=== PATIENT | male | born 1950 | race Caucasian/White ===

== ENCOUNTER 2024-03-27 15:33 | Inpatient (IN) | payer MEDICARE, SELFPAY ==
[2024-03-27] VITALS (36 sets, daily range): BP systolic 81–113; BP diastolic 49–67; BMI 28.5
--- NOTE | 2024-03-27 10:57 | ED.GENMED ---
History of Present Illness
General
Chief Complaint: Abnormal Lab Value
Source: patient
Exam Limitations: none
Time Seen by Provider: 03/27/24 10:45
History of Present Illness
History of Present Illness:
See MDM
Past History
Past History
ED Past Medical History: Arrthythmia, HTN and Other (ESRD)
ED Past Surgical History: Cardiac and Orthopedic
Social History
Tobacco: Non-smoker
Alcohol: None
Phy Exam
Physical Exam
Physical Exam:
See MDM
Course
Orders/Labs/Results
Orders:
Orders
03/27/24 10:51
Pantoprazole 80 mg/100 ml Nss [Protonix] 80 mg in 100 ml IV NOW
Pantoprazole [Protonix IV] 80 mg IV NOW STA
03/27/24 10:52
IV Insert/Care/Rem.- Treatment PRN
03/27/24 10:58
CR Chest Portable - 1 View Urgent
Comment:
Reason For Exam: SOB, ESRD
Reason Study Needs to be Portable: Patient Unstable
03/27/24 10:59
Type+Screen Urgent
Complete Blood Count/With Diff Urgent
Comprehensive Metabolic Panel Urgent
PTT Urgent
Prothrombin Time Urgent
03/27/24 11:48
* Blood Bank Products Urgent
's Orders: Tristian Woo DO
Blood Bank Products: *Packed RBC Leuko(PRBC's)
Quantity: 1
Transfuse Today: Yes
Reason: Anemia
03/27/24 12:08
Morphine Sulfate 4 mg IV NOW STA
03/27/24 12:12
Furosemide [Lasix] 80 mg IV NOW STA
HYDROmorphone [Dilaudid] 1 mg IV NOW STA
03/27/24 12:13
Consult Nephrology [NEPHROLOGY CONSULT] Routine
Consulting Provider: Daryl Huerta
Was physician already notified: Yes
Abnormal Lab Results
03/27/24
10:59
WBC 12.5 H 10^3/uL
(4.8-10.8)
RBC 2.39 L 10^6/uL
(4.70-6.10)
Hgb 6.8 L* g/dL
(13.0-18.0)
Hct 21.8 L %
(39.0-52.0)
MCHC 31.2 L g/dL
(33.0-37.0)
RDW 18.0 H %
(11.5-14.5)
Abs Immat Gran (auto) 0.2 H 10^3/uL
(0-0.05)
Absolute Neuts (auto) 10.5 H 10^3/uL
(1.4-6.5)
Absolute Lymphs (auto) 0.4 L 10^3/uL
(1.2-3.4)
Absolute Monos (auto) 1.0 H 10^3/uL
(0.1-0.6)
Immature Gran % 1.6 H %
(0-0.5)
Neutrophils % 84.2 H %
(42.2-75.2)
Lymphocytes % 3.4 L %
(20.5-51.1)
PT 16.2 H Sec
(11.4-14.6)
APTT 41.3 H Sec
(23.4-35.0)
Sodium 133 L mmol/L
(135-145)
Chloride 94 L mmol/L
(98-107)
BUN 56 H mg/dl
(9-20)
Creatinine 6.5 H* mg/dL
(0.7-1.3)
Glucose 108 H mg/dl
(70-99)
Alkaline Phosphatase 127 H U/L
(38-126)
Total Protein 6.0 L g/dl
(6.3-8.2)
Albumin 2.9 L g/dl
(3.5-5.0)
03/27/24 10:59
03/27/24 10:59
Vital Signs
Initial and Last Documented VS:
Initial Vital Signs
Temp Pulse Resp BP Pulse Ox
97.8 F 77 30 98/57 95
03/27/24 10:44 03/27/24 10:44 03/27/24 10:44 03/27/24 10:44 03/27/24 10:44
Last Documented Vital Signs
Temp Pulse Resp BP Pulse Ox
97.8 F 77 26 98/57 95
03/27/24 11:14 03/27/24 11:14 03/27/24 11:14 03/27/24 11:14 03/27/24 11:14
MDM/Problems Addressed
Differential Diagnosis Includes:
HPI and MDM Narrative:
73-year-old male presenting for evaluation of anemia. Patient was due for dialysis today and predialysis blood work showed a hemoglobin of 6.5. Patient is unsure about his baseline. He states he had a history of 'internal bleeding' last month at
[facility]. He denies being on blood thinners and states he had a Watchman procedure done. Patient states his last dialysis was Monday. He complains of shortness of breath and leg swelling. Rectal exam performed showing melanotic stool that is
guaiac positive. Patient started on a PPI drip. He was consented for blood transfusion
Physical exam
General: Weak and frail
HEENT: protecting airway
Neck: appears supple
CV: No evidence of cyanosis
Resp: No accessory muscle use. Poor air exchange. Questional crackles at bases
Abd: Non-distended
Extremities: Left arm fistula with palpable thrill
Neuro: alert
Psych: Normal affect
Skin: Pale
Problems Addressed including Acute and Chronic Conditions affecting care:
1. Upper GI bleed
Acuity: acute
Prognosis: unstable
Details: Given the melanotic stool, patient started on PPI drip
2. Anemia
Acuity: acute
Prognosis: un will repeat hemoglobin. Patient already consented for blood transfusion stable
Details:
Updates
Anemia confirmed with blood work. Patient consented for 1 unit of packed red blood cells. Chest x-ray concerning for pulmonary edema. Patient states he takes urine and is on Lasix. Will give dose of Lasix. Nephrology made aware
Differential Diagnosis (but not limited to): Upper GI bleeding, pulmonary edema
Testing considered: CT angio abdomen/pelvis but the bleeding does not appear to be brisk enough. He denies abdominal pain
Drug therapy (if applicable): OTC meds, please see d/c instruction regarding Rx drugs
Amount and/or Complexity of Data Reviewed
Clinical info obtained from: Patient
External data reviewed: N/A
Labs I independently reviewed (but not limited to): Anemic, elevated creatinine
Radiology: X-ray independently reviewed: Chest x-ray consistent with pulmonary edema
Pulse Ox: not hypoxic
EKG independently reviewed: N/A
Chain Maker Machine: N/A
Critical Care: the high probability of a clinically significant, sudden or life threatening deterioration of the cardiovascular and gastrointestinal system(s) required my full and direct attention, intervention and personal management. The
aggregate critical care time was 33 minutes. This time is in addition to time spent performing reported procedures but includes the following:
[x] Data Review and interpretation
[x] Patient assessment and monitoring of vital signs
[x] Documentation
[x] Medication orders and management
Risk of Complication:
Social Determinants of health: Good social support
Discussed with other providers: Hospitalist, nephrology
Escalation of Care includes Admit/Obs: Given the concern for upper GI bleeding and pulmonary edema, will admit for hemoglobin trending and dialysis
Occasional wrong word or 'sound a like' substitutions may have occurred due to the inherent limitations of voice recognition software. Read the chart carefully and recognize, using context, where substitutions have occurred.
*Critical Care Note
Total Time (30-74mins, 75-104mins- exclusive of procedures): 33 min
ED Attending Note
-
Portions of this chart may have been created with voice recognition software.� Occasional wrong word or��sound alike� substitutions may have occurred due to the inherent limitations of voice recognition software.
Discharge Plan
Departure
Patient Disposition: Admit
Date of Disposition: 03/27/24
Time of Disposition: 12:17
Admit to: Telemetry
Presentation/result/management discussed w/ accepting MD/DO: Hospitalist
Discharge Problem:
Pulmonary edema, UGIB (upper gastrointestinal bleed), Anemia, CKD (chronic kidney disease)
Prescriptions:
No Action
atorvastatin [Lipitor] 40 mg Tablet
40 mg PO HS
sennosides [senna] 8.6 mg Tablet
17.2 mg PO HS
acetaminophen [Tylenol] 325 mg Tablet
650 mg PO Q6HPRN PRN (Reason: mild pain)
amiodarone 200 mg Tablet
200 mg PO DAILY
omeprazole 40 mg Capsule,Delayed Release(Dr/Ec)
40 mg PO BID
acetaminophen [Tylenol Extra Strength] 500 mg Tablet
1,000 mg PO Q8H
magnesium hydroxide [Milk of Magnesia] 400 mg/5 mL Suspension
2,400 mg PO HSPRN PRN (Reason: if no bm on 3rd)
repaglinide 0.5 mg Tablet
0.5 mg PO NOON
furosemide [Lasix] 80 mg Tablet
80 mg PO DAILY
bisacodyl [Dulcolax (bisacodyl)] 10 mg Suppository
10 mg [place] DAILYPRN PRN (Reason: if no bm aftr mom)
ferrous sulfate 325 mg (65 mg iron) Tablet
325 mg PO DAILY
mupirocin 2 % Ointment
1 applic TOPICAL TID
mupirocin 2 % Ointment
1 applic TOPICAL DAILYPRN PRN (Reason: right elbow wound)
ergocalciferol (vitamin D2) 1,250 mcg (50,000 unit) Capsule
1,250 mcg PO RAO
[place] Caps 1 mg Capsule
1 cap PO DAILY
albuterol sulfate [ProAir HFA] 90 mcg/actuation Hfa Aerosol Inhaler
2 puff INHALATION R Q6HPRN PRN (Reason: sob)
amoxicillin-pot clavulanate [Augmentin] 500-125 mg Tablet
1 tab PO BID
Rx Instructions:
take from 03/22/24-03/28/24
melatonin 5 mg Tablet
10 mg PO HS
rifaximin 550 mg Tablet
550 mg PO BID
lactulose 10 gram/15 mL (15 mL) Solution
15 g PO BID
Referrals:
Luis A Momin MD [Family Provider] -
Interventions
Interventions:
*Risk Screen - Suicide Last Done: 03/27/24 10:44
*General Assessment Last Done: 03/27/24 10:44
*Neglect/Abuse Screening Last Done: 03/27/24 10:44
Discharge Date and Time
Print Language: BENGALI
[2024-03-27 11:21] LABS: PT 16.2 Sec (11.4-14.6)
[2024-03-27] MEDS: PROTONIX IV 80 MG IV (11:21)
[2024-03-27] MEDS: PROTONIX 100 IV (11:21)
[2024-03-27 11:22] LABS: APTT 41.3 Sec (23.4-35.0)
[2024-03-27 11:42] LABS: % Basophils 0.4 % (0-2); % Eosinophils 2.3 % (0-6); % Immature Granulocytes 1.6 % (0-0.5); % Lymphocytes 3.4 % (20.5-51.1); % Monocytes 8.1 % (1.7-9.3); % Neutrophils 84.2 % (42.2-75.2); Absolute Basophils 0.1 10^3/uL (0-0.2); Absolute Eosinophils 0.3 10^3/uL (0-0.7); Absolute Immature Granulocytes 0.2 10^3/uL (0-0.05); Absolute Lymphocytes 0.4 10^3/uL (1.2-3.4); Absolute Neutrophils 10.5 10^3/uL (1.4-6.5); Hematocrit 21.8 % (39.0-52.0); Hemoglobin 6.8 g/dL (13.0-18.0); Mean Corp Hgb Conc. 31.2 g/dL (33.0-37.0); Mean Corpuscular Hgb 28.5 pg (27.0-31.0); Mean Corpuscular Volume 91.2 fL (80.0-94.0); Mean Platelet Volume 8.6 fL (7.4-10.4); Nucleated Red Blood Cells % 0 % (-); Platelet Count 241 10^3/uL (130-400); Red Blood Cell Count 2.39 10^6/uL (4.70-6.10); White Blood Cell Count 12.5 10^3/uL (4.8-10.8)
[2024-03-27 11:48] LABS: ALT (SGPT) 15 U/L (0-50); AST (SGOT) 24 U/L (17-59); Albumin 2.9 g/dl (3.5-5.0); Alkaline Phosphatase 127 U/L (38-126); Blood Urea Nitrogen 56 mg/dl (9-20); Calcium 8.7 mg/dl (8.4-10.2); Carbon Dioxide 28 mmol/L (22-30); Chloride 94 mmol/L (98-107); Estimated Creatinine Clearance 12 ml/min; Glucose 108 mg/dl (70-99); Sodium 133 mmol/L (135-145); Total Bilirubin 1.1 mg/dl (0.2-1.3); eGFR 8.41
[2024-03-27 11:54] LABS: Potassium 3.6 mmol/L (3.5-5.1)
[2024-03-27] MEDS: DILAUDID 1 MG IV (12:19)
--- NOTE | 2024-03-27 13:00 | CM ---
Shagufta from ER front office director asked if CM could talk with patient's brother, Rafi, in waiting room.
Rafi wanted to make sure he and his brother's names and numbers were placed in patient's chart.
Rafi was very adamant that if ANYTHING happens overnight, he would like to be called and updated.
Rafi Baker: [phone]
Raman Baker: [phone] (lives in [place])
--- NOTE | 2024-03-27 13:06 | W.CON.NEPH ---
Consultation
-
Date/Time Consultation Requested: March 27, 2024 12 noon
Date/Time Consultation Performed: March 27, 2024 1 PM
Requesting Provider: Dr. Hinds
Performing Provider: Dr. Huerta
Reason for Consultation: ESRD
Medical History
-
Chief Complaint: Anemia
History of Present Illness:
This is a 73-year-old gentleman who has recently been transferred to [facility] for rehabilitation after a fall which resulted in several rib fractures. He does have ESRD on dialysis Wednesdays and Fridays. He had previously dialyzed at
a [facility] unit in the city. The cause of his renal failure is uncertain though he says that he developed CKD after a mitral valve repair almost 2 decades ago. He says that prior to his admission for his fall he did have significant anemia which
she says was due to an internal bleeding source. He underwent EGD which had shown esophagitis as well as colonoscopy and then subsequent capsule study which had shown 4 areas of bleeding. He is not certain what was done but he says that he
believes they had corrected the issue. He was at dialysis today but was not dialyzed because blood work had shown a hemoglobin of 6.5 and he was sent to the emergency room for this. He was noted to be hypotensive in the emergency room at 95
systolic.
Past Medical History
ESRD
Hypertension
Hyperlipidemia
Anemia
Left upper extremity AV fistula
Mitral valve repair
Left knee replacement
Right knee medial meniscectomy
Diabetes mellitus type 2
Social History
Tobacco: Non-Smoker
Alcohol: None
Family History
No CKD
Allergies / Home Medications
Allergy/AdvReac Type Severity Reaction Status Date / Time
gabapentin Allergy Unknown Verified 03/27/24 10:43
oxycodone [From OxyContin] Allergy Unknown Verified 03/27/24 10:43
�Medication �Instructions �Recorded �Confirmed �Type
acetaminophen 325 mg tablet 650 mg PO Q6HPRN PRN mild pain 03/27/24 03/27/24 History
(Tylenol)
acetaminophen 500 mg tablet 1,000 mg PO Q8 Pain 03/27/24 03/27/24 History
(Tylenol Extra Strength)
albuterol sulfate 90 mcg/actuation 2 puff inhalation R Q6HPRN PRN sob 03/27/24 03/27/24 History
aerosol inhaler
amiodarone 200 mg tablet 200 mg PO DAILY Arrhythmia 03/27/24 03/27/24 History
amoxicillin 500 mg-potassium 1 tab PO BID Infection 03/27/24 03/27/24 History
clavulanate 125 mg tablet
(Augmentin)
atorvastatin 40 mg tablet (Lipitor) 40 mg PO HS High Cholesterol 03/27/24 03/27/24 History
bisacodyl 10 mg rectal suppository 10 mg [place] DAILYPRN PRN if no bm 03/27/24 03/27/24 History
(Dulcolax (bisacodyl)) aftr mom
ergocalciferol (vitamin D2) 1,250 1,250 mcg PO RAO Supplement 03/27/24 03/27/24 History
mcg (50,000 unit) capsule
ferrous sulfate 325 mg (65 mg 325 mg PO DAILY anemia 03/27/24 03/27/24 History
iron) tablet
furosemide 80 mg tablet (Lasix) 80 mg PO DAILY Kidney Disease 03/27/24 03/27/24 History
lactulose 10 gram/15 mL (15 mL) 15 g PO BID Gastrointestinal Issue 03/27/24 03/27/24 History
oral solution
magnesium hydroxide 400 mg/5 mL 2,400 mg PO HSPRN PRN if no bm on 03/27/24 03/27/24 History
oral suspension (Milk of Magnesia) 3rd
melatonin 5 mg tablet 10 mg PO HS Supplement 03/27/24 03/27/24 History
mupirocin 2 % topical ointment 1 applic topical DAILYPRN PRN 03/27/24 03/27/24 History
right elbow wound
mupirocin 2 % topical ointment 1 applic topical TID right elbow 03/27/24 03/27/24 History
omeprazole 40 mg capsule,delayed 40 mg PO BID Gastrointestinal Issue 03/27/24 03/27/24 History
release
repaglinide 0.5 mg tablet 0.5 mg PO NOON Diabetes 03/27/24 03/27/24 History
rifaximin 550 mg tablet 550 mg PO BID Liver Issues 03/27/24 03/27/24 History
sennosides 8.6 mg tablet (senna) 17.2 mg PO HS Constipation 03/27/24 03/27/24 History
vitamin B complex and vitamin C 1 cap PO DAILY Supplement 03/27/24 03/27/24 History
no.20-folic acid 1 mg capsule
([place] Caps)
Review of Systems
-
No chest pain or shortness of breath.
He does report darker stools
No lightheadedness
All other systems: Negative unless noted
Physical Exam
Vital Signs
Vital Signs
Temp Pulse Resp BP Pulse Ox
98.0 F 69 17 95/58 95
03/27/24 12:45 03/27/24 12:45 03/27/24 12:45 03/27/24 12:21 03/27/24 11:14
Lab Results
WBC 12.5 10^3/uL (4.8-10.8) H 03/27/24 10:59
RBC 2.39 10^6/uL (4.70-6.10) L 03/27/24 10:59
Hgb 6.8 g/dL (13.0-18.0) L* 03/27/24 10:59
Hct 21.8 % (39.0-52.0) L 03/27/24 10:59
Plt Count 241 10^3/uL (130-400) 03/27/24 10:59
Sodium 133 mmol/L (135-145) L 03/27/24 10:59
Potassium 3.6 mmol/L (3.5-5.1) 03/27/24 10:59
Chloride 94 mmol/L (98-107) L 03/27/24 10:59
Carbon Dioxide 28 mmol/L (22-30) 03/27/24 10:59
BUN 56 mg/dl (9-20) H 03/27/24 10:59
Creatinine 6.5 mg/dL (0.7-1.3) H* 03/27/24 10:59
eGFR 8.41 03/27/24 10:59
Glucose 108 mg/dl (70-99) H 03/27/24 10:59
Calcium 8.7 mg/dl (8.4-10.2) 03/27/24 10:59
Albumin 2.9 g/dl (3.5-5.0) L 03/27/24 10:59
Physical Exam
Patient is awake alert oriented and in no distress. Mood and affect were pleasant, insight and judgment were good. Pupils are equal round and reactive to light, extraocular movements are intact, sclera were anicteric. Hearing was normal, ears and
nose are intact. Oropharynx was clear. Neck was supple with trachea midline and no thyromegaly. Heart was regular rate and rhythm without rubs. Lower extremities with 2+ edema. Lungs were clear to auscultation bilaterally and with normal
excursion. Abdomen was soft, nontender, with normal active bowel sounds, and no hepatosplenomegaly. Skin was with scaly erythema on the lower legs bilaterally and with normal turgor.
AV fistula in the left upper arm was with good thrill and bruit
Data Reviewed
-
Radiology: Image Personally Visualized and interpreted (Chest x-ray on March 27, 2024 by my reading shows low lung volumes, vascular fullness)
Labs: Labs Reviewed by me (WBC 12.5, hemoglobin 6.8, platelet 241, INR 1.3, sodium 133, potassium 3.6, bicarbonate 28, BUN 56, creatinine 6.5)
Assessment/Plan
-
Assessment
ESRD
Acute anemia
Possible history of diverticulosis/AVM
Hypotension
Mitral valve repair
Diabetes mellitus type 2
Leukocytosis
Plan
Transfuse packed red blood cells as needed
Dialysis today, transfusions may be done on dialysis
Holding blood pressure medications
Follow hemoglobin
Check EKG
[2024-03-27] MEDS: LASIX 80 MG IV (13:20)
--- NOTE | 2024-03-27 15:34 | HPS.HSE ---
Addendum entered and electronically signed by Henrry Rao MD 03/27/24 18:17:
73-year-old male with end-stage renal disease came to the hospital because of low hemoglobin. He had a fall 2 weeks ago and was seen at [facility] for 4 rib fractures and sent him to rehab. Patient has been on dialysis for the past several
years.
Seen earlier. Late documentation
I personally performed a history and physical exam of the patient and discussed management with the resident. I reviewed the resident's note and agree with the documented findings and plan of care HPI/CC. Plan formulated together with the resident
On examination he was seated in the chair.
Awake alert
Cardiovascular system S1-S2 appreciated, short systolic murmur at apex and right heart border
Abdomen slightly distended
Right hip-edema likely hematoma related from recent fall
Bilateral lower extremity erythematous rash all the way until the thigh on the medial aspect
4+ pitting edema bilaterally
Elbow ulcer
Admit to stepdown
Urgent dialysis
Transfuse 2 units
Anasarca-fluid removal may be difficult with hypoalbuminemia and liver disease
Watch for hypotension
Sleep apnea- Non Complaint with CPAP
Antibiotics after blood cultures to treat cellulitis of lower extremities
Check echo-patient has heart failure unspecified
EKG ordered to check heart rhythm with history of A-fib
Patient is not on anticoagulants
X-ray of the elbow as well as right hip
Incentive spirometry
Nephrology and infectious disease consultations
Spoke to brother and updated
Over all prognosis poor
Time spent over 75 minutes
Original Note:
Family Physician
-
Family Physician: Luis A Momin
Chief Complaint
-
Low Hemoglobin/anemia
History of Present Illness
73-year-old male known with known history of end-stage renal disease, currently on dialysis M/W/F presented to the emergency department after he was found to have hemoglobin of 6.5 before today's scheduled dialysis session. He noted that he was in
rehab after a fall and fracturing 4 ribs. He reported to have mitral valve repair 20 years ago and he had complication during post-op and found to have NIRALI and eventually CKD, he has been on dialysis since then.
Patient reports he had similar symptoms and abnormal labs couple months ago and he was found to have internal bleeding after endoscopy, colonoscopy and capsule study. He is not aware of any procedures performed for GI bleed at that time however, he
he states they fixed the bleeding
Medical History
Past Medical History
Past Medical History: Reports HTN and Hypercholesterolemia
Additional Past Medical History:
Diabetes type 2
End-stage renal disease
Chronic anemia
Past Surgical History: Reports Orthopedic
Additional Past Surgical History:
Left upper extremity AV fistula
Left knee replacement
Hip replacement
Mitral valve repair
Right knee meniscectomy
Social History
Tobacco: Non-smoker
Alcohol: None
Drug: None
Family History
Family History: Not pertinent
Allergies / Home Medications
Allergy/Medication List:
Allergies
Allergy/AdvReac Type Severity Reaction Status Date / Time
gabapentin Allergy Unknown Verified 03/27/24 10:43
oxycodone [From OxyContin] Allergy Unknown Verified 03/27/24 10:43
Home Medications
acetaminophen 325 mg tablet (Tylenol) 650 mg PO Q6HPRN PRN mild pain 03/27/24
acetaminophen 500 mg tablet (Tylenol Extra Strength) 1,000 mg PO Q8 Pain 03/27/24
albuterol sulfate 90 mcg/actuation aerosol inhaler 2 puff inhalation R Q6HPRN PRN sob 03/27/24
amiodarone 200 mg tablet 200 mg PO DAILY Arrhythmia 03/27/24
amoxicillin 500 mg-potassium clavulanate 125 mg tablet (Augmentin) 1 tab PO BID Infection 03/27/24
atorvastatin 40 mg tablet (Lipitor) 40 mg PO HS High Cholesterol 03/27/24
bisacodyl 10 mg rectal suppository (Dulcolax (bisacodyl)) 10 mg [place] DAILYPRN PRN if no bm aftr mom 03/27/24
ergocalciferol (vitamin D2) 1,250 mcg (50,000 unit) capsule 1,250 mcg PO RAO Supplement 03/27/24
ferrous sulfate 325 mg (65 mg iron) tablet 325 mg PO DAILY anemia 03/27/24
furosemide 80 mg tablet (Lasix) 80 mg PO DAILY Kidney Disease 03/27/24
lactulose 10 gram/15 mL (15 mL) oral solution 15 g PO BID Gastrointestinal Issue 03/27/24
magnesium hydroxide 400 mg/5 mL oral suspension (Milk of Magnesia) 2,400 mg PO HSPRN PRN if no bm on 3rd 03/27/24
melatonin 5 mg tablet 10 mg PO HS Supplement 03/27/24
mupirocin 2 % topical ointment 1 applic topical DAILYPRN PRN right elbow wound 03/27/24
mupirocin 2 % topical ointment 1 applic topical TID right elbow 03/27/24
omeprazole 40 mg capsule,delayed release 40 mg PO BID Gastrointestinal Issue 03/27/24
repaglinide 0.5 mg tablet 0.5 mg PO NOON Diabetes 03/27/24
rifaximin 550 mg tablet 550 mg PO BID Liver Issues 03/27/24
sennosides 8.6 mg tablet (senna) 17.2 mg PO HS Constipation 03/27/24
vitamin B complex and vitamin C no.20-folic acid 1 mg capsule ([place] Caps) 1 cap PO DAILY Supplement 03/27/24
Review of Systems
-
Constitutional: Denies Fever
EENT: Denies Sore Throat
Respiratory: Denies Cough
Cardiac: Denies Chest Pain
Abdomen/GI: Denies Abdominal Pain
: Denies Flank Pain
Musculoskeletal: Denies Joint Pain
Skin: Reports Rash
Neurological: Denies Headache
Endocrine: Reports See HPI
Hematologic/Lymphatic: Denies Bleeding
Psych: Reports Calm
Physical Exam
Vital Signs
Vital Signs
Temp Pulse Resp BP Pulse Ox
98.7 F 76 22 98/62 99
03/27/24 14:20 03/27/24 15:00 03/27/24 15:00 03/27/24 15:00 03/27/24 14:20
Physical Exam
General: Well Developed and Well Nourished
HEENT: NormoCephalic
Respiratory: Clear
Cardiac: S1/S2 and Regular Rhythm
GI: Soft and Non Tender
Musculoskeletal: Edema, Left Lower Extremity and Edema, Right Lower Extremity
Skin: Other (scaly erythema on the lower legs bilaterally)
Neuro: Awake, Alert and Oriented
Psych: Calm
Laboratory Results
-
03/27/24 10:59
03/27/24 10:59
Laboratory Results
PT 16.2 Sec (11.4-14.6) H 03/27/24 10:59
INR 1.30 03/27/24 10:59
APTT 41.3 Sec (23.4-35.0) H 03/27/24 10:59
Total Bilirubin 1.1 mg/dl (0.2-1.3) 03/27/24 10:59
AST 24 U/L (17-59) 03/27/24 10:59
ALT 15 U/L (0-50) 03/27/24 10:59
Alkaline Phosphatase 127 U/L (38-126) H 03/27/24 10:59
Data Reviewed
-
Diagnostic Radiology: Report Reviewed by me, Discussed with Physician and Discussed with Patient
Lab Data: Labs Reviewed by me, Discussed with Physician and Discussed with Patient
Impression/Plan
-
#Acute anemia in CKD
Hematoma on right thigh vs GI bleed vs Anemia of chronic disease
- Hb 6.8
- 2 bag PRBC
- Repeat labs to check hb in the AM
# cellulitis
- BC X2 pending
- IV vanco/cefepime
#ESRD
- on regular dialysis M//-
- Left UE dialysis access
- Cr 03/27 6.5
- Nephro input appreciated
- Dialysis planned for today
#Anasarca
- 2/2 to hypoalbuminemia or chronic liver disease
- diuresis as tolerated - may be difficult with intravascular low oncotic pressure
# Pulmonary Edema
- CXR - suspicious for mild to moderate pulmonary edema. Questionable tiny left pleural effusion.
- 1 dose of lasix 80mg in ER
# Mild hyponatremia
likely hypervolemic
- continue lasix and dilaysis
- monitor with repeat labs in the AM
# Recent fall with traumatic rib fx- 4
- incentive spirometer
# Chronic A-fib- not on OAC unclear reason- continue amiodarone
# Aortic aneurysm
# Atherosclerosis/hyperlipidemia- continue statin
# COPD
# Chronic liver disease- unclear reason- continue rifaximin and lactulose
# Congestive heart failure- type unclear
# h/o Mitral valve repair
# Diabetes mellitus type 2- accu check on sliding scale coverage- continue repaglinide
# GERD- continue PPI
# JESUS
# Obesity
DVT Prophylaxis:
Code: Full Code
--- NOTE | 2024-03-27 17:01 | CON.ID ---
Consultation
-
Date/Time Consultation Requested: 03/27/24 17:12
Date/Time Consultation Performed: 03/27/24 17:34
Requesting Provider: Dr Rao
Performing Provider: Dr Vela
Reason for Consultation: lower extremity cellulitis
Chief Complaint / Past History
Chief Complaint
sent in for anemia
History of Present Illness
Mr Blanco is a 73 year old male with history of ESRD on HD via a L arm AVF. He suffered a fall with rib fractures and has been undergoing HD at [facility]. Unknown cause of renal failure. He reports diffuse, generalized pain in both muscles
are joints since the fall. There is a new, nonblanching, pusutlar rash on the bilateral thighs which he reports is tender and that he has not seen in before this AM. No fevers, chills, headache, sinus tenderness, cough, sputum production, nausea,
vomiting, diarrhea constipation. He has never had a vascular graft infection or been told he was bacteremic. He has been at [facility] and denies any new sexual contacts for several months, denies ever paying for sex or having an STI. Denies any tick
bites comments he usually spends time indoors. Of note home medications include augmentin, lasix, lactulose, rifaxamin. No antiplatelets on the med reconciliation. He additionally has a deep on wound the R lateral arm a bit superior to the elbow
without surrounding erythema, warmth. There is hematoma in the wound. No odor. Has been getting wound care at [facility]
Since arrival here he has been afebrile, persistently hypotensive, there is wbc 12.5, hgb 6.8, plt 241, L shift is noted, eos are present, PT 16.2, inr 1.3, ptt 41, na 133, cr 6.5, k 3.6, t bili 1.1, ast 24, alt 15, alk phos 127, CXR with pulmonary
edema, no blood cultures ordered yet, patient currently starting on vancomycin and cefepime, ID is consulted for assistance with management.
Past History
Additional Past Medical History:
Diabetes type 2
End-stage renal disease
Chronic anemia
Additional Past Surgical History:
eft upper extremity AV fistula
Left knee replacement
Hip replacement
Mitral valve repair
Right knee meniscectomy
Allergy History:
gabapentin Allergy (Verified 03/27/24 10:43)
Unknown
oxycodone [From OxyContin] Allergy (Verified 03/27/24 10:43)
Unknown
Medications Reviewed: Yes
Social History
Tobacco: Non-Smoker
Alcohol: None
Drug: None
Family History
Family History: Not Pertinent
Review of Systems
Review of Systems
General: Negative Fever or Chills
All systems: All other systems were reviewed and were negative
Vital Signs
Temp Pulse Resp BP Pulse Ox
98.7 F 68 17 81/50 99
03/27/24 14:20 03/27/24 16:30 03/27/24 16:30 03/27/24 16:00 03/27/24 14:20
Physical Exam
Physical Exam
Constitutional: No Acute Distress, Chronically Ill and Non-toxic
Cardiovascular: Regular Rate and S1/S2; Negative Murmur or Rub
Pulmonary: Clear and Symmetric; Negative Wheezes, Rales or Rhonchi
Gastrointestinal: Soft, Non Tender, Non Distended and Normal Bowel Sounds
Skin: Warm, Dry and Rash (nonblanching, palpable raised rash with purulence and some bullae with cloudy nonbloody fluid; petechiae on the forearms); Negative Jaundice
Neurological: Awake
Lab / Diagnostic Study Results
03/27/24 10:59
03/27/24 10:59
Abs Immat Gran (auto) 0.2 10^3/uL (0-0.05) H 03/27/24 10:59
Absolute Neuts (auto) 10.5 10^3/uL (1.4-6.5) H 03/27/24 10:59
Absolute Lymphs (auto) 0.4 10^3/uL (1.2-3.4) L 03/27/24 10:59
Absolute Monos (auto) 1.0 10^3/uL (0.1-0.6) H 03/27/24 10:59
Absolute Basos (auto) 0.1 10^3/uL (0-0.2) 03/27/24 10:59
Immature Gran % 1.6 % (0-0.5) H 03/27/24 10:59
Neutrophils % 84.2 % (42.2-75.2) H 03/27/24 10:59
Lymphocytes % 3.4 % (20.5-51.1) L 03/27/24 10:59
Monocytes % 8.1 % (1.7-9.3) 03/27/24 10:59
Eosinophils % 2.3 % (0-6) 03/27/24 10:59
Basophils % 0.4 % (0-2) 03/27/24 10:59
PT 16.2 Sec (11.4-14.6) H 03/27/24 10:59
INR 1.30 03/27/24 10:59
Assessment / Plan
Disseminated purpuric rash
Shock
Suspected cirrhosis
- multiple raised, nonblanching purulent lesions on the bilateral thighs, petechia on the posterior arm - possible disseminated infection, also note chronic lichenification of the distal with minimal erythroderma which is likely chronic and not
contributing to current presentation. Additionally Im concerned by the deep wound on the lateral right arm - it does not probe to bone at this time. The fistula is functional and patient reports he has not been missing HD
- based on medication reconciliation (lactulose, lasix, rifaximin) and exam anasarca I suspect patient is cirrhotic however he denies this history 'people keep saying I have liver trouble, but I dont' No records were available on the paper chart or
scanned in at the time of this evaluation - they may have been sent to medical records to be scanned in. If not available by tomorrow AM then they will need to be requested
- blood cultures x2
- plan TTE tomorrow
- Xray of the Right elbow to assess for evidence of osteomyelitis associated with the wound
- patient is starting HD now, fistulae appears functional at this time, will follow up HD report
- Abd US in the AM to assess for ascites
- reports no new sexual partners for several months, no history of STIs, no tick exposures
- start vancomycin, zosyn, doxycycline after blood cultures obtained
Patient is at risk for decompensation and is being monitored on a step down unit.
Care Review
Plan reviewed with: Physician (Dr Rao - purpuric rash)
--- NOTE | 2024-03-27 17:23 | W.PN.NEPH.HD ---
Assessment
-
Seen on HD> no new complaints. VSS, access ok. transfuse on HD>
Progress Note - Hemodialysis
-
Date of Service: March 27, 2024
Duration: 30 minutes and 3 hours
Potassium Bath: 3
Calcium Bath: 2.5
Opti-Dialyzer: 160
Ultrafiltration: Other (2kg)
Blood Flow: 400
Dialysate Flow: 600
Heparin: no
EPO: 32226 units
--- NOTE | 2024-03-27 18:07 | PHA.VAN.IN ---
Assessment
- Assessment
Renal Function: Patient has ESRD, on chronic Hemodialysis
Hemodialysis Schedule: MWF
Concomitant Antimicrobials: piperacillin/tazobactam, doxycycline
Plan
- Plan
Initial / Loading Dose: vanc 1500mg pending administration
Maintenance Regimen: dosing by level/HD
Monitoring: random level 03/28 06
Pharmacokinetics Vancomycin I
- -
Patient Age: 73
Patient Sex: Male
Vancomycin Day #: 1
Indication: Bacteremia
Requesting Provider: Dr. Vela
Pertinent Antimicrobial Allergies:
no pertinent antimicrobial allergies
Height / Weight:
Height 6 ft 3 in
Actual Weight 108.8 kg
Pertinent Past Medical History: ESRD on HD MWF, BMI ~30
- Vital Signs / Lab Results
Temp Pulse Resp BP Pulse Ox
97.6 F 69 16 110/62 99
03/27/24 17:50 03/27/24 17:50 03/27/24 17:50 03/27/24 17:50 03/27/24 14:20
Lab Results - Hematology
03/27/24
10:59
WBC 12.5 H
Lab Results - Chemistry
03/27/24
10:59
BUN 56 H
Creatinine 6.5 H*
Estimated Creat Clear 12
Albumin 2.9 L
--- NOTE | 2024-03-27 18:15 | PTCARENOTE ---
Patient received from rn night. Patient was pulled over to room bed. MARCOS GRANADOS. Awaiting HD. Admission questions done. Oriented to room. Labs drawn as ordered. Wounds noted and documented, see charting. Cellulitis B/L lower extremities,
pustular rash inner B/L thigh, MASD to buttock, and large golf ball sized wound on right outer elbow with some undermining from apparent fall cleansed with saline and redressed. Wound consult ordered. Call robin in reach.
[2024-03-27] MEDS: TYLENOL PO (18:30)
[2024-03-27] MEDS: BACTROBAN 2% OINTMENT TOPICAL (18:30)
[2024-03-27] MEDS: RETACRIT 10000 UNITS IV (19:25)
[2024-03-27] MEDS: VANCOCIN 300 ML IV (19:35)
[2024-03-27] MEDS: VANCOCIN 300 MG IV (19:35)
[2024-03-27] MEDS: XIFAXAN 550 MG PO (20:12)
[2024-03-27] MEDS: VIBRAMYCIN 100 MG PO (20:12)
[2024-03-27] MEDS: ZOSYN 50 IV (20:15)
[2024-03-27] MEDS: PROTONIX IV 40 MG IV (20:15)
[2024-03-27] MEDS: NSS (PRESERVATIVE FREE) 10 ML IV (20:15)
[2024-03-27] MEDS: DUPHALAC/CHRONULAC PO (20:24)
--- NOTE | 2024-03-27 20:48 | PTCARENOTE ---
Pt received from balbina RN. Pt currently getting dialysis with golf cart maker. Pt AAO, making needs known. Pt 99% on RA. NSR on monitor, generalized anasarca. Abdomen round non tender. Denies any further needs at this time, call light in reach.
[2024-03-27] MEDS: LIPITOR 40 MG PO (22:26)
[2024-03-27] MEDS: MELATONIN 10 MG PO (22:26)
[2024-03-28] VITALS (23 sets, daily range): BP systolic 86–104; BP diastolic 44–64; PULSE 66–69; O2SAT 97; BMI 28.5
[2024-03-28] MEDS: TYLENOL 1000 MG PO ×3 (02:26→17:12)
[2024-03-28] MEDS: BACTROBAN 2% OINTMENT 1 APPLIC TOPICAL ×2 (02:28→09:55)
[2024-03-28] MEDS: ZOSYN 50 IV ×3 (04:41→20:38)
[2024-03-28 05:02] LABS: % Basophils 0.4 % (0-2); % Eosinophils 2.3 % (0-6); % Immature Granulocytes 1.7 % (0-0.5); % Lymphocytes 4.5 % (20.5-51.1); % Monocytes 8.5 % (1.7-9.3); % Neutrophils 82.6 % (42.2-75.2); Absolute Basophils 0.1 10^3/uL (0-0.2); Absolute Eosinophils 0.3 10^3/uL (0-0.7); Absolute Immature Granulocytes 0.2 10^3/uL (0-0.05); Absolute Lymphocytes 0.6 10^3/uL (1.2-3.4); Absolute Monocytes 1.1 10^3/uL (0.1-0.6); Absolute Neutrophils 10.9 10^3/uL (1.4-6.5); Hematocrit 23.8 % (39.0-52.0); Hemoglobin 7.4 g/dL (13.0-18.0); Mean Corp Hgb Conc. 31.1 g/dL (33.0-37.0); Mean Corpuscular Hgb 27.7 pg (27.0-31.0); Mean Corpuscular Volume 89.1 fL (80.0-94.0); Mean Platelet Volume 8.2 fL (7.4-10.4); Nucleated Red Blood Cells % 0 % (-); Platelet Count 209 10^3/uL (130-400); Red Blood Cell Count 2.67 10^6/uL (4.70-6.10); Red Cell Dist. Width 18.4 % (11.5-14.5); White Blood Cell Count 13.2 10^3/uL (4.8-10.8)
[2024-03-28 05:08] LABS: Fibrinogen 503 MG/DL (199-459)
[2024-03-28 05:17] LABS: D-Dimer 17.11 ug/mlFEU (0.00-0.50)
[2024-03-28 05:27] LABS: ALT (SGPT) 14 U/L (0-50); AST (SGOT) 30 U/L (17-59); Albumin 2.8 g/dl (3.5-5.0); Alkaline Phosphatase 105 U/L (38-126); Blood Urea Nitrogen 37 mg/dl (9-20); Calcium 8.5 mg/dl (8.4-10.2); Carbon Dioxide 28 mmol/L (22-30); Chloride 97 mmol/L (98-107); Estimated Creatinine Clearance 19 ml/min; Glucose 94 mg/dl (70-99); Potassium 3.8 mmol/L (3.5-5.1); Sodium 135 mmol/L (135-145); Total Protein 5.9 g/dl (6.3-8.2); eGFR 14.62
[2024-03-28 05:30] LABS: Vancomycin Random 7.7 ug/ml
--- NOTE | 2024-03-28 05:38 | PTCARENOTE ---
Addendum entered by Erika Guthrie RN 03/28/24 07:45:
Pt denies SOB or chest pain, Pt taken down to CT, awaiting results.
Original Note:
Am adan 17.11, LEANN notified. order received for stat chest CT.
--- NOTE | 2024-03-28 06:29 | W.PN.UPDATE ---
Update Note
Progress Note Update
Abnormal D- Dimer result received of 17.11 this am. Denied SOB or chest pain. Chest CT/ PE ordered.
--- NOTE | 2024-03-28 07:08 | W.PN.HOSP.TC ---
Addendum entered and electronically signed by Henrry Rao MD 03/28/24 14:54:
I personally performed a history and physical exam of the patient and discussed management with the resident. I reviewed the resident's note and agree with the documented findings and plan of care HPI/CC. Except for change in documentation
Patient was having pain all over the body but does not want to take oxycodone as he had CO2 retention with this. Not truly allergic
Patient is still having black stools per nursing
On examination awake and alert
Anasarca
Cardiovascular system is most appreciated
Chest decreased breath sounds at bases
From distended nontender
Heme to stools-heme positive
Bilateral lower extremity edema-redness in the skin slightly better
Elbow wound on the right side-deep
Right hip from-suspect organizing hematoma
# Anemia-heme positive stools
Despite 2 units hemoglobin has not appropriately risen.
GI evaluation especially in the light of left atrial appendage thrombus.
Patient states that he had EGD, colonoscopy and capsule study at [place]
Records requested
Follow hemoglobin
If patient getting started on heparin drip will need to watch hemoglobin closely
# Cellulitis bilateral lower extremity
Continue vancomycin Zosyn and doxycycline
Blood cultures and wound culture pending
Continue wound care
# Right thigh/lateral hip hematoma organizing
If blood cultures positive we may need to get a CT-agree with ID
# End-stage renal disease-continue dialysis Monday
# Anasarca
Secondary to liver disease, CHF and also end-stage renal disease
Dialysis and continue Lasix
Will be difficult to remove fluid secondary to hypoalbuminemia
# Pulm edema is secondary to fluid overload
Continue dialysis on Lasix
Check echo
# Abyalsxo-Cyfy-Momci and sliding scale. Continue repaglinide
# History of mitral valve repair
# Chronic heart failure-type unclear-check echo
# Chronic liver disease-cirrhosis per ultrasound-continue Xifaxan and lactulose
# Elevated D-dimer-no PE
# Aortic aneurysm per chart-details unclear
# COPD
# Bilateral lower lobe airspace consolidation-likely secondary atelectasis-continue incentive spirometry
# Chronic atrial fibrillation-on amiodarone. Patient has a Watchman device. However has left appendage thrombus
# Watchman device placed 5 years ago -Now with left atrial appendage with thrombus
# Acute fractures of right second through seventh lateral ribs- Fall 2 weeks ago-IS
# Moderate splenomegaly
# Cholelithiasis
# JESUS
# Obesity
# DVT prophylaxis-start heparin drip
# CODE STATUS-full code
Discussed with GI
Discussed with infectious disease
Discussed with patient's brother at bedside in detail about multiple medical conditions that the patient has. Patient is also aware about multiple medical problems and the complexity of his medical problems.
Discussed with nursing at bedside
Unfortunately the prognosis not good
Time spent over 1 hour
Original Note:
Today's Communication/Plan
-
- continue abx
- wc, bc pending
- consult cardio, GI
Assessment / Plan
Assessment / Plan
#Acute anemia in CKD
Hematoma on right thigh vs GI bleed vs Anemia of chronic disease
- Hb improved to 7.4
- 1 bag PRBC on 03/27/24
- Repeat labs to check hb in the AM
- Heme +
- consult GI
# cellulitis
- IV vanco, zosyn and PO doxy per ID
- WC and BC pending
#ESRD
- on regular dialysis M/W/F-
- Left UE dialysis access
- Cr 03/28 4.1
- Nephro input appreciated
- Dialysis 03/27/24
- low na diet, with FR
#Anasarca
- Suspected Cirrhosis
- 2/2 to hypoalbuminemia or chronic liver disease
- diuresis as tolerated - may be difficult with intravascular low oncotic pressure
- ABD US showed Small amount of perihepatic ascites, Nodular contour of the liver surface, suggestive of cirrhosis, Cholelithiasis without evidence of acute cholecystitis.
# Pulmonary Edema
- CXR - suspicious for mild to moderate pulmonary edema. Questionable tiny left pleural effusion.
- 1 dose of IV lasix 80mg in ER
- continue PO lasix
- CT: left atrial appendage Watchman occlusion device in place in the left atrial appendage ostium containing thrombus.
- consult cardio
# Mild hyponatremia
likely hypervolemic
- improved after HD
- continue lasix and routine dilaysis
# Recent fall with multiple injuries including traumatic rib fx- 4
- incentive spirometer
- Xray of the Right elbow with no evidence of osteomyelitis associated with the wound
- Xray Right hio shows degen changes
# Chronic A-fib- not on OAC unclear reason- continue amiodarone
# Abnormal D dimer
- CT/PE : Moderate-sized bilateral lower lobe airspace consolidations. Diagnostic possibilities are (1) bilateral lower lobe pneumonia or (2) moderate atelectasis.
Mild acute interstitial cardiogenic pulmonary edema.
# Aortic aneurysm
# Atherosclerosis/hyperlipidemia- continue statin
# COPD
# Chronic liver disease- unclear reason- continue rifaximin and lactulose
# Congestive heart failure- type unclear
# h/o Mitral valve repair
# Diabetes mellitus type 2- accu check on sliding scale coverage- continue repaglinide
# GERD- continue PPI
# JESUS
# Obesity
DVT Prophylaxis:
Code: Full Code
Anticipated Discharge: 24 - 48 hours
Subjective/Interval History
-
Date of Service: March 28, 2024
Objective Data
-
Labs:
Laboratory Results
03/28/24
04:46
WBC 13.2 H
Hgb 7.4 L
Hct 23.8 L
Plt Count 209
Sodium 135
Potassium 3.8
Chloride 97 L
Carbon Dioxide 28
BUN 37 H
Creatinine 4.1 H*
Glucose 94
Calcium 8.5
Total Bilirubin 1.0
AST 30
ALT 14
Alkaline Phosphatase 105
Vital Signs:
Vital Signs
Temp Pulse Resp BP Pulse Ox
98.6 F 74 18 95/51 97
03/28/24 04:40 03/28/24 04:45 03/28/24 04:45 03/28/24 04:02 03/28/24 04:45
I&O
03/27/24 03/28/24 03/29/24
06:59 06:59 06:59
Intake Total 500 / 500
Balance 500 / 500
Review of Systems
-
History Source: Patient
Constitutional: Denies Fever
Respiratory: Denies Cough
Cardiac: Denies Chest Pain
Abdomen/GI: Denies Abdominal Pain
Genitourinary: Reports Frequency
Musculoskeletal: Denies Joint Pain
Hematologic / Lymphatic: Denies Bleeding
Physical Exam
-
General: Well Nourished and No Apparent Distress
HEENT: Normocephalic and Atraumatic
Cardiac: Regular Rhythm
GI: Nontender and Distended
Skin: Warm and Other (scaly rash on b/l LE.)
Neuro: Awake and Oriented
Psych: Calm
Data Reviewed
-
CT Scan: Report Reviewed by me, Discussed with Physician and Discussed with Patient
Labs: Labs Reviewed by me, Discussed with Physician and Discussed with Patient
--- NOTE | 2024-03-28 07:49 | PHA.VAN.FU ---
Vancomycin Assessment / Plan
- Assessment
Hemodialysis Schedule: MWF
Last Hemodialysis performed: 03/27
WBC's are: Stable
In the past 24 hrs, patient has been: Afebrile
Concomitant Antimicrobials: piperacillin/tazobactam, doxycycline
- Assessment - Therapeutic Drug Monitoring
Random Level: 7.7 - drawn ~9H after 1500mg initial dose
- Dosing Plan
Dosing by Level: Re-dose today (Vanc 750mg)
- Monitoring Plan
Random Level: 03/29 prior to HD
- Follow Up
Pharmacy will continue to follow.
Vancomycin Follow UP
- -
Patient Age: 73
Patient Sex: Male
Vancomycin Day #: 2
Indication: Bacteremia
Requesting Provider: Dr. Vela
Pertinent Antimicrobial Allergies:
no pertinent antimicrobial allergies
Height / Weight:
Height 6 ft 3 in
Actual Weight 103.6 kg
Pertinent Past Medical History: ESRD on HD MWF, BMI ~30, DM 2
- Vital Signs / Lab Results
Temp Pulse Resp BP Pulse Ox
98.6 F 74 18 95/51 97
03/28/24 04:40 03/28/24 04:45 03/28/24 04:45 03/28/24 04:02 03/28/24 04:45
Lab Results - Hematology
03/27/24 03/28/24
10:59 04:46
WBC 12.5 H 13.2 H
Lab Results - Chemistry
03/27/24 03/28/24
10:59 04:46
BUN 56 H 37 H
Creatinine 6.5 H* 4.1 H*
Estimated Creat Clear 08 29
Albumin 2.9 L 2.8 L
Therapeutic Drug Monitoring
Random Vancomycin 7.7 ug/ml 03/28/24 04:46
--- NOTE | 2024-03-28 08:19 | W.PN.ID1 ---
Date of Service
Date of Service: March 28, 2024
Today's Communication
continue current antibiotics
patient with evidence of compensated cirrhosis
unclear cause of mediastinal lymphadenopathy. No symptoms to suggest pneumonia. Reports hes up to date on colonoscopy, PSA. Not a smoker.
Assessment / Plan
Disseminated purpuric rash
Shock
CAD h/o CABG
Suspected cirrhosis
Anasarca
H/o MVR
- acute rash on the thighs is not typical of cellulitis, nonblanching, more consistent with purpura and have improved ; patient may have a disseminated infection. The distal lower extremities have chronic lichenification typical of uncontrolled
lymphedema.
- blood cultures x2 in progress
- wound culture of unroofed vesicular lesion no growth, there were rare GPCs on the gram stain - unclear if pathogen vs contaminant
- await TTE
- CT chest with pulmonary edema, unclear cause of mediastinal lymphadenopathy at this time - a pulmonary infection can be a cause however patient without active pulmonary symptoms, overall suspect atelectasis rather than bilateral lower lobe
pneumonia, irregardless current antibiotics are aggressive coverage for hospital acquired infections
- obtain sputum culture if able
- Xray of the wound No cortical destruction to suggest osteomyelitis.
- Xray right hip DJD
- notable deformity inferior to the hip - torn muscle? there is no bruising to suggest hematoma externally however I am not certain if that would be universal. Currently no erythema, warmth or fluctuance. If patient is bacteremic or no source of
infection ultimately found may consider further imaging
- Abd US consistent with cirrhosis - no free fluid in the abdomen to suggest sbp
hep B/C serologies pending
reports compliance with HD
- continue vancomycin, zosyn, doxycycline pending above work up
Patient with some interval improvement, remains a high risk clinical scenario
Chief Complaint
-: Clinical Sepsis
Subjective / Review of Systems
afebrile
bp intermittent hypotension, not requiring pressors
wbc now 13.2
hgb increased to 7.4
plt with some decline to 209
L shift persists
markedly elevated d-dimer - management per primary team; CTA without PE
hep B/C serologies pending
CT chest PE study: Moderate-sized bilateral lower lobe airspace consolidations. Diagnostic possibilities are (1) bilateral lower lobe pneumonia or (2) moderate atelectasis., mediastinal lymphadenopathy,
reports hes had outpatinent colonoscopy and PSAs, nonsmoker
Vital Signs / Physical Exam
Vital Signs
Vital Signs
Temp Pulse Resp BP Pulse Ox
98.6 F 74 18 95/51 97
03/28/24 04:40 03/28/24 04:45 03/28/24 04:45 03/28/24 04:02 03/28/24 04:45
Physical Exam
Constitutional: No Acute Distress
Cardiovascular: Regular Rate and S1/S2; Negative Murmur or Rub
Pulmonary: Clear and Symmetric; Negative Wheezes or Rales
Gastrointestinal: Soft, Non Tender, Non Distended and Normal Bowel Sounds
Skin: Warm, Dry and Rash (less redness of the nonblanching rash, no significant progression); Negative Jaundice
Objective Data
Lab Data
Lab Results
03/28/24 04:46
03/28/24 04:46
PT 16.2 Sec (11.4-14.6) H 03/27/24 10:59
INR 1.30 03/27/24 10:59
APTT 41.3 Sec (23.4-35.0) H 03/27/24 10:59
Estimated Creat Clear 19 ml/min 03/28/24 04:46
Total Bilirubin 1.0 mg/dl (0.2-1.3) 03/28/24 04:46
AST 30 U/L (17-59) 03/28/24 04:46
ALT 14 U/L (0-50) 03/28/24 04:46
Alkaline Phosphatase 105 U/L (38-126) 03/28/24 04:46
Most recent labs reviewed.
Micro Results:
03/27/24 20:05 Wound Culture - Pending
Leg - Right Gram Stain - Preliminary
03/27/24 18:18 Blood Culture - Pending
Blood/Venous
03/27/24 17:47 Blood Culture - Pending
Blood/Venous
Care Review
Plan reviewed with: Physician (Dr Rao - )
[2024-03-28] MEDS: VANCOCIN 150 IV (09:50)
[2024-03-28] MEDS: VIBRAMYCIN 100 MG PO ×2 (09:51→20:38)
[2024-03-28] MEDS: NEPHROCAP 1 CAPSULE PO (09:51)
[2024-03-28] MEDS: XIFAXAN 550 MG PO ×2 (09:51→20:38)
[2024-03-28] MEDS: LASIX 80 MG PO (09:53)
[2024-03-28] MEDS: DUPHALAC/CHRONULAC 15 GRAMS PO (09:53)
[2024-03-28] MEDS: PROTONIX IV 40 MG IV ×2 (09:54→20:38)
[2024-03-28] MEDS: PACERONE 200 MG PO (09:54)
[2024-03-28] MEDS: NSS (PRESERVATIVE FREE) 10 ML IV ×2 (09:54→20:38)
[2024-03-28] MEDS: FEOSOL 325 MG PO (09:54)
--- NOTE | 2024-03-28 10:31 | W.PN.NEPH.PH ---
Today's Communication / Plan
-
HD tomorrow
Assessment/Plan
-
Assessment
ESRD
Acute anemia
Possible history of diverticulosis/AVM
Hypotension
Mitral valve repair
Diabetes mellitus type 2
Leukocytosis
Plan
Transfuse packed red blood cells as needed
Dialysis tomorrow
Holding blood pressure medications
midodrine for now
Follow hemoglobin
empiric abx continue
-
-
Date of Service: March 28, 2024
CC / HPI / ROS
-
Chief Complaint:
ESRD
History of Present Illness:
tolerated HD yesterday
Hgb up to 7.4 after transfusion
BP low stable
Review of Systems:
no CP/SOB
Labs
-
Labs:
WBC 13.2 10^3/uL (4.8-10.8) H 03/28/24 04:46
RBC 2.67 10^6/uL (4.70-6.10) L 03/28/24 04:46
Hgb 7.4 g/dL (13.0-18.0) L 03/28/24 04:46
Hct 23.8 % (39.0-52.0) L 03/28/24 04:46
Plt Count 209 10^3/uL (130-400) 03/28/24 04:46
Sodium 135 mmol/L (135-145) 03/28/24 04:46
Potassium 3.8 mmol/L (3.5-5.1) 03/28/24 04:46
Chloride 97 mmol/L (98-107) L 03/28/24 04:46
Carbon Dioxide 28 mmol/L (22-30) 03/28/24 04:46
BUN 37 mg/dl (9-20) H 03/28/24 04:46
Creatinine 4.1 mg/dL (0.7-1.3) H* 03/28/24 04:46
eGFR 14.62 03/28/24 04:46
Glucose 94 mg/dl (70-99) 03/28/24 04:46
Calcium 8.5 mg/dl (8.4-10.2) 03/28/24 04:46
Albumin 2.8 g/dl (3.5-5.0) L 03/28/24 04:46
Physical Exam
-
Vital Signs:
Vital Signs
Temp Pulse Resp BP Pulse Ox
98 F 70 18 104/54 97
03/28/24 07:28 03/28/24 09:54 03/28/24 04:45 03/28/24 09:54 03/28/24 04:45
Cardiovascular:: Regular rate and rhythm
Respiratory:: Bilateral: Coarse
Lung Excursion:: Normal
Abdomen:: Nontender and Soft
Bowel Sounds:: Normal
Extremity Edema:: +1: Bilateral:
Other Findings::
nonblanching macular scaling rash LE and inner thighs
--- NOTE | 2024-03-28 10:42 | WOUNDNOTE ---
LLE/FOOT (ANTERIOR)
--- NOTE | 2024-03-28 10:45 | WOUNDNOTE ---
R ELBOW (LATERAL)(with photo flash)
--- NOTE | 2024-03-28 10:47 | WOUNDNOTE ---
SACRUM/PERIANAL BUTTOCKS
--- NOTE | 2024-03-28 10:49 | WOUNDNOTE ---
R CALF (UPPER POSTERIOR)
--- NOTE | 2024-03-28 10:49 | WOUNDNOTE ---
FEET (L MEDIAL; R DORSAL LATERAL)
--- NOTE | 2024-03-28 10:50 | WOUNDNOTE ---
L CALF/FOOT (MEDIAL)
--- NOTE | 2024-03-28 10:50 | WOUNDNOTE ---
L FOOT/CALF (LATERAL)
--- NOTE | 2024-03-28 10:51 | WOUNDNOTE ---
[facility] RN note: Patient admitted with low hemoglobin, anasarca, cellulitis, pulmonary edema, rash on legs and arm, pitting LE edema, elbow wound.
See H&P for complete history.
PMH: ESRD on HD, sleep apnea, mitral valve repair, DM, LUE AV fistula, L knee replacement, R knee meniscectomy, COPD, chronic liver disease, CHF, JESUS.
Wound Location and type/assessment: Patient admitted with: stage 2 sacral pressure injury, MASD guero/buttocks, purpura vesicular rash inner thighs, Le's, petechia arms, partial thickness broken vesicles Le's, Toes warm. +2 LE edema, R arm
laceration with old hematoma full thickness to subcutaneous layer or deeper.
Appetite: good.
Pressure redistribution devices in place: Centrella Max air bed. Patient cannot turn self in bed.
Plan: Patient turned, dressing applied Le's, knee high Diaz wrap reapplied, silicone border foam applied to sacrum, Calazime ointment to guero skin with help from JAY Hill. Heels off bed with pillow with air chair cushion on top.
Will confirm orders with Dr. Rao and discussed with JAY Sanchez. Dr. Huerta was in during skin assessment. Updated Dr. Vela via tiger text.
Care plan to be updated and will follow as needed.
Note to case management of equipment requested for discharge: air mattress recommended.
Recommend follow up at wound care center upon discharge.
--- NOTE | 2024-03-28 12:17 | CON.GI ---
Addendum entered and electronically signed by Avril Knight Do, MD 03/28/24 15:47:
I saw and examined the patient.
The REGIONAL MARKETING DIRECTOR's note was reviewed and I agree with the note.
Comment: Duncan is a 73yo M with h/o ESRD on HD, DM, COPD and Afib s/p watchman who was admitted from snf for anemia Hbg 6.5 on routine bloodwork and dark stools. He has longstanding h/o recurrent GI bleeding. He has been on
anticoagulation 5yrs ago and had watchman placed. He was recently admitted at [facility] for 5-6wks with GI bleeding. He reports EGD/colon and video capsule with 4 'spots' in his gut. He is not on AC. He reports chronically dark stools on oral
iron. He denies abd pain, odynophagia, dysphagia, nausea/vomiting or wt loss. He is unaware of cirrhosis history. Vitals AF HR 75 BP 91/44 on RA. Exam sleepy arousable, speaks with eyes close, obese, NTTP, no fluid wave. Labs reviewed Hbg 6.8
improved to 7.4 after 2u PRBCs . Abd US ascites small amount cirrhosis HSM gallstones
Impression
- Brown heme + stools with chronic anemia
Suspect AVMs given h/o ESRD
Extensive GI workup including EGD/colon/capsule at [facility] 3 wks ago will request
- ESRD
- Cirrhosis
Unclear cause
- DM
- COPD
- Afib s/p watchman
- MVR
- JESUS
- Obesity
Recommendations
- C/w PPI BID
- Monitor stools
- Recommend serial H/H
- 2 large bore IVs
- Viral hepatitis serologies
- Add lactulose and xifaximin
- Await results of EGD/colon/VCE from [facility]
- Appreciate cardiology recs no need for AC currently
- C/w diet
Will follow with you
Original Note:
Consultation
-
Date/Time Consultation Requested: 03/28/24 1145
Date/Time Consultation Performed: 03/28/24 1300
Requesting Provider: Maury Ya MD
Performing Provider: LEANN Pulido, avril Rueda MD
Reason for Consultation: anemia
Medical History
Chief Complaint / HPI
Chief Complaint: abnormal labs, weakness
History of Present Illness:
Pt is a 73yo presents with hx Afib with hx watchman, ESRD on HD, COPD, NIDDM, anemia, MVR, cirrhosis (new diagnosis per patient) with recent GI bleeding with work up and fall with move to [facility]. He now presents with first admission to
[facility] presents with abnormal labs with anemia with hbg 6.5 on predialysis labs and concern for GI bleeding and cellulitis. After admission noted with black tarry stools and also follow up imaging US noted change of
cirrhosis/ascites/splenomegaly/portal HTN/cholelithiasis, med renal disease and CT PE study with Pulm edema, PNA, small effusion, moderate mediastinal lymphadenopathy, prior CABG, prior MVR, mild ascites rib fractures, splenomegaly and concern for
left atrial appendage on watchman with thrombus. Asked to see for concern for need for anticoagulation with recent GI bleeding. In reviewing with patient and family he is noted with recent GI bleeding with care at [facility] then
[facility]. He had several attempted EGD/colon then eventual capsule. He did not recall all then details but noted cauterization of several area. He now returns with hbg 6.8 with unclear baseline.
At this time he denies odynophagia, dysphagia, GERD, nausea, vomiting, abdominal pain and admits to recent black loose stools with use of iron. He denies NSAID use and admits to hx watchman placed 5 years ago not for bleeding but he was
declining predatory animal exterminator anticoagulation.
Past Medical History
Past Medical History: Arrhythmias (afib ), COPD, HTN, NIDDM and Other (ESRD, anemia, JESUS, obesity)
Past Surgical History: Cardiac (MVR) and Orthopedic (right meniscectomy, left knee replacement )
Social History
Tobacco: Former Smoker (quit 2017)
Alcohol: Occasional (social ETOH -- denies heavy ETOH use )
Drug: None
Living: [facility] (current rehab )
Employment: Retired
Family History
Family History: Other (no family hx colon CA or polyps )
Allergies / Home Medications
Allergy/AdvReac Type Severity Reaction Status Date / Time
gabapentin Allergy Unknown Verified 03/27/24 10:43
oxycodone [From OxyContin] Allergy Unknown Verified 03/27/24 10:43
�Medication �Instructions �Recorded
acetaminophen 325 mg tablet 650 mg PO Q6HPRN PRN mild pain 03/27/24
(Tylenol)
acetaminophen 500 mg tablet 1,000 mg PO Q8 Pain 03/27/24
(Tylenol Extra Strength)
albuterol sulfate 90 mcg/actuation 2 puff inhalation R Q6HPRN PRN sob 03/27/24
aerosol inhaler
amiodarone 200 mg tablet 200 mg PO DAILY Arrhythmia 03/27/24
amoxicillin 500 mg-potassium 1 tab PO BID Infection 03/27/24
clavulanate 125 mg tablet
(Augmentin)
atorvastatin 40 mg tablet (Lipitor) 40 mg PO HS High Cholesterol 03/27/24
bisacodyl 10 mg rectal suppository 10 mg MS DAILYPRN PRN if no bm 03/27/24
(Dulcolax (bisacodyl)) aftr mom
ergocalciferol (vitamin D2) 1,250 1,250 mcg PO RAO Supplement 03/27/24
mcg (50,000 unit) capsule
ferrous sulfate 325 mg (65 mg 325 mg PO DAILY anemia 03/27/24
iron) tablet
furosemide 80 mg tablet (Lasix) 80 mg PO DAILY Kidney Disease 03/27/24
lactulose 10 gram/15 mL (15 mL) 15 g PO BID Gastrointestinal Issue 03/27/24
oral solution
magnesium hydroxide 400 mg/5 mL 2,400 mg PO HSPRN PRN if no bm on 03/27/24
oral suspension (Milk of Magnesia) 3rd
melatonin 5 mg tablet 10 mg PO HS Supplement 03/27/24
mupirocin 2 % topical ointment 1 applic topical DAILYPRN PRN 03/27/24
right elbow wound
mupirocin 2 % topical ointment 1 applic topical TID right elbow 03/27/24
omeprazole 40 mg capsule,delayed 40 mg PO BID Gastrointestinal Issue 03/27/24
release
repaglinide 0.5 mg tablet 0.5 mg PO NOON Diabetes 03/27/24
rifaximin 550 mg tablet 550 mg PO BID Liver Issues 03/27/24
sennosides 8.6 mg tablet (senna) 17.2 mg PO HS Constipation 03/27/24
vitamin B complex and vitamin C 1 cap PO DAILY Supplement 03/27/24
no.20-folic acid 1 mg capsule
(Walton Caps)
Review of Systems
-
History Source: Patient and Family
Constitutional: Reports Other (wt up and down with HD and fluid issues )
EENT: Reports No Symptoms
Respiratory: Reports No Symptoms
Abdomen/GI: Reports Diarrhea, Black Stools and Other (c/o rectal pain with excoriation )
: Reports Other (minimal urination with HD)
Musculoskeletal: Reports No Symptoms
Skin: Reports No Symptoms
Neurological: Reports Weakness
Endocrine: Reports No Symptoms
Hematologic/Lymphatic: Reports No Symptoms
Vital Signs
Temp Pulse Resp BP Pulse Ox
98 F 75 21 95/63 95
03/28/24 07:28 03/28/24 12:00 03/28/24 12:00 03/28/24 12:00 03/28/24 12:05
Physical Exam
Exam
General: Other (elderly male appear with chronic illness with fluid overload and anasarca )
HEENT: Normocephalic and Anicteric
Respiratory: Other (decreased bases )
Cardiac: Regular Rhythm and Peripheral Edema
GI: Soft, Non Tender and Distended
Rectal: Brown, Hem Positive and Other (rectal excoriation, no impaction )
Musculoskeletal: No Clubbing and No Cyanosis
Skin: Warm, Dry and Other (bruising )
Neuro: Awake and Alert
Psych: Calm
Results
WBC 13.2 10^3/uL (4.8-10.8) H 03/28/24 04:46
Hgb 7.4 g/dL (13.0-18.0) L 03/28/24 04:46
Hct 23.8 % (39.0-52.0) L 03/28/24 04:46
MCV 89.1 fL (80.0-94.0) 03/28/24 04:46
Plt Count 209 10^3/uL (130-400) 03/28/24 04:46
Absolute Neuts (auto) 10.9 10^3/uL (1.4-6.5) H 03/28/24 04:46
PT 16.2 Sec (11.4-14.6) H 03/27/24 10:59
INR 1.30 03/27/24 10:59
APTT 41.3 Sec (23.4-35.0) H 03/27/24 10:59
Sodium 135 mmol/L (135-145) 03/28/24 04:46
Potassium 3.8 mmol/L (3.5-5.1) 03/28/24 04:46
Chloride 97 mmol/L (98-107) L 03/28/24 04:46
Carbon Dioxide 28 mmol/L (22-30) 03/28/24 04:46
BUN 37 mg/dl (9-20) H 03/28/24 04:46
Creatinine 4.1 mg/dL (0.7-1.3) H* 03/28/24 04:46
Calcium 8.5 mg/dl (8.4-10.2) 03/28/24 04:46
Total Bilirubin 1.0 mg/dl (0.2-1.3) 03/28/24 04:46
AST 30 U/L (17-59) 03/28/24 04:46
ALT 14 U/L (0-50) 03/28/24 04:46
Alkaline Phosphatase 105 U/L (38-126) 03/28/24 04:46
Diagnostic Image Results:
03/28/24 US abdomen
1. Small amount of perihepatic ascites.
2. Nodular contour of the liver surface, suggestive of cirrhosis.
3. Splenomegaly, which may be seen in the setting of portal hypertension.
4. Cholelithiasis without evidence of acute cholecystitis.
5. Cortical thinning of each kidney, suggestive of medical renal disease.
03/28/24 CT chest PE study-
1. Mild acute interstitial cardiogenic pulmonary edema.
2. Moderate-sized bilateral lower lobe airspace consolidations. Diagnostic possibilities are (1) bilateral lower lobe pneumonia or (2) moderate atelectasis.
3. Small right pleural effusion.
4. Moderate mediastinal lymphadenopathy.
5. Mild cardiomegaly.
6. Previous CABG surgery with occlusion of a bypass graft to the right coronary artery.
7. Previous mitral valve replacement.
8. Watchman device in the left atrial appendage containing thrombus.
9. Acute fractures of the right 2nd through 7th lateral ribs.
10. Mild ascites.
11. Moderate splenomegaly.
03/28/24 CR Elbow - Right Min 3 Views
1. Bubbles of subcutaneous air, consistent with wound.
2. No cortical destruction to suggest osteomyelitis.
3. Elevation of the anterior fat pad, suggestive of right elbow joint effusion.
03/28/24 CR Hip - RT w/wo Pel 2-3 Vw*
1. No acute osseous abnormality appreciated.
2. Mild to moderate degenerative change of the right hip joint.
03/27/24 CR Chest Portable - 1 View
Constellation of findings suspicious for mild to moderate pulmonary edema. Questionable tiny left pleural effusion.
Prior GI Procedures:
EGD: recent at [facility] recall cauterization of several areas
Colonoscopy: recent [facility]
capsule: recent [facility]
Assessment / Plan
-
Pt is a 73yo presents with hx Afib with hx watchman, COPD, ESRD on HD, NIDDM, anemia, MVR, cirrhosis (new diagnosis per patient) with recent GI bleeding with work up and fall with move to [facility]. He now presents with first admission to
[facility] presents with abnormal labs with anemia with hbg 6.5 on predialysis labs and concern for GI bleeding. After admission noted with black tarry stools and also follow up imaging US noted change of
cirrhosis/ascites/splenomegaly/portal HTN/cholelithiasis, med renal disease and CT PE study with Pulm edema, PNA, small effusion, moderate mediastinal lymphadenopathy, prior CABG, prior MVR, mild ascites rib fractures, splenomegaly and concern for
left atrial appendage on watchman with thrombus. Asked to see for concern for need for anticoagulation with recent GI bleeding. In reviewing with patient and family he is noted with recent GI bleeding with care at [facility] then
[facility]. He had several attempted EGD/colon then eventual capsule. He did not recall all then details but noted cauterization of several area. He now returns with hbg 6.8 with unclear baseline.
-anemia-- heme + brown stool on exam
-concern for atrial appendage on watchman with thrombus
-recent GI bleed with work up at [place] and 'cauterization of several area'
-cirrhosis with new diagnosis with decompensation with HE and mild ascites on imaging
-? hx HE
-rectal pain with rectal excoriation
-recent fall
-anasarca
-cellulitis
-pulm edema
-hyponatremia
-diffuse rash
other medical problems:
-afib
-ESRD on HD
-NIDDM
-GERD
-anemia
-MVR
-aortic aneurysm
-JESUS
-obesity
PLAN:
etiology of anemia likely multifactorial with CKD, recent GI bleeding, recent fall, etc
s/p transfusion with hbg 6.8 to 7.4 -- no know baseline
currently stools brown - heme + but also rectal excoriation despite continued oral iron use
trend hbg, transfuse <7
await records of recent GI work up -- already requested from [facility]
will review with Dr. Rueda for need for anticoagulation with thrombus with watchman-- can consider heparin challenge if needed
pt with newly diagnosis cirrhosis- await records to see what work up completed -- ? hx HE as placed on Xifaxan and lactulose prior to admission - cont dosing
will need formal liver work up if not completed at recent admission only small amount of ascites noted to tap for SAAG to eval if liver vs cardiac related , noted hypoalbuminemia but platelets, INR and LFT's normal
hepatitis panel pending
monitor for loose stools with lactulose, senna and also on Doxycycline, vanco and Zosyn
cont local care with wound nurse for rectal excoriation
family updated at bedside
-
-
Thank you for consultation and allowing me to participate in the patient's care. Please call the configuration manager GI physician during the after hours with any questions or concerns.
[2024-03-28] MEDS: PRANDIN 0.5 MG PO (12:23)
--- NOTE | 2024-03-28 12:38 | CON.CAR ---
Addendum entered and electronically signed by Yo Mayo MD 03/28/24 16:04:
I saw and examined the patient.
The Kitchen And Counter Worker's note was reviewed and I agree with the note.
Comment:
GEN: No distress, awake, Ox3
HEENT: supple, anicteric, mmm
LUNGS: CTA, no wheezes/rales
CV: Reg, S1/S2, 2/6 syst LSB, no gallop
ABD: soft, BS+, NT/+ distended
EXT: +1 edema
NEURO: Gross non-focal
SKIN: ecchymosis
Plan:
He is a complex medical patient with end-stage renal disease on hemodialysis, paroxysmal atrial fibrillation status post Watchman procedure, mitral valve ring repair in 2003, heme positive stools with chronic anemia who has been staying at [place] [facility] and presents with failure to thrive, anemia, heme positive stool, and dizziness. A CAT scan of the chest was performed which revealed a Watchman device in place with thrombus within the left atrial appendage.
I reviewed the CT scan with the watchman team. The radiologic findings appear to be appropriate for his watchman. No further workup is required. With his bleeding and anemia I would avoid full anticoagulation.
Would continue to attempt to remove fluid via hemodialysis. We will check an echocardiogram to evaluate his LVEF and mitral valve.
Continue antibiotics, lactulose, and midodrine.
Would likely need long-term rehab.
Original Note:
Consultation
Consultation Request
Date/Time Consultation Requested: 03/28/24
Date/Time Consultation Performed: 03/28/24
Requesting Provider: Dr. Rao
Performing Provider: Dr. Mayo
Reason for Consultation: Abnormal CT chest, s/p watchman device
Medical History
-
History of Present Illness:
Patient came to [facility] yesterday with low Hgb and was admitted, cardiology has been consulted for possible thrombus at site of watchman implant. Patient is in the room with his brother and he reports that patient was intermittently working in
[place] and living independently until about 3 months ago when he had the beginning of a series of admissions to hospitals and rehabs in the area. Patient and his brother say that most of his current medical problems are new in the last year.
Patient had a MV ring repair in 2003. He had Afib and was on OAC, but had recurrent anemia and around 2019 he had a watchman device implanted by Dr. Garcia who is Dr. Lopes's partner. Patient says that despite stopping OAC he continued to have
anemia and during one of his recent admissions he had upper and lower endoscopy. He says that he has never been told he has liver failure. He has been told he has a h/o HF and continues to take Lasix 80 mg PO daily despite being on HD. He makes some
urine. He takes amiodarone 200 mg daily for rhythm control of his paroxysmal Afib and is in SR today. No h/o CAD. CT of chest as read by radiology describes Watchman device in place in the left atrial appendage containing thrombus.
PMH:
ESRD on HD
Chronic anemia
Heme positive stools with recent GI work-up at [facility]
Cirrhosis, patient says this is a new diagnosis
s/p MV ring repair 2003
Paroxysmal Afib
Chronic amiodarone therapy
s/p Watchman device 2019
Past Medical History
Past Medical History: Other (in HPI)
Past Surgical History: Cardiac (MV repair 2003, s/p Watchman device ) and Orthopedic (MIGDALIA 2018)
Social History
Tobacco: Former Smoker
Alcohol: None
Personal: Single
Family History
Family History: CAD and Other (dementia)
Allergies / Home Medications
Allergy/AdvReac Type Severity Reaction Status Date / Time
gabapentin Allergy Unknown Verified 03/27/24 10:43
oxycodone [From OxyContin] Allergy Unknown Verified 03/27/24 10:43
�Medication �Instructions �Recorded �Confirmed �Type
acetaminophen 325 mg tablet 650 mg PO Q6HPRN PRN mild pain 03/27/24 03/27/24 History
(Tylenol)
acetaminophen 500 mg tablet 1,000 mg PO Q8 Pain 03/27/24 03/27/24 History
(Tylenol Extra Strength)
albuterol sulfate 90 mcg/actuation 2 puff inhalation R Q6HPRN PRN sob 03/27/24 03/27/24 History
aerosol inhaler
amiodarone 200 mg tablet 200 mg PO DAILY Arrhythmia 03/27/24 03/27/24 History
amoxicillin 500 mg-potassium 1 tab PO BID Infection 03/27/24 03/27/24 History
clavulanate 125 mg tablet
(Augmentin)
atorvastatin 40 mg tablet (Lipitor) 40 mg PO HS High Cholesterol 03/27/24 03/27/24 History
bisacodyl 10 mg rectal suppository 10 mg OR DAILYPRN PRN if no bm 03/27/24 03/27/24 History
(Dulcolax (bisacodyl)) aftr mom
ergocalciferol (vitamin D2) 1,250 1,250 mcg PO RAO Supplement 03/27/24 03/27/24 History
mcg (50,000 unit) capsule
ferrous sulfate 325 mg (65 mg 325 mg PO DAILY anemia 03/27/24 03/27/24 History
iron) tablet
furosemide 80 mg tablet (Lasix) 80 mg PO DAILY Kidney Disease 03/27/24 03/27/24 History
lactulose 10 gram/15 mL (15 mL) 15 g PO BID Gastrointestinal Issue 03/27/24 03/27/24 History
oral solution
magnesium hydroxide 400 mg/5 mL 2,400 mg PO HSPRN PRN if no bm on 03/27/24 03/27/24 History
oral suspension (Milk of Magnesia) 3rd
melatonin 5 mg tablet 10 mg PO HS Supplement 03/27/24 03/27/24 History
mupirocin 2 % topical ointment 1 applic topical DAILYPRN PRN 03/27/24 03/27/24 History
right elbow wound
mupirocin 2 % topical ointment 1 applic topical TID right elbow 03/27/24 03/27/24 History
omeprazole 40 mg capsule,delayed 40 mg PO BID Gastrointestinal Issue 03/27/24 03/27/24 History
release
repaglinide 0.5 mg tablet 0.5 mg PO NOON Diabetes 03/27/24 03/27/24 History
rifaximin 550 mg tablet 550 mg PO BID Liver Issues 03/27/24 03/27/24 History
sennosides 8.6 mg tablet (senna) 17.2 mg PO HS Constipation 03/27/24 03/27/24 History
vitamin B complex and vitamin C 1 cap PO DAILY Supplement 03/27/24 03/27/24 History
no.20-folic acid 1 mg capsule
([place] Caps)
Review of Systems
-
History Source: Patient and Family (brother sitting bedside helped with HPI)
All other systems: Negative unless noted
Physical Exam
Vital Signs
Temp Pulse Resp BP Pulse Ox
98 F 75 21 95/63 95
03/28/24 07:28 03/28/24 12:00 03/28/24 12:00 03/28/24 12:00 03/28/24 12:05
GEN: NAD. AAO to person, place and situation
HEENT: EOMI, MMM
LUNGS: CTA B/L without wheeze or rales
CV: Reg, S1/S2, 2/6 syst LSB
ABD: soft, BS+, NT, ND
EXT: B/L BELÉN wraps to knees. No edema noted above wraps.
NEURO: Gross non-focal
SKIN: Papular rash. Otherwise warm, dry and pink.
Lab Results
03/28/24 04:46
03/28/24 04:46
Impression / Plan
-
PCP: Dr. Ching Rao in [facility]
Cardiology: Dr. Ezequiel Lopes [phone]
Impression:
Admitted with anemia 03/27/24
ESRD on HD
Acute volume overload with acute HF unknown EF, cirrhosis and ESRD on HD
Acute on chronic anemia
Heme positive stools with recent GI work-up at [facility]
Cirrhosis, patient says this is a new diagnosis
s/p MV ring repair 2003
Paroxysmal Afib
Chronic amiodarone therapy
s/p Watchman device 2019
Echo 03/28/24: Study pending
Plan:
-Patient came to [facility] yesterday with low Hgb and was admitted, cardiology has been consulted for possible thrombus at site of watchman implant. Patient is in the room with his brother and he reports that patient was intermittently working in
[place] and living independently until about 3 months ago when he had the beginning of a series of admissions to hospitals and rehabs in the area. Patient and his brother say that most of his current medical problems are new in the last year.
Patient had a MV ring repair in 2003. He had Afib and was on OAC, but had recurrent anemia and around 2019 he had a watchman device implanted by Dr. Garcia who is Dr. Lopes's partner. Patient says that despite stopping OAC he continued to have
anemia and during one of his recent admissions he had upper and lower endoscopy. He says that he has never been told he has liver failure. He has been told he has a h/o HF and continues to take Lasix 80 mg PO daily despite being on HD. He makes some
urine. He takes amiodarone 200 mg daily for rhythm control of his paroxysmal Afib and is in SR today. No h/o CAD. CT of chest as read by radiology describes Watchman device in place in the left atrial appendage containing thrombus.
-CT chest images reviewed by interventional cardiology along with report. TT with radiology. CT finding is expected for watchman device and device appears to be functioning appropriately.
-Check TTE, ordered
-Patient is in SR on my review of ECG. Cont amiodarone 200 mg daily.
-Patient is not on OAC due to watchman in place. There is no indication to start OAC from a cardiac perspective and initiation of OAC seems contraindicated with heme positive anemia.
-Patient with previous MV ring repair. Murmur hear on exam, echo pending.
-Volume overload is multifactorial with h/o ESRD on HD, cirrhosis and likely acute HF unknown EF as well. He makes urine and outpatient dose of Lasix 80 mg PO daily has been continued in addition to HD. Nephrology is following.
-Patient and brother say they were never told patient has liver disease, but he is chronically on rifaximin and there is a possible h/o hepatic encephalopathy.
--- NOTE | 2024-03-28 13:26 | WOUNDNOTE ---
WOC RN note: cathryn Lombardi re: air mattress recommended at SNF/rehab; patient has sacral skin breakdown and has limited mobility.
[2024-03-28] MEDS: ProAmatine 5 MG PO ×2 (14:22→17:12)
[2024-03-28] MEDS: ULTRAM 25 MG PO ×2 (14:22→20:59)
--- NOTE | 2024-03-28 15:36 | PN.CDI ---
CDI
- -
CDI:
Physician Documentation Request
Admit Date: 03/27/24 15:33
Dear Doctor Bhakti,
Please review the following and provide your response in the progress notes.
Clinical Indicators:
03/28/24 10:51 - Wound Note
Wound Location and type/assessment:
#Patient admitted with: stage 2 sacral pressure injury,
#...MASD guero/buttocks, purpura vesicular rash inner thighs, Le's, petechia arms,
#...partial thickness broken vesicles Le's,
Physician documentation of the type and location of wounds is required for compliant documentation. Based on the above clinical findings and your assessment, please provide the following in your progress note:
Yes, stage 2 pressure injury, POA
No, stage 2 pressure injury
Other(please specify)
1. Location of the ulcer/wound, including laterality.
2. Type (etiology) of ulcer/wound:
- Diabetic ulcer
- Arterial (ischemic) ulcer
- Traumatic wound
- Venous stasis ulcer
- Pressure (decubitus) ulcer
3. If a pressure ulcer, please also include the stage* of the ulcer:
- Stage 1 - Skin intact, non-blanchable redness
- Stage 2 - Partial thickness loss of dermis, includes intact or open blister
- Stage 3 - Full thickness tissue not including bone, tendon or muscle
- Stage 4 - Full thickness tissue loss, including exposed bone, tendon or muscle
Use of terms such as suspected, likely, concern for, or probable (associated with a specific diagnosis that is being evaluated, monitored, or treated as if it exists) are acceptable and can be coded in the inpatient setting, when documented at the
time of discharge.
Thank you,
Evi Hampton RN BSN CCDS
CDI Specialist
please contact via tiger text
Please use your independent medical judgment in providing your response.
*Source: National Pressure Ulcer Advisory Panel (NPUAP)
--- NOTE | 2024-03-28 15:44 | PN.CDI ---
CDI
- -
CDI:
Physician Documentation Request
Admit Date: 03/27/24 15:33
Dear Doctor Maury,
Please review the following and provide your response in the progress notes.
Due to conflicting documentation, please clarify the specificity of the atrial fibrillation
Clinical Indicators:
PN, 03/28
# Chronic atrial fibrillation-on amiodarone.
#...Patient has a Watchman device. However has left appendage thrombus
# Chronic A-fib- not on OAC unclear reason- continue amiodarone
Cardiology consult, 03/28
#...takes amiodarone 200 mg daily for rhythm control of his paroxysmal Afib and is in SR today.
#...CT of chest as read by radiology describes Watchman device in place in the left atrial appendage containing thrombus.
#Paroxysmal Afib
Please provide the specificity regarding atrial fibrillation, ....:
Paroxysmal atrial fibrillation - terminates spontaneously or with intervention within 7 days of onset
Persistent atrial fibrillation - episodes of continuous AF that last more than 7 days and do not self-terminate
Permanent atrial fibrillation - when a decision has been made to accept the presence of AF and there is no further attempt to restore or maintain sinus rhythm
Other - please specify
Use of terms such as suspected, likely, concern for, or probable (associated with a specific diagnosis that is being evaluated, monitored, or treated as if it exists) are acceptable and can be coded in the inpatient setting, when documented at the
time of discharge.
Thank you,
Evi Hampton RN BSN CCDS
CDI Specialist
please contact via tiger text
Please use your independent medical judgment in providing your response.
[2024-03-28] MEDS: BACTROBAN 2% OINTMENT TOPICAL (16:03)
--- NOTE | 2024-03-28 17:12 | CM ---
Patient from [facility] SN[facility] with Hx ESRD on HD with Dx Anemia-heme positive stools, Cellulitis bilateral lower extremities, Right thigh/lateral hip hematoma, anasarca, pulmonary edema. O2 2L. Receiving IV Abx, midodrine. Seen by wound care nurse.
PT & OT recommend skilled rehab.
Spoke with [facility]; the patient had been there for short term rehab and not on a bed hold. She was unable to reach the DON today to obtain patient's PLOF.
Spoke with patient's brother Rafi;
the patient resides alone in a first floor apartment with no stairs.
He has been independent in ADLs and ambulating short distances at home with his RW.
[facility] 10[facility].
He usually drives himself however has also used a transport service a few times.
Rafi visits the patient 3-4 x/week and assists him as needed.
The patient does not have a POA.
DME - RW
VN - prior VN, brother doesn't know which agency
SNF - prior [facility], prior [facility] in [facility]
[place] - prior [facility]
PCP - Dr Burt Seaville
Pharmacy - [facility] ? location
Rafi says that the patient fell when out for a medical appt and Fx 4 ribs & bruised his hip and went to [facility] ---> transferred to [facility]. Rafi says patient had a 'horrible' experience at the SNF and will not return there. He
agrees to meet with CM tomorrow. He will be picking up their brother Raman at the airport and they will both be coming in to tomorrow.
Plan meet with patient and his brothers tomorrow for d/c planning.
[2024-03-28] MEDS: NOVOLOG FLEXPEN-LOW RESISTANCE SC (17:13)
[2024-03-28 17:25] LABS: Glucose - Point of Care 106 mg/dl (70-99)
[2024-03-28 17:48] LABS: Iron 39 ug/dl (49-181)
--- NOTE | 2024-03-28 17:48 | PTCARENOTE ---
Patient c/o of all over body pain but most notably to his buttocks, R hip and left knee. Pt has scheduled Tylenol, however, does not help with pain per patient. Order for Tramadol received, see NOV. Pt's brother at the bedside and reports in the
past with narcotics, patient needing intubation due to CO2 retention. Pt also c/o of R hand pain and feeling tight. at bedside and patient reported this to her. Pt asking to get OOB this morning. Pt got up to chair with assist x2 and RW.
Pt had 2 liquid BM's on BSC. All wound care performed by WOC today. Assessment, care and VS as charted.
[2024-03-28 17:55] LABS: Percent Saturation 17 % (20-50); Total Iron Binding Capacity 222 ug/dl (261-462)
[2024-03-28 18:00] LABS: Hematocrit 26.5 % (39.0-52.0); Hemoglobin 8.2 g/dL (13.0-18.0)
[2024-03-28 18:29] LABS: Glucose - Point of Care 91 mg/dl (70-99)
[2024-03-28 19:14] LABS: Hepatitis B Surface Antigen Negative (Negative)
[2024-03-28 19:30] LABS: Folate > 20.0 ng/ml (2.76-20); Vitamin B12 839 pg/ml (239-931)
[2024-03-28 19:31] LABS: Hepatitis B Surface Antibody Positive
[2024-03-28 19:47] LABS: Hepatitis B Core Ab, Total Negative (Negative); Hepatitis C Antibody Negative (Negative)
[2024-03-28] MEDS: DESENEX/MITRAZOL/ZEASORB 1 APPLIC TOPICAL (20:39)
[2024-03-28] MEDS: DUPHALAC/CHRONULAC 30 GRAMS PO (20:39)
[2024-03-28] MEDS: MELATONIN 10 MG PO (20:58)
[2024-03-28] MEDS: LIPITOR 40 MG PO (20:59)
--- NOTE | 2024-03-28 21:00 | PTCARENOTE ---
pt vomited moderate amount of greenish brown fluid after taking lactulose, pt repeatedly saying 'i don't feel good' and 'i feel like i am going to tonight'- house provider notified. SR on telemetry heart rate in 60s. blood pressure 94/50 98% on
2L nasal cannula.
[2024-03-28 21:50] LABS: Glucose - Point of Care 125 mg/dl (70-99)
[2024-03-28] MEDS: TYLENOL PO (23:45)
[2024-03-29] VITALS (42 sets, daily range): BP systolic 74–103; BP diastolic 42–72; PULSE 67–69; O2SAT 97; BMI 28.7
[2024-03-29] MEDS: ZOSYN 50 IV ×3 (04:11→19:44)
[2024-03-29 06:03] LABS: Ammonia 11 umol/L (9-30)
[2024-03-29 06:16] LABS: Vancomycin Random 11.5 ug/ml
[2024-03-29 06:22] LABS: INR 1.27
[2024-03-29 06:47] LABS: ALT (SGPT) 11 U/L (0-50); AST (SGOT) 20 U/L (17-59); Albumin 2.6 g/dl (3.5-5.0); Alkaline Phosphatase 100 U/L (38-126); Blood Urea Nitrogen 48 mg/dl (9-20); Calcium 8.7 mg/dl (8.4-10.2); Carbon Dioxide 24 mmol/L (22-30); Chloride 97 mmol/L (98-107); Estimated Creatinine Clearance 14 ml/min; Glucose 122 mg/dl (70-99); Potassium 3.5 mmol/L (3.5-5.1); Sodium 135 mmol/L (135-145); Total Bilirubin 0.9 mg/dl (0.2-1.3); Total Protein 5.6 g/dl (6.3-8.2); eGFR 10.27
[2024-03-29 06:57] LABS: Hematocrit 27.7 % (39.0-52.0); Hemoglobin 8.7 g/dL (13.0-18.0); Mean Corp Hgb Conc. 31.4 g/dL (33.0-37.0); Mean Corpuscular Hgb 28.4 pg (27.0-31.0); Mean Corpuscular Volume 90.5 fL (80.0-94.0); Mean Platelet Volume 8.5 fL (7.4-10.4); Platelet Count 276 10^3/uL (130-400); Red Blood Cell Count 3.06 10^6/uL (4.70-6.10); Red Cell Dist. Width 17.9 % (11.5-14.5); White Blood Cell Count 13.7 10^3/uL (4.8-10.8)
--- NOTE | 2024-03-29 06:59 | W.PN.HOSP.TC ---
Addendum entered and electronically signed by Henrry Rao MD 03/29/24 17:20:
I personally performed a history and physical exam of the patient and discussed management with the resident. I reviewed the resident's note and agree with the documented findings and plan of care HPI/CC. Except for change in documentation
On examination awake and alert
Anasarca
Cardiovascular system is most appreciated
Chest decreased breath sounds at bases
Bilateral lower extremity edema-redness in the skin slightly better, edema better
Elbow wound on the right side-deep
Right hip from-suspect organizing hematoma
# Anemia-heme positive stools
2 units of packed red blood cells this admission.
GI evaluation especially in the light of left atrial appendage thrombus.
Patient states that he had EGD, colonoscopy and capsule study at [place]
Records requested
Follow hemoglobin
# Thrombus on Watchman-cardiology reviewed CT scan and also echo and does not think patient has a thrombus. This is the normal appearance of the valve.
# Cellulitis bilateral lower extremity
Continue vancomycin Zosyn and doxycycline
Blood cultures and wound culture pending
Continue wound care
# Right thigh/lateral hip hematoma organizing
If blood cultures positive we may need to get a CT-agree with ID
# End-stage renal disease-continue dialysis Monday
# Anasarca
Secondary to liver disease, CHF and also end-stage renal disease
Dialysis and continue Lasix
Will be difficult to remove fluid secondary to hypoalbuminemia
Discussed with nephrology to see if patient can get more ultrafiltration
# Pulm edema is secondary to fluid overload
Continue dialysis on Lasix
Echo 03/28/2024-normal LV size and function. EF 59%. Mild concentric LVH. Abnormal paradoxical septal motion. Enlarged RV size with low normal RV systolic function. Biatrial enlargement. Mitral valve ring present. Mild MR. Mild to moderate
TR. Pulmonary artery pressure 46 mmHg assuming RA pressure 10 mmHg. IVC dilated and does not collapse. No evidence of vegetations.
# Jfscenfc-Wxiy-Ogdeb and sliding scale. Continue repaglinide
# History of mitral valve repair
# Chronic heart failure-likely chronic heart failure with preserved ejection fraction. Echo EF 59%.
# Chronic liver disease-cirrhosis per ultrasound-continue Xifaxan and lactulose
# Elevated D-dimer-no PE
# Aortic aneurysm per chart-details unclear
# COPD
# Bilateral lower lobe airspace consolidation-likely secondary atelectasis-continue incentive spirometry
# Chronic atrial fibrillation-on amiodarone. Patient has a Watchman device.
# Watchman device placed 5 years ago
# Acute fractures of right second through seventh lateral ribs- Fall 2 weeks ago-IS
# Moderate splenomegaly
# Cholelithiasis
# JESUS-CPAP Non Compliant
# Obesity
# DVT prophylaxis-start heparin drip
# CODE STATUS-full code
Resident updated brother
Discussed with nursing at bedside.
D/W Nephrology
Late documentation. Patient was seen in the morning.
Time more than 50 MIn
Original Note:
Today's Communication/Plan
-
- continue abx
- wc, bc pending
Assessment / Plan
Assessment / Plan
#Acute anemia in CKD
Hematoma on right thigh vs GI bleed vs Anemia of chronic disease
- Hb improved to 8.7
- 2 bags PRBC on 03/27/24
- Heme + stool
- GI input appreciated
# cellulitis
- IV vanco, zosyn and PO doxy per ID
- WC and BC pending
#ESRD
- on regular dialysis M//F-
- Left UE dialysis access
- Cr 03/29 5.5
- Nephro input appreciated
- Dialysis today
- low na diet, with FR
- midodrine per nephro
- consideration of repeat Dialysis tomorrow as well given the excessive fluid overall
#Anasarca
- Suspected Cirrhosis
- 2/2 to hypoalbuminemia or chronic liver disease
- diuresis as tolerated - may be difficult with intravascular low oncotic pressure
- ABD US : Small amount of perihepatic ascites, Nodular contour of the liver surface, suggestive of cirrhosis, Cholelithiasis without evidence of acute cholecystitis.
- continue rifaximin and lactulose
- hep panel negative
# Acute Pulmonary Edema due to HFpEF
- CXR - suspicious for mild to moderate pulmonary edema. Questionable tiny left pleural effusion.
- 1 dose of IV lasix 80mg in ER
- continue PO lasix
- CT: left atrial appendage Watchman occlusion device in place in the left atrial appendage ostium containing thrombus.
- Appreciate cardio input
- no AC recommended per cardio
- echo for evaluation of LVEF and mitral valve
# Mild hyponatremia
likely hypervolemic
- resolved
- continue lasix and routine dilaysis
# Diffuse Body pain/aches
# Recent fall with multiple injuries including traumatic rib fx- 4
- incentive spirometer
- Xray of the Right elbow with no evidence of osteomyelitis associated with the wound
- Xray Right hip shows degen changes
- pending BC results t/c CT for right thigh hematoma eval
# Paroxysmal A-fib- not on OAC unclear reason- continue amiodarone
# Abnormal D dimer
- CT/PE : Moderate-sized bilateral lower lobe airspace consolidations. Diagnostic possibilities are (1) bilateral lower lobe pneumonia or (2) moderate atelectasis.
Mild acute interstitial cardiogenic pulmonary edema.
# Aortic aneurysm
# stage 2 sacral pressure injury- followed by WC
# Atherosclerosis/hyperlipidemia- continue statin
# COPD
# Congestive heart failure- type unclear
# h/o Mitral valve repair
# Diabetes mellitus type 2- accu check on sliding scale coverage- continue repaglinide
# GERD- continue PPI
# JESUS
# Obesity
DVT Prophylaxis:
Code: Full Code
Anticipated Discharge: 24 - 48 hours
Subjective/Interval History
-
Date of Service: March 29, 2024
Objective Data
-
Labs:
Laboratory Results
03/29/24
05:21
WBC 13.7 H
Hgb 8.7 L
Hct 27.7 L
Plt Count 276 D
PT 16.0 H
INR 1.27
Sodium 135
Potassium 3.5
Chloride 97 L
Carbon Dioxide 24
BUN 48 H
Creatinine 5.5 H*
Glucose 122 H
Calcium 8.7
Total Bilirubin 0.9
AST 20
ALT 11
Alkaline Phosphatase 100
Vital Signs:
Vital Signs
Temp Pulse Resp BP Pulse Ox
97.7 F 81 22 97/52 90
03/29/24 04:28 03/29/24 05:00 03/29/24 05:00 03/29/24 04:00 03/29/24 05:00
I&O
03/27/24 03/28/24 03/29/24
06:59 06:59 06:59
Intake Total 500 / 500 860 / 860
Output Total 0 / 0
Balance 500 / 500 860 / 860
Review of Systems
-
History Source: Patient
Constitutional: Denies Fever
Cardiac: Denies Chest Pain
Abdomen/GI: Denies Abdominal Pain
Musculoskeletal: Denies Joint Pain
Neuro: Denies Headache
Hematologic / Lymphatic: Denies Bleeding
Physical Exam
-
General: Comfortable and Appears Chronically Ill
HEENT: Normocephalic
Cardiac: Regular Rhythm
GI: Soft and Nontender
Musculoskeletal: Other (Elbow wound on the right side- Slight improvement in b/l LE edema)
Skin: Warm
Neuro: Awake, Alert and Oriented
Psych: Calm
Data Reviewed
-
Labs: Labs Reviewed by me, Discussed with Physician and Discussed with Patient
[2024-03-29] MEDS: TYLENOL 1000 MG PO ×3 (07:34→23:48)
[2024-03-29] MEDS: ProAmatine 5 MG PO ×4 (07:34→17:03)
[2024-03-29 07:37] LABS: Glucose - Point of Care 139 mg/dl (70-99)
[2024-03-29] MEDS: NOVOLOG FLEXPEN-LOW RESISTANCE SC ×3 (07:38→17:30)
[2024-03-29] MEDS: MANNITOL 25% 12.5 GRAMS IV ×2 (08:55→10:39)
[2024-03-29] MEDS: FLEXBUMIN 25% FOR HEMODIALYSIS 12.5 GRAMS IV ×2 (09:28→10:38)
[2024-03-29] MEDS: RETACRIT 10000 UNITS IV (09:30)
--- NOTE | 2024-03-29 09:53 | PHA.VAN.FU ---
Vancomycin Assessment / Plan
- Assessment
Hemodialysis Schedule: MWF
Last Hemodialysis performed: 03/27/24
WBC's are: Stable
In the past 24 hrs, patient has been: Hypothermic (96.9 - 03/29/24 0727)
Concomitant Antimicrobials: rifaximin; PO doxy; piperacillin/tazo
- Assessment - Therapeutic Drug Monitoring
Random Level: 11.5 ( 750 mg x 1 dose given ~1000 03/28)
- Dosing Plan
Continue: dose by random level HD days
Dosing by Level: Re-dose today (1000 mg x 1 dose post HD today)
- Monitoring Plan
Random Level: check random level Monday AM to make sure pt is still therapeutic
No level(s) ordered at this time: consider level Monday AM
- Follow Up
Pharmacy will continue to follow.
Vancomycin Follow UP
- -
Patient Age: 73
Patient Sex: Male
Vancomycin Day #: 3
Indication: Bacteremia
Requesting Provider: Dr. Vela
Pertinent Antimicrobial Allergies:
no pertinent antimicrobial allergies
Height / Weight:
Height 6 ft 3 in
Actual Weight 104.2 kg
Pertinent Past Medical History: ESRD on HD MWF, BMI ~30, DM 2
- Vital Signs / Lab Results
Temp Pulse Resp BP Pulse Ox
96.9 F L 64 16 82/49 96
03/29/24 07:27 03/29/24 07:00 03/29/24 07:00 03/29/24 07:34 03/29/24 07:00
Lab Results - Hematology
03/27/24 03/28/24 03/29/24
10:59 04:46 05:21
WBC 12.5 H 13.2 H 13.7 H
Lab Results - Chemistry
03/27/24 03/28/24 03/29/24
10:59 04:46 05:21
BUN 56 H 37 H 48 H
Creatinine 6.5 H* 4.1 H* 5.5 H*
Estimated Creat Clear 08 29 14
Albumin 2.9 L 2.8 L 2.6 L
Microbiology Results
03/27/24 18:18 Blood Culture - Preliminary
Blood/Venous No Growth in 24 hours- Final report to follow
03/27/24 17:47 Blood Culture - Preliminary
Blood/Venous No Growth in 24 hours- Final report to follow
03/27/24 20:05 Wound Culture - Preliminary
Leg - Right No growth
Gram Stain - Preliminary
Therapeutic Drug Monitoring
Random Vancomycin 11.5 ug/ml 03/29/24 05:21
--- NOTE | 2024-03-29 10:33 | W.PN.ID1 ---
Date of Service
Date of Service: March 29, 2024
Today's Communication
unclear cause of mediastinal lymphadenopathy - if persistent further workup outpatient could be considered
if no unifying diagnosis would consider JO ANN monday
continue to follow blood cultures
continue zosyn/doxycycline/vancomycin
Assessment / Plan
Purpuric rash bilateral lower extremities
Shock
CAD h/o CABG
Cirrhosis
Anasarca
H/o MVR
- acute rash on the thighs is not typical of cellulitis, nonblanching, more consistent with purpura and has improved ; patient may have a disseminated infection - unclear cause. The distal lower extremities have chronic lichenification typical of
uncontrolled lymphedema.
- blood cultures x2 in progress no growth to date - continue to follow
- wound culture of unroofed vesicular lesion no growth, there were rare GPCs on the gram stain - unclear if pathogen vs contaminant
- TTE: no vegetation; could consider JO ANN monday if no unifying diagnosis
- CT chest with pulmonary edema, unclear cause of mediastinal lymphadenopathy at this time - a pulmonary infection can be a cause however patient without active pulmonary symptoms, overall suspect atelectasis rather than bilateral lower lobe
pneumonia, irregardless current antibiotics are aggressive coverage for hospital acquired infections
- unable to produce a sputum
- if persistent further workup outpatient could be considered
- Xray of the wound No cortical destruction to suggest osteomyelitis.
- Xray right hip DJD
- notable deformity inferior to the hip - torn muscle? there is no bruising to suggest hematoma externally however I am not certain if that would be universal. Currently no erythema, warmth or fluctuance. If patient is bacteremic or no source of
infection ultimately found may consider further imaging
- Abd US consistent with cirrhosis - no free fluid in the abdomen to suggest sbp
hep B/C serologies: prior vaccination to hep B
reports compliance with HD
- continue vanc, zosyn, doxycycline at this time - continue to follow blood cultures
- currently on rifaximin and lactulose per GI
Patient with some interval improvement
Chief Complaint
-: Clinical Sepsis
Subjective / Review of Systems
hypothermia this am - not yet clear if sustained
remains hypotensive on midodrine
wbc stable at 13
plt improved
k normal
ammonia 11
previously vaccinated to hep B, no prior hep c
abdomen more distended today
Vital Signs / Physical Exam
Vital Signs
Vital Signs
Temp Pulse Resp BP Pulse Ox
96.9 F L 64 16 82/49 96
03/29/24 07:27 03/29/24 07:00 03/29/24 07:00 03/29/24 07:34 03/29/24 07:00
Physical Exam
Constitutional: No Acute Distress and Chronically Ill
Cardiovascular: Regular Rate and S1/S2; Negative Murmur or Rub
Pulmonary: Clear and Symmetric; Negative Wheezes or Rales
Gastrointestinal: Soft, Non Tender, Distended and Normal Bowel Sounds
Skin: Warm and Dry; Negative Rash or Jaundice
Objective Data
Lab Data
Lab Results
03/29/24 05:21
03/29/24 05:21
PT 16.0 Sec (11.4-14.6) H 03/29/24 05:21
INR 1.27 03/29/24 05:21
APTT 41.3 Sec (23.4-35.0) H 03/27/24 10:59
Estimated Creat Clear 14 ml/min 03/29/24 05:21
Total Bilirubin 0.9 mg/dl (0.2-1.3) 03/29/24 05:21
AST 20 U/L (17-59) 03/29/24 05:21
ALT 11 U/L (0-50) 03/29/24 05:21
Alkaline Phosphatase 100 U/L (38-126) 03/29/24 05:21
Most recent labs reviewed.
Micro Results:
03/27/24 20:05 Wound Culture - Preliminary
Leg - Right No growth
Gram Stain - Preliminary
03/27/24 18:18 Blood Culture - Preliminary
Blood/Venous No Growth in 24 hours- Final report to follow
03/27/24 17:47 Blood Culture - Preliminary
Blood/Venous No Growth in 24 hours- Final report to follow
--- NOTE | 2024-03-29 11:01 | W.PN.GI.CBS2 ---
Today's Communication / Plan
-
Hgb stable after 2 units PRBC on 03/27
Await records from [facility] to see where bleed was and how it was treated
Will rx HC suppository for hemorrhoids
Continue lactulose/xifaxan for HE and new dx cirrhosis. Await records for any recent work up at [facility]
Assessment / Plan
-
Pt is a 73yo presents with hx Afib with hx watchman, COPD, ESRD on HD, NIDDM, anemia, MVR, cirrhosis (new diagnosis per patient) with recent GI bleeding with work up and fall with move to [facility]. He now presents with first admission to
[facility] presents with abnormal labs with anemia with hbg 6.5 on predialysis labs and concern for GI bleeding. After admission noted with black tarry stools and also follow up imaging US noted change of
cirrhosis/ascites/splenomegaly/portal HTN/cholelithiasis, med renal disease and CT PE study with Pulm edema, PNA, small effusion, moderate mediastinal lymphadenopathy, prior CABG, prior MVR, mild ascites rib fractures, splenomegaly and concern for
left atrial appendage on watchman with thrombus. Asked to see for concern for need for anticoagulation with recent GI bleeding. In reviewing with patient and family he is noted with recent GI bleeding with care at [facility] then
[facility]. He had several attempted EGD/colon then eventual capsule. He did not recall all then details but noted cauterization of several area. He now returns with hbg 6.8 with unclear baseline.
03/27/24- 2 units PRBC
-anemia-- heme + brown stool on exam
-concern for atrial appendage on watchman with thrombus
-recent GI bleed with work up at [facility] and 'cauterization of several area'
-cirrhosis with new diagnosis with decompensation with HE and mild ascites on imaging
-? hx HE
-rectal pain with rectal excoriation
-recent fall
-anasarca
-cellulitis
-pulm edema
-hyponatremia
-diffuse rash
other medical problems:
-afib
-ESRD on HD
-NIDDM
-GERD
-anemia
-MVR
-aortic aneurysm
-JESUS
-obesity
Subjective
Subjective
Date of Service: March 29, 2024
No complaints on HD. Nurse reports prolapsed hemorrhoid.
Objective
Data Reviewed
Laboratory Data:
Laboratory Results
03/29/24 05:21
03/29/24 05:21
Laboratory Results
PT 16.0 Sec (11.4-14.6) H 03/29/24 05:21
INR 1.27 03/29/24 05:21
APTT 41.3 Sec (23.4-35.0) H 03/27/24 10:59
Total Bilirubin 0.9 mg/dl (0.2-1.3) 03/29/24 05:21
AST 20 U/L (17-59) 03/29/24 05:21
ALT 11 U/L (0-50) 03/29/24 05:21
Alkaline Phosphatase 100 U/L (38-126) 03/29/24 05:21
Vital Signs and I&O:
Vital Signs
Temp Pulse Resp BP Pulse Ox
96.9 F L 64 16 82/49 96
03/29/24 07:27 03/29/24 07:00 03/29/24 07:00 03/29/24 07:34 03/29/24 07:00
I&O
03/28/24 03/29/24 03/30/24
06:59 06:59 06:59
Intake Total 500 / 500 860 / 860
Output Total 0 / 0
Balance 500 / 500 860 / 860
Physical Exam
Physical Exam
GI: Soft, Distended and Non Tender
[2024-03-29] MEDS: VANCOCIN 200 IV (11:02)
[2024-03-29] MEDS: HYDROPHOR 1 APPLIC TOPICAL (11:13)
--- NOTE | 2024-03-29 12:23 | W.PN.CARDCBS ---
Today's Communication / Plan
-
Will sign off, recall if needed
Impression / Plan
-
PCP: Dr. Ching Rao in [facility]
Cardiology: Dr. Ezequiel Lopes [phone]
Impression:
Admitted with anemia 03/27/24
ESRD on HD
Acute volume overload with acute HF unknown EF, cirrhosis and ESRD on HD
Acute on chronic anemia
Heme positive stools with recent GI work-up at [facility]
Cirrhosis, patient says this is a new diagnosis
s/p MV ring repair 2003
Paroxysmal Afib
Chronic amiodarone therapy
s/p Watchman device 2019
Echo 03/28/24:
Normal left ventricular size and systolic function. LV ejection fraction is 59% by volumetric assessment.
Mild concentric left ventricular hypertrophy.
Enlarged right ventricular size with low normal right ventricular systolic
function.
Biatrial enlargement
A mitral valve ring is present. Mean transmitral pressure gradient 4mmHg. No
mitral stenosis. Mild mitral regurgitation.
Aortic sclerosis without stenosis. No aortic regurgitation is seen.
Mild to moderate tricuspid regurgitation.
Estimated pulmonary artery pressure of 46 mmHg assuming a right atrial pressure
of 10 mmHg. The IVC is dilated and does not collapse.
No pericardial effusion.
No definite valvular vegetation seen
Plan:
He is a complex medical patient with end-stage renal disease on hemodialysis, paroxysmal atrial fibrillation status post Watchman procedure, mitral valve ring repair in 2003, heme positive stools with chronic anemia who has been staying at [facility] and presents with failure to thrive, anemia, heme positive stool, and dizziness.
-A CAT scan of the chest was performed which revealed a Watchman device in place with thrombus within the left atrial appendage prompting cardiology consult. The CT scan was reviewed with the watchman team: The radiologic findings appear to be
appropriate for his watchman. No further workup is required.
-Reviewed echocardiogram was reviewed and discussed with patient. Normal LV systolic function and normally functioning MV ring repair. No obvious valvular vegetations.
-Blood cultures NGTD
-Maintaining SR on telemetry- He takes amiodarone 200 mg daily for rhythm control of his paroxysmal Afib. No OAC given anemia s/p watchman
Will sign off, recall if needed
Progress Note - Test Manager
Subjective
Date of Service: March 29, 2024
Seen just piror to HD today. Offers no new complaints
Objective
Labs:
03/29/24 05:21
03/29/24 05:21
Labs
Hgb 8.7 g/dL (13.0-18.0) L 03/29/24 05:21
Hct 27.7 % (39.0-52.0) L 03/29/24 05:21
Plt Count 276 10^3/uL (130-400) D 03/29/24 05:21
PT 16.0 Sec (11.4-14.6) H 03/29/24 05:21
INR 1.27 03/29/24 05:21
APTT 41.3 Sec (23.4-35.0) H 03/27/24 10:59
Sodium 135 mmol/L (135-145) 03/29/24 05:21
Potassium 3.5 mmol/L (3.5-5.1) 03/29/24 05:21
BUN 48 mg/dl (9-20) H 03/29/24 05:21
Creatinine 5.5 mg/dL (0.7-1.3) H* 03/29/24 05:21
Glucose 122 mg/dl (70-99) H 03/29/24 05:21
Vital Signs and I&O:
Vital Signs
Temp Pulse Resp BP Pulse Ox
96.9 F L 66 17 88/45 97
03/29/24 07:27 03/29/24 11:45 03/29/24 11:45 03/29/24 11:45 03/29/24 11:45
Vital Signs
Temp Pulse Resp BP Pulse Ox
96.9 F L 66 17 88/45 97
03/29/24 07:27 03/29/24 11:45 03/29/24 11:45 03/29/24 11:45 03/29/24 11:45
Intake & Output
03/27/24 03/28/24 03/29/24 03/30/24
06:59 06:59 06:59 06:59
Intake Total 500 / 500 860 / 860
Output Total 0 / 0
Balance 500 / 500 860 / 860
Physical Exam
Physical Exam
GEN: No distress, awake, Ox3
LUNGS: CTA, no wheezes/rales
CV: Reg, S1/S2, 2/6 syst LSB, no gallop
ABD: soft, BS+, NT/+ distended
EXT: +1 edema
SKIN: ecchymosis
--- NOTE | 2024-03-29 12:47 | PN.CDI ---
CDI
- -
CDI:
Physician Documentation Request
Admit Date: 03/27/24 15:33
Dear Doctor Bhakti,
Please review the following and provide your response in the progress notes.
Clinical Indicators:
ID consult, 03/27
Reason for Consultation: lower extremity cellulitis
Disseminated purpuric rash
Shock
Suspected cirrhosis
ID PN, 03/29
#...patient may have a disseminated infection - unclear cause.
#...a pulmonary infection can be a cause however patient
#...without active pulmonary symptoms,
#...overall suspect atelectasis rather than bilateral lower lobe pneumonia,
#...irregardless current antibiotics are aggressive coverage for hospital acquired infections
#...-: Clinical Sepsis
#hypothermia this am - not yet clear if sustained
#remains hypotensive on midodrine
Laboratory Tests
03/27/24 03/28/24 03/29/24
10:59 04:46 05:21
WBC 12.5 H 13.2 H 13.7 H
Recognized standard criteria for this condition and other associated definitions:
�Sepsis
-Systemic manifestations of infection, with 2 or more SIRS criteria which include:
-Fever > 100.4��F or hypothermia < 96.8��F
-Leukocytosis WBC > 12,000 or leukopenia, WBC < 4,000, or > 10% bands
-Tachycardia- > 90 beats/minute
-Tachypnea- RR > 20 breaths/minute or PaCO2 < 32mmHg
Source: Merck Manual 2013
-Documentation should include the known or suspected organism, and the underlying infection, such as UTI or pneumonia
�Severe Sepsis
-Sepsis with associated acute organ dysfunction, such as renal or respiratory failure
-Documentation should indicate the association between the sepsis and the organ dysfunction
�Septic Shock
-Severe sepsis with associated with circulatory failure, evidenced by hypotension and hypoperfusion
Based on the above information and the recognized standard SIRS criteria and your clinical assessment, please clarify which is most reflective of the patient�s condition.....
Please clarify in the Progress Notes:
Sepsis is/was present and is a clinical diagnosis based on (please include this additional support in the medical record)
After study sepsis has been ruled out
Other(please specify)
Use of terms such as suspected, likely, concern for, or probable (associated with a specific diagnosis that is being evaluated, monitored, or treated as if it exists) are acceptable and can be coded in the inpatient setting, when documented at the
time of discharge.
Thank you,
Evi Hampton RN BSN CCDS
CDI Specialist
please contact via tiger text
Please use your independent medical judgment in providing your response.
[2024-03-29 12:48] LABS: Glucose - Point of Care 117 mg/dl (70-99)
--- NOTE | 2024-03-29 13:03 | PN.CDI ---
CDI
- -
CDI:
Physician Documentation Request
Admit Date: 03/27/24 15:33
Dear Doctor Lary,
Please review the following and provide your response in the progress notes.
Clinical Indicators:
PN, 03/29
# Pulmonary Edema
#- CXR - suspicious for mild to moderate pulmonary edema.
#...Questionable tiny left pleural effusion.
#- 1 dose of IV lasix 80mg in ER
#- continue PO lasix
# Mild hyponatremia
#...likely hypervolemic
# Abnormal D dimer
#- CT/PE : Moderate-sized bilateral lower lobe airspace consolidations.
#...Diagnostic possibilities are (1) bilateral lower lobe pneumonia
#...or (2) moderate atelectasis.
#...Mild acute interstitial cardiogenic pulmonary edema.
Cardiology, PN, 03/29
#Acute volume overload with acute HF unknown EF, cirrhosis and ESRD on HD
Please clarify the acuity and etiology of the pulmonary edema:
Acute non-cardiac pulmonary edema due to fluid overload
Acute non-cardiac pulmonary edema due to other cause (please specify)
Acute pulmonary edema due to heart failure (please specify type and acuity)
Type: systolic, diastolic, combined or other type
Acuity: acute (new onset), chronic or acute on chronic
Other(please specify)
Use of terms such as suspected, likely, concern for, or probable (associated with a specific diagnosis that is being evaluated, monitored, or treated as if it exists) are acceptable and can be coded in the inpatient setting, when documented at the
time of discharge.
Thank you,
Evi Hampton RN BSN CCDS
CDI Specialist
please contact via tiger text
Please use your independent medical judgment in providing your response.
[2024-03-29] MEDS: ANUSOL HC 25 MG RECTAL ×2 (13:04→19:44)
[2024-03-29] MEDS: DUPHALAC/CHRONULAC 30 GRAMS PO ×2 (13:12→19:42)
[2024-03-29] MEDS: DESENEX/MITRAZOL/ZEASORB 1 APPLIC TOPICAL ×2 (13:12→19:44)
[2024-03-29] MEDS: PACERONE 200 MG PO (13:14)
[2024-03-29] MEDS: XIFAXAN 550 MG PO ×2 (13:15→19:44)
[2024-03-29] MEDS: LASIX 80 MG PO (13:15)
[2024-03-29] MEDS: PRANDIN 0.5 MG PO (13:15)
[2024-03-29] MEDS: NSS (PRESERVATIVE FREE) 10 ML IV ×2 (13:16→19:43)
[2024-03-29] MEDS: PROTONIX IV 40 MG IV ×2 (13:16→19:43)
[2024-03-29] MEDS: SANTYL OINTMENT 1 APPLIC TOPICAL (13:16)
[2024-03-29] MEDS: VIBRAMYCIN 100 MG PO ×2 (13:17→19:44)
[2024-03-29] MEDS: FEOSOL 325 MG PO (13:17)
[2024-03-29] MEDS: NEPHROCAP 1 CAPSULE PO (13:17)
--- NOTE | 2024-03-29 13:32 | W.PN.NEPH.HD ---
Assessment
-
- hypotensive with HD
- volume overloaded
Progress Note - Hemodialysis
-
Date of Service: March 29, 2024
Duration: 30 minutes and 3 hours
Potassium Bath: 3
Calcium Bath: 2.5
Opti-Dialyzer: 160
Ultrafiltration: Other
Blood Flow: 400
Dialysate Flow: 600
--- NOTE | 2024-03-29 14:02 | PTCARENOTE ---
Addendum entered by Laura Lundberg RN 03/29/24 18:30:
Pt also using air donut cushion while in chair.
Original Note:
Patient had dialysis this morning approx [id number]. As soon as patient was of of HD, pt calling to get OOB. Pt very angry we were not able to get him up immediately as RN was in another patient room at that time. When available patient got up to
BSC, then to chair. Pt has been c/o being sore perirectal and having pain around his rectum. Following BM today, pt now has a grape sized hemorrhoid present. GI and aware. Anusol suppositories ordered and administered. See MAR.
Assessment, care and VS as charted.
--- NOTE | 2024-03-29 15:35 | PTCARENOTE ---
TT for pt's hypotension. Pt's BP low, systolic in 80s post-dialysis. Pt received cardiac medications and Lasix post-dialysis. advised if pt's BP still low at 1600, could try Levophed. Will monitor.
--- NOTE | 2024-03-29 17:21 | CM ---
Patient from [facility] with Hx ESRD on HD with Dx Anemia-heme positive stools, Cellulitis bilateral lower extremities, Right thigh/lateral hip hematoma, anasarca, pulmonary edema. O2 2L. Receiving IV Abx, midodrine. Seen by wound care nurse.
PT & OT recommend acute rehab.
Spoke with patient's brother Rafi; he and his brother are unable to meet today as his brother's flight was delayed. Discussed PT/OT recommendations for acute rehab and Rafi agrees - he would like patient to go to [place] again.
Message to Dr Rao requesting Physiatry Consult.
Referral placed in [facility] for [facility].
Plan follow up after seen by Physiatry.
[2024-03-29 17:28] LABS: Glucose - Point of Care 125 mg/dl (70-99)
--- NOTE | 2024-03-29 18:15 | PTCARENOTE ---
Pt's BP better, systolic in 90s since 1599. updated and no new orders at this time.
[2024-03-29] MEDS: LIPITOR 40 MG PO (21:10)
[2024-03-29] MEDS: MELATONIN 10 MG PO (21:10)
[2024-03-29 21:33] LABS: Glucose - Point of Care 112 mg/dl (70-99)
--- NOTE | 2024-03-29 21:38 | PTCARENOTE ---
Pt received at 19:00. Assessment as documented. Pt drowsy. Remains on 2L NC, desats to 60s while asleep. Discussed the importance of bipap/cpap. Pt states that he will not use one. Plan of care ongoing. Family at bedside.
[2024-03-30] VITALS (32 sets, daily range): BP systolic 84–124; BP diastolic 40–79; BMI 28.5; BMI 27.7
[2024-03-30] MEDS: ZOSYN 50 IV ×3 (04:48→20:39)
[2024-03-30 05:28] LABS: Hemoglobin 7.8 g/dL (13.0-18.0); Mean Corpuscular Hgb 26.9 pg (27.0-31.0); Mean Corpuscular Volume 89.7 fL (80.0-94.0); Mean Platelet Volume 8.3 fL (7.4-10.4); Platelet Count 222 10^3/uL (130-400); Red Cell Dist. Width 18.3 % (11.5-14.5); White Blood Cell Count 15.2 10^3/uL (4.8-10.8)
[2024-03-30 05:56] LABS: ALT (SGPT) 12 U/L (0-50); AST (SGOT) 28 U/L (17-59); Alkaline Phosphatase 93 U/L (38-126); Blood Urea Nitrogen 34 mg/dl (9-20); Calcium 8.7 mg/dl (8.4-10.2); Carbon Dioxide 27 mmol/L (22-30); Chloride 97 mmol/L (98-107); Estimated Creatinine Clearance 18 ml/min; Glucose 95 mg/dl (70-99); Potassium 3.6 mmol/L (3.5-5.1); Sodium 135 mmol/L (135-145); Total Bilirubin 0.9 mg/dl (0.2-1.3); Total Protein 6.1 g/dl (6.3-8.2); eGFR 13.43
[2024-03-30 06:00] LABS: % Basophils 0.4 % (0-2); % Eosinophils 1.5 % (0-6); % Immature Granulocytes 5.4 % (0-0.5); % Monocytes 8.6 % (1.7-9.3); % Neutrophils 76.1 % (42.2-75.2); Absolute Basophils 0.1 10^3/uL (0-0.2); Absolute Eosinophils 0.2 10^3/uL (0-0.7); Absolute Immature Granulocytes 0.8 10^3/uL (0-0.05); Absolute Lymphocytes 1.2 10^3/uL (1.2-3.4); Absolute Monocytes 1.3 10^3/uL (0.1-0.6); Absolute Neutrophils 11.5 10^3/uL (1.4-6.5); Nucleated Red Blood Cells % 0.3 % (-)
--- NOTE | 2024-03-30 07:29 | W.PN.HOSP.TC ---
Addendum entered and electronically signed by Henrry Rao MD 03/30/24 13:16:
I personally performed a history and physical exam of the patient and discussed management with the resident. I reviewed the resident's note and agree with the documented findings and plan of care HPI/CC.
Patient's 2 brothers were at bedside
Patient denies any complaints other than feeling tired.
Having dark stools, loose stools may be secondary to lactulose also. Stop Senna. C. difficile ordered by GI
On examination anasarca slightly better. Lower extremity skin appears to be better
He is still a little winded when he talks full sentences.
Still awaiting records from [place]. Please send specifically to [facility] today and see if we can get any records.
Had a very detailed discussion with patient's 2 brothers at bedside and also separately.
Discussed about his physiology with CHF, end-stage renal disease and also liver disease. Brothers endorse that patient was not compliant with CPAP at home. They also do not think he takes good care of him. They want to help him as much as they
can. They are requesting if patient can go to [facility].
D/W RN
time spent over 60 min
They do not feel comfortable him going to a fdc facility at this point.
We discussed about palliative care. I also made them aware that he would be hospice appropriate but I have not had that discussion with him. Patient is still optimistic that he is going to get better. We discussed about his hospitalizations and
the interval getting shorter is not a good sign.
Plan is to continue antibiotics, fluid removal with hemodialysis, additional Lasix, PT OT and wait for records from [place].
Patient stated that he needed multiple prep for colonoscopy at [facility] and he is not looking forward to getting any GI procedures unless it is necessary.
Original Note:
Today's Communication/Plan
-
pending physiatry consult for [facility]?
Assessment / Plan
Assessment / Plan
#Acute anemia in CKD
Hematoma on right thigh vs GI bleed vs Anemia of chronic disease
- Hb 7.8 ( 03/30/24)
- 2 bags PRBC on 03/27/24
- Heme + stool
- GI input appreciated
- PT/OT recs acute rehab
- pending physiatry consult for rehab recs
# Cellulitis B/l LE
- IV vanco, zosyn and PO doxy per ID
- WC and BC pending
- Continue Wound care
#ESRD
- on regular dialysis M/W/F-
- Left UE dialysis access
- Cr 03/30 4.4
- Nephro input appreciated
- Dialysis today
- low na diet, with FR
- midodrine per nephro
- HD today
- additionsal dose of lasix 80mg today
#Anasarca- sec to liver disease
- Suspected Cirrhosis
- 2/2 to hypoalbuminemia or chronic liver disease
- diuresis as tolerated - may be difficult with intravascular low oncotic pressure
- ABD US : Small amount of perihepatic ascites, Nodular contour of the liver surface, suggestive of cirrhosis, Cholelithiasis without evidence of acute cholecystitis.
- continue rifaximin and lactulose
- hep panel negative
- check standing weight after HD
# Acute Pulmonary Edema sec to overload in HFpEF
- CXR - suspicious for mild to moderate pulmonary edema. Questionable tiny left pleural effusion.
- 1 dose of IV lasix 80mg in ER
- continue PO lasix
- CT: left atrial appendage Watchman occlusion device in place in the left atrial appendage ostium containing thrombus.- per cardio this is normal appearance.
- Appreciate cardio input
- no AC recommended per cardio
- consideration for JO ANN
# Mild hyponatremia
likely hypervolemic
- resolved
- continue lasix and routine dilaysis
# Diffuse Body pain/aches
# Recent fall with multiple injuries including traumatic rib fx- 4
- incentive spirometer
- Xray of the Right elbow with no evidence of osteomyelitis associated with the wound
- Xray Right hip shows degen changes
- pending BC results t/c CT for right thigh hematoma eval
# Paroxysmal A-fib- not on OAC unclear reason- continue amiodarone
# Urinary retention
- bladder scan
- straight cath
# Abnormal D dimer
- CT/PE : Moderate-sized bilateral lower lobe airspace consolidations. Diagnostic possibilities are (1) bilateral lower lobe pneumonia or (2) moderate atelectasis.
Mild acute interstitial cardiogenic pulmonary edema.
# Aortic aneurysm
# stage 2 sacral pressure injury- followed by WC
# Atherosclerosis/hyperlipidemia- continue statin
# COPD
# Congestive heart failure- type unclear
# h/o Mitral valve repair
# Diabetes mellitus type 2- accu check on sliding scale coverage- continue repaglinide
# GERD- continue PPI
# JESUS
# Obesity
DVT Prophylaxis:
Code: Full Code
Anticipated Discharge: > 48 hours
Subjective/Interval History
-
Date of Service: March 30, 2024
Objective Data
-
Labs:
Laboratory Results
03/30/24 03/30/24
04:54 10:00
WBC 15.2 H
Hgb 7.8 L Pending
Hct 26.0 L Pending
Plt Count 222
Sodium 135
Potassium 3.6
Chloride 97 L
Carbon Dioxide 27
BUN 34 H
Creatinine 4.4 H*
Glucose 95
Calcium 8.7
Total Bilirubin 0.9
AST 28
ALT 12
Alkaline Phosphatase 93
Vital Signs:
Vital Signs
Temp Pulse Resp BP Pulse Ox
98.1 F 63 15 92/47 96
03/30/24 03:07 03/30/24 06:00 03/30/24 06:00 03/30/24 06:00 03/30/24 06:00
I&O
03/29/24 03/30/24 03/31/24
06:59 06:59 06:59
Intake Total 860 / 860 550 / 550
Output Total 0 / 0 100 / 100
Balance 860 / 860 450 / 450
Review of Systems
-
History Source: Patient
Constitutional: Denies Fever
Respiratory: Denies Cough
Cardiac: Denies Chest Pain
Abdomen/GI: Denies Abdominal Pain
Musculoskeletal: Denies Joint Pain
Neuro: Denies Dizzy or Headache
Physical Exam
-
General: No Apparent Distress and Appears Chronically Ill
Respiratory: Decreased Breath Sounds
Cardiac: Regular Rhythm
GI: Nontender and Distended
Skin: Other (Purpuric rash with vesicles - bilateral lower extremities)
Neuro: Awake, Alert and Oriented
Psych: Calm
Data Reviewed
-
Labs: Labs Reviewed by me, Discussed with Physician and Discussed with Patient
[2024-03-30 07:45] LABS: Glucose - Point of Care 109 mg/dl (70-99)
--- NOTE | 2024-03-30 08:05 | PHA.VAN.FU ---
Vancomycin Assessment / Plan
- Assessment
Hemodialysis Schedule: MWF
WBC's are: Trending Up
In the past 24 hrs, patient has been: Afebrile
Concomitant Antimicrobials: PO doxycycline; pip-tazo
- Dosing Plan
Continue: Dose by R HD days. Last Vanc 1000mg 03/29 1102
- Monitoring Plan
Random Level: 03/31 AM labs
- Follow Up
Pharmacy will continue to follow.
Vancomycin Follow UP
- -
Patient Age: 73
Patient Sex: Male
Vancomycin Day #: 4
Indication: Bacteremia
Requesting Provider: Dr. Vela
Pertinent Antimicrobial Allergies:
no pertinent antimicrobial allergies
Height / Weight:
Height 6 ft 3 in
Actual Weight 103.4 kg
Pertinent Past Medical History: ESRD on HD MWF, BMI ~30, DM 2
- Vital Signs / Lab Results
Temp Pulse Resp BP Pulse Ox
97.6 F 63 15 92/47 96
03/30/24 07:59 03/30/24 06:00 03/30/24 06:00 03/30/24 06:00 03/30/24 06:00
Lab Results - Hematology
03/27/24 03/28/24 03/29/24
10:59 04:46 05:21
WBC 12.5 H 13.2 H 13.7 H
03/30/24
04:54
WBC 15.2 H
Lab Results - Chemistry
03/27/24 03/28/24 03/29/24
10:59 04:46 05:21
BUN 56 H 37 H 48 H
Creatinine 6.5 H* 4.1 H* 5.5 H*
Estimated Creat Clear 12 14
Albumin 2.9 L 2.8 L 2.6 L
03/30/24
04:54
BUN 34 H
Creatinine 4.4 H*
Estimated Creat Clear 18
Albumin 3.0 L
Microbiology Results
03/27/24 18:18 Blood Culture - Preliminary
Blood/Venous No Growth in 48 hours- Final report to follow
03/27/24 17:47 Blood Culture - Preliminary
Blood/Venous No Growth in 48 hours- Final report to follow
03/27/24 20:05 Wound Culture - Preliminary
Leg - Right No growth
Gram Stain - Preliminary
Therapeutic Drug Monitoring
Random Vancomycin 11.5 ug/ml 03/29/24 05:21
--- NOTE | 2024-03-30 08:14 | W.PN.ID1 ---
Date of Service
Date of Service: March 30, 2024
Today's Communication
Continue current antibiotics
Assessment / Plan
Purpuric rash with vesicles - bilateral lower extremities
Hypotension
CAD h/o CABG
Cirrhosis
Anasarca
H/o MVR
ESRD�HD
Recommendations:
- blood cultures x2 in progress no growth to date - continue to follow
- wound culture of unroofed vesicular lesion no growth, there were rare GPCs on the gram stain - unclear if pathogen vs contaminant
- TTE: no vegetation; could consider JO ANN monday if no unifying diagnosis
- Abd US consistent with cirrhosis - no free fluid in the abdomen to suggest sbp
hep B/C serologies: prior vaccination to hep B
reports compliance with HD
- continue vanc, zosyn, doxycycline at this time - continue to follow blood cultures
- currently on rifaximin and lactulose per GI
-Follow-up white count temperature curve. Follow pending cultures.
����������������������������������������������������������
Chief Complaint
-: Clinical Sepsis
Subjective / Review of Systems
Review of Systems: No Fever, No Chills and Dysuria
Vital Signs / Physical Exam
Vital Signs
Vital Signs
Temp Pulse Resp BP Pulse Ox
97.6 F 63 15 92/47 96
03/30/24 07:59 03/30/24 06:00 03/30/24 06:00 03/30/24 06:00 03/30/24 06:00
Physical Exam
Constitutional: No Acute Distress, Comfortable, Chronically Ill, Non-toxic and Obese
Eyes: No Conjunctival Hemorrhage
Cardiovascular: S1/S2; Negative S3/S4
Pulmonary: Non Labored
Gastrointestinal: Soft, Distended, Normal Bowel Sounds and No Rebound
Extremities: Edema (3+); Negative Cyanosis or Erythema
Wound: Other (Bilateral medial thigh vesicular rash (not on erythematous base))
Neurological: Awake and Alert
Psychological: Calm
Objective Data
Lab Data
Lab Results
03/30/24 04:54
PT 16.0 Sec (11.4-14.6) H 03/29/24 05:21
INR 1.27 03/29/24 05:21
APTT 41.3 Sec (23.4-35.0) H 03/27/24 10:59
Estimated Creat Clear 18 ml/min 03/30/24 04:54
Total Bilirubin 0.9 mg/dl (0.2-1.3) 03/30/24 04:54
AST 28 U/L (17-59) 03/30/24 04:54
ALT 12 U/L (0-50) 03/30/24 04:54
Alkaline Phosphatase 93 U/L (38-126) 03/30/24 04:54
Most recent labs reviewed.
Micro Results:
03/27/24 18:18 Blood Culture - Preliminary
Blood/Venous No Growth in 48 hours- Final report to follow
03/27/24 17:47 Blood Culture - Preliminary
Blood/Venous No Growth in 48 hours- Final report to follow
03/27/24 20:05 Wound Culture - Preliminary
Leg - Right No growth
Gram Stain - Preliminary
[2024-03-30] MEDS: NOVOLOG FLEXPEN-LOW RESISTANCE SC ×3 (08:18→17:36)
[2024-03-30] MEDS: ANUSOL HC 25 MG RECTAL ×2 (08:39→20:40)
[2024-03-30] MEDS: DESENEX/MITRAZOL/ZEASORB 1 APPLIC TOPICAL ×2 (08:43→20:39)
[2024-03-30] MEDS: DUPHALAC/CHRONULAC 30 GRAMS PO (08:43)
[2024-03-30] MEDS: NEPHROCAP 1 CAPSULE PO (08:44)
[2024-03-30] MEDS: LASIX 80 MG PO ×2 (08:45→16:25)
[2024-03-30] MEDS: FEOSOL 325 MG PO (08:45)
[2024-03-30] MEDS: VIBRAMYCIN 100 MG PO ×2 (08:45→20:40)
[2024-03-30] MEDS: PACERONE 200 MG PO (08:45)
[2024-03-30] MEDS: TYLENOL 1000 MG PO ×2 (08:45→15:02)
[2024-03-30] MEDS: XIFAXAN 550 MG PO ×2 (08:45→20:40)
[2024-03-30] MEDS: ProAmatine 5 MG PO ×3 (08:50→17:36)
[2024-03-30] MEDS: SANTYL OINTMENT 1 APPLIC TOPICAL (09:02)
[2024-03-30] MEDS: HYDROPHOR 1 APPLIC TOPICAL (09:02)
[2024-03-30] MEDS: NSS (PRESERVATIVE FREE) 10 ML IV ×2 (09:04→20:39)
[2024-03-30] MEDS: PROTONIX IV 40 MG IV ×2 (09:04→20:39)
--- NOTE | 2024-03-30 09:08 | W.PN.GI.CBS2 ---
Today's Communication / Plan
-
Check stool c diff with multiple BMs/mushy
Hgb down slightly but BMs mostly brown
Continue to monitor Hgb
Await records from [facility] regarding recent w/u- EGD/colon/capsule
Assessment / Plan
-
Pt is a 73yo presents with hx Afib with hx watchman, COPD, ESRD on HD, NIDDM, anemia, MVR, cirrhosis (new diagnosis per patient) with recent GI bleeding with work up and fall with move to [facility]. He now presents with first admission to
[facility] presents with abnormal labs with anemia with hbg 6.5 on predialysis labs and concern for GI bleeding. After admission noted with black tarry stools and also follow up imaging US noted change of
cirrhosis/ascites/splenomegaly/portal HTN/cholelithiasis, med renal disease and CT PE study with Pulm edema, PNA, small effusion, moderate mediastinal lymphadenopathy, prior CABG, prior MVR, mild ascites rib fractures, splenomegaly and concern for
left atrial appendage on watchman with thrombus. Asked to see for concern for need for anticoagulation with recent GI bleeding. In reviewing with patient and family he is noted with recent GI bleeding with care at [facility] then
[place] [facility]. He had several attempted EGD/colon then eventual capsule. He did not recall all then details but noted cauterization of several area. He now returns with hbg 6.8 with unclear baseline.
03/27/24- 2 units PRBC
-anemia-- heme + brown stool on exam
-concern for atrial appendage on watchman with thrombus
-recent GI bleed with work up at [place] and 'cauterization of several area'
-cirrhosis with new diagnosis with decompensation with HE and mild ascites on imaging
-? hx HE
-rectal pain with rectal excoriation
-recent fall
-anasarca
-cellulitis
-pulm edema
-hyponatremia
-diffuse rash
other medical problems:
-afib
-ESRD on HD
-NIDDM
-GERD
-anemia
-MVR
-aortic aneurysm
-JESUS
-obesity
Subjective
Subjective
Date of Service: March 30, 2024
Pt reports multiple BMs, mushy, brown. Brown/black documented in chart
Objective
Data Reviewed
Laboratory Data:
Laboratory Results
03/30/24 04:54
Laboratory Results
PT 16.0 Sec (11.4-14.6) H 03/29/24 05:21
INR 1.27 03/29/24 05:21
APTT 41.3 Sec (23.4-35.0) H 03/27/24 10:59
Total Bilirubin 0.9 mg/dl (0.2-1.3) 03/30/24 04:54
AST 28 U/L (17-59) 03/30/24 04:54
ALT 12 U/L (0-50) 03/30/24 04:54
Alkaline Phosphatase 93 U/L (38-126) 03/30/24 04:54
Vital Signs and I&O:
Vital Signs
Temp Pulse Resp BP Pulse Ox
97.6 F 63 15 92/47 96
03/30/24 07:59 03/30/24 06:00 03/30/24 06:00 03/30/24 06:00 03/30/24 06:00
I&O
03/29/24 03/30/24 03/31/24
06:59 06:59 06:59
Intake Total 860 / 860 550 / 550
Output Total 0 / 0 100 / 100 250 / 250
Balance 860 / 860 450 / 450 -250 / -250
Physical Exam
Physical Exam
GI: Soft, Non Distended and Non Tender
[2024-03-30 10:59] LABS: Hematocrit 26.5 % (39.0-52.0); Hemoglobin 8.2 g/dL (13.0-18.0)
[2024-03-30 11:16] LABS: Glycohemoglobin (HgbA1c) 5.1 % (4.0-5.6)
[2024-03-30 12:19] LABS: Glucose - Point of Care 139 mg/dl (70-99)
[2024-03-30] MEDS: PRANDIN 0.5 MG PO (15:02)
--- NOTE | 2024-03-30 15:06 | W.PN.NEPH.HD ---
Assessment
-
- UF only session
- 3kg removed
Progress Note - Hemodialysis
-
Date of Service: March 30, 2024
Duration: 30 minutes and 2 hours
Ultrafiltration: Other (UF only 3kg)
Blood Flow: 400
Dialysate Flow: 600
--- NOTE | 2024-03-30 17:17 | PTCARENOTE ---
Pt received in bed @ 0700. AAOx3. Drowsy and lethargic. SaO2 95% on 2L NC. Pt with observed desaturations while sleeping. SaO2 observed to 52% while patient asleep. Pt awakened and SaO2 quickly manuel to > 90%. Sinus rhythm on monitor tech with
prolonged QT. +2 pitting LE edema. Wound care performed as documented. Bladder scanned due to lack of void resulting 250ml. HD performed, taking off 3L. Standing scale weight taken after dialysis. Hgb 7.8 this morning; re-checked 8.2. Instructed not
to administer ordered unit of PRBC's at this time.
[2024-03-30 17:46] LABS: Glucose - Point of Care 148 mg/dl (70-99)
[2024-03-30] MEDS: DUPHALAC/CHRONULAC PO ×2 (20:30→20:39)
[2024-03-30 21:41] LABS: Glucose - Point of Care 125 mg/dl (70-99)
[2024-03-30] MEDS: LIPITOR 40 MG PO (21:48)
[2024-03-30] MEDS: MELATONIN 10 MG PO (21:48)
[2024-03-30] MEDS: ULTRAM 25 MG PO (21:59)
[2024-03-31] VITALS (15 sets, daily range): BP systolic 90–144; BP diastolic 49–92; PULSE 52; O2SAT 99; BMI 27.6; BMI 27.9
[2024-03-31] MEDS: TYLENOL 1000 MG PO ×3 (00:03→16:32)
--- NOTE | 2024-03-31 00:45 | PTCARENOTE ---
Received pt sitting in chair, AAOx3, flat affect. PRN tramadol and standing tylenol given. C/O pain in sacrum. Repositioning often per request, using donut and air cushions. Assisted back to bed to try to get some sleep. Afib on tele. HR 60s. +2 LE
edema, +1 hand edema. Refused to elevate legs in bed but elevating arms on pillows. Weak DP pulses. BP 90s-100s/70s via R FA. On 2L NC, lungs diminished. Spo2 96-98%. Round abd, ascites. Hypoactive bowel sounds. He refused his lactulose dose tonight
2/2 'about 10 episodes of diarrhea today.' He is oliguric. No void this shift, bladder scanned for 286ml. Will monitor. L FA AV fistula + B/T. Calazime applied to buttocks, R elbow dsg c/d/i, LE dsgs c/d/i. Call robin in reach
[2024-03-31] MEDS: ZOSYN 50 IV (04:04)
[2024-03-31 04:43] LABS: Mean Corp Hgb Conc. 30.8 g/dL (33.0-37.0); Mean Corpuscular Volume 87.8 fL (80.0-94.0); Mean Platelet Volume 8.5 fL (7.4-10.4); Platelet Count 225 10^3/uL (130-400); Red Blood Cell Count 2.96 10^6/uL (4.70-6.10); Red Cell Dist. Width 18.2 % (11.5-14.5); White Blood Cell Count 13.7 10^3/uL (4.8-10.8)
[2024-03-31 04:49] LABS: Vancomycin Random 12.9 ug/ml
[2024-03-31] MEDS: ULTRAM 25 MG PO ×2 (05:02→22:46)
[2024-03-31 05:03] LABS: ALT (SGPT) 11 U/L (0-50); AST (SGOT) 22 U/L (17-59); Albumin 2.9 g/dl (3.5-5.0); Alkaline Phosphatase 94 U/L (38-126); Blood Urea Nitrogen 40 mg/dl (9-20); Calcium 8.9 mg/dl (8.4-10.2); Carbon Dioxide 23 mmol/L (22-30); Chloride 97 mmol/L (98-107); Estimated Creatinine Clearance 14 ml/min; Glucose 96 mg/dl (70-99); Potassium 3.5 mmol/L (3.5-5.1); Sodium 133 mmol/L (135-145); Total Bilirubin 0.8 mg/dl (0.2-1.3); eGFR 9.84
[2024-03-31 06:14] LABS: Absolute Neutrophils -Man Diff 10.8 10^3/uL (1.4-6.5); Anisocytosis 1+; Band Neutrophils 3 % (0-3); Eosinophils 3 % (0-6); Lymphocytes 11 % (20-51); Metamyelocytes 2 % (-); Monocytes 5 % (2-9); Normal RBC Morphology No; Nucleated Red Blood Cells 1 (-); Platelets Checked Yes; Polychromasia 1+; Segmented Neutrophils 76 % (42-75)
[2024-03-31 06:15] LABS: Total Cells Counted 100
[2024-03-31 06:18] LABS: Basophilic Stippling Occasional; Ovalocytes 1+
[2024-03-31 06:19] LABS: Acanthocytes 1+; Target Cells Occasional; Tear Drop Red Blood Cells Occasional
--- NOTE | 2024-03-31 07:17 | PHA.VAN.FU ---
Vancomycin Assessment / Plan
- Assessment
Hemodialysis Schedule: MWF
WBC's are: Trending Down
In the past 24 hrs, patient has been: Afebrile
Concomitant Antimicrobials: Pip-tazo, doxycycline, rifaximin
- Assessment - Therapeutic Drug Monitoring
Random Level: R = 12.9 ~ 41hrs post Vanc 1gm
- Dosing Plan
Continue: Dose by random HD days
Dosing Comments: Vanc 1000mg IV post HD 04/01
- Monitoring Plan
No level(s) ordered at this time: Check random 04/03 pre HD
- Follow Up
Pharmacy will continue to follow.
Vancomycin Follow UP
- -
Patient Age: 73
Patient Sex: Male
Vancomycin Day #: 5
Indication: Bacteremia
Requesting Provider: Dr. Vela
Pertinent Antimicrobial Allergies:
no pertinent antimicrobial allergies
Height / Weight:
Height 6 ft 3 in
Actual Weight 100.1 kg
Pertinent Past Medical History: ESRD on HD MWF, BMI ~30, DM 2
- Vital Signs / Lab Results
Temp Pulse Resp BP Pulse Ox
97.6 F 73 26 116/73 94
03/31/24 03:55 03/31/24 06:00 03/31/24 06:00 03/31/24 06:00 03/31/24 06:00
Lab Results - Hematology
03/29/24 03/30/24 03/31/24
05:21 04:54 04:12
WBC 13.7 H 15.2 H 13.7 H
Band Neutrophils 3
Lab Results - Chemistry
03/29/24 03/30/24 03/31/24
05:21 04:54 04:12
BUN 48 H 34 H 40 H
Creatinine 5.5 H* 4.4 H* 5.7 H*
Estimated Creat Clear 14 18 14
Albumin 2.6 L 3.0 L 2.9 L
Microbiology Results
03/27/24 18:18 Blood Culture - Preliminary
Blood/Venous No Growth in 72 hours- Final report to follow
03/27/24 17:47 Blood Culture - Preliminary
Blood/Venous No Growth in 72 hours- Final report to follow
03/30/24 11:54 C. difficile GDH Antigen & Toxins - Final
Feces/Stool Negative for toxigenic C.difficile
03/27/24 20:05 Wound Culture - Final
Leg - Right No growth
Gram Stain - Final
Therapeutic Drug Monitoring
Random Vancomycin 12.9 ug/ml 03/31/24 04:12
--- NOTE | 2024-03-31 07:24 | W.PN.HOSP.TC ---
Addendum entered and electronically signed by Henrry Rao MD 03/31/24 13:58:
I personally performed a history and physical exam of the patient and discussed management with the resident. I reviewed the resident's note and agree with the documented findings and plan of care HPI/CC. Except for change in documentation
On examination awake and alert
Anasarca
Cardiovascular system S1 S2 Go
Chest decreased breath sounds at bases
Bilateral lower extremity edema-redness in the skin slightly better, edema better
Elbow wound on the right side-deep
Right hip from-suspect organizing hematoma
# Anemia-heme positive stools
2 units of packed red blood cells this admission.
Patient states that he had EGD, colonoscopy and capsule study at [place]
Records requested again
Follow hemoglobin
#Bradycardia- decrease Amiodarone to 100 mg daily.
# Thrombus on Watchman-cardiology reviewed CT scan and also echo and does not think patient has a thrombus. This is the normal appearance of the valve.
# Cellulitis bilateral lower extremity
Continue vancomycin Zosyn and doxycycline
Blood cultures and wound culture pending
Continue wound care
# Right thigh/lateral hip hematoma organizing
If blood cultures positive we may need to get a CT-agree with ID
# End-stage renal disease-continue dialysis Monday
# Anasarca
Secondary to liver disease, CHF and also end-stage renal disease
Dialysis and continue Lasix
Will be difficult to remove fluid secondary to hypoalbuminemia
# Pulm edema is secondary to fluid overload
Continue dialysis and on Lasix
Echo 03/28/2024-normal LV size and function. EF 59%. Mild concentric LVH. Abnormal paradoxical septal motion. Enlarged RV size with low normal RV systolic function. Biatrial enlargement. Mitral valve ring present. Mild MR. Mild to moderate
TR. Pulmonary artery pressure 46 mmHg assuming RA pressure 10 mmHg. IVC dilated and does not collapse. No evidence of vegetations.
# Fjrtknam-Isfw-Hkkdv and sliding scale. Continue repaglinide
# History of mitral valve repair
# Chronic heart failure-likely chronic heart failure with preserved ejection fraction. Echo EF 59%.
# Chronic liver disease-cirrhosis per ultrasound-continue Xifaxan and lactulose, reduce to daily as he is complaining of diarrhea. May contact tomorrow to see the onset of cirrhosis was prior to the start of Amio.
# Elevated D-dimer-no PE
# Aortic aneurysm per chart-details unclear
# COPD
# Bilateral lower lobe airspace consolidation-likely secondary atelectasis-continue incentive spirometry
# Chronic atrial fibrillation-on amiodarone. Patient has a Watchman device.
# Watchman device placed 5 years ago
# Acute fractures of right second through seventh lateral ribs- Fall 2 weeks ago-IS
# Moderate splenomegaly
# Cholelithiasis
# JESUS-CPAP Non Compliant
# Obesity
# DVT prophylaxis-SCD
# CODE STATUS-full code
D/W Brother at bed side
D/W RN
D/W Renal at bed side
time more than 50 min
conversation with brothers 03/30/24
Had a very detailed discussion with patient's 2 brothers at bedside and also separately.
Discussed about his physiology with CHF, end-stage renal disease and also liver disease. Brothers endorse that patient was not compliant with CPAP at home. They also do not think he takes good care of him. They want to help him as much as they
can. They are requesting if patient can go to [place] rehab.They do not feel comfortable him going to a custodial facility .
We discussed about palliative care. I also made them aware that he would be hospice appropriate but I have not had that discussion with him. Patient is still optimistic that he is going to get better. We discussed about his hospitalizations and
the interval getting shorter is not a good sign.
Original Note:
Today's Communication/Plan
-
pending physiatry consult for [facility]
continue abx
Assessment / Plan
Assessment / Plan
#Acute anemia in CKD
Hematoma on right thigh vs GI bleed vs Anemia of chronic disease
- Hb 8.0 ( 03/31/24)
- 2 bags PRBC on 03/27/24
- Heme + stool
- GI input appreciated
- PT/OT recs acute rehab
- pending physiatry consult for rehab recs
# Cellulitis B/l LE
- IV vanco, zosyn and PO doxy per ID
- WC and BC pending
- Continue Wound care
#ESRD
- on regular dialysis M/W/F-
- Left UE dialysis access
- Cr 03/30 5.7
- Nephro input appreciated
- Dialysis today
- low na diet, with FR
- midodrine per nephro
- additional ultrafilteration 03/30/24 with removal of 3kg fluid
- additionsal dose of lasix 80mg on 03/30/24
- HD tomorrow
- daily weight
#Anasarca- sec to liver disease
- Suspected Cirrhosis
- 2/2 to hypoalbuminemia or chronic liver disease
- diuresis as tolerated - may be difficult with intravascular low oncotic pressure
- ABD US : Small amount of perihepatic ascites, Nodular contour of the liver surface, suggestive of cirrhosis, Cholelithiasis without evidence of acute cholecystitis.
- continue rifaximin and lactulose
- hep panel negative
- check standing weight after HD
# Acute Pulmonary Edema sec to overload in HFpEF
- CXR - suspicious for mild to moderate pulmonary edema. Questionable tiny left pleural effusion.
- 1 dose of IV lasix 80mg in ER
- continue PO lasix
- CT: left atrial appendage Watchman occlusion device in place in the left atrial appendage ostium containing thrombus.- per cardio this is normal appearance.
- Appreciate cardio input
- no AC recommended per cardio
- consideration for JO ANN
# Mild hyponatremia
likely hypervolemic
- resolved
- continue lasix and routine dilaysis
# Diffuse Body pain/aches
# Recent fall with multiple injuries including traumatic rib fx- 4
- incentive spirometer
- Xray of the Right elbow with no evidence of osteomyelitis associated with the wound
- Xray Right hip shows degen changes
- pending BC results t/c CT for right thigh hematoma eval
# Paroxysmal A-fib- not on OAC unclear reason- continue amiodarone- decrease to 100mg today HR in 50s
# Urinary retention
- bladder scan
- straight cath
# Abnormal D dimer
- CT/PE : Moderate-sized bilateral lower lobe airspace consolidations. Diagnostic possibilities are (1) bilateral lower lobe pneumonia or (2) moderate atelectasis.
Mild acute interstitial cardiogenic pulmonary edema.
# Aortic aneurysm
# stage 2 sacral pressure injury- followed by WC
# Atherosclerosis/hyperlipidemia- continue statin
# COPD
# Congestive heart failure- type unclear
# h/o Mitral valve repair
# Diabetes mellitus type 2- accu check on sliding scale coverage- continue repaglinide
# GERD- continue PPI
# JESUS
# Obesity
DVT Prophylaxis:
Code: Full Code
Anticipated Discharge: 24 - 48 hours
Subjective/Interval History
-
Date of Service: March 31, 2024
Objective Data
-
Labs:
Laboratory Results
03/31/24
04:12
WBC 13.7 H
Hgb 8.0 L
Hct 26.0 L
Plt Count 225
Sodium 133 L
Potassium 3.5
Chloride 97 L
Carbon Dioxide 23
BUN 40 H
Creatinine 5.7 H*
Glucose 96
Calcium 8.9
Total Bilirubin 0.8
AST 22
ALT 11
Alkaline Phosphatase 94
Vital Signs:
Vital Signs
Temp Pulse Resp BP Pulse Ox
97.6 F 73 26 116/73 94
03/31/24 03:55 03/31/24 06:00 03/31/24 06:00 03/31/24 06:00 03/31/24 06:00
I&O
03/30/24 03/31/24 04/01/24
06:59 06:59 06:59
Intake Total 550 / 550 1140 / 1140
Output Total 100 / 100 1035 / 1035
Balance 450 / 450 105 / 105
Review of Systems
-
History Source: Patient
Constitutional: Denies Fever
Cardiac: Denies Chest Pain
Abdomen/GI: Denies Abdominal Pain
Neuro: Denies Headache
Hematologic / Lymphatic: Denies Bleeding
Physical Exam
-
General: No Apparent Distress and Appears Chronically Ill
Respiratory: Decreased Breath Sounds (improved)
Cardiac: Irregular Rhythm
GI: Nontender and Distended
Skin: Warm and Dry
Neuro: Awake, Alert and Oriented
Psych: Calm
Data Reviewed
-
Labs: Labs Reviewed by me, Discussed with Physician and Discussed with Patient
[2024-03-31] MEDS: NOVOLOG FLEXPEN-LOW RESISTANCE SC ×2 (08:12→11:53)
[2024-03-31] MEDS: ANUSOL HC 25 MG RECTAL ×2 (08:12→19:41)
[2024-03-31] MEDS: DESENEX/MITRAZOL/ZEASORB 1 APPLIC TOPICAL ×2 (08:12→19:41)
[2024-03-31] MEDS: PACERONE 200 MG PO (08:13)
[2024-03-31] MEDS: XIFAXAN 550 MG PO ×2 (08:13→19:40)
[2024-03-31] MEDS: LASIX 80 MG PO (08:13)
[2024-03-31] MEDS: VIBRAMYCIN 100 MG PO ×2 (08:13→19:40)
[2024-03-31] MEDS: NEPHROCAP 1 CAPSULE PO (08:13)
[2024-03-31 08:14] LABS: Glucose - Point of Care 116 mg/dl (70-99)
[2024-03-31] MEDS: ProAmatine 5 MG PO ×3 (08:14→17:10)
[2024-03-31] MEDS: DUPHALAC/CHRONULAC PO ×2 (08:14→12:22)
[2024-03-31] MEDS: HYDROPHOR 1 APPLIC TOPICAL (08:14)
[2024-03-31] MEDS: FEOSOL 325 MG PO (08:14)
[2024-03-31] MEDS: NSS (PRESERVATIVE FREE) 10 ML IV ×2 (08:15→19:40)
[2024-03-31] MEDS: SANTYL OINTMENT 1 APPLIC TOPICAL (08:15)
[2024-03-31] MEDS: PROTONIX IV 40 MG IV ×2 (08:15→19:41)
--- NOTE | 2024-03-31 09:24 | W.PN.ID1 ---
Date of Service
Date of Service: March 31, 2024
Today's Communication
Continue antibiotics. See below...
Assessment / Plan
Purpuric rash with vesicles - bilateral lower extremities
Hypotension
CAD h/o CABG
Cirrhosis
Anasarca
H/o MVR
ESRD�HD
Recommendations:
- blood cultures x2 no growth at 72h - continue to follow
- wound culture of unroofed vesicular lesion no growth, there were rare GPCs on the gram stain - unclear if pathogen vs contaminant
- TTE: no vegetation; could consider JO ANN monday if no unifying diagnosis
- Abd US consistent with cirrhosis - no free fluid in the abdomen to suggest sbp
hep B/C serologies: prior vaccination to hep B
reports compliance with HD
With cultures negative, not clear if there is a bacterial process or not.
Would discontinue further vancomycin. Change Zosyn to Unasyn 3 g every 24 hours (dosed after dialysis)
- currently on rifaximin and lactulose per GI
-Follow-up white count temperature curve. Follow pending cultures.
����������������������������������������������������������
Chief Complaint
-: Clinical Sepsis
Subjective / Review of Systems
Patient seen and examined. Overall feels well. Denies specific complaints at present. Reports HD yesterday removed 3 L.
Review of Systems: No Fever and No Chills
Vital Signs / Physical Exam
Vital Signs
Vital Signs
Temp Pulse Resp BP Pulse Ox
97.7 F 73 26 116/73 94
03/31/24 07:00 03/31/24 06:00 03/31/24 06:00 03/31/24 06:00 03/31/24 07:47
Physical Exam
Constitutional: No Acute Distress, Comfortable, Chronically Ill, Non-toxic and Obese
Eyes: No Conjunctival Hemorrhage
Cardiovascular: S1/S2; Negative S3/S4
Pulmonary: Non Labored
Gastrointestinal: Soft, Distended, Normal Bowel Sounds and No Rebound
Extremities: Edema (3+ B/L LE's); Negative Cyanosis or Erythema
Wound: Other (Bilateral medial thigh vesicular rash (not on erythematous base); improved today)
Neurological: Awake and Alert
Psychological: Calm
Objective Data
Lab Data
Lab Results
03/31/24 04:12
03/31/24 04:12
PT 16.0 Sec (11.4-14.6) H 03/29/24 05:21
INR 1.27 03/29/24 05:21
APTT 41.3 Sec (23.4-35.0) H 03/27/24 10:59
Estimated Creat Clear 14 ml/min 03/31/24 04:12
Total Bilirubin 0.8 mg/dl (0.2-1.3) 03/31/24 04:12
AST 22 U/L (17-59) 03/31/24 04:12
ALT 11 U/L (0-50) 03/31/24 04:12
Alkaline Phosphatase 94 U/L (38-126) 03/31/24 04:12
Most recent labs reviewed.
Micro Results:
03/27/24 18:18 Blood Culture - Preliminary
Blood/Venous No Growth in 72 hours- Final report to follow
03/27/24 17:47 Blood Culture - Preliminary
Blood/Venous No Growth in 72 hours- Final report to follow
03/30/24 11:54 C. difficile GDH Antigen & Toxins - Final
Feces/Stool Negative for toxigenic C.difficile
03/27/24 20:05 Wound Culture - Final
Leg - Right No growth
Gram Stain - Final
--- NOTE | 2024-03-31 10:02 | W.PN.GI.CBS2 ---
Addendum entered and electronically signed by Dioni Marinelli MD 03/31/24 10:08:
Will decrease lactulose to once daily given his multiple BMs
Original Note:
Today's Communication / Plan
-
Hgb has remained stable. No need for repeating any of his recent procedures at [place]
Await records
C diff negative. OK to give imodium if having further diarrhea
Assessment / Plan
-
Pt is a 73yo presents with hx Afib with hx watchman, COPD, ESRD on HD, NIDDM, anemia, MVR, cirrhosis (new diagnosis per patient) with recent GI bleeding with work up and fall with move to [facility]. He now presents with first admission to
[facility] for abnormal labs Hbg 6.5 on predialysis labs and concern for GI bleeding. After admission passed black tarry stools and also follow up imaging US noted change of cirrhosis/ascites/splenomegaly/portal HTN/cholelithiasis, med
renal disease and CT PE study showed Pulm edema, PNA, small effusion, moderate mediastinal lymphadenopathy, prior CABG, prior MVR, mild ascites rib fractures, splenomegaly and concern for left atrial appendage on watchman with thrombus. Asked to
see for concern for need for anticoagulation with recent GI bleeding. In reviewing with patient and family he had recent GI bleeding at [facility] then [facility]. He had several attempted EGD/colon then eventual capsule. He
reports that clipping or cauterization of several areas was performed. He now returns with hbg 6.8 with unclear baseline.
03/27/24- 2 units PRBC
Impression:
-anemia-- heme + brown stool on exam
-concern for atrial appendage on watchman with thrombus
-recent GI bleed with work up at [place] and 'cauterization or clipping of several area'
-cirrhosis (new diagnosis) with decompensation with HE and mild ascites on imaging
-? hx HE
-rectal pain with rectal excoriation
-recent fall
-anasarca
-cellulitis
-pulm edema
-hyponatremia
-diffuse rash
other medical problems:
-afib
-ESRD on HD
-NIDDM
-GERD
-anemia
-MVR
-aortic aneurysm
-JESUS
-obesity
Subjective
Subjective
Date of Service: March 31, 2024
c/o loose BM up to 12 times yesterday
Objective
Data Reviewed
Laboratory Data:
Laboratory Results
03/31/24 04:12
03/31/24 04:12
Laboratory Results
PT 16.0 Sec (11.4-14.6) H 03/29/24 05:21
INR 1.27 03/29/24 05:21
APTT 41.3 Sec (23.4-35.0) H 03/27/24 10:59
Total Bilirubin 0.8 mg/dl (0.2-1.3) 03/31/24 04:12
AST 22 U/L (17-59) 03/31/24 04:12
ALT 11 U/L (0-50) 03/31/24 04:12
Alkaline Phosphatase 94 U/L (38-126) 03/31/24 04:12
Vital Signs and I&O:
Vital Signs
Temp Pulse Resp BP Pulse Ox
97.7 F 73 26 116/73 94
03/31/24 07:00 03/31/24 06:00 03/31/24 06:00 03/31/24 06:00 03/31/24 07:47
I&O
03/30/24 03/31/24 04/01/24
06:59 06:59 06:59
Intake Total 550 / 550 1140 / 1140 240 / 240
Output Total 100 / 100 1035 / 1035
Balance 450 / 450 105 / 105 240 / 240
Physical Exam
Physical Exam
GI: Soft, Distended and Non Tender
[2024-03-31 12:00] LABS: Glucose - Point of Care 140 mg/dl (70-99)
[2024-03-31] MEDS: PRANDIN 0.5 MG PO (12:25)
--- NOTE | 2024-03-31 13:43 | PTCARENOTE ---
Pt received OOB in chair @ 0700. Reporting pain in buttocks. Buttocks and anus macerated, open. Cream appliled. Pt refusing Laculose. Unwilling to take anything that will cause a bowel movement. SaO2 96% on 2LNC. Lungs diminished. A Fib on telemetry
monitor. HR 50s. Amiodarone dose decreased to 100mg PO BID. +1 hand edema. +2 LE edema. Wound care as documented. Pt without void this shift. Right AC #[address] Family in at bedside to visit.
[2024-03-31] MEDS: DRISDOL (VITAMIN D2) 50000 UNITS PO (14:17)
[2024-03-31] MEDS: UNASYN IV (14:17)
--- NOTE | 2024-03-31 14:30 | W.PN.NEPH.PH ---
Today's Communication / Plan
-
- HD tomorrow
Assessment/Plan
-
Assessment
ESRD
Acute anemia
Possible history of diverticulosis/AVM
Hypotension
Mitral valve repair
Diabetes mellitus type 2
Leukocytosis
Plan
Transfuse packed red blood cells as needed
Dialysis tomorrow
Holding blood pressure medications
midodrine for now
Follow hemoglobin
empiric abx continue
-
-
Date of Service: March 31, 2024
CC / HPI / ROS
-
Chief Complaint:
ESRD
History of Present Illness:
tolerated UF yesterday
Hgb up to 7.4 after transfusion
BP low stable
Review of Systems:
no CP/SOB
Labs
-
Labs:
WBC 13.7 10^3/uL (4.8-10.8) H 03/31/24 04:12
RBC 2.96 10^6/uL (4.70-6.10) L 03/31/24 04:12
Hgb 8.0 g/dL (13.0-18.0) L 03/31/24 04:12
Hct 26.0 % (39.0-52.0) L 03/31/24 04:12
Plt Count 225 10^3/uL (130-400) 03/31/24 04:12
Sodium 133 mmol/L (135-145) L 03/31/24 04:12
Potassium 3.5 mmol/L (3.5-5.1) 03/31/24 04:12
Chloride 97 mmol/L (98-107) L 03/31/24 04:12
Carbon Dioxide 23 mmol/L (22-30) 03/31/24 04:12
BUN 40 mg/dl (9-20) H 03/31/24 04:12
Creatinine 5.7 mg/dL (0.7-1.3) H* 03/31/24 04:12
eGFR 9.84 03/31/24 04:12
Glucose 96 mg/dl (70-99) 03/31/24 04:12
Calcium 8.9 mg/dl (8.4-10.2) 03/31/24 04:12
Albumin 2.9 g/dl (3.5-5.0) L 03/31/24 04:12
Physical Exam
-
Vital Signs:
Vital Signs
Temp Pulse Resp BP Pulse Ox
97.6 F 64 29 124/71 97
03/31/24 11:00 03/31/24 13:00 03/31/24 13:00 03/31/24 12:00 03/31/24 12:00
Cardiovascular:: Regular rate and rhythm
Respiratory:: Bilateral: Coarse
Lung Excursion:: Normal
Abdomen:: Nontender and Soft
Bowel Sounds:: Normal
Extremity Edema:: +3: Bilateral:
Davis Catheter: No
[2024-03-31 16:13] LABS: Glucose - Point of Care 157 mg/dl (70-99)
[2024-03-31] MEDS: NOVOLOG FLEXPEN-LOW RESISTANCE 1 UNITS SC (16:32)
[2024-03-31] MEDS: LIPITOR 40 MG PO (21:06)
[2024-03-31] MEDS: MELATONIN 10 MG PO (21:06)
[2024-03-31 21:36] LABS: Glucose - Point of Care 156 mg/dl (70-99)
[2024-04-01] VITALS (34 sets, daily range): BP systolic 103–150; BP diastolic 53–116; PULSE 57–61; O2SAT 96; BMI 27.9
[2024-04-01] MEDS: TYLENOL 1000 MG PO ×4 (00:12→23:19)
--- NOTE | 2024-04-01 01:02 | PTCARENOTE ---
Received pt sitting in chair, AAOx3. PRN tramadol and standing tylenol given for R hip pain. Repositioning often per request, air cushions. Assisted back to bed- sleeping now. Afib on tele. HR 60s, occasionally dipping down to high 30s-40s
momentarily. +2 LE edema, +1 hand edema. Refused to elevate legs in bed but elevating arms on pillows. Weak DP pulses. Placed on RA while awake, spo2 96%. Placed back on 2L NC while sleeping for spo2 85%. Lungs diminished. Round abd, ascites. +
bowel sounds. L FA AV fistula + B/T. Calazime applied to buttocks, R elbow dsg c/d/i, LE dsgs c/d/i. Call robin in reach
[2024-04-01 05:10] LABS: Hematocrit 25.6 % (39.0-52.0); Mean Corp Hgb Conc. 31.3 g/dL (33.0-37.0); Mean Corpuscular Hgb 27.6 pg (27.0-31.0); Mean Corpuscular Volume 88.3 fL (80.0-94.0); Mean Platelet Volume 8.1 fL (7.4-10.4); Platelet Count 193 10^3/uL (130-400); Red Cell Dist. Width 18.6 % (11.5-14.5); White Blood Cell Count 11.4 10^3/uL (4.8-10.8)
--- NOTE | 2024-04-01 05:23 | PTCARENOTE ---
Pt. oob back to the recliner. Slept well overnight. Abdomen more distended/round this AM. Voided 50ml scot urine overnight.
[2024-04-01 05:37] LABS: ALT (SGPT) 10 U/L (0-50); AST (SGOT) 21 U/L (17-59); Albumin 3.1 g/dl (3.5-5.0); Alkaline Phosphatase 93 U/L (38-126); Blood Urea Nitrogen 48 mg/dl (9-20); Calcium 8.7 mg/dl (8.4-10.2); Carbon Dioxide 22 mmol/L (22-30); Chloride 95 mmol/L (98-107); Estimated Creatinine Clearance 12 ml/min; Glucose 135 mg/dl (70-99); Potassium 3.7 mmol/L (3.5-5.1); Sodium 133 mmol/L (135-145); Total Bilirubin 0.7 mg/dl (0.2-1.3); Total Protein 6.3 g/dl (6.3-8.2); eGFR 8.41
--- NOTE | 2024-04-01 06:53 | W.PN.HOSP.TC ---
Addendum entered and electronically signed by Giovani Gomez MD 04/01/24 13:04:
I saw and evaluated the patient. I reviewed the resident�s note and agree with findings and plan as documented in the resident�s note.
Patient denies chest pain or shortness of breath.
No acute distress, awake and alert, appears chronically ill
Regular rate and rhythm, normal S1-S2, 2/6 systolic murmur
Clear to auscultation bilaterally anteriorly
Positive bowel sounds, soft, nontender, nondistended
Both lower extremities with Diaz bandages on, 1�2+ bilateral lower extremity edema
Echo: EF 59%, mild concentric LVH, no RWMA, mild MS/MR, mild-mod TR, estimated PASP 46mmHg, IVC dilated and odes not collapse, no pericardial effusion, no definite valvular vegetation.
Acute on chronic anemia:
-With heme positive stools
-Hb stable s/p 2U pRBCs
-Patient reports he had EGD/colonoscopy/capsule study at [place]
-GI saw in consultation and signed off
Anasarca:
-presumably due to cirrhosis in the setting of ESRD
Possible B/L LE cellulitis:
-was on Vanco/Zosyn, now on Unasyn as per ID
ESRD:
-cont HD M/W/F
Acute pulm edema due to acute HFpEF:
-echo above
-Volume removal via hemodialysis
c/s PMR for acute rehab eval
Medically cleared for d/c if pt can transition to PO abx.
Total time spent on today's encounter was 50 minutes which included time spent in counseling the patient/family regarding diagnosis and treatment plan as listed above, goals of care, and symptom management. Case was discussed with nursing staff,
specialists, and care coordinators/case management. All labs and imaging personally reviewed by me. Remainder the time spent in detailed review of previous records, lab data, imaging, and other medical provider documentation.
Original Note:
Today's Communication/Plan
-
eval by physiatry
Assessment / Plan
Assessment / Plan
#Acute anemia in CKD
Hematoma on right thigh vs GI bleed vs Anemia of chronic disease
- Hb 8.0 ( 04/01/24)- stable
- 2 bags PRBC on 03/27/24
- Heme + stool
- GI input appreciated
- PT/OT recs acute rehab
- pending physiatry consult for rehab recs
# Cellulitis B/l LE
- IV zosyn and d/c vanco and PO doxy per ID
- WC unremarkable and BC pending
- Continue Wound care
#ESRD
- on regular dialysis M/W/F-
- Left UE dialysis access
- Cr 03/31 6.5
- Nephro input appreciated
- Dialysis today
- low na diet, with FR
- midodrine per nephro
- additional ultrafilteration 03/30/24 with removal of 3kg fluid
- additionsal dose of lasix 80mg on 03/30/24
- daily weight
#Anasarca- sec to liver disease
- Suspected Cirrhosis
- 2/2 to hypoalbuminemia or chronic liver disease
- diuresis as tolerated - may be difficult with intravascular low oncotic pressure
- ABD US : Small amount of perihepatic ascites, Nodular contour of the liver surface, suggestive of cirrhosis, Cholelithiasis without evidence of acute cholecystitis.
- continue rifaximin and lactulose
- hep panel negative
- check standing weight after HD
# Acute Pulmonary Edema sec to overload in HFpEF
- CXR - suspicious for mild to moderate pulmonary edema. Questionable tiny left pleural effusion.
- 1 dose of IV lasix 80mg in ER
- continue PO lasix
- CT: left atrial appendage Watchman occlusion device in place in the left atrial appendage ostium containing thrombus.- per cardio this is normal appearance.
- Appreciate cardio input
- no AC recommended per cardio
- consideration for JO ANN
- Amiodarone 100mg cont
# Mild hyponatremia
likely hypervolemic
- continue lasix and routine dilaysis
# Diffuse Body pain/aches
# Recent fall with multiple injuries including traumatic rib fx- 4
- incentive spirometer
- Xray of the Right elbow with no evidence of osteomyelitis associated with the wound
- Xray Right hip shows degen changes
- pending BC results t/c CT for right thigh hematoma eval
# Paroxysmal A-fib- not on OAC unclear reason- continue amiodarone- decrease to 100mg today HR in 50s
# Urinary retention
- bladder scan 290
# Abnormal D dimer
- CT/PE : Moderate-sized bilateral lower lobe airspace consolidations. Diagnostic possibilities are (1) bilateral lower lobe pneumonia or (2) moderate atelectasis.
Mild acute interstitial cardiogenic pulmonary edema.
# Aortic aneurysm
# stage 2 sacral pressure injury- followed by WC
# Atherosclerosis/hyperlipidemia- continue statin
# COPD
# Congestive heart failure- type unclear
# h/o Mitral valve repair
# Diabetes mellitus type 2- accu check on sliding scale coverage- continue repaglinide
# GERD- continue PPI
# JESUS
# Obesity
DVT Prophylaxis:
Code: Full Code
Anticipated Discharge: Within 24 hours
Subjective/Interval History
-
Date of Service: April 01, 2024
Objective Data
-
Labs:
Laboratory Results
04/01/24
04:33
WBC 11.4 H
Hgb 8.0 L
Hct 25.6 L
Plt Count 193
Sodium 133 L
Potassium 3.7
Chloride 95 L
Carbon Dioxide 22
BUN 48 H
Creatinine 6.5 H*
Glucose 135 H
Calcium 8.7
Total Bilirubin 0.7
AST 21
ALT 10
Alkaline Phosphatase 93
Vital Signs:
Vital Signs
Temp Pulse Resp BP Pulse Ox
97.5 F 67 23 120/63 97
04/01/24 03:24 04/01/24 06:00 04/01/24 06:00 04/01/24 06:00 04/01/24 05:00
I&O
03/30/24 03/31/24 04/01/24
06:59 06:59 06:59
Intake Total 550 / 550 1340 / 1340 1560 / 1560
Output Total 100 / 100 385 / 385 50 / 50
Balance 450 / 450 955 / 955 1510 / 1510
Review of Systems
-
History Source: Patient
Respiratory: Denies Cough
Cardiac: Denies Chest Pain
Abdomen/GI: Denies Abdominal Pain
Musculoskeletal: Denies Joint Pain
Neuro: Denies Dizzy or Headache
Physical Exam
-
General: Appears Chronically Ill
HEENT: Normocephalic and Atraumatic
Cardiac: Regular Rhythm and Bradycardic
GI: Nontender and Distended
Skin: Warm and Rash (+ leisons on b/l Hands)
Neuro: Awake, Alert and Oriented
Psych: Calm
Data Reviewed
-
Labs: Labs Reviewed by me, Discussed with Physician and Discussed with Patient
[2024-04-01 07:31] LABS: Glucose - Point of Care 155 mg/dl (70-99)
[2024-04-01] MEDS: NOVOLOG FLEXPEN-LOW RESISTANCE 1 UNITS SC (08:13)
[2024-04-01] MEDS: DESENEX/MITRAZOL/ZEASORB 1 APPLIC TOPICAL ×2 (08:13→20:45)
[2024-04-01] MEDS: ANUSOL HC 25 MG RECTAL (08:13)
[2024-04-01] MEDS: FEOSOL 325 MG PO (08:14)
[2024-04-01] MEDS: VIBRAMYCIN 100 MG PO (08:14)
[2024-04-01] MEDS: NEPHROCAP 1 CAPSULE PO (08:14)
[2024-04-01] MEDS: XIFAXAN 550 MG PO ×2 (08:15→20:44)
[2024-04-01] MEDS: PROTONIX IV 40 MG IV (08:15)
[2024-04-01] MEDS: NSS (PRESERVATIVE FREE) 10 ML IV (08:15)
[2024-04-01] MEDS: HYDROPHOR 1 APPLIC TOPICAL (08:16)
[2024-04-01] MEDS: PACERONE 100 MG PO (08:17)
[2024-04-01] MEDS: LASIX 80 MG PO (08:17)
[2024-04-01] MEDS: ProAmatine 5 MG PO ×3 (08:17→17:01)
[2024-04-01] MEDS: DUPHALAC/CHRONULAC PO (08:23)
--- NOTE | 2024-04-01 08:46 | W.PN.ID1 ---
Date of Service
Date of Service: April 01, 2024
Today's Communication
Continue antibiotics.
Assessment / Plan
Purpuric rash with vesicles - bilateral lower extremities
- improved
Hypotension
CAD h/o CABG
Cirrhosis
Anasarca
H/o MVR
ESRD�HD
Recommendations:
- blood cultures x2 no growth at 96h - continue to follow
- wound culture of unroofed vesicular lesion no growth
With cultures negative, not clear if there is a bacterial process or not.
Vancomycin previously discontinued.
Discontinue further doxycycline.
Continue Unasyn (dosed for renal insufficiency/HD) for today.
- currently on rifaximin and lactulose per GI
-Follow-up white count temperature curve. Follow pending cultures.
����������������������������������������������������������
Chief Complaint
-: Clinical Sepsis
Subjective / Review of Systems
Review of Systems: No Fever and No Chills
Vital Signs / Physical Exam
Vital Signs
Vital Signs
Temp Pulse Resp BP Pulse Ox
97.8 F 52 16 103/53 99
04/01/24 08:13 04/01/24 08:17 04/01/24 07:00 04/01/24 08:17 04/01/24 07:00
Physical Exam
Constitutional: No Acute Distress, Comfortable, Chronically Ill, Non-toxic and Obese
Head: Normocephalic
Eyes: No Conjunctival Hemorrhage and Sclera Anicteric
Cardiovascular: S1/S2; Negative S3/S4
Pulmonary: Non Labored
Gastrointestinal: Soft, Distended, Normal Bowel Sounds and No Rebound
Extremities: Edema (4+ B/L LE's (to groin). Diaz wrap's in place to lower extremities to the knees.); Negative Cyanosis or Erythema
Wound: Other (Bilateral medial thigh vesicular rash (not on erythematous base); improved today)
Neurological: Awake and Alert
Psychological: Calm
Objective Data
Lab Data
Lab Results
04/01/24 04:33
04/01/24 04:33
PT 16.0 Sec (11.4-14.6) H 03/29/24 05:21
INR 1.27 03/29/24 05:21
APTT 41.3 Sec (23.4-35.0) H 03/27/24 10:59
Estimated Creat Clear 12 ml/min 04/01/24 04:33
Total Bilirubin 0.7 mg/dl (0.2-1.3) 04/01/24 04:33
AST 21 U/L (17-59) 04/01/24 04:33
ALT 10 U/L (0-50) 04/01/24 04:33
Alkaline Phosphatase 93 U/L (38-126) 04/01/24 04:33
Most recent labs reviewed.
Micro Results:
03/27/24 18:18 Blood Culture - Preliminary
Blood/Venous No Growth in 4 days- Final report to follow
03/27/24 17:47 Blood Culture - Preliminary
Blood/Venous No Growth in 4 days- Final report to follow
03/30/24 11:54 C. difficile GDH Antigen & Toxins - Final
Feces/Stool Negative for toxigenic C.difficile
03/27/24 20:05 Wound Culture - Final
Leg - Right No growth
Gram Stain - Final
--- NOTE | 2024-04-01 09:33 | W.PN.GI.CBS2 ---
Today's Communication / Plan
-
No bleeding, Hgb has been stable
Lactulose decreased to once daily and diarrhea has stopped after he refused lactulose
I explained he does need to continue due to his liver disease
Will sign off. Please call back if needed
Assessment / Plan
-
Pt is a 73yo presents with hx Afib with hx watchman, COPD, ESRD on HD, NIDDM, anemia, MVR, cirrhosis (new diagnosis per patient) with recent GI bleeding with work up and fall with move to [facility]. He now presents with first admission to
[facility] for abnormal labs Hbg 6.5 on predialysis labs and concern for GI bleeding. After admission passed black tarry stools and also follow up imaging US noted change of cirrhosis/ascites/splenomegaly/portal HTN/cholelithiasis, med
renal disease and CT PE study showed Pulm edema, PNA, small effusion, moderate mediastinal lymphadenopathy, prior CABG, prior MVR, mild ascites rib fractures, splenomegaly and concern for left atrial appendage on watchman with thrombus. Asked to
see for concern for need for anticoagulation with recent GI bleeding. In reviewing with patient and family he had recent GI bleeding at [facility] then [facility]. He had several attempted EGD/colon then eventual capsule. He
reports that clipping or cauterization of several areas was performed. He now returns with hbg 6.8 with unclear baseline.
03/27/24- 2 units PRBC
Impression:
-anemia-- heme + brown stool on exam
-concern for atrial appendage on watchman with thrombus
-recent GI bleed with work up at [place] and 'cauterization or clipping of several area'
-cirrhosis (new diagnosis) with decompensation with HE and mild ascites on imaging
-? hx HE
-rectal pain with rectal excoriation
-recent fall
-anasarca
-cellulitis
-pulm edema
-hyponatremia
-diffuse rash
other medical problems:
-afib
-ESRD on HD
-NIDDM
-GERD
-anemia
-MVR
-aortic aneurysm
-JESUS
-obesity
Subjective
Subjective
Date of Service: April 01, 2024
No further diarrhea. Pt refused lactulose
Objective
Data Reviewed
Laboratory Data:
Laboratory Results
04/01/24 04:33
04/01/24 04:33
Laboratory Results
PT 16.0 Sec (11.4-14.6) H 03/29/24 05:21
INR 1.27 03/29/24 05:21
APTT 41.3 Sec (23.4-35.0) H 03/27/24 10:59
Total Bilirubin 0.7 mg/dl (0.2-1.3) 04/01/24 04:33
AST 21 U/L (17-59) 04/01/24 04:33
ALT 10 U/L (0-50) 04/01/24 04:33
Alkaline Phosphatase 93 U/L (38-126) 04/01/24 04:33
Vital Signs and I&O:
Vital Signs
Temp Pulse Resp BP Pulse Ox
97.8 F 62 17 103/53 91
04/01/24 08:13 04/01/24 09:00 04/01/24 09:00 04/01/24 08:17 04/01/24 09:00
I&O
03/31/24 04/01/24 04/02/24
06:59 06:59 06:59
Intake Total 1340 / 1340 1560 / 1560 180 / 180
Output Total 385 / 385 50 / 50
Balance 955 / 955 1510 / 1510 180 / 180
Physical Exam
Physical Exam
GI: Soft, Distended and Non Tender
[2024-04-01] MEDS: PRANDIN 0.5 MG PO (12:03)
[2024-04-01] MEDS: SANTYL OINTMENT 1 APPLIC TOPICAL (12:03)
[2024-04-01 12:18] LABS: Glucose - Point of Care 137 mg/dl (70-99)
[2024-04-01] MEDS: NOVOLOG FLEXPEN-LOW RESISTANCE SC ×2 (12:50→16:52)
[2024-04-01] MEDS: RETACRIT 10000 UNITS IV (14:06)
--- NOTE | 2024-04-01 14:51 | CON.MD ---
Documented by User: Enriqueta Bellamy PA-C 04/02/24 10:40
Consultation - Medical
-
Referring Provider: Dr. Giovani Gomez
Chief Complaint: Debility
History of Present Illness: This is a 73-year-old male with PMH of ( end-stage renal disease currently on dialysis M/W/F, A-fib, watchman, COPD, ESRD on HD, NIDDM, anemia, MVR, cirrhosis, DM, chronic anemia) presented to the emergency department
after abnormal labs Hbg 6.5 on predialysis labs and concern for GI bleeding. After admission passed black tarry stools. In reviewing with patient and family he had recent GI bleeding at [facility] then [facility] [address]. He had several
attempted EGD/colon then eventual capsule. He reports that clipping or cauterization of several areas was performed. He now returns with hbg 6.8 with unclear baseline.
Follow up imaging US noted change of cirrhosis/ascites/splenomegaly/portal HTN/cholelithiasis, med renal disease and CT PE study showed Pulmonary edema, PNA, small effusion, moderate mediastinal lymphadenopathy, prior CABG, prior MVR, mild ascites
rib fractures, splenomegaly and concern for left atrial appendage on watchman with thrombus.
Of note, he was in rehab at [facility] after a fall and fracturing 4 ribs. He reported to have mitral valve repair 20 years ago and he had complication during post-op and found to have NIRALI and eventually CKD, he has been on dialysis since then.
Echo: EF 59%, mild concentric LVH, no RWMA, mild MS/MR, mild-mod TR, estimated PASP 46mmHg, IVC dilated and odes not collapse, no pericardial effusion, no definite valvular vegetation.
Abdomen Ultrasound
1. Small amount of perihepatic ascites.
2. Nodular contour of the liver surface, suggestive of cirrhosis.
3. Splenomegaly, which may be seen in the setting of portal hypertension.
4. Cholelithiasis without evidence of acute cholecystitis.
5. Cortical thinning of each kidney, suggestive of medical renal disease.
Hip xray with pelvic view
Left hip prosthetic is in expected position. No fracture or dislocation of the right hip joint. Mild to moderate degenerative change of the right hip joint.
CT of chest:
Mild acute interstitial cardiogenic pulmonary edema.
Moderate-sized bilateral lower lobe airspace consolidations. Diagnostic possibilities are (1) bilateral lower lobe pneumonia or (2) moderate atelectasis.
Watchman device in the left atrial appendage containing thrombus.
Moderate splenomegaly.
Past Medical History: Afib, watchman, COPD, ESRD on HD, NIDDM, anemia, MVR, cirrhosis (new diagnosis per patient) with recent GI bleeding.
Procedure History: CABG,Left upper extremity AV fistula,Left knee replacement,Hip replacement, Mitral valve repair, Right knee meniscectomy
Family History: Not pertinent
Social History:
Functional Level Premorbidly: Independent with all activities
Functional Level Currently: ADL�min assist/max assist, toilet transfer�mod assist, bed mobility�sit to supine�min assist, sit to stand mod assist, stand to sit�min assist, ambulated with rolling walker about 60 feet total in room with min assist.
Tobacco: Non-smoker
Alcohol: Denies
Drug use: Denies
Lives with: Alone
24-hour assistance available:
Number of floors: 1st floor
# steps to enter: none
# steps to second floor:
Potential First floor set up:yes
Driving: yes
Occupation: retired
�
Allergies:
Allergy/AdvReac Type Severity Reaction Status Date / Time
gabapentin Allergy Unknown Verified 03/27/24 10:43
oxycodone [From OxyContin] Allergy Unknown Verified 03/27/24 10:43
Review of Systems:
Constitutional: (x) Normal _
Eye: (x) Normal _
Ear/Nose/Throat: (x) Normal _
Respiratory: (x) Normal _
Cardiovascular: (x) Normal _
Gastrointestinal: (x) Anemia, h/o gi bleed
Genitourinary: (x) Normal _
Musculoskeletal: (x) Normal _
Integumentary: (x) Normal _
Neurologic: (x) Normal _
Psychiatric: (x) Normal _
Endocrine: (x) Normal _
Hematologic/Lymphatic: (x) Normal _
Allergic/Immunologic: (x) Normal _
Medications:
Active Current Visit Medication List
Category Date Time Status
Acetaminophen [Tylenol] Med 03/27/24 17:12 Active
1,000 mg PO Q8
Albumin Human 25% 50 ml [Flexbumin 25% For Hemodialysis Med 04/01/24 08:00 Active
]
12.5 grams IV HD-Q1HPRN PRN
Albuterol [ProAIR HFA INHALER] Med 03/27/24 17:12 Active
2 puff INH R Q6HPRN PRN
Amiodarone [Pacerone] Med 04/01/24 08:00 Active
100 mg PO DAILY
Ampicillin/Sulbactam 3 G [Unasyn] 3 gm Med 03/31/24 15:00 Active
0.9% Sodium Chloride 100 ml [Nss] 100 ml
IV Q24H
Anusol Hc Suppository [Anusol Hc] Med 03/29/24 20:00 Active
25 mg RECTAL BID
Atorvastatin [Lipitor] Med 03/27/24 22:00 Active
40 mg PO HS
Bisacodyl [Dulcolax] Med 03/27/24 17:12 Active
10 mg RECTAL DAILYPRN PRN
Collagenase [Santyl Ointment] Med 03/29/24 08:00 Active
See Dose Instructions TOPICAL DAILY
Dextrose 50%-Water [Dextrose 50% Syringe] Med 03/28/24 14:39 Active
12.5 grams IV [id number] PRN
Ergocalciferol [Drisdol (Vitamin D2)] Med 03/31/24 08:00 Active
50,000 units PO RAO
Ferrous Sulfate [Feosol] Med 03/28/24 08:00 Active
325 mg PO DAILY
Flush (0.9% Sodium Chloride) [Flush (Nss)] Med 03/27/24 16:00 Active
See Dose Instructions IV PER PROTOCOL
Furosemide [Lasix] Med 03/28/24 08:00 Active
80 mg PO DAILY
Glucagon [GlucaGen] Med 03/28/24 14:39 Active
1 mg IM PRN PRN
Insulin Aspart Corrective Low [Novolog Flexpen-Low Med 03/28/24 16:30 Active
Resistance]
See Protocol SC AC
Lactulose [Duphalac/Chronulac] Med 04/01/24 08:00 Active
30 grams PO DAILY
Mannitol 25% Med 04/01/24 08:00 Active
12.5 grams IV HD-Q1HPRN PRN
Melatonin Med 03/27/24 22:00 Active
10 mg PO HS
Miconazole Nitrate [Desenex/Mitrazol/Zeasorb] Med 03/28/24 20:00 Active
See Dose Instructions TOPICAL BID
Midodrine [ProAmatine] Med 03/28/24 13:00 Active
5 mg PO TID@0800,1300,1800
Pantoprazole [Protonix] Med 04/01/24 20:00 Active
40 mg PO BID
Petrolatum/Mineral Oil [Hydrophor] Med 03/29/24 08:00 Active
See Dose Instructions TOPICAL DAILY
Renal Cap [Nephrocap] Med 03/28/24 08:00 Active
1 capsule PO DAILY
Repaglinide [Prandin] Med 03/28/24 12:00 Active
0.5 mg PO NOON
Rifaximin [Xifaxan] Med 03/27/24 20:00 Active
550 mg PO BID
Sodium Chloride [Sodium Chloride 4 Meq/ml For Med 04/01/24 08:00 Active
Hemodialysis]
10 ml IV HD-Q1HPRN PRN
Tramadol HCl [Ultram] Med 03/28/24 10:59 Active
25 mg PO Q6HPRN PRN
Vitals:
Temp Pulse Resp BP Pulse Ox
97.1 F 71 17 127/80 92
04/01/24 15:12 04/01/24 12:03 04/01/24 11:00 04/01/24 12:03 04/01/24 11:00
Height 6 ft 3 in
Actual Weight 101.1 kg
Body Mass Index (BMI) 27.9
Physical Exam:
General Appearance/Observation: Well-developed, well-nourished individual in no apparent distress.
Pain/Comfort Assessment: Denies
Mood/Affect: Appropriate
Integumentary/Operative Site:
�� Pressure Ulcer Evaluation: per nursing, rectal and buttocks excoriation, right upper extremity with bandage, bilateral legs wrapped in robert
��
�� Other Type of Wound: absent
��
Eyes: Conjunctiva/Lids: normal ��� Pupils: pupils equal round and reactive to light and Accommodation
Ears/Nose/Throat: oral mucosa moist,� throat clear.������������ Lips/Teeth/Gums: normal
Neck: No muscle spasm or tenderness
Cardiovascular: Heart: regular, murmur
Pulses: dorsalis pedis 1+ bilaterally
Respiratory: Respiratory Effort/Chest Expansion: normal ������� Auscultation: Clear to auscultation bilaterally
Gastrointestinal: abdomen not tender, distended, normal abdominal bowel sounds
Genitourinary: No Davis
Extremities: Edema: 2+ edema legs wrapped in robert bilaterally Cyanosis: None Trophic changes: ?
Neurology Exam:
Orientation: Alert, Oriented to self, Time, Place
Memory: Intact for immediate medical concerns
Higher cortical function
Repetition: Intact
Comprehension: Intact
Two step command: Intact
Naming: Intact
Cranial Nerves:
�� CNII: Pupillary light reflex: Intact��� Visual Field: Intact
�� CN III, IV, : Extraocular muscles: Intact
�� CN V: Facial Sensation at Forehead: Intact, Maxilla: Intact, Mandible: Intact
�� CN VII: Facial movement: Symmetric
�� CN VIII: Hearing: Normal
�� CN IX/X: Speech & swallow: Normal, Position of Uvula: Midline
�� CN XI: Shoulder shrug: Symmetric
�� CN XII: Tongue protrusion: Midline
Sensory:
�� Light touch: Intact in bilateral upper and lower extremities
��
Reflexes:
�� Biceps: trace bilaterally
�� Brachioradialis: trace+ bilaterally
�� Triceps: trace+ bilaterally
�� Patellar: trace+ bilaterally
�� Achilles: absent+ bilaterally
�� Clonus: not tested
�� Marcial: Negative bilaterally
Cerebellar: Dysmetria/Ataxia: None
Musculoskeletal:
Motor: (Manual muscle scale 0-5)
Muscle SA EF WE EE FF FA HF KE DF EHL PF
Right� 5 5 5 5 5 5 5 5 5 5 5
Left 5 5 5 5 5 5 5 5 5 5 5
Tone: Normal in all extremities
Lab Results
Labs
WBC 11.4 10^3/uL (4.8-10.8) H 04/01/24 04:33
RBC 2.90 10^6/uL (4.70-6.10) L 04/01/24 04:33
Hgb 8.0 g/dL (13.0-18.0) L 04/01/24 04:33
Hct 25.6 % (39.0-52.0) L 04/01/24 04:33
MCV 88.3 fL (80.0-94.0) 04/01/24 04:33
MCH 27.6 pg (27.0-31.0) 04/01/24 04:33
MCHC 31.3 g/dL (33.0-37.0) L 04/01/24 04:33
RDW 18.6 % (11.5-14.5) H 04/01/24 04:33
Plt Count 193 10^3/uL (130-400) 04/01/24 04:33
Plt Count Comment Yes 03/31/24 04:12
MPV 8.1 fL (7.4-10.4) 04/01/24 04:33
Abs Immat Gran (auto) 0.8 10^3/uL (0-0.05) H 03/30/24 04:54
Absolute Neuts (auto) 11.5 10^3/uL (1.4-6.5) H 03/30/24 04:54
Absolute Lymphs (auto) 1.2 10^3/uL (1.2-3.4) 03/30/24 04:54
Absolute Monos (auto) 1.3 10^3/uL (0.1-0.6) H 03/30/24 04:54
Absolute Eos (auto) 0.2 10^3/uL (0-0.7) 03/30/24 04:54
Absolute Basos (auto) 0.1 10^3/uL (0-0.2) 03/30/24 04:54
CBC Comment 03/30/24 04:54
Total Counted 100 03/31/24 04:12
Immature Gran % 5.4 % (0-0.5) H 03/30/24 04:54
Neutrophils % 76.1 % (42.2-75.2) H 03/30/24 04:54
Lymphocytes % 8.0 % (20.5-51.1) L 03/30/24 04:54
Monocytes % 8.6 % (1.7-9.3) 03/30/24 04:54
Eosinophils % 1.5 % (0-6) 03/30/24 04:54
Basophils % 0.4 % (0-2) 03/30/24 04:54
Nucleated RBC % 0.3 % (-) 03/30/24 04:54
Abs Neuts (Manual) 10.8 10^3/uL (1.4-6.5) H 03/31/24 04:12
Segmented Neutrophils 76 % (42-75) H 03/31/24 04:12
Band Neutrophils 3 % (0-3) 03/31/24 04:12
Lymphocytes (Manual) 11 % (20-51) L 03/31/24 04:12
Monocytes (Manual) 5 % (2-9) 03/31/24 04:12
Eosinophils (Manual) 3 % (0-6) 03/31/24 04:12
Metamyelocytes 2 % (-) 03/31/24 04:12
Nucleated RBCs 1 (-) 03/31/24 04:12
Normal RBC Morphology No 03/31/24 04:12
Polychromasia 1+ 03/31/24 04:12
Basophilic Stippling Occasional 03/31/24 04:12
Anisocytosis 1+ 03/31/24 04:12
Target Cells Occasional 03/31/24 04:12
Tear Drop Cells Occasional 03/31/24 04:12
Ovalocytes 1+ 03/31/24 04:12
Acanthocytes (Spur) 1+ 03/31/24 04:12
PT 16.0 Sec (11.4-14.6) H 03/29/24 05:21
INR 1.27 03/29/24 05:21
APTT 41.3 Sec (23.4-35.0) H 03/27/24 10:59
Fibrinogen 503 MG/DL (199-459) H 03/28/24 04:46
D-Dimer 17.11 ug/mlFEU (0.00-0.50) H 03/28/24 04:46
Sodium 133 mmol/L (135-145) L 04/01/24 04:33
Potassium 3.7 mmol/L (3.5-5.1) 04/01/24 04:33
Chloride 95 mmol/L (98-107) L 04/01/24 04:33
Carbon Dioxide 22 mmol/L (22-30) 04/01/24 04:33
BUN 48 mg/dl (9-20) H 04/01/24 04:33
Creatinine 6.5 mg/dL (0.7-1.3) H* 04/01/24 04:33
Estimated Creat Clear 12 ml/min 04/01/24 04:33
eGFR 8.41 04/01/24 04:33
Glucose 135 mg/dl (70-99) H 04/01/24 04:33
Hemoglobin A1c 5.1 % (4.0-5.6) 03/29/24 05:21
Calcium 8.7 mg/dl (8.4-10.2) 04/01/24 04:33
Iron 39 ug/dl (49-181) L 03/28/24 04:46
TIBC 222 ug/dl (261-462) L 03/28/24 04:46
% Saturation 17 % (20-50) L 03/28/24 04:46
Ferritin 152.0 ng/ml (17.9-464.0) 03/28/24 04:46
Total Bilirubin 0.7 mg/dl (0.2-1.3) 04/01/24 04:33
AST 21 U/L (17-59) 04/01/24 04:33
ALT 10 U/L (0-50) 04/01/24 04:33
Alkaline Phosphatase 93 U/L (38-126) 04/01/24 04:33
Ammonia 11 umol/L (9-30) 03/29/24 05:21
Total Protein 6.3 g/dl (6.3-8.2) 04/01/24 04:33
Albumin 3.1 g/dl (3.5-5.0) L 04/01/24 04:33
Vitamin B12 839 pg/ml (239-931) 03/28/24 04:46
Folate > 20.0 ng/ml (2.76-20) H 03/28/24 04:46
Random Vancomycin 12.9 ug/ml 03/31/24 04:12
Hep Bs Antigen Negative (Negative) 03/27/24 10:59
Hep Bs Antibody Positive 03/27/24 10:59
Hep B Core Total Ab Negative (Negative) 03/28/24 04:46
Hepatitis C Antibody Negative (Negative) 03/28/24 04:46
POC Glucose 137 mg/dl (70-99) H 04/01/24 12:07
Blood Type O POS 03/27/24 10:59
Blood Type Confirm O POS 03/27/24 11:57
Antibody Screen Negative (Negative) 03/27/24 10:59
Crossmatch IS Only See Detail 03/27/24 10:59
�
Diagnostic Results: as per HPI
Assessment: 73-year-old male with PMH of ( end-stage renal disease currently on dialysis M/W/F, A-fib, watchman, COPD, ESRD on HD, NIDDM, anemia, MVR, cirrhosis, DM, chronic anemia) abnormal labs Hbg 6.5 on predialysis labs and concern for GI
bleeding. imaging US noted change of cirrhosis/ascites/splenomegaly/portal HTN/cholelithiasis, med renal disease and CT PE study showed Pulmonary edema, PNA, small effusion, moderate mediastinal lymphadenopathy, prior CABG, prior MVR, mild ascites
rib fractures, splenomegaly and concern for left atrial appendage on watchman with thrombus.
Plan
PT/OT to increase independence with ADLs, improve balance, coordination, endurance, strength, mobility, community reintegration, decreased burden of care on others and family education.
GI Bleed: H/o EGD, colonoscopy, capsule study,cauterization from [place]- no results available for review. H/o 2 units of transfused blood on admission. Per OT's notes 04/01- bleed per rectum to floor. Hgb slightly decreased today. Would
appreciate GI input prior to discharge/transfer
Anemia: acute on chronic: With heme positive stools. Hgb stable s/p 2U PRBC. No bleeding, Hgb has been stable. Cont ferrous sulfate. (04/02) hgb slightly dropped today
Hemorrhoids: Hydrocortisone cream. Monitor.
Liver Cirrhosis:(new diagnosis) with decompensation with HE and mild ascites on imaging. Rifaximin and lactulose per GI
Anasarca:presumably due to cirrhosis in the setting of ESRD
Possible B/L LE cellulitis: Purpuric rash with vesicles - bilateral lower extremities. Vanco/Zosyn, now on Unasyn IV as per ID. Blood cultures x2 no growth at 96h - continue to follow. Wound culture of unroofed vesicular lesion no growth. Change in
WBC level from yesterday
Leukocytosis: wbc- 13.7 to 11.4 to 12.3
HTN: continue medication, monitor closely
HLD: Atorvastatin 40 mg at bedtime
CAD s/p CABG :continue blood pressure med, statin
Atrial fibrillation:�Amiodarone 100 daily. Watchman. Not on anticoagulation.
ESRD: cont HD M/W/F���������������������������������������
Acute pulmonary edema due to acute HFpEF: echo- EF 59%, mild concentric LVH, no RWMA, mild MS/MR, mild-mod TR, estimated PASP 46mmHg, IVC dilated and odes not collapse, no pericardial effusion, no definite valvular vegetation.
-Volume removal via hemodialysis
DM II: Accu-Cheks, insulin sliding scale, Prandin 0.5 daily
COPD: Albuterol 2 puff every 6 as needed
Psych: Psychology consult.� Monitor mood, adjust medications as needed.
Skin/rectal excoriations/legs: monitor. Continue current Wound care, Santyl, Miconazole.Weight shift, roho cushion
Pain: acetaminophen 1000 q 8 prn or Tramadol 25mg q 6 hours prn.
Bowel: Lactulose
Bladder: Time void, PVRs, PRN straight cath.
Diarrhea: stopped after stopping lactulose, but needs it because of liver condition.
GI Prophylaxis: Pantoprazole 40mh bid
DVT Prophylaxis: Mechanical.
Pulmonary: Incentive spirometry
Safety: Continue to reinforce assistance with all transfers.
Code Status:� Full code
Dispo (date/plan/equipment needs): Home .� Social history reviewed.
Functional and Medical Goals: Modified Independent with ADL�s, ambulation, transfers
Discharge Destination: Acute inpatient rehabilitation once medically stable from a GI stand. Patient with known history of GI bleed and hemorrhoids. Per patient had cauterization done. Came in with low hgb s/p 2 units of blood transfusion. No
follow up scope available. Would appreciate GI's input prior to discharge regarding bleed 'per rectum to floor in room' as was noted by OT yesterday. Hgb level dropped a little today and WBC elevated in comparison to yesterday's results.
Summary of recommendations: Patient previously independent and currently debilitated from medical comorbidities would benefit from acute inpatient rehabilitation for PT/OT to increase independence with ADLs, improve balance, coordination,
endurance, strength, mobility, once medically stable from a GI stand.
Fucntional with ADL of min assist/max assist, toilet transfer�mod assist, bed mobility�sit to supine�min assist, sit to stand mod assist, stand to sit�min assist, ambulated with rolling walker about 60 feet total in room with min assist, would
benefit from acute inpatient rehabilitation for PT/OT to increase independence with ADLs, improve balance, coordination, endurance, strength, mobility, once medically stable from a GI stand.
GI Bleed: H/o EGD, colonoscopy, capsule study,cauterization from [place]- no procedural results available for review. H/o 2 units of transfused blood. Per OT's notes 04/01- bleed per rectum to floor. Hgb slightly decreased today. Would appreciate
GI input prior to discharge/transfer
Anemia: acute on chronic: With heme positive stools. Hgb stable s/p 2U PRBC. No bleeding, Hgb has been stable. Cont ferrous sulfate. (04/02) hgb level slightly dropped today. Would recommend repeating levels
Possible B/L LE cellulitis: Purpuric rash with vesicles - bilateral lower extremities. Vanco/Zosyn, now on Unasyn as per ID. Blood cultures x2 no growth at 96h - continue to follow. Wound culture of unroofed vesicular lesion no growth. Would need
IV medications converted to po form
Leukocytosis: wbc- 13.7 to 11.4 to 12.3 as of 04/02.
Skin/rectal excoriations/legs: monitor. Continue current Wound care, Santyl, Miconazole.Weight shift, roho cushion
Pain: acetaminophen 1000 q 8 prn or Tramadol 25mg q 6 hours prn.
Bowel: Lactulose
Bladder: Time void, PVRs, PRN straight cath.
GI Prophylaxis: Pantoprazole 40mg bid
Thank you for allowing me to care for your patient. Please contact me with any questions or concerns.
This note was dictated using a voice recognition system. Please excuse any typographical errors from cardiology rn. If you believe there are any discrepancies, please notify our office.

Documented by User: Marycruz Freedman MD 04/03/24 13:30
Consultation - Medical
-
Referring Provider: Dr. Giovani Gomez
Chief Complaint: Debility
History of Present Illness: This is a 73-year-old male with PMH of ( end-stage renal disease currently on dialysis M/W/F, A-fib, watchman, COPD, ESRD on HD, NIDDM, anemia, MVR, cirrhosis, DM, chronic anemia) presented to the emergency department
after abnormal labs Hbg 6.5 on predialysis labs and concern for GI bleeding. After admission passed black tarry stools. In reviewing with patient and family he had recent GI bleeding at [facility] then [facility] [address]. He had several
attempted EGD/colon then eventual capsule. He reports that clipping or cauterization of several areas was performed. He now returns with hbg 6.8 with unclear baseline.
Follow up imaging US noted change of cirrhosis/ascites/splenomegaly/portal HTN/cholelithiasis, med renal disease and CT PE study showed Pulmonary edema, PNA, small effusion, moderate mediastinal lymphadenopathy, prior CABG, prior MVR, mild ascites
rib fractures, splenomegaly and concern for left atrial appendage on watchman with thrombus.
Of note, he was in rehab at [facility] after a fall and fracturing 4 ribs. He reported to have mitral valve repair 20 years ago and he had complication during post-op and found to have NIRALI and eventually CKD, he has been on dialysis since then.
Echo: EF 59%, mild concentric LVH, no RWMA, mild MS/MR, mild-mod TR, estimated PASP 46mmHg, IVC dilated and odes not collapse, no pericardial effusion, no definite valvular vegetation.
Abdomen Ultrasound
1. Small amount of perihepatic ascites.
2. Nodular contour of the liver surface, suggestive of cirrhosis.
3. Splenomegaly, which may be seen in the setting of portal hypertension.
4. Cholelithiasis without evidence of acute cholecystitis.
5. Cortical thinning of each kidney, suggestive of medical renal disease.
Hip xray with pelvic view
Left hip prosthetic is in expected position. No fracture or dislocation of the right hip joint. Mild to moderate degenerative change of the right hip joint.
CT of chest:
Mild acute interstitial cardiogenic pulmonary edema.
Moderate-sized bilateral lower lobe airspace consolidations. Diagnostic possibilities are (1) bilateral lower lobe pneumonia or (2) moderate atelectasis.
Watchman device in the left atrial appendage containing thrombus.
Moderate splenomegaly.
Past Medical History: Afib, watchman, COPD, ESRD on HD, NIDDM, anemia, MVR, cirrhosis (new diagnosis per patient) with recent GI bleeding.
Procedure History: CABG,Left upper extremity AV fistula,Left knee replacement,Hip replacement, Mitral valve repair, Right knee meniscectomy
Family History: Not pertinent
Social History:
Functional Level Premorbidly: Independent with all activities
Functional Level Currently: ADL�min assist/max assist, toilet transfer�mod assist, bed mobility�sit to supine�min assist, sit to stand mod assist, stand to sit�min assist, ambulated with rolling walker about 60 feet total in room with min assist.
Tobacco: Non-smoker
Alcohol: Denies
Drug use: Denies
Lives with: Alone
24-hour assistance available:
Number of floors: 1st floor
# steps to enter: none
# steps to second floor:
Potential First floor set up:yes
Driving: yes
Occupation: retired
�
Allergies:
Allergy/AdvReac Type Severity Reaction Status Date / Time
gabapentin Allergy Unknown Verified 03/27/24 10:43
oxycodone [From OxyContin] Allergy Unknown Verified 03/27/24 10:43
Review of Systems:
Constitutional: (x) Normal _
Eye: (x) Normal _
Ear/Nose/Throat: (x) Normal _
Respiratory: (x) Normal _
Cardiovascular: (x) Normal _
Gastrointestinal: (x) Anemia, h/o gi bleed
Genitourinary: (x) Normal _
Musculoskeletal: (x) Normal _
Integumentary: (x) Normal _
Neurologic: (x) Normal _
Psychiatric: (x) Normal _
Endocrine: (x) Normal _
Hematologic/Lymphatic: (x) Normal _
Allergic/Immunologic: (x) Normal _
Medications:
Active Current Visit Medication List
Category Date Time Status
Acetaminophen [Tylenol] Med 03/27/24 17:12 Active
1,000 mg PO Q8
Albumin Human 25% 50 ml [Flexbumin 25% For Hemodialysis Med 04/01/24 08:00 Active
]
12.5 grams IV HD-Q1HPRN PRN
Albuterol [ProAIR HFA INHALER] Med 03/27/24 17:12 Active
2 puff INH R Q6HPRN PRN
Amiodarone [Pacerone] Med 04/01/24 08:00 Active
100 mg PO DAILY
Ampicillin/Sulbactam 3 G [Unasyn] 3 gm Med 03/31/24 15:00 Active
0.9% Sodium Chloride 100 ml [Nss] 100 ml
IV Q24H
Anusol Hc Suppository [Anusol Hc] Med 03/29/24 20:00 Active
25 mg RECTAL BID
Atorvastatin [Lipitor] Med 03/27/24 22:00 Active
40 mg PO HS
Bisacodyl [Dulcolax] Med 03/27/24 17:12 Active
10 mg RECTAL DAILYPRN PRN
Collagenase [Santyl Ointment] Med 03/29/24 08:00 Active
See Dose Instructions TOPICAL DAILY
Dextrose 50%-Water [Dextrose 50% Syringe] Med 03/28/24 14:39 Active
12.5 grams IV [id number] PRN
Ergocalciferol [Drisdol (Vitamin D2)] Med 03/31/24 08:00 Active
50,000 units PO RAO
Ferrous Sulfate [Feosol] Med 03/28/24 08:00 Active
325 mg PO DAILY
Flush (0.9% Sodium Chloride) [Flush (Nss)] Med 03/27/24 16:00 Active
See Dose Instructions IV PER PROTOCOL
Furosemide [Lasix] Med 03/28/24 08:00 Active
80 mg PO DAILY
Glucagon [GlucaGen] Med 03/28/24 14:39 Active
1 mg IM PRN PRN
Insulin Aspart Corrective Low [Novolog Flexpen-Low Med 03/28/24 16:30 Active
Resistance]
See Protocol SC AC
Lactulose [Duphalac/Chronulac] Med 04/01/24 08:00 Active
30 grams PO DAILY
Mannitol 25% Med 04/01/24 08:00 Active
12.5 grams IV HD-Q1HPRN PRN
Melatonin Med 03/27/24 22:00 Active
10 mg PO HS
Miconazole Nitrate [Desenex/Mitrazol/Zeasorb] Med 03/28/24 20:00 Active
See Dose Instructions TOPICAL BID
Midodrine [ProAmatine] Med 03/28/24 13:00 Active
5 mg PO TID@0800,1300,1800
Pantoprazole [Protonix] Med 04/01/24 20:00 Active
40 mg PO BID
Petrolatum/Mineral Oil [Hydrophor] Med 03/29/24 08:00 Active
See Dose Instructions TOPICAL DAILY
Renal Cap [Nephrocap] Med 03/28/24 08:00 Active
1 capsule PO DAILY
Repaglinide [Prandin] Med 03/28/24 12:00 Active
0.5 mg PO NOON
Rifaximin [Xifaxan] Med 03/27/24 20:00 Active
550 mg PO BID
Sodium Chloride [Sodium Chloride 4 Meq/ml For Med 04/01/24 08:00 Active
Hemodialysis]
10 ml IV HD-Q1HPRN PRN
Tramadol HCl [Ultram] Med 03/28/24 10:59 Active
25 mg PO Q6HPRN PRN
Vitals:
Temp Pulse Resp BP Pulse Ox
97.1 F 71 17 127/80 92
04/01/24 15:12 04/01/24 12:03 04/01/24 11:00 04/01/24 12:03 04/01/24 11:00
Height 6 ft 3 in
Actual Weight 101.1 kg
Body Mass Index (BMI) 27.9
Physical Exam:
General Appearance/Observation: Well-developed, well-nourished individual in no apparent distress.
Pain/Comfort Assessment: Denies
Mood/Affect: Appropriate
Integumentary/Operative Site:
�� Pressure Ulcer Evaluation: per nursing, rectal and buttocks excoriation, right upper extremity with bandage, bilateral legs wrapped in robert
��
�� Other Type of Wound: absent
��
Eyes: Conjunctiva/Lids: normal ��� Pupils: pupils equal round and reactive to light and Accommodation
Ears/Nose/Throat: oral mucosa moist,� throat clear.������������ Lips/Teeth/Gums: normal
Neck: No muscle spasm or tenderness
Cardiovascular: Heart: regular, murmur
Pulses: dorsalis pedis 1+ bilaterally
Respiratory: Respiratory Effort/Chest Expansion: normal ������� Auscultation: Clear to auscultation bilaterally
Gastrointestinal: abdomen not tender, distended, normal abdominal bowel sounds
Genitourinary: No Davis
Extremities: Edema: 2+ edema legs wrapped in robert bilaterally Cyanosis: None Trophic changes: ?
Neurology Exam:
Orientation: Alert, Oriented to self, Time, Place
Memory: Intact for immediate medical concerns
Higher cortical function
Repetition: Intact
Comprehension: Intact
Two step command: Intact
Naming: Intact
Cranial Nerves:
�� CNII: Pupillary light reflex: Intact��� Visual Field: Intact
�� CN III, IV, : Extraocular muscles: Intact
�� CN V: Facial Sensation at Forehead: Intact, Maxilla: Intact, Mandible: Intact
�� CN VII: Facial movement: Symmetric
�� CN VIII: Hearing: Normal
�� CN IX/X: Speech & swallow: Normal, Position of Uvula: Midline
�� CN XI: Shoulder shrug: Symmetric
�� CN XII: Tongue protrusion: Midline
Sensory:
�� Light touch: Intact in bilateral upper and lower extremities
��
Reflexes:
�� Biceps: trace bilaterally
�� Brachioradialis: trace+ bilaterally
�� Triceps: trace+ bilaterally
�� Patellar: trace+ bilaterally
�� Achilles: absent+ bilaterally
�� Clonus: not tested
�� Marcial: Negative bilaterally
Cerebellar: Dysmetria/Ataxia: None
Musculoskeletal:
Motor: (Manual muscle scale 0-5)
Muscle SA EF WE EE FF FA HF KE DF EHL PF
Right� 5 5 5 5 5 5 5 5 5 5 5
Left 5 5 5 5 5 5 5 5 5 5 5
Tone: Normal in all extremities
Lab Results
Labs
WBC 11.4 10^3/uL (4.8-10.8) H 04/01/24 04:33
RBC 2.90 10^6/uL (4.70-6.10) L 04/01/24 04:33
Hgb 8.0 g/dL (13.0-18.0) L 04/01/24 04:33
Hct 25.6 % (39.0-52.0) L 04/01/24 04:33
MCV 88.3 fL (80.0-94.0) 04/01/24 04:33
MCH 27.6 pg (27.0-31.0) 04/01/24 04:33
MCHC 31.3 g/dL (33.0-37.0) L 04/01/24 04:33
RDW 18.6 % (11.5-14.5) H 04/01/24 04:33
Plt Count 193 10^3/uL (130-400) 04/01/24 04:33
Plt Count Comment Yes 03/31/24 04:12
MPV 8.1 fL (7.4-10.4) 04/01/24 04:33
Abs Immat Gran (auto) 0.8 10^3/uL (0-0.05) H 03/30/24 04:54
Absolute Neuts (auto) 11.5 10^3/uL (1.4-6.5) H 03/30/24 04:54
Absolute Lymphs (auto) 1.2 10^3/uL (1.2-3.4) 03/30/24 04:54
Absolute Monos (auto) 1.3 10^3/uL (0.1-0.6) H 03/30/24 04:54
Absolute Eos (auto) 0.2 10^3/uL (0-0.7) 03/30/24 04:54
Absolute Basos (auto) 0.1 10^3/uL (0-0.2) 03/30/24 04:54
CBC Comment 03/30/24 04:54
Total Counted 100 03/31/24 04:12
Immature Gran % 5.4 % (0-0.5) H 03/30/24 04:54
Neutrophils % 76.1 % (42.2-75.2) H 03/30/24 04:54
Lymphocytes % 8.0 % (20.5-51.1) L 03/30/24 04:54
Monocytes % 8.6 % (1.7-9.3) 03/30/24 04:54
Eosinophils % 1.5 % (0-6) 03/30/24 04:54
Basophils % 0.4 % (0-2) 03/30/24 04:54
Nucleated RBC % 0.3 % (-) 03/30/24 04:54
Abs Neuts (Manual) 10.8 10^3/uL (1.4-6.5) H 03/31/24 04:12
Segmented Neutrophils 76 % (42-75) H 03/31/24 04:12
Band Neutrophils 3 % (0-3) 03/31/24 04:12
Lymphocytes (Manual) 11 % (20-51) L 03/31/24 04:12
Monocytes (Manual) 5 % (2-9) 03/31/24 04:12
Eosinophils (Manual) 3 % (0-6) 03/31/24 04:12
Metamyelocytes 2 % (-) 03/31/24 04:12
Nucleated RBCs 1 (-) 03/31/24 04:12
Normal RBC Morphology No 03/31/24 04:12
Polychromasia 1+ 03/31/24 04:12
Basophilic Stippling Occasional 03/31/24 04:12
Anisocytosis 1+ 03/31/24 04:12
Target Cells Occasional 03/31/24 04:12
Tear Drop Cells Occasional 03/31/24 04:12
Ovalocytes 1+ 03/31/24 04:12
Acanthocytes (Spur) 1+ 03/31/24 04:12
PT 16.0 Sec (11.4-14.6) H 03/29/24 05:21
INR 1.27 03/29/24 05:21
APTT 41.3 Sec (23.4-35.0) H 03/27/24 10:59
Fibrinogen 503 MG/DL (199-459) H 03/28/24 04:46
D-Dimer 17.11 ug/mlFEU (0.00-0.50) H 03/28/24 04:46
Sodium 133 mmol/L (135-145) L 04/01/24 04:33
Potassium 3.7 mmol/L (3.5-5.1) 04/01/24 04:33
Chloride 95 mmol/L (98-107) L 04/01/24 04:33
Carbon Dioxide 22 mmol/L (22-30) 04/01/24 04:33
BUN 48 mg/dl (9-20) H 04/01/24 04:33
Creatinine 6.5 mg/dL (0.7-1.3) H* 04/01/24 04:33
Estimated Creat Clear 12 ml/min 04/01/24 04:33
eGFR 8.41 04/01/24 04:33
Glucose 135 mg/dl (70-99) H 04/01/24 04:33
Hemoglobin A1c 5.1 % (4.0-5.6) 03/29/24 05:21
Calcium 8.7 mg/dl (8.4-10.2) 04/01/24 04:33
Iron 39 ug/dl (49-181) L 03/28/24 04:46
TIBC 222 ug/dl (261-462) L 03/28/24 04:46
% Saturation 17 % (20-50) L 03/28/24 04:46
Ferritin 152.0 ng/ml (17.9-464.0) 03/28/24 04:46
Total Bilirubin 0.7 mg/dl (0.2-1.3) 04/01/24 04:33
AST 21 U/L (17-59) 04/01/24 04:33
ALT 10 U/L (0-50) 04/01/24 04:33
Alkaline Phosphatase 93 U/L (38-126) 04/01/24 04:33
Ammonia 11 umol/L (9-30) 03/29/24 05:21
Total Protein 6.3 g/dl (6.3-8.2) 04/01/24 04:33
Albumin 3.1 g/dl (3.5-5.0) L 04/01/24 04:33
Vitamin B12 839 pg/ml (239-931) 03/28/24 04:46
Folate > 20.0 ng/ml (2.76-20) H 03/28/24 04:46
Random Vancomycin 12.9 ug/ml 03/31/24 04:12
Hep Bs Antigen Negative (Negative) 03/27/24 10:59
Hep Bs Antibody Positive 03/27/24 10:59
Hep B Core Total Ab Negative (Negative) 03/28/24 04:46
Hepatitis C Antibody Negative (Negative) 03/28/24 04:46
POC Glucose 137 mg/dl (70-99) H 04/01/24 12:07
Blood Type O POS 03/27/24 10:59
Blood Type Confirm O POS 03/27/24 11:57
Antibody Screen Negative (Negative) 03/27/24 10:59
Crossmatch IS Only See Detail 03/27/24 10:59
�
Diagnostic Results: as per HPI
Assessment: 73-year-old male with PMH of ( end-stage renal disease currently on dialysis M/W/F, A-fib, watchman, COPD, ESRD on HD, NIDDM, anemia, MVR, cirrhosis, DM, chronic anemia) abnormal labs Hbg 6.5 on predialysis labs and concern for GI
bleeding. imaging US noted change of cirrhosis/ascites/splenomegaly/portal HTN/cholelithiasis, med renal disease and CT PE study showed Pulmonary edema, PNA, small effusion, moderate mediastinal lymphadenopathy, prior CABG, prior MVR, mild ascites
rib fractures, splenomegaly and concern for left atrial appendage on watchman with thrombus.
Plan
PT/OT to increase independence with ADLs, improve balance, coordination, endurance, strength, mobility, community reintegration, decreased burden of care on others and family education.
GI Bleed: H/o EGD, colonoscopy, capsule study,cauterization from [facility]- no results available for review. H/o 2 units of transfused blood on admission. Per OT's notes 04/01- bleed per rectum to floor. Hgb slightly decreased today. Would
appreciate GI input prior to discharge/transfer
Anemia: acute on chronic: With heme positive stools. Hgb stable s/p 2U PRBC. No bleeding, Hgb has been stable. Cont ferrous sulfate. (04/02) hgb slightly dropped today
Hemorrhoids: Hydrocortisone cream. Monitor.
Liver Cirrhosis:(new diagnosis) with decompensation with HE and mild ascites on imaging. Rifaximin and lactulose per GI
Anasarca:presumably due to cirrhosis in the setting of ESRD
Possible B/L LE cellulitis: Purpuric rash with vesicles - bilateral lower extremities. Vanco/Zosyn, now on Unasyn IV as per ID. Blood cultures x2 no growth at 96h - continue to follow. Wound culture of unroofed vesicular lesion no growth. Change in
WBC level from yesterday
Leukocytosis: wbc- 13.7 to 11.4 to 12.3
HTN: continue medication, monitor closely
HLD: Atorvastatin 40 mg at bedtime
CAD s/p CABG :continue blood pressure med, statin
Atrial fibrillation:�Amiodarone 100 daily. Watchman. Not on anticoagulation.
ESRD: cont HD M/W/F���������������������������������������
Acute pulmonary edema due to acute HFpEF: echo- EF 59%, mild concentric LVH, no RWMA, mild MS/MR, mild-mod TR, estimated PASP 46mmHg, IVC dilated and odes not collapse, no pericardial effusion, no definite valvular vegetation.
-Volume removal via hemodialysis
DM II: Accu-Cheks, insulin sliding scale, Prandin 0.5 daily
COPD: Albuterol 2 puff every 6 as needed
Psych: Psychology consult.� Monitor mood, adjust medications as needed.
Skin/rectal excoriations/legs: monitor. Continue current Wound care, Santyl, Miconazole.Weight shift, roho cushion
Pain: acetaminophen 1000 q 8 prn or Tramadol 25mg q 6 hours prn.
Bowel: Lactulose
Bladder: Time void, PVRs, PRN straight cath.
Diarrhea: stopped after stopping lactulose, but needs it because of liver condition.
GI Prophylaxis: Pantoprazole 40mh bid
DVT Prophylaxis: Mechanical.
Pulmonary: Incentive spirometry
Safety: Continue to reinforce assistance with all transfers.
Code Status:� Full code
Dispo (date/plan/equipment needs): Home .� Social history reviewed.
Functional and Medical Goals: Modified Independent with ADL�s, ambulation, transfers
Discharge Destination: Acute inpatient rehabilitation once medically stable from a GI stand. Patient with known history of GI bleed and hemorrhoids. Per patient had cauterization done. Came in with low hgb s/p 2 units of blood transfusion. No
follow up scope available. Would appreciate GI's input prior to discharge regarding bleed 'per rectum to floor in room' as was noted by OT yesterday. Hgb level dropped a little today and WBC elevated in comparison to yesterday's results.
Summary of recommendations: Patient previously independent and currently debilitated from medical comorbidities would benefit from acute inpatient rehabilitation for PT/OT to increase independence with ADLs, improve balance, coordination,
endurance, strength, mobility, once medically stable from a GI stand.
Fucntional with ADL of min assist/max assist, toilet transfer�mod assist, bed mobility�sit to supine�min assist, sit to stand mod assist, stand to sit�min assist, ambulated with rolling walker about 60 feet total in room with min assist, would
benefit from acute inpatient rehabilitation for PT/OT to increase independence with ADLs, improve balance, coordination, endurance, strength, mobility, once medically stable from a GI stand.
GI Bleed: H/o EGD, colonoscopy, capsule study,cauterization from [facility]- no procedural results available for review. H/o 2 units of transfused blood. Per OT's notes 04/01- bleed per rectum to floor. Hgb slightly decreased today.
CHF/aflutter: Echo 01/2024 with EF 55-60%, known prolonged QT - avoid QT prolongation agents. Amiodarone and lasix following I/O, weight and electrolytes
Anemia: acute on chronic: With heme positive stools. Hgb stable s/p 2U PRBC. No bleeding, Hgb has been stable. Cont ferrous sulfate. (04/02) hgb level slightly dropped today. Would recommend repeating levels
Possible B/L LE cellulitis: Purpuric rash with vesicles - bilateral lower extremities. Vanco/Zosyn, now on Unasyn as per ID. Blood cultures x2 no growth at 96h - continue to follow. Wound culture of unroofed vesicular lesion no growth. Would need
IV medications converted to po form
Leukocytosis: wbc- 13.7 to 11.4 to 12.3 as of 04/02.
Skin/rectal excoriations/legs: monitor. Continue current Wound care, Santyl, Miconazole.Weight shift, roho cushion
Pain: acetaminophen 1000 q 8 prn or Tramadol 25mg q 6 hours prn.
Bowel: Lactulose
Bladder: Time void, PVRs, PRN straight cath.
GI Prophylaxis: Pantoprazole 40mg bid
Thank you for allowing me to care for your patient. Please contact me with any questions or concerns.
This note was dictated using a voice recognition system. Please excuse any typographical errors from cardiology rn. If you believe there are any discrepancies, please notify our office.
Attending Attestation:
Patient seen, agree with note above as signed by Enriqueta Bellamy. Reviewed chart through [facility]. 2 recent hospitalizations at [facility] for GI bleed x2 01/21 and 02/11 where EGD and sigmoidoscopy were performed finding gastritis, divertulosis but no
significant source of bleeding, hemorrhoids were noted as likely source of hematochezia, left AMA. and again on 03/05 for mechanical fall found to have rib fx and right hip hematoma. He had been noncompliant with home medications including his
lactulose and rifaximin in s/o end stage liver failure and mental status became altered during admission resulting in intubation.
--- NOTE | 2024-04-01 15:01 | CM ---
Patient from [facility] with Hx ESRD on HD with Dx Anemia-heme positive stools, anasarca, Possible B/L LE cellulitis, Right thigh/lateral hip hematoma, pulmonary edema due to HF. Room air. Receiving IV Abx, midodrine. Seen by wound care
nurse. PT & OT recommend acute rehab. Physiatry Consult pending.
Spoke with patient this morning who relayed he is concerned that he hasn't been accepted by [facility]. Provided update we are waiting for Lawn Service Worker to see him.
Attempted to meet with patient who was sleeping while on HD.
Met with patient's brothers Rafi and Raman; they also expressed concern that their brother hasn't been accepted by [facility]. Relayed to them that Lawn Service Worker would be seeing him to evaluate for [facility], and that [facility] does not currently have an
available bed.
Spoke with [facility]; Dr Iris Bellamy will probably be seeing the patient today. [facility] does not currently have an available bed.
Plan follow up after seen by Physiatry.
--- NOTE | 2024-04-01 15:35 | W.PN.NEPH.HD ---
Assessment
-
pt seen during HD
vitals stable
UF as tolerates
hopefully no extra UF tomorrow
AVF functions fine, monitor venous end
high dose DANNY
Progress Note - Hemodialysis
-
Date of Service: April 01, 2024
Duration: 30 minutes and 3 hours
Potassium Bath: 3
Calcium Bath: 2.5
Opti-Dialyzer: 160
Ultrafiltration: Other (2.5-3kg)
Blood Flow: 350
Dialysate Flow: 600
Heparin: no
EPO: [id number]
[2024-04-01 16:39] LABS: Glucose - Point of Care 143 mg/dl (70-99)
[2024-04-01] MEDS: UNASYN IV (17:02)
[2024-04-01] MEDS: ANUSOL HC RECTAL (20:44)
[2024-04-01] MEDS: LIPITOR 40 MG PO (20:44)
[2024-04-01] MEDS: PROTONIX 40 MG PO (20:44)
[2024-04-01] MEDS: MELATONIN 10 MG PO (20:45)
[2024-04-01 22:51] LABS: Glucose - Point of Care 162 mg/dl (70-99)
[2024-04-02] VITALS (13 sets, daily range): BP systolic 113–139; BP diastolic 52–78; BMI 27.6
[2024-04-02 05:06] LABS: Hematocrit 25.2 % (39.0-52.0); Hemoglobin 7.8 g/dL (13.0-18.0); Mean Corpuscular Hgb 27.5 pg (27.0-31.0); Mean Corpuscular Volume 88.7 fL (80.0-94.0); Mean Platelet Volume 8.2 fL (7.4-10.4); Platelet Count 180 10^3/uL (130-400); Red Blood Cell Count 2.84 10^6/uL (4.70-6.10); Red Cell Dist. Width 18.9 % (11.5-14.5); White Blood Cell Count 12.3 10^3/uL (4.8-10.8)
[2024-04-02 05:28] LABS: Blood Urea Nitrogen 33 mg/dl (9-20); Carbon Dioxide 23 mmol/L (22-30); Estimated Creatinine Clearance 15 ml/min; Potassium 3.7 mmol/L (3.5-5.1); eGFR 11.25
[2024-04-02 05:44] LABS: Calcium 8.6 mg/dl (8.4-10.2); Chloride 98 mmol/L (98-107); Glucose 118 mg/dl (70-99); Sodium 135 mmol/L (135-145)
--- NOTE | 2024-04-02 06:22 | PTCARENOTE ---
Patient's brother asking about Dr. Bellamy and if pt is accepted into [facility]; will pass along to dayshift to follow up.
Patient awake on/off throughout night. Difficult to get comfortable in bed; to the chair and back to bed. Tele showing Afib. Sp02 decreased to 58% briefly during apnea episode, but quickly increases upon waking. 2-3L NC applied. Repositioned
throughout the night. Lower leg dressings intact. Call robin and tray table within reach.
--- NOTE | 2024-04-02 07:05 | W.PN.HOSP.TC ---
Addendum entered and electronically signed by Giovani Gomez MD 04/02/24 10:14:
I saw and evaluated the patient. I reviewed the resident�s note and agree with findings and plan as documented in the resident�s note.
Patient denies shortness of breath. Reports he feels tired.
No acute distress, awake and alert, appears chronically ill
remains Regular rate and rhythm, normal S1-S2, 2/6 systolic murmur
remains clear to auscultation bilaterally anteriorly
Positive bowel sounds, soft, nontender, mild-mod distention with ascites
Both lower extremities with Diaz bandages on, 2+ bilateral lower extremity edema
Echo: EF 59%, mild concentric LVH, no RWMA, mild MS/MR, mild-mod TR, estimated PASP 46mmHg, IVC dilated and odes not collapse, no pericardial effusion, no definite valvular vegetation.
Acute on chronic anemia:
-With heme positive stools
-Hb stable s/p 2U pRBCs
-Patient reports he had EGD/colonoscopy/capsule study at [place]
-GI saw in consultation and signed off
Anasarca:
-presumably due to cirrhosis in the setting of ESRD
-pt has been noncompliant with lactulose
Possible B/L LE cellulitis:
-was on Vanco/Zosyn, now on Unasyn as per ID
ESRD:
-cont HD M/W/F
Acute pulm edema due to acute HFpEF:
-echo above
-Volume removal via hemodialysis
c/s PMR for acute rehab eval
Medically cleared for d/c if pt can transition to PO abx. Awaiting PMR eval.
Original Note:
Today's Communication/Plan
-
penidng PMR recs for acute rehab
Medically cleared for d/c if pt can transition to PO abx
Assessment / Plan
Assessment / Plan
#Acute anemia in CKD
Hematoma on right thigh vs GI bleed vs Anemia of chronic disease
- Hb 7.8 ( 04/02/24)- stable
- 2 bags PRBC on 03/27/24
- Heme + stool
- GI input appreciated
- PT/OT recs acute rehab
- pending physiatry consult for rehab recs
# Cellulitis B/l LE
- IV unasyn and d/c vanco and PO doxy per ID
- WC, BC unremarkable
- Continue Wound care
#ESRD
- on regular dialysis M/W/F-
- Left UE dialysis access
- Cr 5.1
- Nephro input appreciated
- Dialysis tomorrow
- low na diet, with FR
- midodrine per nephro
- additional ultrafilteration 03/30/24 with removal of 3kg fluid
- additionsal dose of lasix 80mg on 03/30/24
- daily weight
#Anasarca- sec to liver disease
- Suspected Cirrhosis
- 2/2 to hypoalbuminemia or chronic liver disease
- diuresis as tolerated - may be difficult with intravascular low oncotic pressure
- ABD US : Small amount of perihepatic ascites, Nodular contour of the liver surface, suggestive of cirrhosis, Cholelithiasis without evidence of acute cholecystitis.
- continue rifaximin and lactulose
- hep panel negative
- lactuose decrease to once daily by GI
# Acute Pulmonary Edema sec to overload in HFpEF
- CXR - suspicious for mild to moderate pulmonary edema. Questionable tiny left pleural effusion.
- 1 dose of IV lasix 80mg in ER
- continue PO lasix
- CT: left atrial appendage Watchman occlusion device in place in the left atrial appendage ostium containing thrombus.- per cardio this is normal appearance.
- Appreciate cardio input
- no AC recommended per cardio
- consideration for JO ANN
- Amiodarone 100mg cont
# Mild hyponatremia
likely hypervolemic
- continue lasix and routine dilaysis
# Diffuse Body pain/aches
# Recent fall with multiple injuries including traumatic rib fx- 4
- incentive spirometer
- Xray of the Right elbow with no evidence of osteomyelitis associated with the wound
- Xray Right hip shows degen changes
- pending BC results t/c CT for right thigh hematoma eval
# Paroxysmal A-fib- not on OAC unclear reason- continue amiodarone- decrease to 100mg today HR in 50s
# Urinary retention
- improving
# Abnormal D dimer
- CT/PE : Moderate-sized bilateral lower lobe airspace consolidations. Diagnostic possibilities are (1) bilateral lower lobe pneumonia or (2) moderate atelectasis.
Mild acute interstitial cardiogenic pulmonary edema.
# Aortic aneurysm
# stage 2 sacral pressure injury- followed by WC
# Atherosclerosis/hyperlipidemia- continue statin
# COPD
# Congestive heart failure- type unclear
# h/o Mitral valve repair
# Diabetes mellitus type 2- accu check on sliding scale coverage- continue repaglinide
# GERD- continue PPI
# JESUS
# Obesity
DVT Prophylaxis:
Code: Full Code
Anticipated Discharge: Within 24 hours
Subjective/Interval History
-
Date of Service: April 02, 2024
Objective Data
-
Labs:
Laboratory Results
04/02/24
04:27
WBC 12.3 H
Hgb 7.8 L
Hct 25.2 L
Plt Count 180
Sodium 135
Potassium 3.7
Chloride 98
Carbon Dioxide 23
BUN 33 H
Creatinine 5.1 H*
Glucose 118 H
Calcium 8.6
Vital Signs:
Vital Signs
Temp Pulse Resp BP Pulse Ox
98.6 F 59 16 118/67 99
04/02/24 03:47 04/02/24 06:00 04/02/24 06:00 04/02/24 06:00 04/02/24 06:00
I&O
04/01/24 04/02/24 04/03/24
06:59 06:59 06:59
Intake Total 1560 / 1560 180 / 180
Output Total 50 / 50 50 / 50
Balance 1510 / 1510 130 / 130
Review of Systems
-
History Source: Patient
Constitutional: Denies Fever
Respiratory: Denies Cough
Cardiac: Denies Chest Pain
Abdomen/GI: Denies Abdominal Pain
Musculoskeletal: Denies Joint Pain
Neuro: Denies Dizzy or Headache
Physical Exam
-
General: Appears Chronically Ill
HEENT: Normocephalic and Atraumatic
Respiratory: Decreased Breath Sounds
Cardiac: Regular Rhythm
GI: Nontender and Distended
Skin: Warm
Neuro: Awake, Alert and Oriented
Psych: Calm
Data Reviewed
-
Labs: Labs Reviewed by me, Discussed with Physician and Discussed with Patient
[2024-04-02 07:29] LABS: Glucose - Point of Care 133 mg/dl (70-99)
[2024-04-02] MEDS: NOVOLOG FLEXPEN-LOW RESISTANCE SC ×2 (07:37→11:58)
[2024-04-02] MEDS: XIFAXAN 550 MG PO ×2 (07:46→19:34)
[2024-04-02] MEDS: ProAmatine 5 MG PO ×2 (07:46→17:31)
[2024-04-02] MEDS: TYLENOL 1000 MG PO ×3 (07:46→22:50)
[2024-04-02] MEDS: ANUSOL HC RECTAL ×2 (07:46→19:34)
[2024-04-02] MEDS: SANTYL OINTMENT 1 APPLIC TOPICAL (07:46)
[2024-04-02] MEDS: NEPHROCAP 1 CAPSULE PO (07:46)
[2024-04-02] MEDS: PACERONE 100 MG PO (07:46)
[2024-04-02] MEDS: FEOSOL 325 MG PO (07:46)
[2024-04-02] MEDS: DESENEX/MITRAZOL/ZEASORB 1 APPLIC TOPICAL ×2 (07:47→19:34)
[2024-04-02] MEDS: HYDROPHOR 1 APPLIC TOPICAL (07:47)
[2024-04-02] MEDS: PROTONIX 40 MG PO ×2 (07:47→19:34)
[2024-04-02] MEDS: LASIX 80 MG PO (07:47)
--- NOTE | 2024-04-02 09:00 | PTCARENOTE ---
Patient received from production shift supervisor. Patient resting comfortably in bed. AAO, VSS. No events noted over night. Patient still with complaints in his buttom/sacrum. Wound care to be done. HD done yesterday. [facility]. Call sharda
in reach.
--- NOTE | 2024-04-02 11:35 | CM ---
Patient from [facility] with Hx ESRD on HD with Dx Anemia-heme positive stools, anasarca, Possible B/L LE cellulitis, Right thigh/lateral hip hematoma, pulmonary edema due to HF. O2 3L. Receiving IV Abx. Seen by wound care nurse. PT & OT
recommend acute rehab. Physiatry Consult recommends acute rehab.
Spoke with [facility]; they have an available bed today and tomorrow. Dr Bellamy is accepting once rechecked by gastroenterology.
Met with patient and his brothers Rafi and Raman; they were happy to have the update that patient was accepted at [facility], and are aware that the patient is not yet medically cleared to go to [facility]. His brother Raman expressed gratitude knowing his
brother will go to [facility], as he was waiting for his d/c plan to be settled before he returns home, and he needs to fly home soon.
Plan [facility] when medically ready.
--- NOTE | 2024-04-02 11:42 | W.PN.ID1 ---
Date of Service
Date of Service: April 02, 2024
Today's Communication
- switch to augmentin for 3 more days 10 day total course
- rifaximin per GI
- follow up with pcp
Assessment / Plan
Purpuric rash with vesicles - bilateral lower extremities
- improved
Hypotension
CAD h/o CABG
Cirrhosis
Anasarca
H/o MVR
ESRD�HD
Recommendations:
- switch to augmentin for 3 more days 10 day total course
- rifaximin per GI
- follow up with pcp
����������������������������������������������������������
Chief Complaint
-: Clinical Sepsis
Subjective / Review of Systems
remains afebrile
bp stable
wbc stable at 12
hgb 7.8
plt 180
K 3.7
blood cultures finalized negative
intermittent bradycardia on the monitor to the 30s, no chest pain, shortness of breath of palps - notified IM service
Vital Signs / Physical Exam
Vital Signs
Vital Signs
Temp Pulse Resp BP Pulse Ox
97.4 F 65 16 118/67 99
04/02/24 11:28 04/02/24 07:46 04/02/24 06:00 04/02/24 07:46 04/02/24 06:00
Physical Exam
Constitutional: No Acute Distress and Chronically Ill
Cardiovascular: Regular Rate and S1/S2; Negative Murmur or Rub
Pulmonary: Clear and Symmetric; Negative Wheezes or Rales
Gastrointestinal: Soft, Non Tender, Distended and Normal Bowel Sounds
Skin: Warm and Dry; Negative Rash (chronic lichenification unchanged, rash resolved on the thighs on lower extremities; there is some excoriated open, wounds with minimal bloody drainage) or Jaundice
Objective Data
Lab Data
Lab Results
04/02/24 04:27
04/02/24 04:27
PT 16.0 Sec (11.4-14.6) H 03/29/24 05:21
INR 1.27 03/29/24 05:21
APTT 41.3 Sec (23.4-35.0) H 03/27/24 10:59
Estimated Creat Clear 15 ml/min 04/02/24 04:27
Total Bilirubin 0.7 mg/dl (0.2-1.3) 04/01/24 04:33
AST 21 U/L (17-59) 04/01/24 04:33
ALT 10 U/L (0-50) 04/01/24 04:33
Alkaline Phosphatase 93 U/L (38-126) 04/01/24 04:33
Most recent labs reviewed.
Micro Results:
03/27/24 18:18 Blood Culture - Final
Blood/Venous No Growth - Final Report
03/27/24 17:47 Blood Culture - Final
Blood/Venous No Growth - Final Report
03/30/24 11:54 C. difficile GDH Antigen & Toxins - Final
Feces/Stool Negative for toxigenic C.difficile
03/27/24 20:05 Wound Culture - Final
Leg - Right No growth
Gram Stain - Final
[2024-04-02 11:57] LABS: Glucose - Point of Care 145 mg/dl (70-99)
[2024-04-02] MEDS: PRANDIN 0.5 MG PO (12:57)
--- NOTE | 2024-04-02 13:02 | W.PN.NEPH.PH ---
Today's Communication / Plan
-
HD tomorrow
Assessment/Plan
-
Assessment
ESRD
Acute anemia
Possible history of diverticulosis/AVM
Hypotension
Mitral valve repair
Diabetes mellitus type 2
Leukocytosis
cirrhosis based on US
Plan
follow h/h stable at 7.8
Dialysis tomorrow
remains hypervolemic but much better than admit, lost 8kg
try UF as much as possible
BP are soft on midodrine for now
cirrhosis is new diagnosis
empiric abx continue
-
-
Date of Service: April 02, 2024
CC / HPI / ROS
-
Chief Complaint:
ESRD
History of Present Illness:
tolerated HD yesterday
Hgb up to 7.8 stable
BP low stable on midodrine
Review of Systems:
no CP/SOB
Labs
-
Labs:
WBC 12.3 10^3/uL (4.8-10.8) H 04/02/24 04:27
RBC 2.84 10^6/uL (4.70-6.10) L 04/02/24 04:27
Hgb 7.8 g/dL (13.0-18.0) L 04/02/24 04:27
Hct 25.2 % (39.0-52.0) L 04/02/24 04:27
Plt Count 180 10^3/uL (130-400) 04/02/24 04:27
Sodium 135 mmol/L (135-145) 04/02/24 04:27
Potassium 3.7 mmol/L (3.5-5.1) 04/02/24 04:27
Chloride 98 mmol/L (98-107) 04/02/24 04:27
Carbon Dioxide 23 mmol/L (22-30) 04/02/24 04:27
BUN 33 mg/dl (9-20) H 04/02/24 04:27
Creatinine 5.1 mg/dL (0.7-1.3) H* 04/02/24 04:27
eGFR 11.25 04/02/24 04:27
Glucose 118 mg/dl (70-99) H 04/02/24 04:27
Calcium 8.6 mg/dl (8.4-10.2) 04/02/24 04:27
Albumin 3.1 g/dl (3.5-5.0) L 04/01/24 04:33
Physical Exam
-
Vital Signs:
Vital Signs
Temp Pulse Resp BP Pulse Ox
97.4 F 49 15 117/59 99
04/02/24 11:28 04/02/24 12:00 04/02/24 12:00 04/02/24 12:00 04/02/24 12:00
Cardiovascular:: Regular rate and rhythm
Respiratory:: Bilateral: CTA
Lung Excursion:: Normal
Abdomen:: Distended, Nontender and Soft
Extremity Edema:: +3: Bilateral: (improving)
Davis Catheter: No
[2024-04-02] MEDS: ProAmatine PO (13:06)
[2024-04-02] MEDS: ULTRAM 25 MG PO ×2 (13:07→22:49)
[2024-04-02] MEDS: DUPHALAC/CHRONULAC 30 GRAMS PO (13:09)
--- NOTE | 2024-04-02 15:42 | W.PN.UPDATE ---
Update Note
Progress Note Update
Called to reevaluate patient for rectal bleeding. Patient denies any rectal bleeding with bowel movement. Noted to have small amount of blood on his pad this a.m. as per RN. No further bleeding episodes. recent GI workup at [facility].
Patient claims he has hemorrhoids. Okay from DC to rehab from GI standpoint. avoid constipation . Topical hemorrhoidal preparation as needed
[2024-04-02] MEDS: NOVOLOG FLEXPEN-LOW RESISTANCE 1 UNITS SC (16:24)
[2024-04-02 16:34] LABS: Glucose - Point of Care 170 mg/dl (70-99)
--- NOTE | 2024-04-02 17:30 | W.PN.CARDCBS ---
Today's Communication / Plan
-
Reviewed telemetry and no significant bradycardia
Would not change medical therapy and continue low-dose amiodarone
Stable cardiology status for transfer to [facility]
Sign off
Impression / Plan
-
PCP: Dr. Ching Rao in [facility]
Cardiology: Dr. Ezequiel Lopes [phone]
Impression:
Reconsulted for bradycardia 04/02/2024
Admitted with anemia 03/27/24
ESRD on HD
Acute volume overload with acute HF unknown EF, cirrhosis and ESRD on HD
Acute on chronic anemia
Heme positive stools with recent GI work-up at [facility]
Cirrhosis, patient says this is a new diagnosis
s/p MV ring repair 2003
Paroxysmal Afib
Chronic amiodarone therapy
s/p Watchman device 2019
Echo 03/28/24:
Normal left ventricular size and systolic function. LV ejection fraction is 59% by volumetric assessment.
Mild concentric left ventricular hypertrophy.
Enlarged right ventricular size with low normal right ventricular systolic
function.
Biatrial enlargement
A mitral valve ring is present. Mean transmitral pressure gradient 4mmHg. No
mitral stenosis. Mild mitral regurgitation.
Aortic sclerosis without stenosis. No aortic regurgitation is seen.
Mild to moderate tricuspid regurgitation.
Estimated pulmonary artery pressure of 46 mmHg assuming a right atrial pressure
of 10 mmHg. The IVC is dilated and does not collapse.
No pericardial effusion.
No definite valvular vegetation seen
Plan:
Reviewed telemetry.
There is no significant bradycardia and would not change any medications
Will continue on low-dose amiodarone 100 mg daily
Stable cardiology status for transfer to [facility]
PREADMIT DATA
He is a complex medical patient with end-stage renal disease on hemodialysis, paroxysmal atrial fibrillation status post Watchman procedure, mitral valve ring repair in 2003, heme positive stools with chronic anemia who has been staying at [facility] and presents with failure to thrive, anemia, heme positive stool, and dizziness.
-A CAT scan of the chest was performed which revealed a Watchman device in place with thrombus within the left atrial appendage prompting cardiology consult. The CT scan was reviewed with the watchman team: The radiologic findings appear to be
appropriate for his watchman. No further workup is required.
Progress Note - Family Practitioner
Subjective
Date of Service: April 02, 2024
No chest pain or shortness of breath. Asked to see patient for bradycardia.
Objective
Labs:
04/02/24 04:27
04/02/24 04:27
Labs
Hgb 7.8 g/dL (13.0-18.0) L 04/02/24 04:27
Hct 25.2 % (39.0-52.0) L 04/02/24 04:27
Plt Count 180 10^3/uL (130-400) 04/02/24 04:27
PT 16.0 Sec (11.4-14.6) H 03/29/24 05:21
INR 1.27 03/29/24 05:21
APTT 41.3 Sec (23.4-35.0) H 03/27/24 10:59
Sodium 135 mmol/L (135-145) 04/02/24 04:27
Potassium 3.7 mmol/L (3.5-5.1) 04/02/24 04:27
BUN 33 mg/dl (9-20) H 04/02/24 04:27
Creatinine 5.1 mg/dL (0.7-1.3) H* 04/02/24 04:27
Glucose 118 mg/dl (70-99) H 04/02/24 04:27
Vital Signs and I&O:
Vital Signs
Temp Pulse Resp BP Pulse Ox
98.2 F 67 20 135/62 100
04/02/24 15:17 04/02/24 17:00 04/02/24 13:00 04/02/24 16:00 04/02/24 17:00
Vital Signs
Temp Pulse Resp BP Pulse Ox
98.2 F 67 20 135/62 100
04/02/24 15:17 04/02/24 17:00 04/02/24 13:00 04/02/24 16:00 04/02/24 17:00
Intake & Output
03/31/24 04/01/24 04/02/24 04/03/24
06:59 06:59 06:59 06:59
Intake Total 1340 / 1340 1560 / 1560 180 / 180 240 / 240
Output Total 385 / 385 50 / 50 50 / 50 250 / 250
Balance 955 / 955 1510 / 1510 130 / 130 -10 / -10
Physical Exam
Physical Exam
General: Well developed, well nourished in NAD.
Neck: Supple, no JVD, HJR, carotids +2 B/L, no bruits bilaterally.
Heart: Non displaced PMI, RRR, no murmurs, No S3, S4, no rubs.
Lungs: Scattered rhonchi
Extremities: No clubbing, cyanosis or edema bilaterally.
Neuro: Grossly nonfocal, awake, alert and oriented x3.
[2024-04-02] MEDS: LIPITOR 40 MG PO (19:34)
[2024-04-02] MEDS: AUGMENTIN 500 MG/125 MG 1 TABLET PO (19:34)
--- NOTE | 2024-04-02 22:02 | PTCARENOTE ---
assumed care of patient. pt is AAOx3- flat affect, able to make needs known. pt sitting up in chair watching a show on his phone. c/o pain to sacrum, air chair cushion under buttocks, calazime cream applied. oxygen lowered to 2L-94%. pt did refuse
rectal suppository, educated on importance. care ongoing.
[2024-04-02 22:15] LABS: Glucose - Point of Care 135 mg/dl (70-99)
[2024-04-02] MEDS: MELATONIN 10 MG PO (22:49)
[2024-04-03] VITALS (26 sets, daily range): BP systolic 101–149; BP diastolic 51–104; BMI 27.2
[2024-04-03 04:43] LABS: Hematocrit 24.7 % (39.0-52.0); Hemoglobin 7.6 g/dL (13.0-18.0); Mean Corp Hgb Conc. 30.8 g/dL (33.0-37.0); Mean Corpuscular Hgb 27.4 pg (27.0-31.0); Mean Corpuscular Volume 89.2 fL (80.0-94.0); Mean Platelet Volume 8.6 fL (7.4-10.4); Platelet Count 143 10^3/uL (130-400); Red Blood Cell Count 2.77 10^6/uL (4.70-6.10); Red Cell Dist. Width 19.1 % (11.5-14.5); White Blood Cell Count 13.2 10^3/uL (4.8-10.8)
[2024-04-03 05:08] LABS: ALT (SGPT) 11 U/L (0-50); AST (SGOT) 23 U/L (17-59); Albumin 3.3 g/dl (3.5-5.0); Alkaline Phosphatase 85 U/L (38-126); Blood Urea Nitrogen 47 mg/dl (9-20); Calcium 8.6 mg/dl (8.4-10.2); Carbon Dioxide 24 mmol/L (22-30); Chloride 98 mmol/L (98-107); Estimated Creatinine Clearance 12 ml/min; Glucose 103 mg/dl (70-99); Potassium 3.9 mmol/L (3.5-5.1); Sodium 135 mmol/L (135-145); Total Bilirubin 0.7 mg/dl (0.2-1.3); Total Protein 6.4 g/dl (6.3-8.2); eGFR 8.57
[2024-04-03 05:11] LABS: % Basophils 0.5 % (0-2); % Eosinophils 1.6 % (0-6); % Immature Granulocytes 8.4 % (0-0.5); % Lymphocytes 8.7 % (20.5-51.1); % Monocytes 9.7 % (1.7-9.3); % Neutrophils 71.1 % (42.2-75.2); Absolute Basophils 0.1 10^3/uL (0-0.2); Absolute Eosinophils 0.2 10^3/uL (0-0.7); Absolute Immature Granulocytes 1.1 10^3/uL (0-0.05); Absolute Lymphocytes 1.2 10^3/uL (1.2-3.4); Absolute Monocytes 1.3 10^3/uL (0.1-0.6); Absolute Neutrophils 9.4 10^3/uL (1.4-6.5); Nucleated Red Blood Cells % 0.2 % (-)
--- NOTE | 2024-04-03 07:01 | W.PN.HOSP.TC ---
Addendum entered and electronically signed by Giovani Gomez MD 04/03/24 12:16:
Total time spent on d/c = 35 min. This included today's physical exam, progress note, review of laboratory and diagnostic data, preparation of discharge documents and prescriptions, and discussions about the pt's hospital course and discharge plan
with the patient and other auditor medical claims involved in the patient's care.
Addendum entered and electronically signed by Giovani Gomez MD 04/03/24 10:14:
I saw and evaluated the patient. I reviewed the resident�s note and agree with findings and plan as documented in the resident�s note.
No new complaints.
No acute distress, awake and alert, appears chronically ill
irreg/irreg rhythm, normal S1-S2, 2/6 systolic murmur
Decreased breath sounds in the left base
Positive bowel sounds, soft, nontender, mild-mod distention with ascites
CN2-12 intact
Echo: EF 59%, mild concentric LVH, no RWMA, mild MS/MR, mild-mod TR, estimated PASP 46mmHg, IVC dilated and odes not collapse, no pericardial effusion, no definite valvular vegetation.
Acute on chronic anemia:
-With heme positive stools
-Hb stable s/p 2U pRBCs
-Patient reports he had EGD/colonoscopy/capsule study at [facility]
-GI saw in consultation and signed off. They have cleared the patient for discharge from their standpoint.
PAF:
-appreciate cards who has cleared the pt for discharge from their standpoint
-cont Amio
-no AC with anemia
Anasarca:
-presumably due to cirrhosis in the setting of ESRD
-pt has now been compliant with lactulose
Possible B/L LE cellulitis:
-was on Vanco/Zosyn, then Unasyn, now Augmentin as per ID
ESRD:
-cont HD M/W/F
Acute pulm edema due to acute HFpEF:
-echo above
-Volume removal via hemodialysis
Remains medically cleared for discharge. Case management aware.
The patient has an overwhelming burden of pathology and his overall prognosis is therefore poor.
Total time spent on today's encounter was 50 minutes which included time spent in counseling the patient/family regarding diagnosis and treatment plan as listed above, goals of care, and symptom management. Case was discussed with nursing staff,
specialists, and care coordinators/case management. All labs and imaging personally reviewed by me. Remainder the time spent in detailed review of previous records, lab data, imaging, and other medical provider documentation.
Original Note:
Today's Communication/Plan
-
dispo to [facility]
Assessment / Plan
Assessment / Plan
#Acute anemia in CKD
Hematoma on right thigh vs GI bleed vs Anemia of chronic disease
- Hb 7.8 ( 04/02/24)- stable
- 2 bags PRBC on 03/27/24
- Heme + stool
- GI input appreciated
- PT/OT recs acute rehab
- Physiatry input appreciated- accepted at [facility]
# Cellulitis B/l LE
- IV unasyn switched to po augmentin
- d/c vanco and PO doxy per ID
- WC, BC unremarkable
- Continue Wound care
#ESRD
- on regular dialysis M/W/F-
- Left UE dialysis access
- Cr 6.4
- Nephro input appreciated
- Dialysis today
- low na diet, with FR
- midodrine per nephro
- additional ultrafilteration 03/30/24 with removal of 3kg fluid
- additionsal dose of lasix 80mg on 03/30/24
- daily weight
#Anasarca- sec to liver disease
- Suspected Cirrhosis
- 2/2 to hypoalbuminemia or chronic liver disease
- diuresis as tolerated - may be difficult with intravascular low oncotic pressure
- ABD US : Small amount of perihepatic ascites, Nodular contour of the liver surface, suggestive of cirrhosis, Cholelithiasis without evidence of acute cholecystitis.
- continue rifaximin and lactulose
- hep panel negative
- lactuose decrease to once daily by GI
# Acute Pulmonary Edema sec to overload in HFpEF
- CXR - suspicious for mild to moderate pulmonary edema. Questionable tiny left pleural effusion.
- 1 dose of IV lasix 80mg in ER
- continue PO lasix
- CT: left atrial appendage Watchman occlusion device in place in the left atrial appendage ostium containing thrombus.- per cardio this is normal appearance.
- Appreciate cardio input
- no AC recommended per cardio
- consideration for JO ANN
- Amiodarone 100mg cont
- check repeat Xray today
# Mild hyponatremia
likely hypervolemic
- continue lasix and routine dilaysis
# Diffuse Body pain/aches
# Recent fall with multiple injuries including traumatic rib fx- 4
- incentive spirometer
- Xray of the Right elbow with no evidence of osteomyelitis associated with the wound
- Xray Right hip shows degen changes
# Paroxysmal A-fib- not on OAC unclear reason- continue amiodarone- continue 100mg
# Urinary retention
- improving
# Abnormal D dimer
- CT/PE : Moderate-sized bilateral lower lobe airspace consolidations. Diagnostic possibilities are (1) bilateral lower lobe pneumonia or (2) moderate atelectasis.
Mild acute interstitial cardiogenic pulmonary edema.
# Aortic aneurysm
# stage 2 sacral pressure injury- followed by WC
# Atherosclerosis/hyperlipidemia- continue statin
# COPD
# Congestive heart failure- type unclear
# h/o Mitral valve repair
# Diabetes mellitus type 2- accu check on sliding scale coverage- continue repaglinide
# GERD- continue PPI
# JESUS
# Obesity
DVT Prophylaxis:
Code: Full Code
Anticipated Discharge: Today
Subjective/Interval History
-
Date of Service: April 03, 2024
Objective Data
-
Labs:
Laboratory Results
04/03/24
04:24
WBC 13.2 H
Hgb 7.6 L
Hct 24.7 L
Plt Count 143 D
Sodium 135
Potassium 3.9
Chloride 98
Carbon Dioxide 24
BUN 47 H
Creatinine 6.4 H*
Glucose 103 H
Calcium 8.6
Total Bilirubin 0.7
AST 23
ALT 11
Alkaline Phosphatase 85
Vital Signs:
Vital Signs
Temp Pulse Resp BP Pulse Ox
97.6 F 90 19 121/61 88
04/03/24 02:44 04/03/24 06:05 04/03/24 06:05 04/03/24 06:05 04/03/24 06:00
I&O
04/02/24 04/03/24 04/04/24
06:59 06:59 06:59
Intake Total 180 / 180 720 / 720
Output Total 50 / 50 250 / 300 50 / 50
Balance 130 / 130 470 / 420 -50 / -50
Review of Systems
-
History Source: Patient
Constitutional: Denies Fever
Respiratory: Denies Cough
Cardiac: Denies Chest Pain
Abdomen/GI: Denies Abdominal Pain or Diarrhea
Genitourinary: Denies Dysuria
Musculoskeletal: Denies Joint Pain
Neuro: Denies Dizzy or Headache
Hematologic / Lymphatic: Denies Bleeding
Physical Exam
-
General: Appears Chronically Ill
HEENT: Normocephalic and Atraumatic
Respiratory: Decreased Breath Sounds (Left base)
Cardiac: Irregular Rhythm
GI: Nontender and Distended
Skin: Warm
Neuro: Awake, Alert and Oriented
Psych: Calm
Data Reviewed
-
Labs: Labs Reviewed by me, Discussed with Physician and Discussed with Patient
[2024-04-03 07:26] LABS: Glucose - Point of Care 120 mg/dl (70-99)
[2024-04-03] MEDS: NOVOLOG FLEXPEN-LOW RESISTANCE SC ×3 (07:28→16:59)
[2024-04-03] MEDS: TYLENOL 1000 MG PO ×2 (08:05→17:00)
[2024-04-03] MEDS: AUGMENTIN 500 MG/125 MG 1 TABLET PO (08:06)
[2024-04-03] MEDS: SANTYL OINTMENT 1 APPLIC TOPICAL (08:07)
[2024-04-03] MEDS: ProAmatine 5 MG PO ×3 (08:08→17:00)
[2024-04-03] MEDS: XIFAXAN 550 MG PO (08:09)
[2024-04-03] MEDS: PROTONIX 40 MG PO (08:09)
[2024-04-03] MEDS: ANUSOL HC 25 MG RECTAL (08:09)
[2024-04-03] MEDS: PACERONE 100 MG PO (08:10)
[2024-04-03] MEDS: FEOSOL 325 MG PO (08:10)
[2024-04-03] MEDS: LASIX 80 MG PO (08:11)
[2024-04-03] MEDS: NEPHROCAP 1 CAPSULE PO (08:11)
[2024-04-03] MEDS: DUPHALAC/CHRONULAC 30 GRAMS PO (08:12)
--- NOTE | 2024-04-03 08:37 | W.DCSUMMARY ---
Discharge Summary
Discharge Data
Date of Admission: 03/27/24
Date of Discharge: 04/03/24
-
Pending Results: No
Hospital Course
Discharging Physician : Maury Ya MD ; Giovani Gomez MD
Disposition : Acute rehab([facility])
Primary care physician : Luis A Momin
Principal Discharge diagnosis : Acute on chronic anemia
Chronic Discharge diagnosis : End-stage renal disease, acute pulmonary edema due to acute heart failure preserved ejection fraction, Mild hyponatremia, recent fall with multiple injuries, paroxysmal A-fib, history of aortic aneurysm, stage II
sacral pressure injury, atherosclerosis/hyperlipidemia, COPD, congestive heart failure, history of mitral valve repair, diabetes type 2, gastroesophageal reflux disease, obstructive sleep apnea, obesity
Hospital Course : 73-year-old with known history of end-stage renal disease and on dialysis presented to the emergency department with hemoglobin of 6.5, detected before the scheduled dialysis on the day of arrival. He received 2 units of packed
RBCs on the first day of admission. Upon examination there was a suspicion of cellulitis on both legs and he was started on IV Vanco and cefepime�start which was later changed to IV Vanco, Zosyn and p.o. doxycycline and eventually converted to p.o.
Augmentin to complete the 10-day course. Given his regular routine of dialysis he also received his routine Monday dialysis and an additional session of ultrafiltration at the hospital. For his generalized body swelling he
received extra dose of Lasix 80 mg in the ER and an additional extra 40 mg for 1 day in the hospital with his regular Lasix. Nephrology, gastroenterology, infectious disease and cardiology were on board during his stay at the hospital. He was
encouraged to use incentive spirometer. There was a suspicion of hematoma on the right thigh and an x-ray was performed which is unremarkable. Multiple wounds on his body were also taken care off in the hospital and they improved significantly
with regular wound care. Patient refused to have additional GI studies in the hospital. He reported diarrhea with the use of lactulose, GI adjusted the dose from twice daily to once daily. He was advised to continue using lactulose given his
history of liver disease. His amiodarone dose was also adjusted from 200 mg once daily to 100 mg once daily given the possible side effects from ingrown on the liver. There was a concern of thrombus with the Watchman device however cardiology
reviewed the radiology findings and reports the findings appear to be normal for the Watchman device. And no further workup was recommended. during his stay in the hospital his blood workup was repeated every day and he is hemoglobin found to be
stable at this time. Echo showed no vegetations on the heart. PT OT recommended acute rehab and physiatry consult was ordered to check his evaluate eligibility for [facility]. slight drop in hemoglobin with suspected to be from his chronic
hemorrhoids. Patient was reevaluated by the GI for rectal bleeding and was cleared. Cardio cleared him for transfer to [facility]. He was recommended to continue low-dose amiodarone at this time.
Important imaging findings : Xray Chest Portable: Constellation of findings suspicious for mild to moderate pulmonary edema. Questionable tiny left pleural effusion
CT Chest Pe Study:FINDINGS:
PULMONARY ARTERIES: There is no CTA evidence for central pulmonary arterial filling defect in either lung to suggest acute central pulmonary arterial embolus. There is no abnormal distention of the central pulmonary arteries to suggest pulmonary
arterial hypertension.
MEDIASTINUM: The heart is mildly enlarged. There is no pericardial effusion. There is evidence for a previous midline sternotomy, coronary artery bypass graft surgery, and mitral valve replacement. A bypass graft extending from the anterior wall of
the ascending thoracic aorta to the right coronary artery appears to be occluded (axial image #36, series #401). There is severe calcific atherosclerotic plaque in the coronary arteries and thoracic aorta. 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
with a common origin of the brachiocephalic and left common carotid arteries. There is a small saccular aneurysm protruding laterally from the distal thoracic aortic arch measuring 2.7 x 0.8 x 1.3 cm in AP, transverse, and craniocaudal dimensions
(axial image #22, series #401). There is a left atrial appendage Watchman occlusion device in place in the left atrial appendage ostium containing thrombus.
There is moderate mediastinal lymphadenopathy and mild bilateral hilar lymphadenopathy. An enlarged right lower paratracheal lymph node measures 1.7 x 1.2 x 1.8 cm in size. There is no axillary or supraclavicular lymphadenopathy.
LUNGS: The central airways are patent without evidence for obstruction. There is no bronchiectasis. There is mild interlobular septal thickening throughout both lungs consistent with mild interstitial cardiogenic pulmonary edema.
There are moderate-sized subpleural airspace consolidations in the basilar segments of the lower lobes of both lungs containing air bronchograms. There is a mild amount of dependent subsegmental atelectasis in the posterior aspect of both upper
lobes.
There is a small right pleural effusion. There is no left pleural effusion. There is no pneumothorax.
UPPER ABDOMEN: There is a small volume of upper abdominal ascites. There is severe calcific atherosclerotic plaque in the abdominal aorta. There appears be an endoluminal clip in the gastric body. There is moderate diffuse thickening of the gastric
wall. The spleen is moderately enlarged measuring 15.3 cm in length.
SKELETON: There are acute fractures of the right second through seventh lateral ribs. There is mild multilevel discogenic degenerative disease in the thoracic spine. There is a 0.8 x 1.2 cm sebaceous cyst in the subcutaneous fat posterior to the
right trapezius muscle.
IMPRESSION:
1. Mild acute interstitial cardiogenic pulmonary edema.
2. Moderate-sized bilateral lower lobe airspace consolidations. Diagnostic possibilities are (1) bilateral lower lobe pneumonia or (2) moderate atelectasis.
3. Small right pleural effusion.
4. Moderate mediastinal lymphadenopathy.
5. Mild cardiomegaly.
6. Previous CABG surgery with occlusion of a bypass graft to the right coronary artery.
7. Previous mitral valve replacement.
8. Watchman device in the left atrial appendage containing thrombus.
9. Acute fractures of the right 2nd through 7th lateral ribs.
10. Mild ascites.
11. Moderate splenomegaly.
US Abdomen Complete/Upper
IMPRESSION:
1. Small amount of perihepatic ascites.
2. Nodular contour of the liver surface, suggestive of cirrhosis.
3. Splenomegaly, which may be seen in the setting of portal hypertension.
4. Cholelithiasis without evidence of acute cholecystitis.
5. Cortical thinning of each kidney, suggestive of medical renal disease.
Elbow Xray:
1. Bubbles of subcutaneous air, consistent with wound.
2. No cortical destruction to suggest osteomyelitis.
3. Elevation of the anterior fat pad, suggestive of right elbow joint effusion.
Hip Xray:
1. No acute osseous abnormality appreciated.
2. Mild to moderate degenerative change of the right hip joint.
CR Chest - 2 Views:
FINDINGS:
Lines/Tubes/Devices: White granular ring again noted.
Lungs/Pleura: Small right pleural effusion with adjacent atelectasis, likely unchanged since 03/28/2024 when accounting for differences in modality and patient position. There are left basilar airspace opacities suspicious for pneumonia, unchanged.
Mild pulmonary edema is unchanged. No new focal consolidation. No pneumothorax.
Mediastinum/Heart: Stable cardiomediastinal silhouette and post-CABG changes.
Bones: Unchanged osseous structures.
IMPRESSION:
Stable small right pleural effusion.
Mild pulmonary edema, unchanged.
Left basilar airspace opacity suspicious for pneumonia, also unchanged
Procedure findings : ECHO: CONCLUSIONS
Normal left ventricular size and systolic function.
LV ejection fraction is 59% by volumetric assessment.
Mild concentric left ventricular hypertrophy. No regional wall motion
abnormalities are seen.
Abnormal (paradoxical) septal motion consistent with postoperative status.
Enlarged right ventricular size with low normal right ventricular systolic
function.
Biatrial enlargement
A mitral valve ring is present. Mean transmitral pressure gradient 4mmHg. No
mitral stenosis. Mild mitral regurgitation.
Aortic sclerosis without stenosis. No aortic regurgitation is seen.
Mild to moderate tricuspid regurgitation.
Estimated pulmonary artery pressure of 46 mmHg assuming a right atrial pressure
of 10 mmHg. The IVC is dilated and does not collapse.
No pericardial effusion.
No definite valvular vegetation seen
No prior for comparison. If high clinical suspicion for endocarditis, consider
JO ANN
Discharge Plan
-
Patient Disposition: Acute Rehab Facility
Discharge Diagnosis/Procedures: Acute on chronic anemia, anasarca, possible bilateral lower extremity cellulitis, end-stage renal disease, acute pulmonary edema due to acute heart failure preserved ejection fraction, mild hyponatremia, recent fall
with multiple injuries, paroxysmal A-fib, history of aortic aneurysm, stage II sacral pressure injury, atherosclerosis/hyperlipidemia, COPD, congestive heart failure, history of mitral valve repair, diabetes type 2, gastroesophageal reflux disease,
obstructive sleep apnea, obesity
Condition: Fair
Diet: 2 Gram Sodium, Diabetic, Carb Controlled and Restrict fluids to 48 oz
Activity: With assistance
Driving Restrictions: No driving
Bathing Restrictions: OK to Shower
Other Services: PT and OT
Activity Restrictions/Additional Instructions:
Wound Care Instructions
Open or fragile leg blister care-clean with saline or Vashe wound cleanser (stocked in [facility]), adaptic, gauze or ABD pad, secure with Kerlix wrap or stockinet, change daily and prn drainage (add alginate after adaptic prn large amount of drainage).
R elbow wound-clean with Vashe wound cleanser (stocked in [facility]), Santyl ointment, pack with Vaseline gauze, cover with gauze, secure with silicone border foam or abd pad and stockinet, change daily and prn drainage.
Sacral ulcer-clean with saline or Vashe wound cleanser, silicone border foam, change q 3 days and prn loosened dressing. If foam ineffective, apply zinc barrier ointment (i.e. Calazime) BID instead.
Perianal MASD-zinc barrier ointment (i.e. Calazime) bid and prn incontinence.
Bilateral thigh high Diaz wraps as tolerated; do knee high Diaz if cannot tolerate thigh high; rewrap daily. Cover fragile/open blisters with adaptic and dry dressing under Diaz
Air mattress.
elevate heels off bed with pillows and air chair cushion.
Pressure redistributing chair cushion (i.e. Air chair cushion).
Follow up at wound care center call for an appointment.
Instructions: *PCP/Other [employer] Supervisor Heart Failure Instructions
Referrals:
Luis A Momin MD [Family Provider] - in less than 1 week
Additional Discharge Medication Instructions: Take amiodarone 100mg by mouth daily- Dose adjusted
Augmentin 1 tablet by mouth until 04/05/24
take midodrine 5mg 1 tab by mouth for hypotension
lactulose 20gm/30ml once daily
Can use topical hemorrhoidal preparations as needed
Prescriptions:
New
amoxicillin-pot clavulanate 500-125 mg Tablet
1 tab PO Q12 Qty: 0 0RF
Rx Instructions:
twice daily until 04/05/24
lactulose 20 gram/30 mL Solution
30 g PO DAILY Qty: 0 0RF
midodrine 5 mg Tablet
5 mg PO TID@0800,1300,1800 Qty: 0 0RF
amiodarone [Pacerone] 100 mg Tablet
100 mg PO DAILY Qty: 0 0RF
Hemorrhoidal Ointment
1 applic OH Q8H Qty: 28.4 0RF
Continued
atorvastatin [Lipitor] 40 mg Tablet
40 mg PO HS
sennosides [senna] 8.6 mg Tablet
17.2 mg PO HS
acetaminophen [Tylenol] 325 mg Tablet
650 mg PO Q6HPRN PRN (Reason: mild pain)
omeprazole 40 mg Capsule,Delayed Release(Dr/Ec)
40 mg PO BID
acetaminophen [Tylenol Extra Strength] 500 mg Tablet
1,000 mg PO Q8
magnesium hydroxide [Milk of Magnesia] 400 mg/5 mL Suspension
2,400 mg PO HSPRN PRN (Reason: if no bm on 3rd)
repaglinide 0.5 mg Tablet
0.5 mg PO NOON
furosemide [Lasix] 80 mg Tablet
80 mg PO DAILY
bisacodyl [Dulcolax (bisacodyl)] 10 mg Suppository
10 mg OH DAILYPRN PRN (Reason: if no bm aftr mom)
ferrous sulfate 325 mg (65 mg iron) Tablet
325 mg PO DAILY
mupirocin 2 % Ointment
1 applic TOPICAL TID
mupirocin 2 % Ointment
1 applic TOPICAL DAILYPRN PRN (Reason: right elbow wound)
ergocalciferol (vitamin D2) 1,250 mcg (50,000 unit) Capsule
1,250 mcg PO RAO
Treasure Caps 1 mg Capsule
1 cap PO DAILY
albuterol sulfate 90 mcg/actuation Hfa Aerosol Inhaler
2 puff INHALATION R Q6HPRN PRN (Reason: sob)
melatonin 5 mg Tablet
10 mg PO HS
rifaximin 550 mg Tablet
550 mg PO BID
Discontinued
amiodarone 200 mg Tablet
200 mg PO DAILY
amoxicillin-pot clavulanate [Augmentin] 500-125 mg Tablet
1 tab PO BID
Rx Instructions:
take from 03/22/24-03/28/24
lactulose 10 gram/15 mL (15 mL) Solution
15 g PO BID
Discharge Orders:
Discharge Patient (As Directed); Ordered 04/03/24
Ordered By: Maury Ya
Discharge Date and Time
Print Language: NOR[place] KOREAN
--- NOTE | 2024-04-03 12:21 | CM ---
CM reviewed pt with Dr Ya- ready for dc today
Discussion with [facility]- pt initially denied due to medical concerns
Lengthy bedside meeting with pt and brother
Referral to [facility]- if not accepted, plan for home per pt request
Call with home clinic [facility] [phone]
[facility] remains available and will need dc paperwork and flowsheets faxed [phone]
Referral also to [facility] per pt request
Later in day, KARYNA notified that [facility] is now accepting of pt today
IMM verbally review with pt- copy provided
Plan for dc later today to [facility]
Discharge Disposition- [facility]
[2024-04-03] MEDS: PRANDIN 0.5 MG PO (12:22)
[2024-04-03 12:23] LABS: Glucose - Point of Care 133 mg/dl (70-99)
[2024-04-03] MEDS: HYDROPHOR 1 APPLIC TOPICAL (12:23)
[2024-04-03] MEDS: DESENEX/MITRAZOL/ZEASORB 1 APPLIC TOPICAL (12:24)
--- NOTE | 2024-04-03 14:26 | W.PN.NEPH.HD ---
Assessment
-
- feeling well on HD
- plan for d/c to [facility] today
Progress Note - Hemodialysis
-
Date of Service: April 03, 2024
Duration: 30 minutes and 3 hours
Potassium Bath: 3
Calcium Bath: 2.5
Opti-Dialyzer: 160
Ultrafiltration: Other
Blood Flow: 400
Dialysate Flow: 600
[2024-04-03] MEDS: RETACRIT 10000 UNITS IV (14:51)
--- NOTE | 2024-04-03 15:30 | WOUNDNOTE ---
[facility] RN NOTE: Patient visited prior to discharge to [facility]. Santyl was ordered at last assessment on 03/28 for right elbow wound. On assessment today, the full-thickness right elbow wound is covered with slough and small area of eschar. Treatment of
this wound with Santyl is still appropriate so no change to order is needed at this time. Legs/heels and sacrum not assessed as patient was receiving dialysis at time of assessment. Per staff report and chart review, legs have improved and sacral
wound is stable. JAY Owen updated. Plan is for discharge to [facility] today.
[2024-04-03 17:05] LABS: Glucose - Point of Care 91 mg/dl (70-99)
--- NOTE | 2024-04-03 17:33 | PTCARENOTE ---
Received pt from shift leader. AAOx3 and pleasant. C/o pain on sacrum, hip and legs, received scheduled doses of Tylenol. Right elbow dressing changed. Provided report to RN at [facility]. Pt's belongings sent with him.
== END 2024-04-03 17:22 | DRG 291 ==
LOC: IMU 15:33
PROVIDERS: Nurse Practitioner Adult Health; Nurse Practitioner Gerontology; ADMITTING PHYSICIAN Hospitalist; ATTENDING PHYSICIAN Internal Medicine; CONSULT PHYSICIAN Internal Medicine Cardiovascular Disease; CONSULT PHYSICIAN Internal Medicine Gastroenterology; CONSULT PHYSICIAN Specialist; CONSULT PHYSICIAN Student in an Organized Health Care Education/Training Program; EMERGENCY PHYSICIAN Student in an Organized Health Care Education/Training Program; FAMILY PHYSICIAN Internal Medicine
PROC: 5A1D70Z Performance of Urinary Filtration, Intermittent, Less than 6 Hours Per Day (ICD-10-PCS; 2024-03-27)
PROC: 30233N1 Transfusion of Nonautologous Red Blood Cells into Peripheral Vein, Percutaneous Approach (ICD-10-PCS; 2024-03-27)
DX: I13.2 Hypertensive heart and chronic kidney disease with heart failure and with stage 5 chronic kidney disease, or end stage renal disease (principal); I50.33 Acute on chronic diastolic (congestive) heart failure; N18.6 End stage renal disease; D62 Acute posthemorrhagic anemia; L03.116 Cellulitis of left lower limb; L03.115 Cellulitis of right lower limb; E87.1 Hypo-osmolality and hyponatremia; R18.8 Other ascites; J44.0 Chronic obstructive pulmonary disease with (acute) lower respiratory infection; E11.22 Type 2 diabetes mellitus with diabetic chronic kidney disease; I25.10 Atherosclerotic heart disease of native coronary artery without angina pectoris; I48.0 Paroxysmal atrial fibrillation; G47.33 Obstructive sleep apnea (adult) (pediatric); D63.1 Anemia in chronic kidney disease; I95.9 Hypotension, unspecified; E78.00 Pure hypercholesterolemia, unspecified; D69.2 Other nonthrombocytopenic purpura; E66.9 Obesity, unspecified; L89.152 Pressure ulcer of sacral region, stage 2; K21.9 Gastro-esophageal reflux disease without esophagitis; K64.9 Unspecified hemorrhoids; R33.9 Retention of urine, unspecified; K74.60 Unspecified cirrhosis of liver; D72.829 Elevated white blood cell count, unspecified; K80.20 Calculus of gallbladder without cholecystitis without obstruction; R59.0 Localized enlarged lymph nodes; I71.9 Aortic aneurysm of unspecified site, without rupture; S70.11XA Contusion of right thigh, initial encounter; S51.001A Unspecified open wound of right elbow, initial encounter; W19.XXXA Unspecified fall, initial encounter; Z99.2 Dependence on renal dialysis; Z96.652 Presence of left artificial knee joint; Z96.649 Presence of unspecified artificial hip joint; Z95.2 Presence of prosthetic heart valve; Z95.1 Presence of aortocoronary bypass graft; Z68.27 Body mass index [BMI] 27.0-27.9, adult; Z87.891 Personal history of nicotine dependence; Z79.84 Long term (current) use of oral hypoglycemic drugs; Z79.899 Other long term (current) drug therapy; Z95.818 Presence of other cardiac implants and grafts
CPT/HCPCS: 36430; 71045; 71046; 71275; 73080; 73502; 76700; 80048; 80053; 80202; 82140; 82607; 82728; 82746; 82962; 83036; 83540; 83550; 85014; 85018; 85025; 85027; 85379; 85384; 85610; 85730; 86704; 86706; 86803; 86850; 86900; 86901; 86920; 87040; 87070; 87205; 87324; 87340; 87449; 93005; 93306; 96374; 96375; 97116; 97162; 97166; 97530; 97535; 99291; G0257; P9016; P9047; Q5106; Q9967

== ENCOUNTER 2024-04-08 11:25 | Inpatient (IN) | payer MEDICARE, SELFPAY ==
[2024-04-08] VITALS (9 sets, daily range): BP systolic 112–130; BP diastolic 61–68; BMI 29.8
[2024-04-08] MEDS: PROTONIX IV 80 MG IV (08:29)
--- NOTE | 2024-04-08 08:39 | ED.GENMED ---
History of Present Illness
General
Chief Complaint: Change in Mental Status
Source: patient
Exam Limitations: none
Time Seen by Provider: 04/08/24 08:13
Nursing documentation reviewed up to this point in time: agreed with
History of Present Illness
History of Present Illness:
Patient with complicated medical history, including end-stage renal disease on hemodialysis (Monday, Monday, Monday) and GI bleed, presents to ED from [facility] secondary to concern for recurrent GI bleed along with decreased hemoglobin noted
this morning, as well as 'mental status change'. Upon arrival, patient reports feeling tired, but is not quite sure why he was thought to be confused. Denies headache. Denies chest pain or shortness of breath. Denies abdominal pain. Denies
nausea or vomiting. Patient states that his hemoglobin is typically slightly higher than 7. Denies dizziness. Denies fever. Of note, patient reports receiving full dialysis session on Monday. Patient was then discharged to [place] [facility] 5 days ago
from [facility] after he was treated for GI bleed.
Past History
Past History
ED Past Medical History: Arrthythmia, HTN and Other (ESRD)
ED Past Surgical History: Cardiac and Orthopedic
Social History
Tobacco: Non-smoker
Alcohol: None
Review of Systems
Review of Systems
Allergies reviewed?: Yes
All Other Systems: ROS reviewed and negative except as documented in HPI and ROS
Constitutional: Reports no symptoms
Respiratory: Denies trouble breathing
ABD/GI: Reports black stools; Denies abdominal pain
Musculoskeletal: Reports no symptoms
Skin: Reports no symptoms
Neurological: Reports weakness
Phy Exam
Physical Exam
Physical Exam:
Physical Exam
General: mild distress, not acutely ill. afebrile. weak appearing
Head: nc/at. eomi
Neck: supple. no meningeal signs.
Heart: s1/s2 regular rate and rhythm, no murmur. equal radial pulses.
Lungs: no acute respiratory distress. clear bilaterally
Abdomen: normal bowel sounds. not tender with mild distention. rectal exam (JAY Solano, at bedside): dark, green stool, heme positive
Neuro: alert and oriented. no focal neurological deficits
Skin: no rash
Psychiatric: well kept. interactive and cooperative
Extremities: no edema. no calf tenderness.
Course
Orders/Labs/Results
Orders:
Orders
04/08/24 08:16
Electrocardiogram (*1) Urgent
Reason for Study: Fatigue / Weakness
EKG- Treatment ONCE
IV Insert/Care/Rem.- Treatment PRN
04/08/24 08:17
Pantoprazole [Protonix IV] 80 mg IV NOW STA
04/08/24 08:23
Type+Screen Urgent
Complete Blood Count/With Diff Urgent
Comprehensive Metabolic Panel Urgent
PTT Urgent
Prothrombin Time Urgent
04/08/24 09:18
Pantoprazole 80 mg/100 ml Nss [Protonix] 80 mg in 100 ml IV NOW
04/08/24 09:38
* Blood Bank Products Urgent
Blood Bank Products: *Packed RBC Leuko(PRBC's)
Quantity: 1
Transfuse Today: Yes
Reason: Bleeding
04/08/24 Lunch
Clear Liquid
At Your Request: Full Participation
Does patient need a safe tray?: No
04/08/24 10:52
Records Request [Obtain Records] As Directed
Dates of Information to be Released: January/February/March 2024
Type of Information Requested: Entire Record
If Other, list type of info requested: EGD/COLO all GI records
Obtain Records from: [place]
04/08/24 11:04
Admit/Transfer Patient As Directed
Co-Sign Provider:
Level of Care: Inpatient admission
Assign to:: Telemetry
Physician / Group: Rosa Maria Pinto - hospitalists
Diagnosis: acute on chronic blood loss anemia, possible GI bleed, Anasarca
Reason for Telemetry: Arrhythmia
Date to Stop Telemetry: 04/11/24
Time to Stop Telemetry: 11:00
Reason for Hospitalization: acute on chronic blood loss anemia, possible GI bleed, Anasarca - PPI drip, 1 unit
PRBC and dialysis
Expected length of stay greater than two midnights?: Yes
ELOS- Estimated Length of Stay in days: 3
I certify the patient meets the requirements for IP care: Yes
04/08/24 11:05
PRN Pain Medication Management As Directed
May give lesser potent ordered pain med per pt: Yes
preference::
Protocol:: Medication orders for pain may be administered in a
manner that supports deferring to patient preference
when the pt is:
- Requesting an ordered lesser potent pain medication.
Least to most potent pain medications are defined
as: acetaminophen < NSAID < tramadol < opioids
(morphine, oxycodone, hydromorphone).
- Requesting a lesser dose of the same medication IF
ORDERED.
- Requesting a less intrusive route of administration
if both routes are prescribed by the provider (PO <
IV).
04/08/24 11:07
Code Status As Directed
Resuscitation Status: Full Code
04/08/24 11:13
GASTROINTESTINAL CONSULT Routine
Consulting Provider: Hilary Romano
Was physician already notified: Yes
NEPHROLOGY CONSULT Routine
Consulting Provider: Destin Alex V.
Was physician already notified: Yes
04/08/24 11:30
Insulin Aspart Corrective Low [Novolog Flexpen-Low Resistance] See Protocol SC AC
04/08/24 11:57
Acetaminophen [Tylenol] 650 mg PO Q6HPRN PRN
Bisacodyl [Dulcolax] 10 mg RECTAL [id number] PRN
Dextrose 50%-Water [Dextrose 50% Syringe] 12.5 grams IV [id number] PRN
Docusate W/Senna [Senokot-S] 1 tablet PO BIDPRN PRN
Glucagon [GlucaGen] 1 mg IM PRN PRN
Ipratropium/Albuterol Sulfate [Duoneb] 3 ml INH R Q4HPRN PRN
Ondansetron Injectable [Zofran] 4 mg IV Q6HPRN PRN
Polyethylene Glycol Powder [Miralax] 17 grams PO DAILYPRN PRN
Tramadol HCl [Ultram] 50 mg PO BIDPRN PRN
04/08/24 11:57
WOUND/OSTOMY CONSULT Routine
Reason for Consult: stage 2 sacral injury, POA
Activity As Directed
Activity Level: As Tolerated
Bedside Glucose Monitoring As Directed
Frequency: AC&HS
Additional Instructions:: Change to q6h if pt on TPN, tube feeding or not eating
Intake/ Output As Directed
Frequency: q12h
Pneumatic Compression Sleeves As Directed
Type: Knee high
Vital Signs As Directed
Frequency: Per unit guidelines
Weight As Directed
Frequency: Daily
Rx Incentive Spirometry [RESP] Routine
Frequency: q1h while awake
DX Deep Vein Thrombosis Video Routine
04/08/24 13:00
Midodrine [ProAmatine] 10 mg PO TID@0800,1300,1800
04/08/24 14:00
Pantoprazole 80 mg/100 ml Nss [Protonix] 80 mg in 100 ml IV Q10H
04/08/24 16:00
Mupirocin [Bactroban 2% Ointment] See Dose Instructions TOPICAL TID
Phenyleph/Mineral Oil/Petrolat [Preparation H Ointment] See Dose Instructions RECTAL TID
04/08/24 20:00
Rifaximin [Xifaxan] 550 mg PO BID
04/08/24 22:00
Atorvastatin [Lipitor] 40 mg PO HS
Sennosides [Senokot] 17.2 mg PO HS
Trazodone [Desyrel] 25 mg PO HS
04/09/24 00:00
US Abdomen Limited Routine
Reason For Exam: evaluate ascites amount for possible para
04/09/24 05:35
Basic Metabolic Panel IN AM
Complete Blood Count/No Diff IN AM
04/09/24 06:00
Ot Eval And Treat IN AM
Pt Eval And Treat IN AM
Activity Level: As Tolerated
04/09/24 08:00
Amiodarone [Pacerone] 100 mg PO DAILY
Lactulose [Duphalac/Chronulac] 30 grams PO DAILY
Renal Cap [Nephrocap] 1 capsule PO DAILY
04/11/24 11:00
DC Protocol for Telemetry ONCE
04/14/24 08:00
Ergocalciferol [Drisdol (Vitamin D2)] 50,000 units PO RAO
Abnormal Lab Results
04/08/24
08:23
WBC 12.2 H 10^3/uL
(4.8-10.8)
RBC 2.45 L 10^6/uL
(4.70-6.10)
Hgb 6.7 L* g/dL
(13.0-18.0)
Hct 21.6 L %
(39.0-52.0)
MCHC 31.0 L g/dL
(33.0-37.0)
RDW 18.6 H %
(11.5-14.5)
Abs Immat Gran (auto) 0.1 H 10^3/uL
(0-0.05)
Absolute Neuts (auto) 9.6 H 10^3/uL
(1.4-6.5)
Absolute Lymphs (auto) 0.8 L 10^3/uL
(1.2-3.4)
Absolute Monos (auto) 1.6 H 10^3/uL
(0.1-0.6)
Immature Gran % 1.0 H %
(0-0.5)
Neutrophils % 78.7 H %
(42.2-75.2)
Lymphocytes % 6.5 L %
(20.5-51.1)
Monocytes % 12.7 H %
(1.7-9.3)
PT 16.8 H Sec
(11.4-14.6)
APTT 50.4 H Sec
(23.4-35.0)
Sodium 130 L mmol/L
(135-145)
Chloride 94 L mmol/L
(98-107)
BUN 71 H mg/dl
(9-20)
Creatinine 6.2 H* mg/dL
(0.7-1.3)
Glucose 115 H mg/dl
(70-99)
Total Protein 6.2 L g/dl
(6.3-8.2)
Albumin 3.1 L g/dl
(3.5-5.0)
Crossmatch IS Only See Detail
04/08/24 08:23
04/08/24 08:23
Vital Signs
Initial and Last Documented VS:
Initial Vital Signs
Temp Pulse Resp BP Pulse Ox
98.1 F 73 26 120/68 92
04/08/24 08:17 04/08/24 08:17 04/08/24 08:17 04/08/24 08:17 04/08/24 08:17
Last Documented Vital Signs
Temp Pulse Resp BP Pulse Ox
97.2 F 73 16 111/60 97
04/09/24 12:00 04/09/24 12:26 04/09/24 12:26 04/09/24 12:00 04/09/24 12:26
MDM/Problems Addressed
MDM/Problems Addressed:
H/H noted, with heme positive stool. Will start protonix gtt
Pt will require transfusion, as well as dialysis. May be safe to administer transfusion during dialysis.
Blood transfusion consent on the chart.
Pt also may require paracentesis, as there has been increase in abdominal distention
*EKG
Interpreted by ED Provider?: Yes
Heart Rate: 70
Rate: normal
Rhythm: sinus
[place]: normal axis
Interval: long QT
*Critical Care Note
Total Time (30-74mins, 75-104mins- exclusive of procedures): Not Applicable
ED Attending Note
-
Portions of this chart may have been created with voice recognition software.� Occasional wrong word or��sound alike� substitutions may have occurred due to the inherent limitations of voice recognition software.
Discharge Plan
Departure
Patient Disposition: Admit
Date of Disposition: 04/08/24
Time of Disposition: 09:37
Admit to: Telemetry
Presentation/result/management discussed w/ accepting MD/DO: Hospitalist
Discharge Problem:
GI bleed, Anemia, ESRD (end stage renal disease), Ascites
Interventions
Interventions:
*Risk Screen - Suicide Last Done: 04/08/24 08:19
*General Assessment Last Done: 04/08/24 08:16
*Neglect/Abuse Screening Last Done: 04/08/24 08:19
*ED COVID-19 Vaccine History Last Done: 04/08/24 08:16
*Nursing Disposition Last Done: 04/08/24 11:57
ED- Pulmonary Assessment Last Done: 04/08/24 10:06
ED- Neurological Assessment Last Done: 04/08/24 08:21
ED- Cardiac Assessment Last Done: 04/08/24 10:06
ED Swallowing Screen Last Done: 04/08/24 11:56
Discharge Date and Time
Discharge Date/Time: 04/08/24 11:58
[2024-04-08 08:43] LABS: INR 1.38; PT 16.8 Sec (11.4-14.6)
[2024-04-08 08:44] LABS: APTT 50.4 Sec (23.4-35.0)
[2024-04-08 08:56] LABS: % Basophils 0.3 % (0-2); % Eosinophils 0.8 % (0-6); % Lymphocytes 6.5 % (20.5-51.1); % Monocytes 12.7 % (1.7-9.3); % Neutrophils 78.7 % (42.2-75.2); Absolute Eosinophils 0.1 10^3/uL (0-0.7); Absolute Immature Granulocytes 0.1 10^3/uL (0-0.05); Absolute Lymphocytes 0.8 10^3/uL (1.2-3.4); Absolute Monocytes 1.6 10^3/uL (0.1-0.6); Absolute Neutrophils 9.6 10^3/uL (1.4-6.5); Hematocrit 21.6 % (39.0-52.0); Hemoglobin 6.7 g/dL (13.0-18.0); Mean Corpuscular Hgb 27.3 pg (27.0-31.0); Mean Corpuscular Volume 88.2 fL (80.0-94.0); Mean Platelet Volume 8.3 fL (7.4-10.4); Nucleated Red Blood Cells % 0 % (-); Platelet Count 173 10^3/uL (130-400); Red Blood Cell Count 2.45 10^6/uL (4.70-6.10); Red Cell Dist. Width 18.6 % (11.5-14.5); White Blood Cell Count 12.2 10^3/uL (4.8-10.8)
[2024-04-08 09:05] LABS: ALT (SGPT) 16 U/L (0-50); AST (SGOT) 33 U/L (17-59); Albumin 3.1 g/dl (3.5-5.0); Alkaline Phosphatase 103 U/L (38-126); Blood Urea Nitrogen 71 mg/dl (9-20); Calcium 8.8 mg/dl (8.4-10.2); Carbon Dioxide 25 mmol/L (22-30); Chloride 94 mmol/L (98-107); Estimated Creatinine Clearance 13 ml/min; Glucose 115 mg/dl (70-99); Potassium 4.7 mmol/L (3.5-5.1); Sodium 130 mmol/L (135-145); Total Bilirubin 0.8 mg/dl (0.2-1.3); Total Protein 6.2 g/dl (6.3-8.2)
[2024-04-08] MEDS: PROTONIX 100 IV ×2 (09:30→14:58)
--- NOTE | 2024-04-08 10:36 | HPS.HSE ---
Family Physician
-
Family Physician: Luis A Momin
Chief Complaint
-
GI bleed, anemia
History of Present Illness
73 y/o M, hx of ESRD, Cirrhosis, anemia of chronic disease, parox Afib, COPD, Chronic HFpEF, DM Type 2, GERD, JESUS presents back from [facility] for Anemia/GI bleed. Patient was admitted 03/27 to 04/03 for transfusion dependant anemia and cellulitis.
Today patient was noted to have drop in Hb and concern for GI bleed. He feels tired, but denies confusion or any other complaints (per [facility] staff reportedly confused). He reports he had recent GI workup at [facility] including capsule
study with several areas of clipping and cauterization performed.
in ER, patient ordered 1 unit PRBC and also arranged for HD as per his usual schedule.
Medical History
Past Medical History
Past Medical History: Reports HTN and Hypercholesterolemia
Additional Past Medical History:
Diabetes type 2
End-stage renal disease
Chronic anemia
Past Surgical History: Reports Orthopedic
Additional Past Surgical History:
Left upper extremity AV fistula
Left knee replacement
Hip replacement
Mitral valve repair
Right knee meniscectomy
Social History
Tobacco: Non-smoker
Alcohol: None
Drug: None
Family History
Family History: Not pertinent
Allergies / Home Medications
Allergies reflects when Allergies were last updated in [employer].
Home Medications with original date entered in [employer]
Allergy/Medication List:
Allergies
Allergy/AdvReac Type Severity Reaction Status Date / Time
gabapentin Allergy Unknown Verified 03/27/24 10:43
oxycodone [From OxyContin] Allergy Unknown Verified 03/27/24 10:43
Home Medications
acetaminophen 325 mg tablet (Tylenol) 650 mg PO Q6HPRN PRN mild pain 03/27/24
albuterol sulfate 90 mcg/actuation aerosol inhaler 2 puff inhalation R Q6HPRN PRN sob 03/27/24
atorvastatin 40 mg tablet (Lipitor) 40 mg PO HS High Cholesterol 03/27/24
bisacodyl 10 mg rectal suppository (Dulcolax (bisacodyl)) 10 mg MS DAILYPRN PRN if no bm aftr mom 03/27/24
ergocalciferol (vitamin D2) 1,250 mcg (50,000 unit) capsule 1,250 mcg PO RAO Supplement 03/27/24
ferrous sulfate 325 mg (65 mg iron) tablet 325 mg PO DAILY anemia 03/27/24
furosemide 80 mg tablet (Lasix) 80 mg PO DAILY Kidney Disease 03/27/24
mupirocin 2 % topical ointment 1 applic topical DAILYPRN PRN right elbow wound 03/27/24
mupirocin 2 % topical ointment 1 applic topical TID 03/27/24
rifaximin 550 mg tablet 550 mg PO BID Liver Issues 03/27/24
sennosides 8.6 mg tablet (senna) 17.2 mg PO HS Constipation 03/27/24
vitamin B complex and vitamin C no.20-folic acid 1 mg capsule (Mchenry Caps) 1 cap PO DAILY Supplement 03/27/24
amiodarone 100 mg tablet (Pacerone) 100 mg PO DAILY #0 tabs 04/03/24
lactulose 20 gram/30 mL oral solution 30 g (45 mL) PO DAILY #0 mL 04/03/24
phenylephrine-shark liver oil-mineral oil-petrolatum rectal ointment (Hemorrhoidal ointment) 1 applic MS Q8H Hemorrhoids #28.4 grams 04/03/24
Lactobac no.2-Bifidobac no.1-S. thermo 112.5 billion cell capsule (Visbiome) 1 cap PO DAILY 04/08/24
collagenase clostridium histo. 250 unit/gram topical ointment (Santyl) 1 applic topical DAILY right elbow 04/08/24
midodrine 5 mg tablet 10 mg PO TID@0800,1300,1800 Hypotension 04/08/24
pantoprazole 40 mg tablet,delayed release (Protonix) 40 mg PO BID 04/08/24
tramadol 50 mg tablet 50 mg PO Q4HPRN PRN moderate pains 04/08/24
trazodone 50 mg tablet 25 mg PO HS 04/08/24
Review of Systems
-
A 12 point ROS was completed and negative except as noted: Yes
Physical Exam
Vital Signs
Vital Signs
Temp Pulse Resp BP Pulse Ox
98.1 F 73 26 120/68 93
04/08/24 08:17 04/08/24 08:19 04/08/24 08:19 04/08/24 08:18 04/08/24 10:06
Physical Exam
General: No Apparent Distress
HEENT: NormoCephalic and Anicteric
Cardiac: S1/S2 and Regular Rhythm
GI: Non Tender and Distended
Musculoskeletal: Edema, Left Lower Extremity and Edema, Right Lower Extremity
Neuro: AO x 3
Hematologic/Lymphatic: No Lymphadenopathy
Psych: Calm
Laboratory Results
-
04/08/24 08:23
04/08/24 08:23
Laboratory Results
PT 16.8 Sec (11.4-14.6) H 04/08/24 08:23
INR 1.38 04/08/24 08:23
APTT 50.4 Sec (23.4-35.0) H 04/08/24 08:23
Total Bilirubin 0.8 mg/dl (0.2-1.3) 04/08/24 08:23
AST 33 U/L (17-59) 04/08/24 08:23
ALT 16 U/L (0-50) 04/08/24 08:23
Alkaline Phosphatase 103 U/L (38-126) 04/08/24 08:23
Data Reviewed
-
Lab Data: Labs Reviewed by me
Impression/Plan
-
Assessment:
Suspected acute blood loss anemia on anemia of chronic disease (CKD related anemia)
- likely GI source, hemorrhoids vs variceal vs small bowel pathology
- noted prior GI workup with clipping per patient; records requested
- 1 unit PRBC ordered
- hold oral iron; may give IV Iron pending course
- continue PPI drip
- GI consulted
ESRD on HD, M/W/F
- nephrology consulted, for HD today
- holding oral Lasix
- continue TID Midodrine
Parox A. Fib
- on Amio
- no AC due to recent recurrent issue of GI bleeding
Liver Cirrhosis
Anasarca
- volume managed by HD
- Abd US to evaluate ascites for tap
- continue Lactulose/Rifaximin
Recent cellulitis
- completed PO Abx course
COPD
- prn nebs
Chronic HFpEF
- volume managed by HD
Type 2 DM
- off Repaglinide
- SSI
- A1c recently was 5.1%
HLD - statin
GERD
JESUS
Hx of Aortic aneurysm
stage 2 sacral pressure injury - POA
- wound care consulted
DVT ppx: SCDs
Code: Full
--- NOTE | 2024-04-08 11:38 | CON.GI ---
Addendum entered and electronically signed by LEANN Weston 04/08/24 16:49:
� Please note change in bold
Addendum entered and electronically signed by LEANN Weston 04/08/24 16:31:
Records from [facility] obtained:
12/19/2309/03[facility] admission-> dyspnea , fatigue Hgb 6.1
12/21/2023 EGD (Dr. Kelly) [facility]: Gastritis. Questionable mild esophagitis. Normal duodenum. Fundus biopsy focal rare intestinal metaplasia glandular atypia. Indefinite for dysplasia. Antrum biopsy negative intestinal metaplasia,
negative H. pylori.
01/01/2024 COLO (Dr. Marta Pierson) (Outpatient): Poor prep. Procedure terminated.
[place] hospitalization 12/28 through 12/31, [place] and readmit 01/04 through 01/15/2024 -> Hgb 6 on admission, Transfused 4 units PRBC, 3 doses IV iron.
01/08/2024 COLO (Dr. Brunner) [facility] : 4 mm descending colon polyp, 2 mm descending/sigmoid polyp (hyperplastic). Nonbleeding diverticulosis. External hemorrhoids.
Transferred to [facility] 01/15/24 for VCE and DBE
First capsule study did not upload. [facility]
01/16/2024 video capsule endoscopy ([facility]): 'Proximal AVMs.' from [facility]
01/17/2024 double-balloon enteroscopy (Dr. Santos) [facility]: Procedure performed from mouth to jejunum to 200 cm distal to ligament of Treitz. Procedure stopped due to AVM treatment as well as poor prep. For AVM's found 1
in stomach, one in third portion of the duodenum, 2 in the proximal jejunum all treated with APC. 25 mm inflammatory polyp in the stomach (inflammatory/hyperplastic polyp negative for dysplasia) with some focal ulceration and friability. Resected
en block with 2 Dura clips and 2 resolution clips placed.
02/14/2024 EGD(Dr. Doherty) [place]: normal esophagus. Normal duodenum. Normal jejunum. Friability/erythema in stomach consistent with gastritis. Previous polypectomy with endoclips in place.
02/14/2024 Sigmoidoscopy (Dr. Doherty) [place]: Sigmoidoscopy up to 55 cm. Nonbleeding diverticuli. Hemorrhoids.
Addendum entered and electronically signed by LEANN Weston 04/08/24 16:31:
Records from [facility] obtained:
12/19/2309/03[facility] admission-> dyspnea , fatigue Hgb 6.1
12/21/2023 EGD (Dr. Kelly) [facility]: Gastritis. Questionable mild esophagitis. Normal duodenum. Fundus biopsy focal rare intestinal metaplasia glandular atypia. Indefinite for dysplasia. Antrum biopsy negative intestinal metaplasia,
negative H. pylori.
01/01/2024 COLO (Dr. Marta Pierson) (Outpatient): Poor prep. Procedure terminated.
[place] hospitalization 12/28 through 12/31, [place] and readmit 01/04 through 01/15/2024 -> Hgb 6 on admission, Transfused 4 units PRBC, 3 doses IV iron.
01/08/2024 COLO (Dr. Brunner) [facility] : 4 mm descending colon polyp, 2 mm descending/sigmoid polyp (hyperplastic). Nonbleeding diverticulosis. External hemorrhoids.
Transferred to [facility] 01/15/24 for VCE and DBE
First capsule study did not upload. [facility]
01/16/2024 video capsule endoscopy ([facility]): 'Proximal AVMs.' from [facility] from
01/17/2024 double-balloon enteroscopy (Dr. Santos) [facility]: Procedure performed from out the jejunum to 100 cm distal to ligament of Treitz. Procedure stopped due to AVM treatment as well as poor prep. For AVM's found 1
in stomach, one in third portion of the duodenum, 2 in the proximal jejunum all treated with APC. 25 mm inflammatory polyp in the stomach (inflammatory/hyperplastic polyp negative for dysplasia) with some focal ulceration and friability. Resected
en block with 2 Dura clips and 2 resolution clips placed.
02/14/2024 EGD(Dr. Doherty) [place]: normal esophagus. Normal duodenum. Normal jejunum. Friability/erythema in stomach consistent with gastritis. Previous polypectomy with endoclips in place.
02/14/2024 Sigmoidoscopy (Dr. Doherty) [place]: Sigmoidoscopy up to 55 cm. Nonbleeding diverticuli. Hemorrhoids.
Addendum entered and electronically signed by Hilary Romano DO 04/08/24 14:10:
I saw and examined the patient.
The PATTERN CHART WRITER or PA's note was reviewed and I agree with the note.
Comment: Duncan Baker is a 73-year-old male with past medical history of A-fib status post watchman, ESRD on HD Monday, COPD, diabetes, MVR, new diagnosis per patient of cirrhosis, anemia and recent history of GI bleeding which was
worked up at [facility] requiring transfer to [facility] for EGD, colonoscopy and video capsule endoscopy within the last month. It is unclear what the findings were and if he received
treatment, patient unsure of the details. Records have been requested. He was sent in from [facility] with a hemoglobin of 6.4, down from 7.6 on 04/05/2024. He was just started on oral iron, rectal exam with dark green stool that was occult
positive. He is scheduled to get dialysis today and being transfused with 1 unit of PRBC.
There are no signs of active GI bleeding, need to review recent records as appears he has had extensive workup for GI bleeding within the last month. Depending on findings will determine if inpatient evaluation is necessary. Continue with PPI,
monitor for signs of active GI bleeding. Transfuse for hemoglobin less than 7.
Original Note:
Consultation
-
Date/Time Consultation Requested: 04/08/24 1100
Date/Time Consultation Performed: 04/08/24 1139
Requesting Provider: Dr. Hamilton
Performing Provider: Dr. Romano/LEANN Chong
Reason for Consultation: anemia, OB pos stool
Medical History
Chief Complaint / HPI
Chief Complaint: abnormal labs
History of Present Illness:
73yo presents with hx Afib with hx watchman, ESRD on HD M-W-F, COPD, NIDDM, anemia, MVR, cirrhosis (new diagnosis per patient) with recent GI bleeding with work up at [facility] with transfer to [facility] for
GIB s/p EGD/Colonoscopy and Videocapsule study in February/March 2024. There was apparently cauterization during a procedure. We requested records from last admission. None were sent over. The patient was recently had a fall with admission to [facility] he was sent to 03/27/24 for abnormal labs Hgb 6.5 and weakness. During that admission he was noted to have black tarry stools and also follow up imaging US noted change of cirrhosis/ascites/splenomegaly/portal HTN/cholelithiasis, med renal
disease and CT PE study with Pulm edema, PNA, small effusion, moderate mediastinal lymphadenopathy, prior CABG, prior MVR, mild ascites rib fractures, splenomegaly and concern for left atrial appendage on watchman with thrombus. this was evaluated
by Cardiology. The patient had normal LV function. No obvious valvular vegetations. No OAC given anemia s/p Watchman. The patient was transfused 2 units PRBC, had brown BMs. Was started on oral iron and Hgb 7.6 and she was DC to [facility] on
04/04/24. Patient had labs on 04/05/24 and Hgb was 7.6, repeated today and Hgb was 6.4, repeated and was 6.7. Stool was dark/green stool that was OB positive. We are asked to evaluate for the same. Patient denies any F, C, N, V, melena, hematochezia,
dysphagia or odynophagia. He did have some mild lower abdominal discomfort this am prior to having BM that was relieved with having BM. The patient is not constipated as he is on Lactulose. He is going to have HD today. He is currently being
transfused 1 unit PRBC. Repeat records release again sent. ([facility] and [facility] for all GI procedures performed).
Past Medical History
Past Medical History: Arrhythmias (afib ), COPD, HTN, NIDDM and Other (ESRD, anemia, JESUS, obesity)
Past Surgical History: Cardiac (MVR) and Orthopedic (right meniscectomy, left knee replacement )
Social History
Tobacco: Former Smoker (quit 2017)
Alcohol: Occasional (social ETOH -- denies heavy ETOH use )
Drug: None
Living: [facility] (current rehab )
Employment: Retired
Family History
Family History: Other (no family hx colon CA or polyps )
Allergies / Home Medications
Allergy/AdvReac Type Severity Reaction Status Date / Time
gabapentin Allergy Unknown Verified 03/27/24 10:43
oxycodone [From OxyContin] Allergy Unknown Verified 03/27/24 10:43
�Medication �Instructions �Recorded
acetaminophen 325 mg tablet 650 mg PO Q6HPRN PRN mild pain 03/27/24
(Tylenol)
albuterol sulfate 90 mcg/actuation 2 puff inhalation R Q6HPRN PRN sob 03/27/24
aerosol inhaler
atorvastatin 40 mg tablet (Lipitor) 40 mg PO HS High Cholesterol 03/27/24
bisacodyl 10 mg rectal suppository [address] DAILYPRN PRN if no bm 03/27/24
(Dulcolax (bisacodyl)) aftr mom
ergocalciferol (vitamin D2) 1,250 1,250 mcg PO RAO Supplement 03/27/24
mcg (50,000 unit) capsule
ferrous sulfate 325 mg (65 mg 325 mg PO DAILY anemia 03/27/24
iron) tablet
furosemide 80 mg tablet (Lasix) 80 mg PO DAILY Kidney Disease 03/27/24
mupirocin 2 % topical ointment 1 applic topical DAILYPRN PRN 03/27/24
right elbow wound
mupirocin 2 % topical ointment 1 applic topical TID 03/27/24
rifaximin 550 mg tablet 550 mg PO BID Liver Issues 03/27/24
sennosides 8.6 mg tablet (senna) 17.2 mg PO HS Constipation 03/27/24
vitamin B complex and vitamin C 1 cap PO DAILY Supplement 03/27/24
no.20-folic acid 1 mg capsule
(Pecos Caps)
amiodarone 100 mg tablet (Pacerone) 100 mg PO DAILY #0 tabs 04/03/24
lactulose 20 gram/30 mL oral 30 g (45 mL) PO DAILY #0 mL 04/03/24
solution
phenylephrine-shark liver [address] Q8H Hemorrhoids #28.4 04/03/24
oil-mineral oil-petrolatum rectal grams
ointment (Hemorrhoidal ointment)
Lactobac no.2-Bifidobac no.1-S. 1 cap PO DAILY 04/08/24
thermo 112.5 billion cell capsule
(Visbiome)
collagenase clostridium histo. 250 1 applic topical DAILY right elbow 04/08/24
unit/gram topical ointment (Santyl)
midodrine 5 mg tablet 10 mg PO TID@0800,1300,1800 04/08/24
Hypotension
pantoprazole 40 mg tablet,delayed 40 mg PO BID 04/08/24
release (Protonix)
tramadol 50 mg tablet 50 mg PO Q4HPRN PRN moderate pains 04/08/24
trazodone 50 mg tablet 25 mg PO HS 04/08/24
Review of Systems
-
All other systems: A 12 pt ROS was Negative except as stated above in HPI
Vital Signs
Temp Pulse Resp BP Pulse Ox
97.5 F 73 20 112/66 93
04/08/24 11:31 04/08/24 11:31 04/08/24 11:31 04/08/24 11:31 04/08/24 10:06
Physical Exam
Exam
General: No Apparent Distress
HEENT: Anicteric
Respiratory: Clear (anterior)
Cardiac: Regular Rhythm
GI: Soft, Non Tender, Non Distended and Normal Bowel Sounds
Rectal: Hem Positive (dark green per ER)
Skin: Warm and Dry
Neuro: AO x 3
Psych: Calm
Results
WBC 12.2 10^3/uL (4.8-10.8) H 04/08/24 08:23
Hgb 6.7 g/dL (13.0-18.0) L* 04/08/24 08:23
Hct 21.6 % (39.0-52.0) L 04/08/24 08:23
MCV 88.2 fL (80.0-94.0) 04/08/24 08:23
Plt Count 173 10^3/uL (130-400) 04/08/24 08:23
Absolute Neuts (auto) 9.6 10^3/uL (1.4-6.5) H 04/08/24 08:23
PT 16.8 Sec (11.4-14.6) H 04/08/24 08:23
INR 1.38 04/08/24 08:23
APTT 50.4 Sec (23.4-35.0) H 04/08/24 08:23
Sodium 130 mmol/L (135-145) L 04/08/24 08:23
Potassium 4.7 mmol/L (3.5-5.1) 04/08/24 08:23
Chloride 94 mmol/L (98-107) L 04/08/24 08:23
Carbon Dioxide 25 mmol/L (22-30) 04/08/24 08:23
BUN 71 mg/dl (9-20) H 04/08/24 08:23
Creatinine 6.2 mg/dL (0.7-1.3) H* 04/08/24 08:23
Calcium 8.8 mg/dl (8.4-10.2) 04/08/24 08:23
Total Bilirubin 0.8 mg/dl (0.2-1.3) 04/08/24 08:23
AST 33 U/L (17-59) 04/08/24 08:23
ALT 16 U/L (0-50) 04/08/24 08:23
Alkaline Phosphatase 103 U/L (38-126) 04/08/24 08:23
Diagnostic Image Results:
Prior GI Procedures:
EGD: recently at [facility]-> repeat request for records sent.
Colonoscopy: recently at [facility]-> repeat request for records sent.
VCE: recently at [facility]-> repeat request for records sent.
Assessment / Plan
-
73yo presents with hx Afib with hx watchman, ESRD on HD --, COPD, NIDDM, anemia, MVR, cirrhosis (new diagnosis per patient) with recent GI bleeding with work up at [facility] with transfer to [facility] for
GIB s/p EGD/Colonoscopy and Videocapsule study in March 2024. There was apparently cauterization during a procedure. We requested records from last admission. None were sent over. The patient was recently had a fall with admission to [facility] he was sent to 03/27/24 for abnormal labs Hgb 6.5 and weakness. During that admission he was noted to have black tarry stools and also follow up imaging US noted change of cirrhosis/ascites/splenomegaly/portal HTN/cholelithiasis, med renal
disease and CT PE study with Pulm edema, PNA, small effusion, moderate mediastinal lymphadenopathy, prior CABG, prior MVR, mild ascites rib fractures, splenomegaly and concern for left atrial appendage on watchman with thrombus. this was evaluated
by Cardiology. The patient had normal LV function. No obvious valvular vegetations. No OAC given anemia s/p Watchman. The patient was transfused 2 units PRBC, had brown BMs. Was started on oral iron and Hgb 7.6 and she was DC to [facility] on
04/04/24. Patient had labs on 04/05/24 and Hgb was 7.6, repeated today and Hgb was 6.4, repeated and was 6.7. Stool was dark/green stool that was OB positive. We are asked to evaluate for the same.
Impression:
-Acute on chronic anemia
-OB positive stool-recent GI bleed with work up at [facility] and 'cauterization or clipping of several area'
-cirrhosis (new diagnosis) with decompensation with HE and mild ascites on imaging
other medical problems:
-afib
-ESRD on HD --
-NIDDM
-GERD
-MVR
-aortic aneurysm
-JESUS
-obesity
-recent cellulitis
-COPD
-chronic HFpEF
Plan:
-Transfuse as ordered
-Continue Pantoprazole
-Records request sent again to [facility] ([facility] for GI procedures).
-Continue Lactulose/Xifaxan
-Trend Hgb
-Further recommendations to be forthcoming.
-
-
Thank you for consultation and allowing me to participate in the patient's care. Please call the donor recruiter GI physician during the after hours with any questions or concerns.
--- NOTE | 2024-04-08 12:59 | W.PN.NEPH.HD ---
Assessment
-
Patient on dialysis
UF as hemodynamically tolerated
Blood infusing
Progress Note - Hemodialysis
-
Date of Service: April 08, 2024
Duration: 30 minutes and 3 hours
Potassium Bath: 2
Calcium Bath: 2.5
Opti-Dialyzer: 160
Ultrafiltration: Other (2-1/2-3kg)
Blood Flow: 400
Dialysate Flow: 600
Heparin: None patient with GI bleeding
EPO: 10K
[2024-04-08] MEDS: FLEXBUMIN 25% FOR HEMODIALYSIS 12.5 GRAMS IV ×2 (13:00→15:10)
[2024-04-08] MEDS: MANNITOL 25% 12.5 GRAMS IV (13:00)
[2024-04-08] MEDS: ProAmatine 10 MG PO (13:06)
[2024-04-08 14:06] LABS: Glucose - Point of Care 147 mg/dl (70-99)
[2024-04-08] MEDS: NOVOLOG FLEXPEN-LOW RESISTANCE SC (14:08)
[2024-04-08] MEDS: RETACRIT 10000 UNITS IV (14:25)
--- NOTE | 2024-04-08 15:05 | WOUNDNOTE ---
L MEDIAL FOOT AND LOWER LEG
--- NOTE | 2024-04-08 15:06 | WOUNDNOTE ---
L HEEL AND MEDIAL FOOT
--- NOTE | 2024-04-08 15:08 | WOUNDNOTE ---
WON RN note: Patient admitted with GI bleed, anemia and ascites from [facility].
See H&P for complete history.
PMH: ESRD on HD, sleep apnea, mitral valve repair, DM, LUE AV fistula, L knee replacement, R knee meniscectomy, COPD, chronic liver disease, CHF, JESUS. Stage 2 sacral PI, R arm ulcer, vesicular rash to thighs, venous leg ulcers.
Wound Location and type/assessment: Patient currently getting dialysis, unable to turn to assess sacrum. Patient known to service and seen last on 04/03/24 for same ulcers. Today legs less weepy, mostly dry scattered open areas. Has same broken
vesicles and some intact blood blisters to R heel and medial ankle. Vesicular rash to inner thighs has dried up, intact scabs. Skin on legs and feet warm, with very dry venous dermatitis, +1-2 LE edema. R arm laceration full thickness to
subcutaneous layer or deeper, scant pink, mostly slough. PCT Alex assisted with care.
Appetite: good.
Pressure redistribution devices in place: Accumax, pillow under calves and turning schedule. Air cushion to chair.
Plan: Dressings changed, will order Santyl for R arm wound to start tomorrow. Recommend cancelling mupirocin that was ordered TID for legs ulcers and apply mineral oil to legs and feet daily. ABD pads applied over weeping areas and blisters on legs
then knee high Diaz wraps daily. Silicone border foam to sacrum when able to turn. Calazime ointment to guero skin. Will confirm orders with Dr. Pinto and discussed with JAY Peralta. Care plan to be updated and will follow as needed. Note to case
management of equipment requested for discharge: Air mattress recommended.
Recommend follow up at wound care center upon discharge.
--- NOTE | 2024-04-08 16:32 | W.PN.UPDATE ---
Update Note
Progress Note Update
Records obtained from [facility]. Patient with hx of AVMs. Plan for EGD tomorrow. Patient agreeable. Discussed with RN.
[2024-04-08] MEDS: PREPARATION H OINTMENT 1 APPLIC RECTAL ×2 (16:38→21:43)
[2024-04-08] MEDS: STERILE WATER FOR INJECTION 10 ML IV (16:39)
[2024-04-08] MEDS: ROCEPHIN 1000 MG IV (16:39)
[2024-04-08 17:09] LABS: Glucose - Point of Care 185 mg/dl (70-99)
[2024-04-08] MEDS: NOVOLOG FLEXPEN-LOW RESISTANCE 1 UNITS SC (17:59)
[2024-04-08] MEDS: ProAmatine PO (17:59)
[2024-04-08 21:42] LABS: Glucose - Point of Care 164 mg/dl (70-99)
[2024-04-08] MEDS: TYLENOL 650 MG PO (21:42)
[2024-04-08] MEDS: LIPITOR 40 MG PO (21:43)
[2024-04-08] MEDS: SENOKOT PO (21:44)
[2024-04-08] MEDS: XIFAXAN 550 MG PO (21:44)
[2024-04-08] MEDS: DESYREL 25 MG PO (23:47)
[2024-04-09] VITALS (14 sets, daily range): BP systolic 17–131; BP diastolic 49–72; PULSE 71; O2SAT 95
[2024-04-09] MEDS: PROTONIX 100 IV ×2 (00:03→09:24)
[2024-04-09] MEDS: TYLENOL 650 MG PO ×2 (04:48→21:12)
[2024-04-09 06:10] LABS: Hemoglobin 7.1 g/dL (13.0-18.0); Mean Corp Hgb Conc. 32.3 g/dL (33.0-37.0); Mean Corpuscular Hgb 28.4 pg (27.0-31.0); Mean Platelet Volume 8.4 fL (7.4-10.4); Platelet Count 157 10^3/uL (130-400); White Blood Cell Count 9.2 10^3/uL (4.8-10.8)
[2024-04-09 06:19] LABS: Glucose - Point of Care 125 mg/dl (70-99)
[2024-04-09 06:25] LABS: Blood Urea Nitrogen 45 mg/dl (9-20); Calcium 8.5 mg/dl (8.4-10.2); Carbon Dioxide 27 mmol/L (22-30); Chloride 96 mmol/L (98-107); Estimated Creatinine Clearance 18 ml/min; Glucose 110 mg/dl (70-99); Sodium 133 mmol/L (135-145); eGFR 13.43
[2024-04-09] MEDS: ProAmatine 10 MG PO ×3 (09:21→17:33)
[2024-04-09] MEDS: NEPHROCAP 1 CAPSULE PO (09:21)
[2024-04-09] MEDS: PACERONE 100 MG PO (09:22)
[2024-04-09] MEDS: XIFAXAN 550 MG PO ×2 (09:22→21:12)
[2024-04-09] MEDS: DUPHALAC/CHRONULAC PO (09:23)
[2024-04-09] MEDS: HYDROPHOR 1 APPLIC TOPICAL (09:23)
[2024-04-09] MEDS: SANTYL OINTMENT 1 APPLIC TOPICAL (09:24)
[2024-04-09] MEDS: PREPARATION H OINTMENT 1 APPLIC RECTAL ×3 (09:25→23:53)
--- NOTE | 2024-04-09 11:09 | W.PN.HOSP.TC ---
Today's Communication/Plan
-
await US abd result
EGD today
Assessment / Plan
Assessment / Plan
Assessment:
Suspected acute blood loss anemia on anemia of chronic disease (CKD related anemia)
- likely GI source, hemorrhoids vs variceal vs small bowel pathology
- noted prior GI workup as summarized by GI notes
- s/p 1 unit PRBC and Hb 7.1
- hold oral iron; give IV iron today
- continue PPI drip
- GI consulting
- EGD today
ESRD on HD, M/W/F
- nephrology consulting for routine HD needs
- holding oral Lasix
- continue TID Midodrine
Parox A. Fib
- on Amio
- no AC due to recent recurrent issue of GI bleeding
Liver Cirrhosis
Anasarca
- volume managed by HD
- Abd US pending to evaluate ascites for tap
- empiric Rocephin
- continue Lactulose/Rifaximin
Recent cellulitis
- completed PO Abx course
COPD
- prn nebs
Chronic HFpEF
- volume managed by HD
Type 2 DM
- off Repaglinide
- SSI
- A1c recently was 5.1%
HLD - statin
GERD
JESUS
Hx of Aortic aneurysm
stage 2 sacral pressure injury - POA
- wound care consulted
DVT ppx: SCDs
Code: Full
Anticipated Discharge: 24 - 48 hours
Subjective/Interval History
-
Date of Service: April 09, 2024
Hb 7.1
for EGD today
Objective Data
-
Labs:
Laboratory Results
04/09/24
05:35
WBC 9.2
Hgb 7.1 L
Hct 22.0 L
Plt Count 157
Sodium 133 L
Potassium 4.0
Chloride 96 L
Carbon Dioxide 27
BUN 45 H
Creatinine 4.4 H*
Glucose 110 H
Calcium 8.5
Vital Signs:
Vital Signs
Temp Pulse Resp BP Pulse Ox
98.0 F 92 18 108/65 96
04/09/24 07:30 04/09/24 07:30 04/09/24 07:30 04/09/24 07:30 04/09/24 07:30
I&O
04/08/24 04/09/24 04/10/24
06:59 06:59 06:59
Intake Total 250 / 250
Output Total 540 / 540
Balance -290 / -290
Physical Exam
-
General: No Apparent Distress
HEENT: Normocephalic and Atraumatic
Respiratory: Negative Wheezes
Cardiac: Regular Rhythm and S1/S2
GI: Soft and Nontender
Genito-urinary: No Costovertebral Tender
Musculoskeletal: No Edema
Neuro: AO x 3
Psych: Calm
Data Reviewed
-
Total Time Spent with Patient (in minutes): 45
Labs: Labs Reviewed by me
[2024-04-09 11:28] LABS: Glucose - Point of Care 129 mg/dl (70-99)
--- NOTE | 2024-04-09 11:57 | PTCARENOTE ---
received pt s/p EGD awake and alert. CLD
[2024-04-09 12:00] LABS: Glucose - Point of Care 123 mg/dl (70-99)
[2024-04-09] MEDS: NOVOLOG FLEXPEN-LOW RESISTANCE SC (12:07)
--- NOTE | 2024-04-09 13:11 | W.PN.NEPH.PH ---
Today's Communication / Plan
-
Dialysis tomorrow
Assessment/Plan
-
Assessment
ESRD
Acute anemia with GI bleed hx
Possible history of diverticulosis/AVM
Hypotension
Mitral valve repair
Diabetes mellitus type 2
Leukocytosis
cirrhosis based on US
Hyponatremia
Plan
follow h/h at 7.1 this morning after receiving 1 blood products yesterday
Dialysis to be provided for tomorrow
IV iron and DANNY therapy for anemia support to be given on dialysis
remains hypervolemic
For EGD today re: GI bleeding
UF as hemodynamically tolerated ,still with significant edema
BP are soft, on midodrine for HD
cirrhosis is new diagnosis
reviewed imp of renal diet and FR again, but he is massively noncompliant
Ongoing hyponatremia and volume overload is a function of the patient's noncompliance
-
-
Date of Service: April 09, 2024
CC / HPI / ROS
-
Chief Complaint:
ESRD
History of Present Illness:
ESRD on Monday dialysis schedule
Hemodynamically labile on midodrine
Hemoglobin at 7.1 following 1 unit blood transfusion
Review of Systems:
Ascites
AV fistula
No chest pain or shortness of breath
Labs
-
Labs:
WBC 9.2 10^3/uL (4.8-10.8) 04/09/24 05:35
RBC 2.50 10^6/uL (4.70-6.10) L 04/09/24 05:35
Hgb 7.1 g/dL (13.0-18.0) L 04/09/24 05:35
Hct 22.0 % (39.0-52.0) L 04/09/24 05:35
Plt Count 157 10^3/uL (130-400) 04/09/24 05:35
Sodium 133 mmol/L (135-145) L 04/09/24 05:35
Potassium 4.0 mmol/L (3.5-5.1) 04/09/24 05:35
Chloride 96 mmol/L (98-107) L 04/09/24 05:35
Carbon Dioxide 27 mmol/L (22-30) 04/09/24 05:35
BUN 45 mg/dl (9-20) H 04/09/24 05:35
Creatinine 4.4 mg/dL (0.7-1.3) H* 04/09/24 05:35
eGFR 13.43 04/09/24 05:35
Glucose 110 mg/dl (70-99) H 04/09/24 05:35
Calcium 8.5 mg/dl (8.4-10.2) 04/09/24 05:35
Albumin 3.1 g/dl (3.5-5.0) L 04/08/24 08:23
Physical Exam
-
Vital Signs:
Vital Signs
Temp Pulse Resp BP Pulse Ox
97.2 F 73 16 111/60 97
04/09/24 12:00 04/09/24 12:26 04/09/24 12:26 04/09/24 12:00 04/09/24 12:26
Cardiovascular:: Regular rate and rhythm
Respiratory:: Bilateral: Coarse
Lung Excursion:: Normal
Abdomen:: Distended, Nontender and Soft
Bowel Sounds:: Decreased
Extremity Edema:: +2: Bilateral:
Davis Catheter: No
--- NOTE | 2024-04-09 14:15 | W.PN.UPDATE ---
Update Note
Progress Note Update
Discussed with patient possible trf to [facility] for DBE given EGD findings. He would like to hold off to see if his Hgb remains stable after repeat transfusion. Patient tolerating clears. No abd pain. Would like to eat solid food. Will advance at this
time.
[2024-04-09] MEDS: STERILE WATER FOR INJECTION 10 ML IV (15:19)
[2024-04-09] MEDS: ROCEPHIN 1000 MG IV (15:19)
[2024-04-09] MEDS: SANDOSTATIN 500.6 MCG IV (16:04)
--- NOTE | 2024-04-09 16:34 | CM ---
Pt from [facility] - admitted for poss GI bleed, anemia
For EGD today
Received transfusion
Attempted x3 to complete initial assessment - pt off unit/IV team with pt
Plan - [facility] when medically stable
[2024-04-09 16:46] LABS: Glucose - Point of Care 168 mg/dl (70-99)
[2024-04-09] MEDS: NOVOLOG FLEXPEN-LOW RESISTANCE 1 UNITS SC (16:46)
--- NOTE | 2024-04-09 16:58 | PTCARENOTE ---
pt receiving 1U PRBC, Puls x noted to occasionally dip to mid 80's 2L nasal canula applied, now 99%. denies SOB. attending notified. urine output noted through the shift PO johnix
--- NOTE | 2024-04-09 17:03 | WOUNDNOTE ---
SACRUM, RAQUEL RECTAL AND LOWER BACK
--- NOTE | 2024-04-09 17:03 | WOUNDNOTE ---
SACRUM AND RAQUEL RECTAL AREA
--- NOTE | 2024-04-09 17:04 | WOUNDNOTE ---
WON RN NOTE: Followed up today to check sacrum. Patient able to turn self, on Centrella max air bed, air cushion in use for chair. Nurse Lauryn reports patient ambulated to BR today and sat up in chair. Dry dark maroon linear red corral are on lower
back, patient states he may have gotten it from a commode chair. Patient using toilet in BR. Sacrum with healing stage 3 PI, dry yellow base, silicone foam changed. Kayla rectal skin with excoriation, MASD barrier cream applied. Patient encouraged
turning to sides while in bed, recommend pillow behind back when sitting in recliner chair. Will need to monitor red corral on lower back, suspect may evolve.
--- NOTE | 2024-04-09 17:05 | WOUNDNOTE ---
WON RN NOTE: Followed up today to check sacrum. Patient able to turn self, on Centrella [place] air bed, air cushion in use for chair. Nurse Combs reports patient ambulated to BR today and sat up in chair. Dry, linear red ecchymotic corral are on lower
back, suspect from waistband of underwear. Asked patient to remove underwear, patient refused. Sacrum with healing stage 3 PI, dry yellow base, silicone foam changed. Kayla rectal skin with excoriation/ MASD, barrier cream applied. Patient encouraged
turning to sides while in bed, recommend encourage patient to remove underwear to let area heal. Updated care plan and showed nurse Combs lower back red corral to monitor.
[2024-04-09] MEDS: LASIX 80 MG PO (17:33)
[2024-04-09] MEDS: PROTONIX IV 40 MG IV (21:13)
[2024-04-09] MEDS: NSS (PRESERVATIVE FREE) 10 ML IV (21:13)
[2024-04-09] MEDS: LIPITOR 40 MG PO (21:13)
[2024-04-09] MEDS: FLUSH (NSS) 2 FLUSH IV (21:14)
[2024-04-09 21:22] LABS: Glucose - Point of Care 225 mg/dl (70-99)
[2024-04-09] MEDS: SENOKOT PO (22:15)
[2024-04-09] MEDS: DESYREL 25 MG PO (23:52)
[2024-04-10] VITALS (9 sets, daily range): BP systolic 101–143; BP diastolic 63–78; BMI 28.5
[2024-04-10] MEDS: SANDOSTATIN 500.6 MCG IV ×2 (02:43→14:23)
[2024-04-10] MEDS: ULTRAM 50 MG PO ×2 (04:04→23:58)
[2024-04-10] MEDS: TYLENOL 650 MG PO (05:38)
[2024-04-10 06:06] LABS: Hematocrit 23.3 % (39.0-52.0); Hemoglobin 7.1 g/dL (13.0-18.0); Mean Corp Hgb Conc. 30.5 g/dL (33.0-37.0); Mean Corpuscular Hgb 27.5 pg (27.0-31.0); Mean Corpuscular Volume 90.3 fL (80.0-94.0); Mean Platelet Volume 8.7 fL (7.4-10.4); Platelet Count 170 10^3/uL (130-400); Red Blood Cell Count 2.58 10^6/uL (4.70-6.10); Red Cell Dist. Width 17.8 % (11.5-14.5); White Blood Cell Count 10.2 10^3/uL (4.8-10.8)
[2024-04-10 06:34] LABS: Blood Urea Nitrogen 52 mg/dl (9-20); Calcium 7.9 mg/dl (8.4-10.2); Carbon Dioxide 22 mmol/L (22-30); Chloride 99 mmol/L (98-107); Estimated Creatinine Clearance 16 ml/min; Glucose 102 mg/dl (70-99); Potassium 4.1 mmol/L (3.5-5.1); Sodium 133 mmol/L (135-145); eGFR 11.52
[2024-04-10] MEDS: NSS (PRESERVATIVE FREE) 10 ML IV ×2 (07:56→21:24)
[2024-04-10] MEDS: PROTONIX IV 40 MG IV ×2 (07:56→21:24)
[2024-04-10] MEDS: HYDROPHOR 1 APPLIC TOPICAL (07:59)
[2024-04-10] MEDS: PACERONE 100 MG PO (07:59)
[2024-04-10] MEDS: LASIX 80 MG PO (07:59)
[2024-04-10] MEDS: XIFAXAN 550 MG PO ×2 (07:59→21:24)
[2024-04-10] MEDS: NEPHROCAP 1 CAPSULE PO (07:59)
[2024-04-10] MEDS: PREPARATION H OINTMENT 1 APPLIC RECTAL ×2 (08:00→23:27)
[2024-04-10] MEDS: ProAmatine 10 MG PO (08:01)
[2024-04-10] MEDS: SANTYL OINTMENT 1 APPLIC TOPICAL (08:02)
[2024-04-10] MEDS: DUPHALAC/CHRONULAC PO (08:05)
[2024-04-10 08:27] LABS: Glucose - Point of Care 159 mg/dl (70-99)
[2024-04-10] MEDS: NOVOLOG FLEXPEN-LOW RESISTANCE 1 UNITS SC ×2 (09:03→17:07)
--- NOTE | 2024-04-10 09:46 | W.PN.GI.CBS2 ---
Addendum entered and electronically signed by Hilary Romano DO 04/10/24 14:45:
I saw and examined the patient.
The PREPLEATER or PA's note was reviewed and I agree with the note.
Comment: Hemoglobin 7.1 today, which is the same as yesterday morning however following his enteroscopy he was transfused with 1 unit of PRBC. He was noted to have active bleeding at time of enteroscopy, he had multiple findings on the exam which
could be contributing to his anemia and ongoing, recurrent GI bleeding however at time of exam concern for michael, unable to intervene due to malfunctioning clip, the bleed spontaneously stopped during exam. No evidence of bleeding overnight.
It is very difficult to determine the next best steps, in terms of whether or not he requires transfer to a tertiary care center. He has multiple medical comorbidities and from a GI perspective, multiple possible sources of GI bleeding. We have
discussed at length with patient, offering to discuss his case with a tertiary care center, such as [facility], as this was previously recommended. If he rebleeds obtaining a bleeding scan stat would be most helpful in attempts to localize source.
He is very upset about losing his [facility] at [facility].
Will monitor hemoglobin over the next 24 hours to determine next steps in management, he is agreeable to this plan. Continue care as outlined below.
Original Note:
Today's Communication / Plan
-
s/p transfusion unit # 4 since 03/27 hbg 7.1 pre transfusion and 7.1 post transfusion for additional transfusion today
s/p EGD 04/09 as noted
-Continue Pantoprazole and Octreotide
-hx abx with GI bleed and cirrhosis
cont Xifaxan and lactulose
cont iron
cont diet as tolerated
long discussion with patient on goals of care with prolonged admission to several hospital and still bleeding and multiple medical issues. He will consider transfer to [facility] but want to give it one more day to see if bleeding was just residual
with recent EGD completed yesterday. We also discussed hospice as he is 'tired of this' but he states he is not ready for stopping all care.
Assessment / Plan
-
73yo presents with hx Afib with hx watchman, ESRD on HD --, COPD, NIDDM, anemia, MVR, cirrhosis (new diagnosis per patient) with recent GI bleeding with work up at [facility] with transfer to [facility] main [place] as
noted below. Pt also with recent imaging US noted change of cirrhosis/ascites/splenomegaly/portal HTN/cholelithiasis, med renal disease and CT PE study with Pulm edema, PNA, small effusion, moderate mediastinal lymphadenopathy, prior CABG, prior
MVR, mild ascites rib fractures, splenomegaly and concern for left atrial appendage on watchman with thrombus. this was evaluated by Cardiology. The patient had normal LV function. No obvious valvular vegetations. No OAC given anemia s/p Watchman.
He is now noted with recurrent admissions with anemia and noted black stools. 04/09 Octreotide started. Pt has required 4 units PRBC's since 03/27.
GI work up prior to admissions:
12/19/23/09/03 [facility] admission-> dyspnea , fatigue Hgb 6.1
12/21/2023 EGD (Dr. Kelly) [facility]: Gastritis. Questionable mild esophagitis. Normal duodenum. Fundus biopsy focal rare intestinal metaplasia glandular atypia. Indefinite for dysplasia. Antrum biopsy negative intestinal metaplasia,
negative H. pylori.
01/01/2024 COLO (Dr. Marta Pierson) (Outpatient): Poor prep. Procedure terminated.
[facility] hospitalization 12/28 through 12/31, DC and readmit 01/04 through 01/15/2024 -> Hgb 6 on admission, Transfused 4 units PRBC, 3 doses IV iron.
01/08/2024 COLO (Dr. Brunner) [facility] : 4 mm descending colon polyp, 2 mm descending/sigmoid polyp (hyperplastic). Nonbleeding diverticulosis. External hemorrhoids.
Transferred to [facility] 01/15/24 for VCE and DBE
First capsule study did not upload. [facility]
01/16/2024 video capsule endoscopy ([facility]): 'Proximal AVMs.' from [facility]
01/17/2024 double-balloon enteroscopy (Dr. Santos) [facility]: Procedure performed from mouth to jejunum to 200 cm distal to ligament of Treitz. Procedure stopped due to AVM treatment as well as poor prep. For AVM's found 1
in stomach, one in third portion of the duodenum, 2 in the proximal jejunum all treated with APC. 25 mm inflammatory polyp in the stomach (inflammatory/hyperplastic polyp negative for dysplasia) with some focal ulceration and friability. Resected
en block with 2 Dura clips and 2 resolution clips placed.
02/14/2024 EGD(Dr. Doherty) [facility]: normal esophagus. Normal duodenum. Normal jejunum. Friability/erythema in stomach consistent with gastritis. Previous polypectomy with endoclips in place.
02/14/2024 Sigmoidoscopy (Dr. Doherty) [facility]: Sigmoidoscopy up to 55 cm. Nonbleeding diverticuli. Hemorrhoids.
04/09/24 EGD Romano- HH, clip from prior polypectomy seen in gastric body, enlarge fold in stomach prominent if gastric antrum one in particular with possible platelet plug suspicious for isolated gastric varix. erythema in antrum, duodenitis,
single non bleeding angioectasia in jejunum treated with monpolar probe, area of active oozing noted with copeous washing bleeding stopped, suspicious for dielufoy lesion attempted clip but area unable to ID again despite multiple attempts. non
bleeding jejunal ulcer non bleeding, no specimen collected
Impression:
-Acute on chronic anemia
-OB positive stool-recent GI bleed with extensive work up
-cirrhosis (new diagnosis) with decompensation with HE and mild ascites on imaging
-imaging with left atrial appendage on watchman with thrombus s/p card eval
-? hx HE on lactulose/Xifaxan
-anasarca
-cellulitis
-pulm edema
-hyponatremia
-diffuse rash
other medical problems:
-afib
-ESRD on HD M-W-
-NIDDM
-GERD
-MVR
-aortic aneurysm
-JESUS
-obesity
-recent cellulitis
-COPD
-chronic HFpEF
-hypoalbuminemia
Plan:
s/p transfusion unit # 4 since 03/27 hbg 7.1 pre transfusion and 7.1 post transfusion for additional transfusion today
s/p EGD 04/09 as noted
-Continue Pantoprazole and Octreotide
-hx abx with GI bleed and cirrhosis
cont Xifaxan and lactulose
cont iron
cont diet as tolerated
long discussion with patient on goals of care with prolonged admission to several hospital and still bleeding and multiple medical issues. He will consider transfer to [facility] but want to give it one more day to see if bleeding was just residual
with recent EGD completed yesterday. We also discussed hospice as he is 'tired of this' but he states he is not ready for stopping all care.
Subjective
Subjective
Date of Service: April 10, 2024
4 black stools recorded for 04/09, on 1800 ADA diet
Objective
Data Reviewed
Laboratory Data:
Laboratory Results
04/10/24 05:38
04/10/24 05:38
Laboratory Results
PT 16.8 Sec (11.4-14.6) H 04/08/24 08:23
INR 1.38 04/08/24 08:23
APTT 50.4 Sec (23.4-35.0) H 04/08/24 08:23
Total Bilirubin 0.8 mg/dl (0.2-1.3) 04/08/24 08:23
AST 33 U/L (17-59) 04/08/24 08:23
ALT 16 U/L (0-50) 04/08/24 08:23
Alkaline Phosphatase 103 U/L (38-126) 04/08/24 08:23
Vital Signs and I&O:
Vital Signs
Temp Pulse Resp BP Pulse Ox
97.5 F 72 19 119/64 90
04/10/24 08:00 04/10/24 08:00 04/10/24 08:00 04/10/24 08:00 04/10/24 08:00
I&O
04/09/24 04/10/24 04/11/24
06:59 06:59 06:59
Intake Total 250 / 250 1210 / 1210
Output Total 540 / 540 200 / 200
Balance -290 / -290 1010 / 1010
Physical Exam
Physical Exam
HEENT: Anicteric and Moist mucous membranes
Cardiology: Normal Sinus Rhythm
Pulmonary: Clear
GI: Soft, Distended and Non Tender
Neuro: Non Focal
[2024-04-10 11:58] LABS: Glucose - Point of Care 140 mg/dl (70-99)
--- NOTE | 2024-04-10 12:53 | CM ---
Case management following for d/c planning
Pt from [facility] - admitted for poss GI bleed, anemia
Met with pt to complete initial assessment
Prior to hospitalization - pt reports he lived alone in an apartment with FF set-up/no steps to enter. Address [address], [address], [place]. Was independent - did own shopping, cooking
Has supportive family
DME - rolling walker cane
[facility] - [facility] and [facility]
HH - past - [facility]
HD - [facility] [place] [facility] - [place]S
PCP - Dr Micah Cordero
Pharm - [facility]
PT/OT evals pending
Plan - anticipate [facility] vs snf when medically stable
--- NOTE | 2024-04-10 13:00 | W.PN.HOSP.TC ---
Today's Communication/Plan
-
1 unit PRBC and HD today
if still bleeding or Hb remains low, will have to consider tertiary care transfer tomorrow
Assessment / Plan
Assessment / Plan
Assessment:
Suspected acute blood loss anemia on anemia of chronic disease (CKD related anemia)
- likely GI source, hemorrhoids vs variceal vs small bowel pathology
- noted prior GI workup as summarized by GI notes
- s/p EGD here: clip from prior polypectomy seen in gastric body, enlarge fold in stomach prominent if gastric antrum one in particular with possible platelet plug suspicious for isolated gastric varix. erythema in antrum, duodenitis, single non
bleeding angioectasia in jejunum treated with monopolar probe, area of active oozing noted with copious washing bleeding stopped, suspicious for Dieulafoy lesion attempted clip but area unable to ID again despite multiple attempts. non bleeding
jejunal ulcer non bleeding, no specimen collected.
- s/p 3 units PRBCs
- hold oral iron
- continue PPI BID
- continue Octreotide
- GI following; may need transfer to tertiary care center for capsule/DBE
ESRD on HD, M/W/F
- nephrology consulting for routine HD needs
- continue oral Lasix
- continue TID Midodrine
Parox A. Fib
- on Amio
- no AC due to recent recurrent issue of GI bleeding
Liver Cirrhosis
Anasarca
- volume managed by HD
- Abd US: small volume ascites
- empiric Rocephin
- continue Lactulose/Rifaximin
Recent cellulitis
- completed PO Abx course
COPD
- prn nebs
Chronic HFpEF
- volume managed by HD
Type 2 DM
- off Repaglinide
- SSI
- A1c recently was 5.1%
HLD - statin
GERD
JESUS
Hx of Aortic aneurysm
stage 2 sacral pressure injury - POA
- wound care consulted
DVT ppx: SCDs
Code: Full
Anticipated Discharge: > 48 hours
Subjective/Interval History
-
Date of Service: April 10, 2024
4 black stools on 04/09
1 unit PRBC ordered
on HD today
Objective Data
-
Labs:
Laboratory Results
04/10/24
05:38
WBC 10.2
Hgb 7.1 L
Hct 23.3 L
Plt Count 170
Sodium 133 L
Potassium 4.1
Chloride 99
Carbon Dioxide 22
BUN 52 H
Creatinine 5.0 H*
Glucose 102 H
Calcium 7.9 L
Vital Signs:
Vital Signs
Temp Pulse Resp BP Pulse Ox
97.6 F 76 18 138/74 92
04/10/24 12:46 04/10/24 12:46 04/10/24 12:46 04/10/24 12:46 04/10/24 11:00
I&O
04/09/24 04/10/24 04/11/24
06:59 06:59 06:59
Intake Total 250 / 250 1210 / 1210 0 / 0
Output Total 540 / 540 200 / 200
Balance -290 / -290 1010 / 1010 0 / 0
Physical Exam
-
General: No Apparent Distress
HEENT: Normocephalic and Atraumatic
Respiratory: Negative Wheezes
Cardiac: Regular Rhythm and S1/S2
GI: Soft and Nontender
Genito-urinary: No Costovertebral Tender
Musculoskeletal: No Edema
Neuro: AO x 3
Hematologic / Lymphatic: No Lymphadenopathy
Psych: Calm
Data Reviewed
-
Total Time Spent with Patient (in minutes): 45
Labs: Labs Reviewed by me
[2024-04-10] MEDS: FERRLECIT 125 MG IV ×2 (13:37→13:38)
[2024-04-10] MEDS: RETACRIT 10000 UNITS IV (13:45)
[2024-04-10] MEDS: NOVOLOG FLEXPEN-LOW RESISTANCE SC (13:50)
[2024-04-10] MEDS: ProAmatine PO ×2 (14:22→17:05)
--- NOTE | 2024-04-10 14:38 | W.PN.NEPH.HD ---
Assessment
-
pt seen during HD
vitals stable on midodrine
UF as tolerates
hb low, 1 unit PRBC with HD
reports alexis, follow h/h
pt wants to wait on transfer
He reports of exhaustion with recurrent hospitalizations and rehab
he just want to be done and stop everything specially based on outcome of [place] visit
no change in code status at this time per pt
Progress Note - Hemodialysis
-
Date of Service: April 10, 2024
Duration: 30 minutes and 3 hours
Potassium Bath: 2
Calcium Bath: 2.5
Opti-Dialyzer: 160
Ultrafiltration: Other (2.5-3.5kg)
Blood Flow: 400
Dialysate Flow: 600
Heparin: no
EPO: 15023
[2024-04-10] MEDS: PREPARATION H OINTMENT RECTAL (15:46)
[2024-04-10] MEDS: STERILE WATER FOR INJECTION 10 ML IV (15:48)
[2024-04-10] MEDS: ROCEPHIN 1000 MG IV (15:48)
[2024-04-10 16:26] LABS: Glucose - Point of Care 176 mg/dl (70-99)
[2024-04-10] MEDS: LIPITOR 40 MG PO (21:24)
[2024-04-10] MEDS: SENOKOT PO (21:27)
[2024-04-10 21:28] LABS: Glucose - Point of Care 232 mg/dl (70-99)
[2024-04-10] MEDS: DESYREL 25 MG PO (23:27)
[2024-04-11] VITALS (8 sets, daily range): BP systolic 92–122; BP diastolic 56–69; BMI 28.5
[2024-04-11] MEDS: SANDOSTATIN 500.6 MCG IV ×2 (02:47→15:45)
[2024-04-11 06:35] LABS: Hematocrit 25.4 % (39.0-52.0); Hemoglobin 7.9 g/dL (13.0-18.0); Mean Corp Hgb Conc. 31.1 g/dL (33.0-37.0); Mean Corpuscular Hgb 28.6 pg (27.0-31.0); Mean Platelet Volume 8.4 fL (7.4-10.4); Platelet Count 179 10^3/uL (130-400); Red Blood Cell Count 2.76 10^6/uL (4.70-6.10); Red Cell Dist. Width 17.8 % (11.5-14.5); White Blood Cell Count 10.3 10^3/uL (4.8-10.8)
[2024-04-11 06:54] LABS: Blood Urea Nitrogen 38 mg/dl (9-20); Calcium 7.6 mg/dl (8.4-10.2); Carbon Dioxide 24 mmol/L (22-30); Chloride 98 mmol/L (98-107); Estimated Creatinine Clearance 19 ml/min; Glucose 117 mg/dl (70-99); Potassium 3.4 mmol/L (3.5-5.1); Sodium 133 mmol/L (135-145); eGFR 14.62
[2024-04-11 07:37] LABS: Glucose - Point of Care 148 mg/dl (70-99)
[2024-04-11] MEDS: NOVOLOG FLEXPEN-LOW RESISTANCE SC (08:05)
[2024-04-11] MEDS: LASIX 80 MG PO (08:06)
[2024-04-11] MEDS: PACERONE 100 MG PO (08:06)
[2024-04-11] MEDS: XIFAXAN 550 MG PO ×2 (08:07→20:26)
[2024-04-11] MEDS: NEPHROCAP 1 CAPSULE PO (08:07)
[2024-04-11] MEDS: ProAmatine 10 MG PO ×2 (08:07→17:28)
[2024-04-11] MEDS: NSS (PRESERVATIVE FREE) 10 ML IV ×2 (08:09→20:28)
[2024-04-11] MEDS: PREPARATION H OINTMENT RECTAL ×4 (08:09→23:56)
[2024-04-11] MEDS: HYDROPHOR TOPICAL (08:09)
[2024-04-11] MEDS: PROTONIX IV 40 MG IV ×2 (08:09→20:27)
[2024-04-11] MEDS: SANTYL OINTMENT TOPICAL (08:10)
[2024-04-11] MEDS: DUPHALAC/CHRONULAC PO (08:26)
--- NOTE | 2024-04-11 09:29 | PN.CDI ---
CDI
- -
CDI:
Physician Documentation Request
Admit Date: 04/08/24 11:25
Dear Doctor Millie,
Patient admitted with anemia.
Laboratory Tests
04/08/24 04/09/24 04/10/24
08:23 05:35 05:38
Sodium 130 L 133 L 133 L
04/11/24
05:18
Sodium 133 L
Based on the above, could you clarify in the progress notes, the appropriate diagnosis, if significant, that supports the above abnormalities and additional evaluation, monitoring and/or treatment rendered:
Hyponatremia
Abnormal lab value insignificant
Other
Use of terms such as suspected, likely, concern for, or probable (associated with a specific diagnosis that is being evaluated, monitored, or treated as if it exists) are acceptable and can be coded in the inpatient setting, when documented at the
time of discharge.
Thank you,
Susana Morales RN, BSN
CDI Specialist
Available via [place] text
Please use your independent medical judgment in providing your response.
--- NOTE | 2024-04-11 10:00 | PN.CDI ---
CDI
- -
CDI:
Physician Documentation Request
Admit Date: 04/08/24 11:25
Dear Doctor Millie,
Patient admitted for anemia.
04/09 Wound Care Note: 'Sacrum with healing stage 3 PI, dry yellow base, silicone foam changed.'
04/10 Hospitalist PN: 'stage 2 sacral pressure injury - POA - wound care consulted'
Physician documentation of the type and location of wounds is required for compliant documentation. Based on the above clinical findings and your assessment, please provide the following in your progress note:
Stage 3 sacral pressure ulcer
Stage 2 sacral pressure ulcer
Other
Use of terms such as suspected, likely, concern for, or probable (associated with a specific diagnosis that is being evaluated, monitored, or treated as if it exists) are acceptable and can be coded in the inpatient setting, when documented at the
time of discharge.
Thank you,
Susana Morales RN, BSN
CDI Specialist
Available via [place] text
Please use your independent medical judgment in providing your response.
*Source: National Pressure Ulcer Advisory Panel (NPUAP)
--- NOTE | 2024-04-11 11:23 | W.PN.GI.CBS2 ---
Addendum entered and electronically signed by Hilary Romano DO 04/11/24 12:34:
I saw and examined the patient.
The LOW ALTITUDE [employer] DEFENSE OFFICER or PA's note was reviewed and I agree with the note.
Comment: Agreed with plan as outlined below. Given active oozing at time of enteroscopy, repeating enteroscopy would be appropriate if signs of rebleeding. Hopefully, would be able to intervene. Will monitor H&H and determine if repeat procedure is
necessary tomorrow. Patient agreeable to plan. He does not wish to be transferred to [facility], will discuss with him if that is required, depending on if we repeat enteroscopy/the results of that test.
Original Note:
Today's Communication / Plan
-
s/p transfusion unit # 5 since 03/27 hbg 7.9 post transfusion with HD yesterday
s/p EGD 04/09 as noted
-Continue Pantoprazole and Octreotide
-hx abx with GI bleed and cirrhosis
cont Xifaxan and lactulose
cont iron per renal
cont diet as tolerated but pt declined 2 gram Na diet will d/c restriction -- discussed etiology of restriction
discussed again goals of care with patient and brother-- options of aggressive care with scope vs hematology follow for anemia, he is not ready for hospice or palliative care options
pt agreeable for 1 pm H/H check decide on repeat EGD/enteroscopy tomorrow -- he declined to go to [place]
He is talking about going home to [place]-- I asked to call to schedule with his know dramatic art teacher in [place] area he saw before to trend hbg and follow for transfusion and iron
Pt will also need GI follow up -- will need to decide who he wants to see-- consider [place] in case double balloon needed
will follow
Assessment / Plan
-
73yo presents with hx Afib with hx watchman, ESRD on HD M-W-F, COPD, NIDDM, anemia, MVR, cirrhosis (new diagnosis per patient) with recent GI bleeding with work up at [facility], [facility] with transfer to [facility] main [place] as
noted below. Pt also with recent imaging US noted change of cirrhosis/ascites/splenomegaly/portal HTN/cholelithiasis, med renal disease and CT PE study with Pulm edema, PNA, small effusion, moderate mediastinal lymphadenopathy, prior CABG, prior
MVR, mild ascites rib fractures, splenomegaly and concern for left atrial appendage on watchman with thrombus. this was evaluated by Cardiology. The patient had normal LV function. No obvious valvular vegetations. No OAC given anemia s/p Watchman.
He is now noted with recurrent admissions with anemia and noted black stools. 04/09 Octreotide started. Pt has required 4 units PRBC's since 03/27.
GI work up prior to admissions:
12/19/2309/03[facility] admission-> dyspnea , fatigue Hgb 6.1
12/21/2023 EGD (Dr. Kelly) [facility]: Gastritis. Questionable mild esophagitis. Normal duodenum. Fundus biopsy focal rare intestinal metaplasia glandular atypia. Indefinite for dysplasia. Antrum biopsy negative intestinal metaplasia,
negative H. pylori.
01/01/2024 COLO (Dr. Marta Pierson) (Outpatient): Poor prep. Procedure terminated.
[facility] hospitalization 12/28 through 12/31, DC and readmit 01/04 through 01/15/2024 -> Hgb 6 on admission, Transfused 4 units PRBC, 3 doses IV iron.
01/08/2024 COLO (Dr. Brunner) [facility] : 4 mm descending colon polyp, 2 mm descending/sigmoid polyp (hyperplastic). Nonbleeding diverticulosis. External hemorrhoids.
Transferred to [facility] 01/15/24 for VCE and DBE
First capsule study did not upload. [facility]
01/16/2024 video capsule endoscopy ([facility]): 'Proximal AVMs.' from [facility]
01/17/2024 double-balloon enteroscopy (Dr. Santos) [facility]: Procedure performed from mouth to jejunum to 200 cm distal to ligament of Treitz. Procedure stopped due to AVM treatment as well as poor prep. For AVM's found 1
in stomach, one in third portion of the duodenum, 2 in the proximal jejunum all treated with APC. 25 mm inflammatory polyp in the stomach (inflammatory/hyperplastic polyp negative for dysplasia) with some focal ulceration and friability. Resected
en block with 2 Dura clips and 2 resolution clips placed.
02/14/2024 EGD(Dr. Doherty) [facility]: normal esophagus. Normal duodenum. Normal jejunum. Friability/erythema in stomach consistent with gastritis. Previous polypectomy with endoclips in place.
02/14/2024 Sigmoidoscopy (Dr. Doherty) [place]: Sigmoidoscopy up to 55 cm. Nonbleeding diverticuli. Hemorrhoids.
04/09/24 EGD Romano- HH, clip from prior polypectomy seen in gastric body, enlarge fold in stomach prominent if gastric antrum one in particular with possible platelet plug suspicious for isolated gastric varix. erythema in antrum, duodenitis,
single non bleeding angioectasia in jejunum treated with monpolar probe, area of active oozing noted with copeous washing bleeding stopped, suspicious for dielufoy lesion attempted clip but area unable to ID again despite multiple attempts. non
bleeding jejunal ulcer non bleeding, no specimen collected
Impression:
-Acute on chronic anemia
-OB positive stool-recent GI bleed with extensive work up
-cirrhosis (new diagnosis) with decompensation with HE and mild ascites on imaging
-imaging with left atrial appendage on watchman with thrombus s/p card eval
-? hx HE on lactulose/Xifaxan
-anasarca
-cellulitis
-pulm edema
-hyponatremia
-diffuse rash
other medical problems:
-afib
-ESRD on HD --
-NIDDM
-GERD
-MVR
-aortic aneurysm
-JESUS
-obesity
-recent cellulitis
-COPD
-chronic HFpEF
-hypoalbuminemia
Plan:
s/p transfusion unit # 5 since 03/27 hbg 7.9 post transfusion with HD yesterday
s/p EGD 04/09 as noted
-Continue Pantoprazole and Octreotide
-hx abx with GI bleed and cirrhosis
cont Xifaxan and lactulose
cont iron per renal
cont diet as tolerated but pt declined 2 gram Na diet will d/c restriction -- discussed etiology of restriction
discussed again goals of care with patient and brother-- options of aggressive care with scope vs hematology follow for anemia, he is not ready for hospice or palliative care options
pt agreeable for 1 pm H/H check decide on repeat EGD/enteroscopy tomorrow -- he declined to go to [place]
He is talking about going home to [place]-- I asked to call to schedule with his know dramatic art teacher in [place] area he saw before to trend hbg and follow for transfusion and iron
will follow
Subjective
Subjective
Date of Service: April 11, 2024
doing ok still frustrated with ongoing anemia issue 04/09 black stools, on ADA diet and declining 2 gram na restriction
Objective
Data Reviewed
Laboratory Data:
Laboratory Results
04/11/24 05:18
Laboratory Results
PT 16.8 Sec (11.4-14.6) H 04/08/24 08:23
INR 1.38 04/08/24 08:23
APTT 50.4 Sec (23.4-35.0) H 04/08/24 08:23
Total Bilirubin 0.8 mg/dl (0.2-1.3) 04/08/24 08:23
AST 33 U/L (17-59) 04/08/24 08:23
ALT 16 U/L (0-50) 04/08/24 08:23
Alkaline Phosphatase 103 U/L (38-126) 04/08/24 08:23
Vital Signs and I&O:
Vital Signs
Temp Pulse Resp BP Pulse Ox
98.1 F 79 16 113/58 93
04/11/24 07:54 04/11/24 08:07 04/11/24 07:54 04/11/24 08:07 04/11/24 07:54
I&O
04/10/24 04/11/24 04/12/24
06:59 06:59 06:59
Intake Total 1210 / 1210 1392 / 1392
Output Total 200 / 200
Balance 1010 / 1010 1392 / 1392
Physical Exam
Physical Exam
HEENT: Anicteric and Moist mucous membranes
Cardiology: Normal Sinus Rhythm
Pulmonary: Clear
GI: Soft, Distended (mild ) and Non Tender
Extremities: Edema (b/l dressing in place )
Neuro: Non Focal
[2024-04-11 11:41] LABS: Glucose - Point of Care 186 mg/dl (70-99)
--- NOTE | 2024-04-11 11:55 | W.PN.NEPH.PH ---
Today's Communication / Plan
-
- HD tomorrow
Assessment/Plan
-
Assessment
ESRD
Acute anemia with GI bleed hx
Possible history of diverticulosis/AVM
Hypotension
Mitral valve repair
Diabetes mellitus type 2
Leukocytosis
cirrhosis based on US
Hyponatremia
Plan
follow h/h at 7.9 this morning
Dialysis to be provided for tomorrow
IV iron and DANNY therapy for anemia support to be given on dialysis
remains hypervolemic
For EGD today re: GI bleeding
UF as hemodynamically tolerated ,still with significant edema
BP are soft, on midodrine for HD
cirrhosis is new diagnosis
reviewed imp of renal diet and FR again, but he is massively noncompliant
Ongoing hyponatremia and volume overload is a function of the patient's noncompliance
-
-
Date of Service: April 11, 2024
CC / HPI / ROS
-
Chief Complaint:
ESRD
History of Present Illness:
ESRD on Monday dialysis schedule
Hemodynamically labile on midodrine
Hemoglobin at 7.9
Review of Systems:
Ascites
AV fistula
No chest pain or shortness of breath
Labs
-
Labs:
WBC 10.3 10^3/uL (4.8-10.8) 04/11/24 05:18
RBC 2.76 10^6/uL (4.70-6.10) L 04/11/24 05:18
Plt Count 179 10^3/uL (130-400) 04/11/24 05:18
Sodium 133 mmol/L (135-145) L 04/11/24 05:18
Potassium 3.4 mmol/L (3.5-5.1) L 04/11/24 05:18
Chloride 98 mmol/L (98-107) 04/11/24 05:18
Carbon Dioxide 24 mmol/L (22-30) 04/11/24 05:18
BUN 38 mg/dl (9-20) H 04/11/24 05:18
Creatinine 4.1 mg/dL (0.7-1.3) H* 04/11/24 05:18
eGFR 14.62 04/11/24 05:18
Glucose 117 mg/dl (70-99) H 04/11/24 05:18
Calcium 7.6 mg/dl (8.4-10.2) L 04/11/24 05:18
Albumin 3.1 g/dl (3.5-5.0) L 04/08/24 08:23
Physical Exam
-
Vital Signs:
Vital Signs
Temp Pulse Resp BP Pulse Ox
97.6 F 77 16 121/69 94
04/11/24 11:38 04/11/24 11:38 04/11/24 11:38 04/11/24 11:38 04/11/24 11:38
Cardiovascular:: Regular rate and rhythm
Respiratory:: Bilateral: Coarse
Lung Excursion:: Normal
Abdomen:: Distended, Nontender and Soft
Bowel Sounds:: Normal
Extremity Edema:: +1: Bilateral:
Davis Catheter: No
[2024-04-11 12:24] LABS: COVID-19 Antigen Negative (Negative)
[2024-04-11 12:40] LABS: Hematocrit 23.3 % (39.0-52.0); Hemoglobin 7.2 g/dL (13.0-18.0)
--- NOTE | 2024-04-11 12:43 | W.PN.HOSP.TC ---
Today's Communication/Plan
-
Plan is for repeat EGD/Enteroscopy tomorrow. Hb 7.2 most recently
Assessment / Plan
Assessment / Plan
Assessment:
Suspected acute blood loss anemia on anemia of chronic disease (CKD related anemia)
- likely GI source, hemorrhoids vs variceal vs small bowel pathology (known AVMs)
- noted prior GI workup as summarized by GI notes
- s/p EGD here: clip from prior polypectomy seen in gastric body, enlarge fold in stomach prominent if gastric antrum one in particular with possible platelet plug suspicious for isolated gastric varix. erythema in antrum, duodenitis, single non
bleeding angioectasia in jejunum treated with monopolar probe, area of active oozing noted with copious washing bleeding stopped, suspicious for Dieulafoy lesion attempted clip but area unable to ID again despite multiple attempts. non bleeding
jejunal ulcer non bleeding, no specimen collected.
- s/p 3 units PRBCs
- hold oral iron; IV Iron with HD tomorrow
- continue PPI BID
- continue Octreotide
- GI following; patient refusing transfer to [facility]. Plan is for repeat EGD/Enteroscopy tomorrow. Hb 7.2 most recently
ESRD on HD, M/W/F
Hyponatremia as a functional of noncompliance
- nephrology consulting for routine HD needs
- continue oral Lasix
- continue TID Midodrine
Parox A. Fib
- on Amio
- no AC due to recent recurrent issue of GI bleeding
Liver Cirrhosis
Anasarca
- volume managed by HD
- Abd US: small volume ascites
- empiric Rocephin for SBP prophylaxis in setting of GI bleed, day 4/5
- continue Lactulose/Rifaximin
Recent cellulitis
- completed PO Abx course
COPD
- prn nebs
Chronic HFpEF
- volume managed by HD
Type 2 DM
- off Repaglinide
- SSI
- A1c recently was 5.1%
HLD - statin
GERD
JESUS
Hx of Aortic aneurysm
Sacrum with healing stage 3 PI - POA
- wound care consulted
DVT ppx: SCDs
Code: Full
Dispo: patient refusing transfer or [place]. Wants home (with VN). CM aware.
Anticipated Discharge: 24 - 48 hours
Subjective/Interval History
-
Date of Service: April 11, 2024
ongoing dark stools since 04/09
Hb this AM 7.9; repeat Hb pending
GI and patient considering repeat EGD/Enteroscopy. Patient does not want transfer to tertiary care or [place].
Objective Data
-
Labs:
Laboratory Results
04/11/24 04/11/24
05:18 12:29
WBC 10.3
Hgb 7.9 L 7.2 L
Hct 25.4 L 23.3 L
Plt Count 179
Sodium 133 L
Potassium 3.4 L
Chloride 98
Carbon Dioxide 24
BUN 38 H
Creatinine 4.1 H*
Glucose 117 H
Calcium 7.6 L
Vital Signs:
Vital Signs
Temp Pulse Resp BP Pulse Ox
97.6 F 77 16 121/69 94
04/11/24 11:38 04/11/24 11:38 04/11/24 11:38 04/11/24 11:38 04/11/24 11:38
I&O
04/10/24 04/11/24 04/12/24
06:59 06:59 06:59
Intake Total 1210 / 1210 1392 / 1392
Output Total 200 / 200
Balance 1010 / 1010 1392 / 1392
Physical Exam
-
General: No Apparent Distress
HEENT: Normocephalic and Atraumatic
Respiratory: Negative Wheezes
Cardiac: Regular Rhythm and S1/S2
GI: Soft and Nontender
Musculoskeletal: No Edema
Neuro: AO x 3
Psych: Calm
Data Reviewed
-
Total Time Spent with Patient (in minutes): 45
Labs: Labs Reviewed by me
[2024-04-11] MEDS: NOVOLOG FLEXPEN-LOW RESISTANCE 1 UNITS SC ×2 (12:51→16:30)
[2024-04-11] MEDS: ProAmatine PO ×2 (13:00→13:04)
[2024-04-11] MEDS: SANDOSTATIN IV (13:56)
--- NOTE | 2024-04-11 14:43 | CM ---
Addendum entered by Jazmine Vargas 04/11/24 15:20:
Referral made in [facility] for HH needs
Original Note:
Case management following for discharge planning
Chart reviewed
For repeat EGD/Enteroscopy tomorrow
Pt stating he would like to go home when discharged - declining SNF
Reports he has supportive family and they will be available to assist as needed
Reporting no preference for home care agency
Requesting wheel chair for home
Discussed pts d/c plans with Dr Pinto
Plan - anticipate home with HH when medically stable
[2024-04-11] MEDS: SANTYL OINTMENT 1 APPLIC TOPICAL (15:06)
[2024-04-11] MEDS: STERILE WATER FOR INJECTION 10 ML IV (15:52)
[2024-04-11] MEDS: ROCEPHIN 1000 MG IV (15:52)
[2024-04-11] MEDS: ULTRAM 50 MG PO (15:58)
[2024-04-11 16:30] LABS: Glucose - Point of Care 193 mg/dl (70-99)
[2024-04-11] MEDS: LIPITOR 40 MG PO (20:26)
[2024-04-11] MEDS: ZOFRAN 4 MG IV (20:26)
[2024-04-11 21:32] LABS: Glucose - Point of Care 146 mg/dl (70-99)
[2024-04-11] MEDS: DESYREL 25 MG PO (23:54)
[2024-04-11] MEDS: SENOKOT 17.2 MG PO (23:55)
[2024-04-12] VITALS (9 sets, daily range): BP systolic 85–105; BP diastolic 45–61; PULSE 61; O2SAT 100; BMI 29.2
[2024-04-12] MEDS: SANDOSTATIN 500.6 MCG IV ×2 (02:47→16:15)
[2024-04-12 05:52] LABS: Glucose - Point of Care 152 mg/dl (70-99)
[2024-04-12] MEDS: NOVOLOG FLEXPEN-LOW RESISTANCE 1 UNITS SC ×2 (06:41→12:35)
[2024-04-12] MEDS: DUPHALAC/CHRONULAC PO ×2 (07:39→07:52)
[2024-04-12] MEDS: NSS (PRESERVATIVE FREE) 10 ML IV ×2 (07:40→20:47)
[2024-04-12] MEDS: ProAmatine 10 MG PO ×3 (07:40→16:58)
[2024-04-12] MEDS: PROTONIX IV 40 MG IV ×2 (07:40→20:47)
[2024-04-12] MEDS: PACERONE 100 MG PO (07:42)
[2024-04-12] MEDS: NEPHROCAP 1 CAPSULE PO (07:42)
[2024-04-12] MEDS: XIFAXAN 550 MG PO ×2 (07:42→20:47)
[2024-04-12] MEDS: PREPARATION H OINTMENT RECTAL ×3 (07:42→22:20)
[2024-04-12] MEDS: HYDROPHOR 1 APPLIC TOPICAL (07:43)
[2024-04-12] MEDS: LASIX PO (07:43)
[2024-04-12 09:48] LABS: Hematocrit 26.8 % (39.0-52.0); Hemoglobin 8.2 g/dL (13.0-18.0); Mean Corp Hgb Conc. 30.6 g/dL (33.0-37.0); Mean Corpuscular Hgb 27.6 pg (27.0-31.0); Mean Corpuscular Volume 90.2 fL (80.0-94.0); Mean Platelet Volume 8.2 fL (7.4-10.4); Platelet Count 153 10^3/uL (130-400); Red Blood Cell Count 2.97 10^6/uL (4.70-6.10); Red Cell Dist. Width 17.9 % (11.5-14.5); White Blood Cell Count 8.2 10^3/uL (4.8-10.8)
[2024-04-12 09:59] LABS: INR 1.29; PT 15.9 Sec (11.4-14.6)
[2024-04-12 10:36] LABS: Blood Urea Nitrogen 52 mg/dl (9-20); Calcium 8.2 mg/dl (8.4-10.2); Carbon Dioxide 22 mmol/L (22-30); Chloride 96 mmol/L (98-107); Estimated Creatinine Clearance 14 ml/min; Glucose 125 mg/dl (70-99); Potassium 4.4 mmol/L (3.5-5.1); Sodium 132 mmol/L (135-145); eGFR 9.84
--- NOTE | 2024-04-12 10:40 | CM ---
Addendum entered by Jazmine Vargas 04/12/24 15:42:
Fax # for [facility] - [phone]
Original Note:
Case management following for d/c planning
Accepted by [facility] for RN/PT/OT
For repeat EGD/Enteroscopy today
HD today
Plan - anticipate home with HH when medically ready
--- NOTE | 2024-04-12 10:41 | PTCARENOTE ---
Walked into patients room during change of shift rounds with nightshift RN and dayshift PCT. PCT was getting vital signs, pt SaO2 77% on RA, BP 86/45 HR 75. Pt pale, drowsy but arousable. Put pt on 3L NC, SaO2 bumped up to 94%. notified. AM
midodrine given. Repeat bp after midodrine 95/55.
--- NOTE | 2024-04-12 10:42 | W.PN.GI.CBS2 ---
Today's Communication / Plan
-
entero canceled; monitor hb/overt bleed over weekend
Assessment / Plan
-
73yo presents with hx Afib with hx watchman, ESRD on HD -W-, COPD, NIDDM, anemia, MVR, cirrhosis (new diagnosis per patient) with recent GI bleeding with work up at [facility], [facility] with transfer to [facility] as
noted below. Pt also with recent imaging US noted change of cirrhosis/ascites/splenomegaly/portal HTN/cholelithiasis, med renal disease and CT PE study with Pulm edema, PNA, small effusion, moderate mediastinal lymphadenopathy, prior CABG, prior
MVR, mild ascites rib fractures, splenomegaly and concern for left atrial appendage on watchman with thrombus. this was evaluated by Cardiology. The patient had normal LV function. No obvious valvular vegetations. No OAC given anemia s/p Watchman.
He is now noted with recurrent admissions with anemia and noted black stools. 04/09 Octreotide started. Pt has required 5 units PRBC's since 03/27.
GI work up prior to admissions:
12/19/23/09/03 [facility] admission-> dyspnea , fatigue Hgb 6.1
12/21/2023 EGD (Dr. Kelly) [facility]: Gastritis. Questionable mild esophagitis. Normal duodenum. Fundus biopsy focal rare intestinal metaplasia glandular atypia. Indefinite for dysplasia. Antrum biopsy negative intestinal metaplasia,
negative H. pylori.
01/01/2024 COLO (Dr. Marta Pierson) (Outpatient): Poor prep. Procedure terminated.
[place] hospitalization 12/28 through 12/31, DC and readmit 01/04 through 01/15/2024 -> Hgb 6 on admission, Transfused 4 units PRBC, 3 doses IV iron.
01/08/2024 COLO (Dr. Brunner) [facility] : 4 mm descending colon polyp, 2 mm descending/sigmoid polyp (hyperplastic). Nonbleeding diverticulosis. External hemorrhoids.
Transferred to [facility] 01/15/24 for VCE and DBE
First capsule study did not upload. [facility]
01/16/2024 video capsule endoscopy ([facility]): 'Proximal AVMs.' from [facility]
01/17/2024 double-balloon enteroscopy (Dr. Santos) [facility]: Procedure performed from mouth to jejunum to 200 cm distal to ligament of Treitz. Procedure stopped due to AVM treatment as well as poor prep. For AVM's found 1
in stomach, one in third portion of the duodenum, 2 in the proximal jejunum all treated with APC. 25 mm inflammatory polyp in the stomach (inflammatory/hyperplastic polyp negative for dysplasia) with some focal ulceration and friability. Resected
en block with 2 Dura clips and 2 resolution clips placed.
02/14/2024 EGD(Dr. Doherty) [place]: normal esophagus. Normal duodenum. Normal jejunum. Friability/erythema in stomach consistent with gastritis. Previous polypectomy with endoclips in place.
02/14/2024 Sigmoidoscopy (Dr. Doherty) [place]: Sigmoidoscopy up to 55 cm. Nonbleeding diverticuli. Hemorrhoids.
04/09/24 EGD [facility], clip from prior polypectomy seen in gastric body, enlarge fold in stomach prominent if gastric antrum one in particular with possible platelet plug suspicious for isolated gastric varix. erythema in antrum, duodenitis,
single non bleeding angioectasia in jejunum treated with monpolar probe, area of active oozing noted with copeous washing bleeding stopped, suspicious for dielufoy lesion attempted clip but area unable to ID again despite multiple attempts. non
bleeding jejunal ulcer non bleeding, no specimen collected
Impression:
-Acute on chronic anemia
-OB positive stool-recent GI bleed with extensive work up
-cirrhosis (new diagnosis) with decompensation with HE and mild ascites on imaging
-imaging with left atrial appendage on watchman with thrombus s/p card eval
-? hx HE on lactulose/Xifaxan
-anasarca
-cellulitis
-pulm edema
-hyponatremia
-diffuse rash
other medical problems:
-afib
-ESRD on HD --
-NIDDM
-GERD
-MVR
-aortic aneurysm
-JESUS
-obesity
-recent cellulitis
-COPD
-chronic HFpEF
-hypoalbuminemia
Patient brought to endoscopy today for repeat push enteroscopy - not stable hypotensive and hypoxic as above. Green stool on exam. Hb stable this am.
Recommendations:
- Low sodium diet
- With bleeding and cirrhosis continue antibiotics
- Monitor Hb
- Monitor overt bleeding
- On xifaxan, lactulose and lasix but no aldactone
- Continue PPI/octreotide
D/w nephrology and hospitalist
Total Time Spent with Patient (in minutes): 35
Subjective
Subjective
Date of Service: April 12, 2024
Feeling SOB requiring 3L
Hypotensive despite ole and midodrine
Objective
Data Reviewed
Laboratory Data:
Laboratory Results
04/12/24 09:21
04/12/24 09:22
Laboratory Results
PT 15.9 Sec (11.4-14.6) H 04/12/24 09:22
INR 1.29 04/12/24 09:22
APTT 50.4 Sec (23.4-35.0) H 04/08/24 08:23
Total Bilirubin 0.8 mg/dl (0.2-1.3) 04/08/24 08:23
AST 33 U/L (17-59) 04/08/24 08:23
ALT 16 U/L (0-50) 04/08/24 08:23
Alkaline Phosphatase 103 U/L (38-126) 04/08/24 08:23
Vital Signs and I&O:
Vital Signs
Temp Pulse Resp BP Pulse Ox
97.3 F 75 15 86/45 93
04/12/24 07:25 04/12/24 07:42 04/12/24 07:25 04/12/24 07:43 04/12/24 07:38
I&O
04/11/24 04/12/24 04/13/24
06:59 06:59 06:59
Intake Total 1392 / 1392 1941
Balance 1392 / 1392 1941
Physical Exam
Physical Exam
HEENT: Anicteric
GI: Distended
Rectal: Other (green)
[2024-04-12 11:58] LABS: Glucose - Point of Care 152 mg/dl (70-99)
--- NOTE | 2024-04-12 12:37 | W.PN.NEPH.HD ---
Assessment
-
Patient seen on dialysis
Patient lethargic and short of breath
Systolic blood pressure 86, 10 mg midodrine provide
Albumin x 2 to be given on dialysis for UF
Unfortunately volume will continue to be difficult to control as patient has no interest in controlling his salt and fluid intake
Ultrafiltration is limited hemodynamically likely due to to decompensated cirrhosis
I am not sure if outpatient hemodialysis will be feasible
I may attempt repeat ultrafiltration over the weekend
Progress Note - Hemodialysis
-
Date of Service: April 12, 2024
Duration: 30 minutes and 3 hours
Potassium Bath: 3
Calcium Bath: 2.5
Opti-Dialyzer: 160
Ultrafiltration: Other (2 kg as hemodynamically tolerated)
Blood Flow: 400
Dialysate Flow: 600
Heparin: None
EPO: 10,000
[2024-04-12] MEDS: SANTYL OINTMENT 1 APPLIC TOPICAL (12:38)
[2024-04-12] MEDS: MANNITOL 25% 12.5 GRAMS IV ×2 (12:50→14:40)
[2024-04-12] MEDS: FLEXBUMIN 25% FOR HEMODIALYSIS 12.5 GRAMS IV ×2 (13:00→14:45)
[2024-04-12] MEDS: RETACRIT 10000 UNITS IV (13:47)
[2024-04-12] MEDS: FERRLECIT 125 MG IV (14:44)
--- NOTE | 2024-04-12 14:52 | W.PN.HOSP.TC ---
Today's Communication/Plan
-
EGD aborted; follow Hb
HD today
continue Rocephin, day 5/
clinically follow asymptomatic rash
Assessment / Plan
Assessment / Plan
Assessment:
Suspected acute blood loss anemia on anemia of chronic disease (CKD related anemia)
- likely GI source, hemorrhoids vs variceal vs small bowel pathology (known AVMs)
- noted prior GI workup as summarized by GI notes
- s/p EGD here: clip from prior polypectomy seen in gastric body, enlarge fold in stomach prominent if gastric antrum one in particular with possible platelet plug suspicious for isolated gastric varix. erythema in antrum, duodenitis, single non
bleeding angioectasia in jejunum treated with monopolar probe, area of active oozing noted with copious washing bleeding stopped, suspicious for Dieulafoy lesion attempted clip but area unable to ID again despite multiple attempts. non bleeding
jejunal ulcer non bleeding, no specimen collected.
- s/p 3 units PRBCs
- hold oral iron; IV Iron with HD
- continue PPI BID
- continue Octreotide
- GI following; patient refusing transfer to [facility]. EGD/Enteroscopy today was aborted for unstable vitals.
- following Hb
ESRD on HD, M/W/F
Hyponatremia as a functional of noncompliance
- nephrology consulting for routine HD needs
- continue oral Lasix
- continue TID Midodrine
Parox A. Fib
- on Amio
- no AC due to recent recurrent issue of GI bleeding
Liver Cirrhosis
Anasarca
- volume managed by HD
- Abd US: small volume ascites
- empiric Rocephin for SBP prophylaxis in setting of GI bleed, day 5/7
- continue Lactulose/Rifaximin
Recent cellulitis
- completed PO Abx course
COPD
- prn nebs
Chronic HFpEF
- volume managed by HD
Type 2 DM
- off Repaglinide
- SSI
- A1c recently was 5.1%
HLD - statin
GERD
JESUS
Hx of Aortic aneurysm
Sacrum with healing stage 3 PI - POA
- wound care consulted
Asymptomatic R thigh rash
- clinically monitor for now
DVT ppx: SCDs
Code: Full
Dispo: patient refusing transfer or [place]. Wants home (with VN). CM aware.
Anticipated Discharge: > 48 hours
Subjective/Interval History
-
Date of Service: April 12, 2024
hypotension this morning with hypoxia, EGD attempted but aborted
now on HD
reports mild nonpruritic, nonpainful rash mainly to leg, no fever/chills
Objective Data
-
Labs:
Laboratory Results
04/12/24 04/12/24
09:21 09:22
WBC 8.2
Hgb 8.2 L
Hct 26.8 L
Plt Count 153
PT 15.9 H
INR 1.29
Sodium 132 L
Potassium 4.4 D
Chloride 96 L
Carbon Dioxide 22
BUN 52 H
Creatinine 5.7 H*
Glucose 125 H
Calcium 8.2 L
Vital Signs:
Vital Signs
Temp Pulse Resp BP Pulse Ox
97.4 F 66 15 85/50 99
04/12/24 14:45 04/12/24 14:45 04/12/24 14:45 04/12/24 14:45 04/12/24 14:45
I&O
04/11/24 04/12/24 04/13/24
06:59 06:59 06:59
Intake Total 1392 / 1392 1941
Balance 1392 / 1392 1941
Physical Exam
-
General: Appears Chronically Ill
HEENT: Normocephalic and Atraumatic
Respiratory: Crackles; Negative Wheezes
Cardiac: Regular Rhythm and S1/S2
GI: Soft
Genito-urinary: No Costovertebral Tender
Musculoskeletal: Edema, Right Lower Extrem and Edema, Left Lower Extrem
Skin: Rash (inner thigh rash, nonpruritic)
Neuro: AO x 3
Hematologic / Lymphatic: No Lymphadenopathy
Psych: Calm
Data Reviewed
-
Total Time Spent with Patient (in minutes): 45
Labs: Labs Reviewed by me
[2024-04-12] MEDS: ULTRAM 50 MG PO ×2 (15:15→20:55)
[2024-04-12] MEDS: ROCEPHIN 1000 MG IV (16:18)
[2024-04-12] MEDS: STERILE WATER FOR INJECTION 10 ML IV (16:19)
[2024-04-12 16:41] LABS: Glucose - Point of Care 117 mg/dl (70-99)
[2024-04-12] MEDS: NOVOLOG FLEXPEN-LOW RESISTANCE SC (16:58)
[2024-04-12] MEDS: SENOKOT 17.2 MG PO (20:48)
[2024-04-12] MEDS: LIPITOR 40 MG PO (20:48)
[2024-04-12 21:30] LABS: Glucose - Point of Care 152 mg/dl (70-99)
[2024-04-12] MEDS: DESYREL PO (22:20)
[2024-04-12] MEDS: DESYREL 25 MG PO (23:29)
[2024-04-13] MEDS: SANDOSTATIN 500.6 MCG IV ×2 (02:32→13:30)
--- NOTE | 2024-04-13 02:55 | PTCARENOTE ---
Patient having periods of intermittent confusion where he is trying to disrobe and get OOB. Patient states he feels that 'something is not right'. Patient is able to be re oriented easily by this RN. Vitals WNL. Patient noted to have episodes s/p
Trazodone administration, not new for patient. LEANN Pavon notified of above. No new orders received at this time. Care ongoing, will continue to monitor.
[2024-04-13 02:57] VITALS: BP 102/51
--- NOTE | 2024-04-13 06:31 | PTCARENOTE ---
Patient refusing to stay in bed, wants to stand up. Patient unable to stand last night with 2 people assisting. Refusing to believe that he is unable to stand and continually trying to get OOB. States 'you are going against my free will not letting
me stand'. Patient refusing to lay in bed and will only sit on the edge of the bed.Support given to patient along with trying to reorient patient. Patient remains very agitated and continues to yell at this RN that he wants the alarm off. Patient
was confused during the night and tried to get OOB so bed alarm placed for safety. Care ongoing.
[2024-04-13 07:49] VITALS: BP 89/51
[2024-04-13 08:08] LABS: Glucose - Point of Care 126 mg/dl (70-99)
[2024-04-13] MEDS: DUPHALAC/CHRONULAC 30 GRAMS PO (08:12)
[2024-04-13] MEDS: LASIX 80 MG PO (08:12)
[2024-04-13] MEDS: NEPHROCAP 1 CAPSULE PO (08:13)
[2024-04-13] MEDS: ProAmatine 10 MG PO ×3 (08:13→16:40)
[2024-04-13] MEDS: PACERONE 100 MG PO (08:13)
[2024-04-13] MEDS: XIFAXAN 550 MG PO (08:13)
[2024-04-13] MEDS: HYDROPHOR 1 APPLIC TOPICAL (08:14)
[2024-04-13] MEDS: PREPARATION H OINTMENT 1 APPLIC RECTAL ×2 (08:14→16:40)
[2024-04-13] MEDS: NSS (PRESERVATIVE FREE) 10 ML IV (08:15)
[2024-04-13] MEDS: PROTONIX IV 40 MG IV (08:15)
[2024-04-13] MEDS: SANTYL OINTMENT 1 APPLIC TOPICAL (08:26)
[2024-04-13 09:29] LABS: Blood Urea Nitrogen 39 mg/dl (9-20); Calcium 8.2 mg/dl (8.4-10.2); Carbon Dioxide 24 mmol/L (22-30); Chloride 95 mmol/L (98-107); Estimated Creatinine Clearance 18 ml/min; Glucose 96 mg/dl (70-99); Potassium 4.5 mmol/L (3.5-5.1); Sodium 132 mmol/L (135-145); eGFR 13.43
--- NOTE | 2024-04-13 09:40 | W.PN.GI.CBS2 ---
Addendum entered and electronically signed by Nell Feng MD 04/13/24 13:30:
Please continue lactulose as may help with patient's mental status if he is agreeable (history of non compliance).
Stop octreotide, contine PPI daily, plan for total of 7 days antibiotics then can stop.
Addendum entered and electronically signed by Nell Feng MD 04/13/24 13:28:
I saw and examined the patient.
The ACCOUNT UNDERWRITER or PA's note was reviewed and I agree with the note.
Comment: 73-year-old male with extensive medical history as below who has underwent multiple procedures for GI bleeding. I attempted another enteroscopy yesterday but the procedure was unable to be completed due to hypotension and hypoxia not
related to bleeding. Dr. Pinto has spent an extensive time with the patient reviewing his options. He has been noncompliant. At this point, patient would like to pursue hospice which is appropriate. At this time, since her is no bleeding there
is no need for repeat procedures. He will likely have small bowel lesions that he will bleed intermittently from. He can get transfusions or iron as needed. If he has significant bleeding, we can attempt a repeat enteroscopy. At this time, GI
will sign off. Please call with any questions or issues or changes in clinical status. I d/w Dr. Pinto. Thank you.
Original Note:
Today's Communication / Plan
-
s/p attempted repeat enteroscopy 04/12 but noted with hypotension, hypoxia, green stool on exam and hbg 8.2 yesterday so procedure held
pt states he is feeling worse today consider options of comfort etc
- Low sodium diet pt declined restriction remains on ADA and low K diet
cont abx
await hbg this am
cont PPI
if hbg stable consider stopping octeotide gtt
last stool 04/10
On xifaxan, lactulose and lasix but no aldactone--
with no stools in 2 days pt encouraged by staff to take lactulose today as held for several days -- some lethargy in exam may be HE will add ammonia level now -- triggered by bleeding and now constipation
cont Iron
support given
Assessment / Plan
-
73yo presents with hx Afib with hx watchman, ESRD on HD M-W-, COPD, NIDDM, anemia, MVR, cirrhosis (new diagnosis per patient) with recent GI bleeding with work up at [facility], [facility] with transfer to [facility] as
noted below. Pt also with recent imaging US noted change of cirrhosis/ascites/splenomegaly/portal HTN/cholelithiasis, med renal disease and CT PE study with Pulm edema, PNA, small effusion, moderate mediastinal lymphadenopathy, prior CABG, prior
MVR, mild ascites rib fractures, splenomegaly and concern for left atrial appendage on watchman with thrombus. this was evaluated by Cardiology. The patient had normal LV function. No obvious valvular vegetations. No OAC given anemia s/p Watchman.
He is now noted with recurrent admissions with anemia and noted black stools. 04/09 Octreotide started. Pt has required 5 units PRBC's since 03/27. s/p enteroscopy 04/09.
GI work up prior to admissions:
12/19/23/09/03 [facility] admission-> dyspnea , fatigue Hgb 6.1
12/21/2023 EGD (Dr. Kelly) [facility]: Gastritis. Questionable mild esophagitis. Normal duodenum. Fundus biopsy focal rare intestinal metaplasia glandular atypia. Indefinite for dysplasia. Antrum biopsy negative intestinal metaplasia,
negative H. pylori.
01/01/2024 COLO (Dr. Marta Pierson) (Outpatient): Poor prep. Procedure terminated.
[place] hospitalization 12/28 through 12/31, DC and readmit 01/04 through 01/15/2024 -> Hgb 6 on admission, Transfused 4 units PRBC, 3 doses IV iron.
01/08/2024 COLO (Dr. Brunner) [facility] : 4 mm descending colon polyp, 2 mm descending/sigmoid polyp (hyperplastic). Nonbleeding diverticulosis. External hemorrhoids.
Transferred to [facility] 01/15/24 for VCE and DBE
First capsule study did not upload. [facility]
01/16/2024 video capsule endoscopy ([facility]): 'Proximal AVMs.' from [facility]
01/17/2024 double-balloon enteroscopy (Dr. Santos) [facility]: Procedure performed from mouth to jejunum to 200 cm distal to ligament of Treitz. Procedure stopped due to AVM treatment as well as poor prep. For AVM's found 1
in stomach, one in third portion of the duodenum, 2 in the proximal jejunum all treated with APC. 25 mm inflammatory polyp in the stomach (inflammatory/hyperplastic polyp negative for dysplasia) with some focal ulceration and friability. Resected
en block with 2 Dura clips and 2 resolution clips placed.
02/14/2024 EGD(Dr. Doherty) [place]: normal esophagus. Normal duodenum. Normal jejunum. Friability/erythema in stomach consistent with gastritis. Previous polypectomy with endoclips in place.
02/14/2024 Sigmoidoscopy (Dr. Doherty) [place]: Sigmoidoscopy up to 55 cm. Nonbleeding diverticuli. Hemorrhoids.
04/09/24 EGD [facility]- , clip from prior polypectomy seen in gastric body, enlarge fold in stomach prominent if gastric antrum one in particular with possible platelet plug suspicious for isolated gastric varix. erythema in antrum, duodenitis,
single non bleeding angioectasia in jejunum treated with monopolar probe, area of active oozing noted with copeous washing bleeding stopped, suspicious for Dieulafoy lesion attempted clip but area unable to ID again despite multiple attempts. non
bleeding jejunal ulcer non bleeding, no specimen collected
Impression:
-Acute on chronic anemia
-OB positive stool-recent GI bleed with extensive work up
-cirrhosis (new diagnosis) with decompensation with HE and mild ascites on imaging
-imaging with left atrial appendage on watchman with thrombus s/p card eval
-? hx HE on lactulose/Xifaxan
-anasarca
-cellulitis
-pulm edema
-hyponatremia
-diffuse rash
other medical problems:
-afib
-ESRD on HD --
-NIDDM
-GERD
-MVR
-aortic aneurysm
-JESUS
-obesity
-recent cellulitis
-COPD
-chronic HFpEF
-hypoalbuminemia
Recommendations:
s/p attempted repeat enteroscopy 04/12 but noted with hypotension, hypoxia, green stool on exam and hbg 8.2 yesterday so procedure held
pt states he is feeling worse today consider options of comfort etc
- Low sodium diet pt declined restriction remains on ADA and low K diet
cont abx
await hbg this am
cont PPI
if hbg stable consider stopping octeotide gtt
last stool 04/10
On xifaxan, lactulose and lasix but no aldactone--
with no stools in 2 days pt encouraged by staff to take lactulose today as held for several days -- some lethargy in exam may be HE will add ammonia level now -- triggered by bleeding and now constipation
cont Iron
support given
Subjective
Subjective
Date of Service: April 13, 2024
04/09 black stool no stools record since that time and noted green stool on exam 04/12 answering questions but noted some lethargy in exam
Objective
Data Reviewed
Laboratory Data:
Laboratory Results
04/13/24 05:47
Laboratory Results
PT 15.9 Sec (11.4-14.6) H 04/12/24 09:22
INR 1.29 04/12/24 09:22
APTT 50.4 Sec (23.4-35.0) H 04/08/24 08:23
Total Bilirubin 0.8 mg/dl (0.2-1.3) 04/08/24 08:23
AST 33 U/L (17-59) 04/08/24 08:23
ALT 16 U/L (0-50) 04/08/24 08:23
Alkaline Phosphatase 103 U/L (38-126) 04/08/24 08:23
Vital Signs and I&O:
Vital Signs
Temp Pulse Resp BP Pulse Ox
96.5 F L 75 15 89/51 93
04/13/24 07:49 04/13/24 07:49 04/13/24 07:49 04/13/24 08:13 04/13/24 07:49
I&O
04/12/24 04/13/24 04/14/24
06:59 06:59 06:59
Intake Total 1941
Balance 1941
Physical Exam
Physical Exam
HEENT: Anicteric and Moist mucous membranes
Cardiology: Normal Sinus Rhythm
Pulmonary: Other (decreased )
GI: Soft and Distended (mild )
Extremities: No Edema
Neuro: Other (some lethargy in exam, minimal asterixis )
--- NOTE | 2024-04-13 10:15 | W.PN.HOSP.TC ---
Today's Communication/Plan
-
DNR
hospice consult
UF/HD per Nephrology
Assessment / Plan
Assessment / Plan
Assessment:
Suspected acute blood loss anemia on anemia of chronic disease (CKD related anemia)
- likely GI source, hemorrhoids vs variceal vs small bowel pathology (known AVMs)
- noted prior GI workup as summarized by GI notes
- s/p EGD here: clip from prior polypectomy seen in gastric body, enlarge fold in stomach prominent if gastric antrum one in particular with possible platelet plug suspicious for isolated gastric varix. erythema in antrum, duodenitis, single non
bleeding angioectasia in jejunum treated with monopolar probe, area of active oozing noted with copious washing bleeding stopped, suspicious for Dieulafoy lesion attempted clip but area unable to ID again despite multiple attempts. non bleeding
jejunal ulcer non bleeding, no specimen collected.
- s/p 3 units PRBCs
- hold oral iron; IV Iron with HD
- continue PPI BID
- continue Octreotide
- GI following; patient refusing transfer to [facility]. repeat EGD/Enteroscopy 04/12 was aborted for unstable vitals.
- following Hb
ESRD on HD, M/W/F
Hyponatremia as a functional of noncompliance
- nephrology consulting for routine HD needs; may need further UF
- continue oral Lasix
- continue TID Midodrine
Parox A. Fib
- on Amio
- no AC due to recent recurrent issue of GI bleeding
Liver Cirrhosis
Anasarca
- volume managed by HD
- Abd US: small volume ascites
- empiric Rocephin for SBP prophylaxis in setting of GI bleed, day 6/7
- continue Lactulose/Rifaximin
Recent cellulitis
- completed PO Abx course
COPD
- prn nebs
Chronic HFpEF
- volume managed by HD
Type 2 DM
- off Repaglinide
- SSI
- A1c recently was 5.1%
HLD - statin
GERD
JESUS
Hx of Aortic aneurysm
Sacrum with healing stage 3 PI - POA
- wound care consulted
Asymptomatic R thigh rash
- clinically monitor for now
DVT ppx: SCDs
Code: DNR as of 04/13
Dispo: patient now DNR and hospice consulted after discussion with patient and brother Rafi. Patient aims for home hospice if he can reasonably stabilize for transfer home. If not, they are aware G[facility] will be most appropriate.
Anticipated Discharge: > 48 hours
Subjective/Interval History
-
Date of Service: April 13, 2024
more symptomatic today, remains on O2
agreeable to DNR and hospice evaluation
Objective Data
-
Labs:
Laboratory Results
04/13/24
05:47
WBC Pending
Hgb Pending
Hct Pending
Plt Count Pending
Sodium 132 L
Potassium 4.5
Chloride 95 L
Carbon Dioxide 24
BUN 39 H
Creatinine 4.4 H*
Glucose 96
Calcium 8.2 L
Vital Signs:
Vital Signs
Temp Pulse Resp BP Pulse Ox
96.5 F L 75 15 89/51 93
04/13/24 07:49 04/13/24 07:49 04/13/24 07:49 04/13/24 08:13 04/13/24 08:00
I&O
04/12/24 04/13/24 04/14/24
06:59 06:59 06:59
Intake Total 1941
Balance 1941
Physical Exam
-
HEENT: Normocephalic and Atraumatic
Respiratory: Crackles
Cardiac: Regular Rhythm
GI: Soft
Musculoskeletal: Edema, Right Lower Extrem and Edema, Left Lower Extrem
Neuro: AO x 3
Hematologic / Lymphatic: No Lymphadenopathy
Psych: Calm
Data Reviewed
-
Total Time Spent with Patient (in minutes): 45
Labs: Labs Reviewed by me
[2024-04-13 11:37] VITALS: BP 108/58
[2024-04-13 11:39] LABS: Ammonia 18 umol/L (9-30)
[2024-04-13 11:53] LABS: Glucose - Point of Care 137 mg/dl (70-99)
--- NOTE | 2024-04-13 12:28 | CM ---
CM following re: discjharge planning.
CM following re: discharge planning.
Reviewed pt's chart, met with pt, pr's brother Rafi and spoke to pt's brother Raman over the phone.
Hospice consult noted. CM discussed it with the pt and pt's, brothers and pt expressed his wishes to have hospice at home and they agreed with [facility]. A referral to [place] [facility] made.
CM< met with the pt and pt's brother again per their request and both have questions regarding hospice care at home. Pt's brother went under impression that hospice care will provide 24/7 care at home and pt's brother informed that pt will have up
to 2 hours of caregiver services per day. Pt's brother Raman stated that he feels that pt's brother Rafi will not be able to care for pt at home and they requested inpatient hospice.
A referral made to hospice for eligibility for inpatient hospice.
D/C plan: hospice care: inpatient vs home hospice. Awaiting for evaluations an determinations
[2024-04-13 12:52] LABS: Hematocrit 24.9 % (39.0-52.0); Hemoglobin 7.8 g/dL (13.0-18.0); Mean Corp Hgb Conc. 31.3 g/dL (33.0-37.0); Mean Corpuscular Hgb 28.1 pg (27.0-31.0); Mean Corpuscular Volume 89.6 fL (80.0-94.0); Mean Platelet Volume 9.5 fL (7.4-10.4); Platelet Count 115 10^3/uL (130-400); Red Blood Cell Count 2.78 10^6/uL (4.70-6.10); White Blood Cell Count 6.9 10^3/uL (4.8-10.8)
--- NOTE | 2024-04-13 13:23 | W.PN.NEPH.PH ---
Today's Communication / Plan
-
Observe
Assessment/Plan
-
Assessment
ESRD
Acute anemia with GI bleed hx
Possible history of diverticulosis/AVM
Hypotension
Mitral valve repair
Diabetes mellitus type 2
Leukocytosis
cirrhosis based on US
Hyponatremia
Plan
follow h/h at 7.8 this morning
Patient cannot control fluid intake
Patient is now likely going to explore hospice options
He may require inpatient hospice as I do not believe he will survive long off dialysis
I asked him today if he wanted to continue dialysis and he told me no
remains hypervolemic
For EGD today re: GI bleeding
UF as hemodynamically tolerated ,still with significant edema
BP are soft, on midodrine for HD
cirrhosis is new diagnosis
Ongoing hyponatremia and volume overload is a function of the patient's noncompliance
-
-
Date of Service: April 13, 2024
CC / HPI / ROS
-
Chief Complaint:
ESRD
History of Present Illness:
ESRD on Monday dialysis schedule
Hemodynamically labile on midodrine
Hemoglobin at 7.8
Review of Systems:
Ascites
AV fistula
No chest pain or shortness of breath
Labs
-
Labs:
WBC 6.9 10^3/uL (4.8-10.8) 04/13/24 05:47
RBC 2.78 10^6/uL (4.70-6.10) L 04/13/24 05:47
Hgb 7.8 g/dL (13.0-18.0) L 04/13/24 05:47
Hct 24.9 % (39.0-52.0) L 04/13/24 05:47
Plt Count 115 10^3/uL (130-400) L D 04/13/24 05:47
Sodium 132 mmol/L (135-145) L 04/13/24 05:47
Potassium 4.5 mmol/L (3.5-5.1) 04/13/24 05:47
Chloride 95 mmol/L (98-107) L 04/13/24 05:47
Carbon Dioxide 24 mmol/L (22-30) 04/13/24 05:47
BUN 39 mg/dl (9-20) H 04/13/24 05:47
Creatinine 4.4 mg/dL (0.7-1.3) H* 04/13/24 05:47
eGFR 13.43 04/13/24 05:47
Glucose 96 mg/dl (70-99) 04/13/24 05:47
Calcium 8.2 mg/dl (8.4-10.2) L 04/13/24 05:47
Albumin 3.1 g/dl (3.5-5.0) L 04/08/24 08:23
Physical Exam
-
Vital Signs:
Vital Signs
Temp Pulse Resp BP Pulse Ox
97.6 F 68 16 108/58 99
04/13/24 11:37 04/13/24 11:37 04/13/24 11:37 04/13/24 11:37 04/13/24 11:37
Cardiovascular:: Regular rate and rhythm
Respiratory:: Bilateral: Coarse
Lung Excursion:: Normal
Abdomen:: Distended, Nontender and Soft
Bowel Sounds:: Normal
Extremity Edema:: +1: Bilateral:
Davis Catheter: No
[2024-04-13] MEDS: ULTRAM 50 MG PO (14:05)
[2024-04-13 15:44] VITALS: BP 101/48
[2024-04-13] MEDS: ROCEPHIN 1000 MG IV (16:39)
[2024-04-13] MEDS: STERILE WATER FOR INJECTION 10 ML IV (16:39)
[2024-04-13 16:46] LABS: Glucose - Point of Care 131 mg/dl (70-99)
[2024-04-13 19:45] VITALS: BP 111/54
--- NOTE | 2024-04-13 20:48 | PTCARENOTE ---
Shelia c/o 06/20 pain 'everywhere'. Patient drowsy but able to follow simple commands. Patient refusing all his scheduled medications and frequently states he wants to go home to . Patient tearful at times and states he is 'going to soon'.
LEANN Pavon made aware. Order received for IV Dilaudid. Care ongoing, will continue to monitor.
[2024-04-13] MEDS: NSS (PRESERVATIVE FREE) IV (21:03)
[2024-04-13] MEDS: PROTONIX IV IV (21:04)
[2024-04-13] MEDS: LIPITOR PO (21:04)
[2024-04-13] MEDS: XIFAXAN PO (21:04)
[2024-04-13] MEDS: SENOKOT PO (21:08)
[2024-04-13] MEDS: PREPARATION H OINTMENT RECTAL (21:08)
[2024-04-13] MEDS: DILAUDID 0.5 MG IV (21:53)
[2024-04-13] MEDS: ZOFRAN 4 MG IV (21:55)
[2024-04-13 22:04] VITALS: BP 105/55
--- NOTE | 2024-04-14 01:35 | PTCARENOTE ---
Patient continually taking heart monitor leads off. Patient remains off monitor. LEANN Pavon made aware. No new orders received at this time. Care ongoing.
[2024-04-14] MEDS: ATIVAN 0.5 MG PO ×2 (01:45→05:59)
[2024-04-14] MEDS: DILAUDID 0.5 MG IV ×3 (03:29→13:12)
--- NOTE | 2024-04-14 03:53 | PTCARENOTE ---
Patient setting off bed alarm trying to get OOB. Patient states he 'has to get up and go home'. Patient restless and showing signs of terminal agitation, no PRN meds available for anxiety. LEANN Pavon notified and order received for Ativan.
Care ongoing, will continue to monitor.
[2024-04-14 07:30] VITALS: BP 101/57
[2024-04-14 08:14] LABS: Glucose - Point of Care 152 mg/dl (70-99)
[2024-04-14] MEDS: PROTONIX IV 40 MG IV (08:34)
[2024-04-14] MEDS: NSS (PRESERVATIVE FREE) 10 ML IV (08:34)
[2024-04-14] MEDS: ProAmatine 10 MG PO (08:35)
[2024-04-14] MEDS: PREPARATION H OINTMENT 1 APPLIC RECTAL (08:35)
[2024-04-14] MEDS: HYDROPHOR 1 APPLIC TOPICAL (08:36)
[2024-04-14] MEDS: LASIX 80 MG PO (08:37)
[2024-04-14] MEDS: DUPHALAC/CHRONULAC PO (08:41)
[2024-04-14] MEDS: NEPHROCAP PO ×2 (08:42→08:53)
[2024-04-14] MEDS: PACERONE 100 MG PO (08:42)
[2024-04-14] MEDS: XIFAXAN PO ×2 (08:42→08:53)
[2024-04-14 10:14] LABS: Hematocrit 27.7 % (39.0-52.0); Hemoglobin 8.5 g/dL (13.0-18.0); Mean Corp Hgb Conc. 30.7 g/dL (33.0-37.0); Mean Corpuscular Hgb 28.4 pg (27.0-31.0); Mean Corpuscular Volume 92.6 fL (80.0-94.0); Mean Platelet Volume 8.7 fL (7.4-10.4); Platelet Count 120 10^3/uL (130-400); Red Blood Cell Count 2.99 10^6/uL (4.70-6.10); Red Cell Dist. Width 18.4 % (11.5-14.5); White Blood Cell Count 7.3 10^3/uL (4.8-10.8)
[2024-04-14 10:22] LABS: INR 1.32; PT 16.2 Sec (11.4-14.6)
[2024-04-14 10:27] LABS: ALT (SGPT) 11 U/L (0-50); AST (SGOT) 24 U/L (17-59); Albumin 3.1 g/dl (3.5-5.0); Alkaline Phosphatase 79 U/L (38-126); Blood Urea Nitrogen 44 mg/dl (9-20); Calcium 8.5 mg/dl (8.4-10.2); Carbon Dioxide 25 mmol/L (22-30); Chloride 95 mmol/L (98-107); Estimated Creatinine Clearance 13 ml/min; Glucose 135 mg/dl (70-99); Potassium 4.5 mmol/L (3.5-5.1); Sodium 132 mmol/L (135-145); Total Bilirubin 0.6 mg/dl (0.2-1.3); Total Protein 6.2 g/dl (6.3-8.2)
--- NOTE | 2024-04-14 10:52 | HOSPNOTE ---
Chart reviewed for [facility] eligibility at the request of KARYNA and . Recommendations to place patient on comfort care were given. Also given recommendations to schedule Ativan and add prn Haldol for management of anxiety and agitation. If agitation
is not managed with the above recommendations then we can admit GIP. Will follow up and reassess tomorrow.
--- NOTE | 2024-04-14 11:25 | W.PN.NEPH.PH ---
Today's Communication / Plan
-
Sign off
Assessment/Plan
-
Assessment
ESRD
Acute anemia with GI bleed hx
Possible history of diverticulosis/AVM
Hypotension
Mitral valve repair
Diabetes mellitus type 2
Leukocytosis
cirrhosis based on US
Hyponatremia
Plan
follow h/h at 7.8 this morning
Patient cannot control fluid intake
Patient is now likely going to explore hospice options
He may require inpatient hospice as I do not believe he will survive long off dialysis
We will sign off
-
-
Date of Service: April 14, 2024
CC / HPI / ROS
-
Chief Complaint:
ESRD
History of Present Illness:
ESRD on Monday dialysis schedule
Hemodynamically labile on midodrine
Hemoglobin at 7.8
Review of Systems:
Ascites
AV fistula
No chest pain or shortness of breath
Labs
-
Labs:
WBC 7.3 10^3/uL (4.8-10.8) 04/14/24 09:39
RBC 2.99 10^6/uL (4.70-6.10) L 04/14/24 09:39
Hgb 8.5 g/dL (13.0-18.0) L 04/14/24 09:39
Hct 27.7 % (39.0-52.0) L 04/14/24 09:39
Plt Count 120 10^3/uL (130-400) L 04/14/24 09:39
Sodium 132 mmol/L (135-145) L 04/14/24 09:39
Potassium 4.5 mmol/L (3.5-5.1) 04/14/24 09:39
Chloride 95 mmol/L (98-107) L 04/14/24 09:39
Carbon Dioxide 25 mmol/L (22-30) 04/14/24 09:39
BUN 44 mg/dl (9-20) H 04/14/24 09:39
Creatinine 6.2 mg/dL (0.7-1.3) H* 04/14/24 09:39
eGFR 8.90 04/14/24 09:39
Glucose 135 mg/dl (70-99) H 04/14/24 09:39
Calcium 8.5 mg/dl (8.4-10.2) 04/14/24 09:39
Albumin 3.1 g/dl (3.5-5.0) L 04/14/24 09:39
Physical Exam
-
Vital Signs:
Vital Signs
Temp Pulse Resp BP Pulse Ox
97.9 F 67 20 101/57 92
04/14/24 07:30 04/14/24 07:30 04/14/24 07:30 04/14/24 07:30 04/14/24 07:30
Cardiovascular:: Regular rate and rhythm
Respiratory:: Bilateral: Coarse
Lung Excursion:: Normal
Abdomen:: Nontender and Soft
Bowel Sounds:: Normal
Extremity Edema:: +2: Bilateral:
Davis Catheter: No
Other Findings::
Lethargic
--- NOTE | 2024-04-14 11:47 | W.PN.HOSP.TC ---
Addendum entered and electronically signed by Rosa Maria Pinto MD 04/16/24 16:54:
Liver cirrhosis only
Acute on chronic HFpEF
Original Note:
Today's Communication/Plan
-
maximize comfort measures
Assessment / Plan
Assessment / Plan
Assessment:
Suspected acute blood loss anemia on anemia of chronic disease (CKD related anemia)
- likely GI source, hemorrhoids vs variceal vs small bowel pathology (known AVMs)
- noted prior GI workup as summarized by GI notes
- s/p EGD here: clip from prior polypectomy seen in gastric body, enlarge fold in stomach prominent if gastric antrum one in particular with possible platelet plug suspicious for isolated gastric varix. erythema in antrum, duodenitis, single non
bleeding angioectasia in jejunum treated with monopolar probe, area of active oozing noted with copious washing bleeding stopped, suspicious for Dieulafoy lesion attempted clip but area unable to ID again despite multiple attempts. non bleeding
jejunal ulcer non bleeding, no specimen collected.
- s/p 3 units PRBCs
- GI following; patient refused transfer to [facility]. repeat EGD/Enteroscopy 04/12 was aborted for unstable vitals.
ESRD on HD, M/W/F
Hyponatremia as a functional of noncompliance
- HD now stopped as patient on comfort measures
Parox A. Fib
- on Amio
- no AC due to recent recurrent issue of GI bleeding
Liver Cirrhosis
Anasarca
Recent cellulitis
- completed PO Abx course
COPD
- prn nebs
Chronic HFpEF
- volume managed by HD
Type 2 DM
- off Repaglinide
- SSI
- A1c recently was 5.1%
HLD - statin
GERD
JESUS
Hx of Aortic aneurysm
Sacrum with healing stage 3 PI - POA
- wound care consulted
Asymptomatic R thigh rash
- clinically monitor for now
DVT ppx: SCDs
Code: DNR as of 04/13
Dispo: discussed with family, not a candidate for home hospice, too symptomatic and unstable. Transitioned to comfort care measures.
Anticipated Discharge: Within 24 hours
Subjective/Interval History
-
Date of Service: April 14, 2024
more somnolent and symptomatic with hypoxia and agitation overnight
unsafe for transport for home hospice; now on comfort care measures
family travelling in to see him
Objective Data
-
Labs:
Laboratory Results
04/14/24
09:39
WBC 7.3
Hgb 8.5 L
Hct 27.7 L
Plt Count 120 L
PT 16.2 H
INR 1.32
Sodium 132 L
Potassium 4.5
Chloride 95 L
Carbon Dioxide 25
BUN 44 H
Creatinine 6.2 H*
Glucose 135 H
Calcium 8.5
Total Bilirubin 0.6
AST 24
ALT 11
Alkaline Phosphatase 79
Vital Signs:
Vital Signs
Temp Pulse Resp BP Pulse Ox
97.9 F 67 20 101/57 92
04/14/24 07:30 04/14/24 07:30 04/14/24 07:30 04/14/24 07:30 04/14/24 07:30
I&O
04/13/24 04/14/24 04/15/24
06:59 06:59 06:59
Intake Total 0 / 0
Output Total 0 / 0
Balance 0 / 0
Physical Exam
-
General: Respiratory Distress (mild) and Appears Chronically Ill
HEENT: Normocephalic and Atraumatic
Respiratory: Crackles
Cardiac: Regular Rhythm and S1/S2
GI: Distended
Musculoskeletal: Edema, Right Lower Extrem and Edema, Left Lower Extrem
Psych: Calm
Data Reviewed
-
Total Time Spent with Patient (in minutes): 45
[2024-04-14 12:03] LABS: Glucose - Point of Care 144 mg/dl (70-99)
--- NOTE | 2024-04-14 12:54 | PTCARENOTE ---
family at bedside. extensive conversation RE: end of life care and comfort. family seems accepting and expresses understanding.
[2024-04-14] MEDS: ATIVAN 1 MG IV ×2 (13:28→20:35)
[2024-04-14] MEDS: MORPHINE SULFATE 2 MG IV ×4 (13:38→20:36)
--- NOTE | 2024-04-14 13:55 | PTCARENOTE ---
pt demonstrating increased restlessness. Pulling at IV/gown/blankets and trying to get out of bed. PRN admin per protocol
[2024-04-14] MEDS: SANTYL OINTMENT TOPICAL (13:58)
[2024-04-14 16:00] VITALS: BP 99/54
--- NOTE | 2024-04-14 17:12 | PTCARENOTE ---
x1 order obtained for morphine D/T increased s/s of pain despite PRN administration. too soon for additional prn dose. D/W pharmacy re: initiating gtt.
[2024-04-14] MEDS: MORPHINE 100 IV (17:48)
--- NOTE | 2024-04-14 17:54 | PTCARENOTE ---
morphine gtt initiated on step 2 per order. pt appears comfortable, family at bedside.
[2024-04-14 23:30] VITALS: BP 91/48
[2024-04-15] MEDS: ROBINUL 0.2 MG IV (03:13)
[2024-04-15] MEDS: MORPHINE SULFATE 2 MG IV (03:14)
--- NOTE | 2024-04-15 05:29 | W.PN.DEATH ---
Pronouncement of
-
Called to see patient to pronounce.
No spontaneous heart tones or respirations noted.
Patient not responsive to verbal stimuli.
Patient is pronounced .
Time of : 05:15
Date of : 04/15/24
Cause of : Acute blood loss anemia, end stage renal disease, atrial fibrillation, liver cirrhosis, chronic obstructive pulmonary disease, diabetes mellitus, hyperlipidemia, history of aortic aneurysm.
Family Notified: Yes (Brother/ Rafi )
--- NOTE | 2024-04-15 07:20 | PTCARENOTE ---
Patient without any spontaneous respirations or pulse. Morphine gtt stopped and 74 ml wasted. Waste paper to pharmacy. [facility] called. LEANN Arredondo on unit and pronounced patient. Patient's brother Rafi called and notified BY LEANN. Support
provided to family.
--- NOTE | 2024-04-15 09:09 | PTCARENOTE ---
pt family at bedside. Brother contacting home. support and condolences
--- NOTE | 2024-04-15 10:00 | PTCARENOTE ---
Body prepared for morgue. Security aware. Belongings sent with family.
--- NOTE | 2024-04-16 09:41 | PN.CDI ---
CDI
- -
CDI:
Physician Documentation Request
Admit Date: 04/08/24 11:25
Dear Doctor Millie,
Patient admitted for anemia.
04/11 Nephrology PN: 'remains hypervolemic...volume overload is a function of the patient's noncompliance'
04/13 Nephrology PN: 'UF as hemodynamically tolerated ,still with significant edema'
04/14 Hospitalist PN: 'Chronic HFpEF - volume managed by HD...Respiratory: Crackles'
Please provide further specificity regarding the most likely acuity of CHF you are evaluating, treating or monitoring.
Acute on chronic HFpEF
Chronic HFpEF
Other
Use of terms such as suspected, likely, concern for, or probable (associated with a specific diagnosis that is being evaluated, monitored, or treated as if it exists) are acceptable and can be coded in the inpatient setting, when documented at the
time of discharge.
Thank you,
Susana Morales RN, BSN
CDI Specialist
Available via [employer] text
Please use your independent medical judgment in providing your response.
--- NOTE | 2024-04-16 09:54 | PN.CDI ---
CDI
- -
CDI:
Physician Documentation Request
Admit Date: 04/08/24 11:25
Dear Doctor Millie,
Patient admitted for anemia.
04/12 Hospitalist PN: 'Liver Cirrhosis, Anasarca - volume managed by HD - Abd US: small volume ascites - empiric Rocephin for SBP prophylaxis in setting of GI bleed, day 01/15 - continue Lactulose/Rifaximin'
04/13 GI PN: 'continue lactulose as may help with patient's mental status...with no stools in 2 days pt encouraged by staff to take lactulose today as held for several days -- some lethargy in exam may be HE will add ammonia level now'
04/14 PCN: 'Patient setting off bed alarm trying to get OOB. Patient states he 'has to get up and go home'. Patient restless and showing signs of terminal agitation'
Based on the above, could you clarify in the progress notes, the appropriate diagnosis, if significant, that supports the above abnormalities and additional evaluation, monitoring and/or treatment rendered:
Acute liver failure
Liver cirrhosis only
Other
Use of terms such as suspected, likely, concern for, or probable (associated with a specific diagnosis that is being evaluated, monitored, or treated as if it exists) are acceptable and can be coded in the inpatient setting, when documented at the
time of discharge.
Thank you,
Susana Morales RN, BSN
CDI Specialist
Available via [place] text
Please use your independent medical judgment in providing your response.
== END 2024-04-15 05:15 | disposition expired | DRG 377 ==
LOC: 3 WEST ACU 11:25
PROVIDERS: Nurse Practitioner; Nurse Practitioner Adult Health; Specialist; ADMITTING PHYSICIAN Internal Medicine; ATTENDING PHYSICIAN Internal Medicine; CONSULT PHYSICIAN Internal Medicine; EMERGENCY PHYSICIAN Emergency Medicine; FAMILY PHYSICIAN Internal Medicine; OTHER PHYSICIAN Student in an Organized Health Care Education/Training Program
PROC: 30233N1 Transfusion of Nonautologous Red Blood Cells into Peripheral Vein, Percutaneous Approach (ICD-10-PCS; 2024-04-08)
PROC: 5A1D70Z Performance of Urinary Filtration, Intermittent, Less than 6 Hours Per Day (ICD-10-PCS; 2024-04-08)
PROC: 0W3P8ZZ Control Bleeding in Gastrointestinal Tract, Via Natural or Artificial Opening Endoscopic (ICD-10-PCS; 2024-04-09)
DX: K31.811 Angiodysplasia of stomach and duodenum with bleeding (principal); I50.33 Acute on chronic diastolic (congestive) heart failure; L89.153 Pressure ulcer of sacral region, stage 3; N18.6 End stage renal disease; D62 Acute posthemorrhagic anemia; I13.2 Hypertensive heart and chronic kidney disease with heart failure and with stage 5 chronic kidney disease, or end stage renal disease; R18.8 Other ascites; E87.1 Hypo-osmolality and hyponatremia; K76.6 Portal hypertension; Z51.5 Encounter for palliative care; K55.21 Angiodysplasia of colon with hemorrhage; K74.60 Unspecified cirrhosis of liver; E11.22 Type 2 diabetes mellitus with diabetic chronic kidney disease; J44.9 Chronic obstructive pulmonary disease, unspecified; D63.1 Anemia in chronic kidney disease; E66.9 Obesity, unspecified; I71.9 Aortic aneurysm of unspecified site, without rupture; Z95.2 Presence of prosthetic heart valve; Z99.2 Dependence on renal dialysis; K28.4 Chronic or unspecified gastrojejunal ulcer with hemorrhage; K29.81 Duodenitis with bleeding; I48.0 Paroxysmal atrial fibrillation; E78.5 Hyperlipidemia, unspecified; K21.9 Gastro-esophageal reflux disease without esophagitis; G47.33 Obstructive sleep apnea (adult) (pediatric); K44.9 Diaphragmatic hernia without obstruction or gangrene; R21 Rash and other nonspecific skin eruption; R09.02 Hypoxemia; R45.1 Restlessness and agitation; Z68.29 Body mass index [BMI] 29.0-29.9, adult; Z79.899 Other long term (current) drug therapy; Z86.79 Personal history of other diseases of the circulatory system; Z86.19 Personal history of other infectious and parasitic diseases; Z87.891 Personal history of nicotine dependence; Z95.1 Presence of aortocoronary bypass graft; Z91.81 History of falling; Z96.649 Presence of unspecified artificial hip joint; Z96.652 Presence of left artificial knee joint; Z88.5 Allergy status to narcotic agent; Z88.8 Allergy status to other drugs, medicaments and biological substances
CPT/HCPCS: 71045; 76705; 80048; 80053; 82140; 82962; 85014; 85018; 85025; 85027; 85610; 85730; 86850; 86900; 86901; 86920; 87070; 87811; 93005; 96374; 96375; 97116; 97163; 97167; 97530; 99285; G0257; J2916; P9016; P9047; Q5106